=== PATIENT | male | born 1970 | race Caucasian/White ===

== ENCOUNTER 2021-08-10 14:58 | Outpatient (CLI) | payer OTHER, SELFPAY ==
[2021-08-10 15:19] VITALS: BP 121/76; PULSE 75; RESP 16; TEMP 36.7; O2SAT 98; BMI 31.7
[2021-08-10] MEDS: 0.9% Saline Lock 10 ML Syringe IV (15:22)
[2021-08-10 15:59] VITALS: BP 119/83; PULSE 70; RESP 16; TEMP 36.8; O2SAT 98
[2021-08-10 16:59] VITALS: BP 128/79; PULSE 66; PULSE 69; RESP 16; TEMP 36.9; O2SAT 97; O2SAT 99
== END 2021-08-10 23:59 | disposition home or self-care (01) ==
LOC: MS3OUT 15:03 → MS3 15:04
PROVIDERS: Referring Provider Nurse Practitioner Acute Care; Visit Provider Nurse Practitioner Acute Care
DX: Z23 Encounter for immunization (principal); U07.1 COVID-19
CPT/HCPCS: J7050; M0245; Q0245; A4216

== ENCOUNTER → 2023-02-06 | Outpatient (CLI) | payer OTHER, SELFPAY ==
--- NOTE | 2023-02-06 15:39 | RAD_ITS ---
EXAM: XR LUMBOSACRAL SPINE, 4 OR 5 VIEWS CLINICAL INDICATION: CHRONIC LOWER BACK PAIN TECHNIQUE: 4 views including AP, lateral and bilateral oblique views. COMPARISON: No relevant prior studies available. FINDINGS: VERTEBRAE: Unremarkable. Preserved vertebral body height. No fracture. No spondylolisthesis. Preservation of the normal lumbar lordosis. No significant facet arthropathy. DISC SPACES: No acute findings. Disc spaces are maintained. GASTROINTESTINAL TRACT: Unremarkable as visualized. Included bowel gas pattern is non-obstructive. RAD/L/S Spine Min 4 Views IMPRESSION: No evidence of lumbar spinal fracture or spondylolisthesis. Electronically Signed: Torie Hernandez MD at 7:57 EDT ,
== END | disposition home or self-care (01) ==
PROVIDERS: PCP Family Medicine; Referring Provider Family Medicine; Visit Provider Family Medicine
DX: M54.50 Low back pain, unspecified (principal)
CPT/HCPCS: 72110

== ENCOUNTER → 2023-10-11 | Outpatient (CLI) | payer OTHER, SELFPAY ==
[2023-10-11 12:28] LABS: Absolute Lymphocyte Count 1.95 X10^3/uL (0.83-4.51); Absolute Neutrophil Count 3.7 X10^3/uL (2.0-7.7); Basophil# 0.05 X10^3/uL; Basophil% 0.8 % (0-1); Eosinophil# 0.13 X10^3/uL; Hematocrit 46.3 % (40-54); Hemoglobin 15.2 g/dL (13.0-16.5); Lymphocyte # 1.95 X10^3/ul (0.83-4.51); Lymphocyte % 30.2 % (19-41); Mean Corp Hgb Conc 32.8 g/dL (32-36); Mean Corpuscular Hgb 27.5 pg (27.0-32.0); Mean Corpuscular Volume 83.7 fL (80-94); Mean Platelet Vol. 10.4 fl (6.2-12.0); Monocyte# 0.62 X10^3/uL; Monocyte% 9.6 % (0-10); NRBC Flagged by Analyzer 0 % (0-5); Neutrophil % 57.2 % (47-70); Platelet Count 334 K/mm3 (150-450); RBC Distribution Width CV 12.5 % (11.6-14.6); Red Blood Count 5.53 M/mm3 (4.6-6.2); White Blood Count 6.5 K/mm3 (4.4-11.0)
[2023-10-11 13:15] LABS: AST(SGOT) 21 U/L (15-37); Alanine Aminotransfer ALT/SGPT 28 U/L (16-61); Albumin, Serum 3.8 g/dL (3.2-5.0); Alkaline Phosphatase 79 U/L (45-117); Anion Gap 5 (5-15); BUN 12 mg/dL (7-18); BUN/Creat Ratio 10.7 RATIO (10-20); Calcium,Total 9.1 mg/dL (8.5-10.1); Chloride 107 mmol/L (98-107); Cholesterol 126 mg/dL (200); Creatinine, Serum 1.12 mg/dL (0.70-1.30); EST Glomerular Filtration Rate 73 mL/min (>60); Est Glom Filt Rate - Afr Amer 88 mL/min (>60); Globulin 3.9 g/dL (2.2-4.2); Glucose 91 mg/dL (74-106); High Density Lipoprotein 38 mg/dL; PSA,Total - Annual Screen 0.95 ng/mL (0.00-4.00); Potassium 4.1 mmol/L (3.5-5.1); Protein, Total 7.7 g/dL (6.4-8.2); Sodium Level 138 mmol/L (136-145); Triglycerides 69 mg/dL; Very Low Density Lipoprotein 14 mg/dL (5-40)
== END | disposition home or self-care (01) ==
PROVIDERS: PCP Internal Medicine; Referring Provider Internal Medicine; Visit Provider Internal Medicine
DX: Z00.00 Encounter for general adult medical examination without abnormal findings (principal)
CPT/HCPCS: 36415; 80053; 80061; 84153; 85025; G0103

== ENCOUNTER → 2024-02-12 | Outpatient (CLI) | payer OTHER, SELFPAY ==
[2024-02-12 09:02] LABS: Absolute Lymphocyte Count 1.97 X10^3/uL (0.83-4.51); Absolute Neutrophil Count 2.8 X10^3/uL (2.0-7.7); Basophil# 0.05 X10^3/uL; Basophil% 0.8 % (0-1); Eosinophil# 0.22 X10^3/uL; Eosinophils% 3.7 % (0-5); Hematocrit 44.6 % (40-54); Hemoglobin 14.7 g/dL (13.0-16.5); Lymphocyte # 1.97 X10^3/ul (0.83-4.51); Lymphocyte % 33.3 % (19-41); Mean Corpuscular Hgb 28.1 pg (27.0-32.0); Mean Corpuscular Volume 85.3 fL (80-94); Mean Platelet Vol. 9.5 fl (6.2-12.0); Monocyte# 0.83 X10^3/uL; NRBC Flagged by Analyzer 0 % (0-5); Neutrophil # 2.81 X10^3/uL (2.7-7.7); Neutrophil % 47.5 % (47-70); Platelet Count 261 K/mm3 (150-450); RBC Distribution Width CV 12.7 % (11.6-14.6); RBC Distribution Width SD 39.3 fl (35.1-43.9); Red Blood Count 5.23 M/mm3 (4.6-6.2); White Blood Count 5.9 K/mm3 (4.4-11.0)
[2024-02-15 08:13] LABS: Alternaria alternata <0.10 kU/L (Class 0); Bermuda Grass <0.10 kU/L (Class 0); Bluegrass, Kentucky <0.10 kU/L (Class 0); Cat Hair/Dander, Standard <0.10 kU/L (Class 0); D farinae Mite <0.10 kU/L (Class 0); D pteronyssinus <0.10 kU/L (Class 0); Dog Epithelia <0.10 kU/L (Class 0); Elm, American White <0.10 kU/L (Class 0); Mouse Urine <0.10 kU/L (Class 0); Oak, White <0.10 kU/L (Class 0); Plantain, English <0.10 kU/L (Class 0); Ragweed, Short/Common <0.10 kU/L (Class 0)
[2024-02-21 17:07] LABS: Aspirgillus flavus Negative (Neg:<1:1); Aspirgillus fumigatus Negative (Neg:<1:1); Aspirgillus niger Negative (Neg:<1:1); Immunoglobulin E 32 IU/mL (6-495)
== END | disposition home or self-care (01) ==
LOC: PAVLAB 08:42
PROVIDERS: PCP Internal Medicine; Referring Provider Nurse Practitioner Acute Care; Visit Provider Nurse Practitioner Acute Care
DX: J30.2 Other seasonal allergic rhinitis (principal)
CPT/HCPCS: 36415; 82785; 85025; 86003; 86606

== ENCOUNTER 2024-03-28 14:41 | Emergency (ER) | payer OTHER, SELFPAY ==
[2024-03-28] VITALS (7 sets, daily range): BP systolic 110–157; BP diastolic 78–97; PULSE 55–74; RESP 12–18; TEMP 35.5–36.2; O2SAT 97–99; BMI 33.7
--- NOTE | 2024-03-28 15:09 | ED.VIS.CHEST ---
HPI History of Present Illness Chief Complaint: Chest Pain Informant: patient and spouse/S.O. Narrative Narrative: Is a very pleasant 53-year-old male presenting to the emergency room with intermittent chest pain. Patient states around 1230 he developed a pressure-like sensation midsternal radiating under each breast. He states it last for few seconds and then resolves for seconds to minutes. It has persisted. He states that the time he had just gotten off the phone and was stressed out for work reasons. He states that he gets acid reflux and this feels different. He is not feeling his back shoulder draws. He states that he has a history of having a Ross procedure about 20 years ago. He saw his charge master analyst earlier this year had a uneventful checkup. Patient states this sensation is very typical for him. He denies any recent change in medications or exercise tolerance. He denies any pleuritic component to the pain. No prior DVT PE. [facility] Medical History Anxiety with flying [facility] health care Sleep apnea Frequent headaches Heart disease COVID-19 Home Medications ?Medication ?Instructions ?Recorded ?Last Taken ?Type aspirin 81 mg tablet 81 mg PO DAILY 08/10/21 Unknown History metoprolol tartrate 25 mg tablet 12.5 mg (1/2 x 25 mg) PO DAILY #90 11/06/23 Unknown Rx tabs lorazepam 1 mg tablet 1 mg PO DAILY PRN anxiety 02/12/24 Unknown History Allergy/AdvReac Type Severity Reaction Status Date / Time Iodinated Contrast Media Allergy Severe Anaphylaxis Verified 03/28/24 14:43 (iodine contrast) peanut (peanuts) Allergy Severe Anaphylaxis Verified 03/28/24 14:43 shellfish derived Allergy Severe Anaphylaxis Verified 03/28/24 14:43 diphenhydramine (From AdvReac Intermediate Hives Verified 03/28/24 14:43 Benadryl) Family History no significant family his Surgical History S/P Ross procedure Heart valve replaced Social History adopted: No household members: spouse current occupational status: employed current occupation: [employer] pets and animals: Yes (2) pets and animals: dog(s) leisure activities: hunting and fishing Smoking Status: Never smoker Smokeless tobacco user: chewing tobacco alcohol intake: never substance use type: does not use diet: other well-balanced diet: daily or most days caffeine: No frequency: daily seatbelt use: always do you feel safe at home: Yes ROS ROS ED Constitutional Constitutional ED: Denies chills, fever(s) or weight loss Eyes Eyes: Denies change in vision or diplopia ENT ENT ED: Denies ear pain, rhinorrhea or sore throat Cardiovascular Cardiovascular: Reports chest pain; Denies orthopnea, palpitations or racing heartbeat Respiratory/Chest Respiratory/Chest: Denies cough, dyspnea, dyspnea on exertion or orthopnea Gastrointestinal Gastrointestinal: Denies abdominal pain, diarrhea, nausea or vomiting Genitourinary Genitourinary ED: Denies dysuria, hematuria or urinary frequency Musculoskeletal Musculoskeletal: Denies arthralgias or myalgias Integumentary Denies abscess or rash Neurologic Neurologic: Denies headache(s) or weakness Psychiatric Psychiatric: Denies anxiety, depression, suicidal ideation or suicidal thoughts Endocrine Endocrinology: Denies polydipsia, polyphagia or polyuria Allergic/Immunologic Allergic/Immunologic ED: Denies mouth swelling, tongue swelling or urticaria EXAM Physical Exam Const Vital Signs: 03/28/24 14:41 03/28/24 14:43 03/28/24 15:41 Temperature 96 F L Temperature Source Temporal Pulse Rate 74 61 Respiratory Rate 18 15 Respiratory Effort Normal Blood Pressure 152/97 H 130/90 H Blood Pressure Mean 115 103 Pulse Ox 98 97 Oxygen Delivery Method Room Air Room Air 03/28/24 16:00 03/28/24 17:00 03/28/24 18:00 Temperature Temperature Source Pulse Rate 61 62 55 L Respiratory Rate 15 16 18 Respiratory Effort Blood Pressure 110/84 H 134/93 H 131/78 H Blood Pressure Mean 92 106 95 Pulse Ox 98 98 99 Oxygen Delivery Method Room Air Room Air Room Air Positive well nourished and well developed General Appearance ED: well developed and NAD HEENT Reports normocephalic, head/scalp atraumatic and moist mucous membranes Eyes PERRL and EOMs intact bilaterally Neck no lymphadenopathy, supple and no JVD Resp normal respiratory effort and clear to auscultation bilaterally Cardio regular rate, regular rhythm and no murmurs GI normal to inspection, nondistended, normoactive bowel sounds and non-tender Palpation: soft Back/Spine no CVA tenderness and normal ROM Extremity normal to inspection General Extremety ED: Negative for edema General Extremity: Negative for edema Neuro oriented x3 and CN's II-XII intact bilaterally Sensorium / Orientation: alert Motor Exam: strength 5/5 throughout Psych mental status grossly normal Mood & Affect: Negative for depressed or tearful Skin no rashes or lesions noted and no wounds MDM MDM MDM Narrative Medical decision making narrative: Differential diagnosis includes but not limited to acute coronary syndrome, PE, esophagitis gastritis/reflux disease, aortic dissection, pneumothorax, pneumonia, pleural effusion, pericardial effusion, Interpretation of the single view chest x-ray is no acute process. White count 7.8 hemoglobin 15.3 platelet count is 291 D-dimer is negative troponin is 8 glucose 111. EKG is nonischemic no priors to compare to. Patient received a GI cocktail and states that his symptoms have dissipated slowly. A second troponin was obtained. This also was negative. At this point patient be discharged home. We talked about possible home treatment for esophagitis as well as follow-up. Patient notes understanding the plan is to his . History & Record Review Discussion w/independent historian: Patient and Significant other Lab Data Attestation: I reviewed the patient's lab results. Labs: Laboratory Results - last 24 hr 03/28/24 03/28/24 03/28/24 15:01 15:08 17:00 WBC 7.8 RBC 5.52 Hgb 15.3 Hct 45.3 MCV 82.1 MCH 27.7 MCHC 33.8 RDW Std Deviation 37.0 RDW Coeff of Karl 12.3 Plt Count 291 MPV 10.3 Immature Gran % (Auto) 0.500 Neut % (Auto) 62.7 Lymph % (Auto) 23.8 [place] % (Auto) 9.8 Eos % (Auto) 2.7 Baso % (Auto) 0.5 Absolute Neuts (auto) 4.9 Absolute Lymphs (auto) 1.85 Nucleated RBC % 0 D-Dimer Quant (PE/DVT) < 0.27 L Sodium 138 Potassium 3.9 Chloride 108 H Carbon Dioxide 25.0 Anion Gap 5 BUN 18 Creatinine 1.21 Estim Creat Clear Calc 82.89 Est GFR (MDRD) Af Amer 80 Est GFR (MDRD) Non-Af 66 BUN/Creatinine Ratio 14.9 Glucose 111 H Calcium 9.3 Troponin I High Sens 8 7 Radiography Diagnostic Testing: Clinical Impression(s) from Imaging Studies Chest X-Ray 03/28/24 15:25 IMPRESSION: Cardiomegaly. Clear lungs. Electronically Signed: Jeff Barth MD at 15:54 EDT , EKG Initial EKG: Attestation: I personally reviewed and interpreted this EKG as follows: Comments: Normal sinus rhythm ventricular rate of 64 bpm. No definitive features of ACS noted. Discharge Plan Triage Chief Complaint: Chest Pain ED Provider: Inocente Wade Dx/Rx/DC Orders Clinical Impression: Chest pain, S/P Ross procedure Instructions: ED Chest Pain, Uncertain Cause Prescriptions: No Action lorazepam 1 mg tablet 1 mg PO DAILY PRN (Reason: anxiety) Rx Instructions: prior to flights aspirin 81 mg Tablet 81 mg PO DAILY metoprolol tartrate 25 mg tablet 12.5 mg PO DAILY Qty: 90 1RF Primary Care Provider: Jossue Fish Referrals: Jossue Fish MD [Primary Care Provider] - As Needed Activity Restrictions/Additional Instructions: You may try taking a Pepcid once or twice daily over the next week as we discussed for possible inflammation of the esophagus. Print Language: Guinean Disposition Disposition: Home, Self Care
--- NOTE | 2024-03-28 15:15 | EKG12_ITS ---
Test Reason : CHEST PAIN Blood Pressure : / mmHG Vent. Rate : 064 BPM Atrial Rate : 064 BPM P-R Int : 198 ms QRS Dur : 090 ms QT Int : 414 ms P-R-T Axes : 030 029 053 degrees QTc Int : 427 ms Normal sinus rhythm Normal ECG Confirmed by MARCO A STEINBERG, MARQUITA ([id number]), editor newspaper LEXIE UBNN ([id number]) on 04/01/2024 8:13:02 AM Referred By: Confirmed By:MARQUITA STRICKLAND MD
[2024-03-28] MEDS: Lidocaine 2% Viscous15 ML UDC 15 ML PO (15:19)
[2024-03-28] MEDS: Aspirin 81 MG TAB.CHEW 324 MG PO (15:20)
[2024-03-28] MEDS: Mag /Aluminum/Simeth WCH UDC 30 ML ORAL.SUSP PO (15:20)
--- NOTE | 2024-03-28 15:25 | RAD_ITS ---
STUDY: X-RAY CHEST REASON FOR EXAM: Male, 53 years old. Chest pain TECHNIQUE: Frontal view of the chest COMPARISON: None. FINDINGS: The lungs are clear. There are no pleural effusions. There is no pneumothorax. The heart is enlarged. The patient is status post sternotomy. The visualized osseous structures are within normal limits. RAD/Chest 1 View (Portable) IMPRESSION: Cardiomegaly. Clear lungs. Electronically Signed: Jeff Barth MD at 15:54 EDT ,
[2024-03-28 15:31] LABS: Absolute Lymphocyte Count 1.85 X10^3/uL (0.83-4.51); Absolute Neutrophil Count 4.9 X10^3/uL (2.0-7.7); Basophil# 0.04 X10^3/uL; Basophil% 0.5 % (0-1); Eosinophil# 0.21 X10^3/uL; Eosinophils% 2.7 % (0-5); Hematocrit 45.3 % (40-54); Hemoglobin 15.3 g/dL (13.0-16.5); Lymphocyte # 1.85 X10^3/ul (0.83-4.51); Lymphocyte % 23.8 % (19-41); Mean Corp Hgb Conc 33.8 g/dL (32-36); Mean Corpuscular Hgb 27.7 pg (27.0-32.0); Mean Corpuscular Volume 82.1 fL (80-94); Mean Platelet Vol. 10.3 fl (6.2-12.0); Monocyte# 0.76 X10^3/uL; Monocyte% 9.8 % (0-10); NRBC Flagged by Analyzer 0 % (0-5); Neutrophil # 4.88 X10^3/uL (2.7-7.7); Neutrophil % 62.7 % (47-70); Platelet Count 291 K/mm3 (150-450); RBC Distribution Width CV 12.3 % (11.6-14.6); Red Blood Count 5.52 M/mm3 (4.6-6.2); White Blood Count 7.8 K/mm3 (4.4-11.0)
[2024-03-28 16:03] LABS: D-Dimer Quantitative (DVT/PE) < 0.27 FEU/ug/m (0.27-0.49)
[2024-03-28 16:08] LABS: Anion Gap 5 (5-15); BUN 18 mg/dL (7-18); BUN/Creat Ratio 14.9 RATIO (10-20); Calcium,Total 9.3 mg/dL (8.5-10.1); Chloride 108 mmol/L (98-107); Creatinine, Serum 1.21 mg/dL (0.70-1.30); EST Glomerular Filtration Rate 66 mL/min (>60); Est Glom Filt Rate - Afr Amer 80 mL/min (>60); Estimated Creatinine Clearance 82.89 ml/min; Glucose 111 mg/dL (74-106); Potassium 3.9 mmol/L (3.5-5.1); Sodium Level 138 mmol/L (136-145); Troponin-I HS (w/2H Reflex) 8 pg/mL (3.0-78.0)
[2024-03-28 17:48] LABS: Reflex Troponin-HS? (from REC) Y
[2024-03-28 18:34] LABS: Troponin-I HS 7 pg/mL (3.0-78.0)
== END 2024-03-28 19:12 | disposition home or self-care (01) ==
PROVIDERS: Emergency Provider Emergency Medicine; PCP Internal Medicine; Visit Provider Emergency Medicine
DX: R07.9 Chest pain, unspecified (principal); Z86.16 Personal history of COVID-19
CPT/HCPCS: 71045; 80048; 84484; 85025; 85379; 93005; 99284; A4216

== ENCOUNTER → 2024-10-11 | Outpatient (CLI) | payer OTHER, SELFPAY ==
[2024-10-11 13:09] LABS: Absolute Lymphocyte Count 2.07 X10^3/uL (0.83-4.51); Absolute Neutrophil Count 3.4 X10^3/uL (2.0-7.7); Basophil# 0.04 X10^3/uL; Basophil% 0.6 % (0-1); Eosinophil# 0.13 X10^3/uL; Hematocrit 44.4 % (40-54); Hemoglobin 15.2 g/dL (13.0-16.5); Lymphocyte # 2.07 X10^3/ul (0.83-4.51); Lymphocyte % 32.4 % (19-41); Mean Corp Hgb Conc 34.2 g/dL (32-36); Mean Corpuscular Hgb 28.3 pg (27.0-32.0); Mean Corpuscular Volume 82.7 fL (80-94); Mean Platelet Vol. 10.4 fl (6.2-12.0); Monocyte# 0.72 X10^3/uL; Monocyte% 11.3 % (0-10); NRBC Flagged by Analyzer 0 % (0-5); Neutrophil # 3.41 X10^3/uL (2.7-7.7); Neutrophil % 53.4 % (47-70); Platelet Count 298 K/mm3 (150-450); RBC Distribution Width CV 12.2 % (11.6-14.6); RBC Distribution Width SD 37.1 fl (35.1-43.9); Red Blood Count 5.37 M/mm3 (4.6-6.2); White Blood Count 6.4 K/mm3 (4.4-11.0)
[2024-10-11 13:23] LABS: ALB/GLOB Ratio 1.3 RATIO (0.9-2.4); AST(SGOT) 19 U/L (<=37); Alanine Aminotransfer ALT/SGPT 25 U/L (<=46); Albumin, Serum 4.3 g/dL (3.5-5.0); Alkaline Phosphatase 79 U/L (40-129); Anion Gap 11 (5-15); BUN 18 mg/dL (4-19); BUN/Creat Ratio 13.9 RATIO (10-20); Calcium,Total 9.3 mg/dL (7.6-11.0); Carbon Dioxide 23.7 mmol/L (21.0-32.0); Chloride 103 mmol/L (98-108); Creatinine, Serum 1.29 mg/dL (0.70-1.20); EST Glomerular Filtration Rate 66 (>60); Globulin 3.2 g/dL (2.2-4.2); Glucose 93 mg/dL (70-99); PSA,Total - Annual Screen 0.57 ng/mL (0.02-4.00); Potassium 4.3 mmol/L (3.3-5.1); Protein, Total 7.5 g/dL (5.9-8.4); Sodium Level 137 mmol/L (133-145); Total Bilirubin 0.42 mg/dL (0.00-1.30)
[2024-10-11 16:09] LABS: Cholesterol 120 mg/dL (<=200); High Density Lipoprotein 36 mg/dL; Low Density Lipoprotein Calc. 70 mg/dL; Triglycerides 68 mg/dL; Very Low Density Lipoprotein 14 mg/dL (5-40)
== END | disposition home or self-care (01) ==
LOC: BIMLAB 11:02
PROVIDERS: PCP Internal Medicine; Referring Provider Internal Medicine; Visit Provider Internal Medicine
DX: Z00.00 Encounter for general adult medical examination without abnormal findings (principal); Z12.5 Encounter for screening for malignant neoplasm of prostate
CPT/HCPCS: 36415; 80053; 80061; 84153; 85025; G0103

== ENCOUNTER 2025-02-02 10:51 | Emergency (ER) | payer OTHER, SELFPAY ==
[2025-02-02 10:53] VITALS: BP 153/98; PULSE 77; RESP 16; TEMP 36.8; O2SAT 96; BMI 34.2
--- NOTE | 2025-02-02 11:16 | EX.ED.UPPERE ---
HPI History of Present Illness HPI Narrative: Patient presents with fishhook to his right thumb that occurred today. Patient states he was attempting to remove the hook from the fish. Patient states the fish show acute and the hook went into his right thumb. Patient is unsure of his last tetanus. Patient admits to occasional stinging pain in his thumb. Patient states nothing makes it worse and nothing makes it better. Patient denies any paresthesias or weakness. Patient denies any other injuries. 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 [facility] Sleep apnea Frequent headaches Heart disease COVID-19 Home Medications ?Medication ?Instructions ?Recorded ?Last Taken ?Type aspirin 81 mg tablet 81 mg PO DAILY 08/10/21 Unknown History metoprolol tartrate 25 mg tablet 12.5 mg (1/2 x 25 mg) PO DAILY #90 08/21/24 Unknown Rx tabs cephalexin 500 mg capsule 500 mg PO Q6 #40 CAPSULES 02/02/25 Unknown Rx Allergy/AdvReac Type Severity Reaction Status Date / Time Iodinated Contrast Media Allergy Severe Anaphylaxis Verified 02/02/25 10:54 (iodine contrast) peanut (peanuts) Allergy Severe Anaphylaxis Verified 02/02/25 10:54 shellfish derived Allergy Severe Anaphylaxis Verified 02/02/25 10:54 diphenhydramine (From AdvReac Intermediate Hives Verified 02/02/25 10:54 Benadryl) Surgical History S/P Ross procedure Heart valve replaced Social History adopted: No household members: spouse current occupational status: employed current occupation: [employer] pets and animals: Yes (2) pets and animals: dog(s) leisure activities: hunting and fishing Smoking Status: Never smoker Smokeless tobacco user: chewing tobacco alcohol intake: never substance use type: does not use diet: other well-balanced diet: daily or most days caffeine: No frequency: daily seatbelt use: always do you feel safe at home: Yes ROS ROS ED Constitutional Constitutional ED: Denies chills or fever(s) Eyes Eyes: Denies blurry vision or change in vision ENT ENT ED: Denies rhinorrhea or sore throat Cardiovascular Cardiovascular: Denies chest pain or palpitations Respiratory/Chest Respiratory/Chest: Denies cough or dyspnea Gastrointestinal Gastrointestinal: Denies nausea or vomiting Genitourinary Genitourinary ED: Denies dysuria or hematuria Musculoskeletal Musculoskeletal: Denies back pain or neck pain Integumentary Denies abscess or rash Neurologic Neurologic: Denies headache(s) or weakness Allergic/Immunologic Allergic/Immunologic ED: Denies mouth swelling or urticaria EXAM Physical Exam Const Vital Signs: 02/02/25 10:53 Temperature 98.3 F Temperature Source Oral Pulse Rate 77 Respiratory Rate 16 Blood Pressure 153/98 H Blood Pressure Mean 116 Pulse Ox 96 Oxygen Delivery Method Room Air Positive well nourished and well developed General Appearance ED: well developed and NAD HEENT Reports moist mucous membranes Neck full ROM and supple Extremity Extremity Narrative: There is a fishhook foreign body in the pad of the right thumb. There is no bleeding noted. There is no surrounding erythema. There is mild tenderness. There is full range of motion of the IP and MP joints of the right thumb. Sensation was intact to light touch in all digits. Capillary refills less than 2 seconds all digits. Neuro oriented x3, CN's II-XII intact bilaterally, moves all extremities, no focal motor deficits and no sensory deficits noted Sensorium / Orientation: alert Motor Exam: strength 5/5 throughout Psych mental status grossly normal MDM MDM MDM Narrative Medical decision making narrative: Patient was given a tetanus booster. The right thumb was anesthetized with 1% plain lidocaine via digital block. After adequate anesthesia, the fishhook was pushed through the skin and the janee was cut off. The hook was then removed easily. Patient tolerated the procedure well. Patient was given a dose of Keflex here. Patient was given prescription for Keflex. Patient was instructed to keep the wound clean and dry. Patient was instructed to follow-up with his primary care physician in 5 to 7 days. Patient understood and was agreeable with the plan. All questions were answered. Procedures Other Procedures Procedure(s): The right thumb was cleaned anesthetized with 1% lidocaine via digital block. The fishhook was pushed through the skin and the janee was cut off. The fishhook was easily removed after this. Patient tolerated the procedure well. Bacitracin dressing was applied. Discharge Plan Triage Chief Complaint: Foreign Body ED Provider: Mp Chau Dx/Rx/DC Orders Clinical Impression: Foreign body of skin of right thumb, Elevated blood pressure reading Instructions: ED Foreign Body, Soft Tissue (Removed) Prescriptions: New cephalexin 500 mg capsule 500 mg PO Q6 Qty: 40 0RF No Action aspirin 81 mg Tablet 81 mg PO DAILY metoprolol tartrate 25 mg tablet 12.5 mg PO DAILY Qty: 90 1RF Primary Care Provider: Jossue Fish Referrals: Jossue Fish MD [Primary Care Provider] - 5-7 Days Print Language: Bengali Disposition Disposition: Home, Self Care
[2025-02-02] MEDS: Lidocaine 1% (20 ml mdv) 20 ML Vial INFILT (11:19)
--- OUTSIDE RECORDS SUMMARY | 2025-02-02 11:43 | XMS RPT_ITS | CCD ---
Author Organization [facility] Er ion [facility] Care Team Providers Care Campus Interviews Intern Name Role Phone ASHANTI GARCÍA Unavailable Unavailable [facility] Unavailable Unavailable [facility] Unavailable Unavailable ASHANTI GARCÍA Unavailable Unavailable [facility] Unavailable Unavailable Sulove, Saksham Unavailable Unavailable Sulove, Saksham Unavailable Unavailable Sulove, Saksham Unavailable Unavailable Sulove, Saksham Unavailable Unavailable Sulove, Saksham Unavailable Unavailable Sulove, Saksham Unavailable Unavailable Sulove, Saksham Unavailable Unavailable Sulove, Saksham Unavailable Unavailable VIV, JOSE B Unavailable Unavailable Sul[place], Saksham Unavailable Unavailable VIV, JOSE B Unavailable Unavailable VIV, JOSE B Unavailable Unavailable Sul[place], Saksham Unavailable Unavailable [place], Chung Unavailable Unavailable [place]ressona, Jose B Unavailable Unavailable Sulove, Saksham Unavailable Unavailable Viv, Jose B Primary Care Provider [phone] Jarvis Vera Primary Care Provider [phone] Jarvis Vera MD Primary Care Provider Rico Coley MD Primary Care Provider Ashanti Arambula Attending Unavailable Rico Coley Primary Care Unavailable PROVIDER, UNKNOWN Referring Unavailable Rico Coley Primary Care Unavailable PROVIDER, UNKNOWN Referring Unavailable Ashanti Betts Attending Unavailable Rico Coley Primary Care Unavailable Rico Coley Attending Unavailable PROVIDER, UNKNOWN Referring Unavailable Rico Coley Primary Care Provider [phone] Serenity Mohan MD Primary Care Provider JARVIS FLORES Referring Unavail able SERENITY MOHAN Primary Care Unavailable SERENITY MOHAN Primary Care Unavailable JARVIS FLORES Attending Unavail Rico Cota Primary Care Provider Dr. Serenity Mohan Primary Care Provider Dr. Serenity Mohan Referring Provider Dr. Pennie Fish Attending Provider Polina STEINBERG, Dr. Marcum Primary Care Provider Polina STEINBERG, Dr. Marcum Attending Provider [phone] Polina STEINBERG, Dr. Marcum Referring Provider [phone] Moriah Puckett Attending Provider Pennie Fish MD Primary Care Provider [phone] OLEGHE, EFEWONGBE B Primary Care Unavailable ASHANTI GARCÍA Attending Unavailable Polina STEINBERG, Dr. Marcum Primary Care Provider Polina STEINBERG, Dr. Marcum Referring Provider [phone] Polina STEINBERG, Dr. Marcum Attending Provider [phone] Oleghe, Efewongbe Referring Unavailable Oleghe, Efewongbe Attending Unavailable Oleghe, Efewongbe Primary Care Unavailable Oleghe, Efewongbe Referring Unavailable Oleghe, Efewongbe Primary Care Unavailable Jocelyn GASOLINE TESTER, Moriah Attending Unavailable Oleghe, Efewongbe Referring Unavailable Oleghe, Efewongbe Primary Care Unavailable Banks GASOLINE TESTER, Moriah Attending Unavailable Oleghe, Efewongbe Referring Unavailable Banks GASOLINE TESTER, Moriah Attending Unavailable Oleghe, Efewongbe Primary Care Unavailable Oleghe, Efewongbe Referring Unavailable Oleghe, Efewongbe Attending Unavailable Oleghe, Efewongbe Primary Care Unavailable Oleghe, Efewongbe Referring Unavailable Oleghe, Efewongbe Primary Care Unavailable Jocelyn GASOLINE TESTER, Moriah Attending Unavailable Oleghe, Efewongbe Primary Care Unavailable Jocelyn GASOLINE TESTER, Moriah Referring Unavailable Jocelyn GASOLINE TESTER, Moriah Attending Unavailable Oleghe, Efewongbe Referring Unavailable Oleghe, Efewongbe Attending Unavailable Oleghe, Efewongbe Primary Care Unavailable Inocente Wade Attending Unavailable [facility] Primary Care Unavailable Allergies Allergy Classification Reported Allergen(s) Allergy Type Date of Onset Reaction(s) Facility (2 sources) Nuts (not including peanuts); Translations: [Nuts] Propensity to adverse reactions to drug (disorder) [facility] Repository (2 sources) Shellfish; Translations: [shellfish] Propensity to adverse reactions to drug (disorder) [facility] (9 sources) peanut allergenic extract; Translations: [PEANUT] Drug Allergy 04-22-20 Swelling [facility] (7 sources) Shellfish Containing Products; Translations: [SHELLFISH CONTAINING PRODUCTS] Drug Allergy 04-22-20 Swelling, Unknown [facility] (9 sources) diphenhydrAMINE; Translations: [DIPHENHYDRAMINE] Drug Allergy 09-08-19 [facility] Work Phone: (8 sources) peanut allergenic extract Drug Allergy 04-22-20 Swelling [facility] Work Phone: (4 sources) Shellfish-Derived Products Propensity to adverse reactions to drug 04-22-20 Swelling [facility] Work Phone: (7 sources) diphenhydrAMINE Drug Allergy 09-08-19 [facility] (4 sources) Peanut Allergy to substance 04-22-20 Swelling [facility] (4 sources) Shellfish Allergy to substance 04-22-20 [facility] (3 sources) Shellfish; Translations: [shellfish derived] Allergy to substance 10-12-19 25 Anaphylaxis [facility] (2 sources) Triiodobenzoic Acids Allergy to substance 10-12-19 25 Anaphylaxis [facility] (1 source) diphenhydrAMINE Drug Allergy 12-28-19 [facility] (1 source) peanut allergenic extract Drug Allergy 12-28-19 [facility] (1 source) Iodinated Contrast Media Drug allergy (disorder) 12-28-19 25 [facility] Rep[facility] Medications Current Medications Medication Drug Class(es) Dates Sig (Normalized) Sig (Original) [id number] actuat albuterol 0.09 mg/actuat metered dose inhaler (4 sources) beta2-Adrenergic Agonist Start: 09-01-2022 take 2 puff(s) by mouth every four hours albuterol 108 (90 Base) MCG/ACT inhaler inhale 2 puffs by mouth and INTO THE LUNGS every 4 hours if needed 0 09/01/2022 Active amoxicillin 500 mg oral capsule (3 sources) Penicillin-class Antibacterial Start: 10-07-2020 End: 10-14-2020 take 1 capsule by mouth three times daily amoxicillin (AMOXIL) 500 MG capsule Take 1 capsule by mouth 3 times daily for 7 days 21 capsule 0 10/07/2020 10/14/2020 Active Start: 06-22-2018 amoxicillin (P OLYMOX, AMOXIL) 500 mg capsule 4 capsules one hour prior to the dentist 8 capsule 6 06/22/2018 Active Comment on above: 4 capsules one hour prior to the dentist aspirin 81 mg oral tablet (19 sources) Platelet Aggregation Inhibitor, Nonsteroidal Anti-inflammatory Drug Start: 08-10-2021 take 1 tablet by mouth once daily Aspirin 81 mg Tablet Active 81 mg PO DAILY August 10, 2021 1:00am take 1 tablet by mouth once soledad y aspirin, enteric coated (ASPIRIN, ENTERIC COATED) 81 mg EC tablet Take 81 mg by mouth once daily. Active Comment on above: Take 81 mg by mouth once daily. azelastine hydrochloride 0.137 mg/actuat metered dose nasal spray (10 sources) Histamine-1 Receptor Antagonist take 1 spray(s) nasal route twice daily azelastine (ASTELIN) 0.1% nasal spray Use 1 [place] in each nostril twice daily. Active azelastine (Aste yaron) 0.1 % nasal spray every 12 hours. 0 Active azelastine (ASTE YARON) 0.1 % nasal spray 1 spray by NOT APPLICABLE route 2 times daily 0 Active Comment on above: Use 1 [place] in each nostril twice daily. baclofen 10 mg oral tablet (10 sources) gamma-Aminobutyri c Acid-ergic Agonist Start: 04-08-2022 take 1 tablet by mouth three times daily as needed baclofen (Lioresal) 10 MG tablet Take 10 mg by mouth 3 times daily as needed. 0 04/08/2022 Active Comment on above: Take 10 mg by mouth three times daily. busPIRone hydrochloride 7.5 mg oral tablet (7 sources) Start: 01-02-2020 take 1 tablet by mouth every twelve hours as needed busPIRone (BUSPAR) 7.5 mg tablet Take 7.5 mg by mouth twice daily as needed. 01/02/2020 Active take 1 tablet by mouth twice oliva ly busPIRone HCl - 7.5 MG Oral Tablet 1 tab bid Refills: 0 Active Comment on above: Take 7.5 mg by mouth twice daily as needed. dexamethasone 4 mg oral tablet (4 sources) Corticosteroid Start: 08-05-2021 dexAMETHasone (Decadron) 4 MG tablet Take 4 mg by mouth. 0 08/05/2021 Active [id number] 0.3 ml EPINEPHrine 1 mg/ml auto-injector (6 sources) alpha-Adrenergic Agonist, beta-Adrenergic Agonist, Catecholamine EPINEPHrine (Epipen) 0.3 MG/0.3ML injection syringe Inject into the shoulder, thigh, or buttocks. 0 Active EpiPen 2-Kieran 0.3 MG/0.3ML Injection Solution Auto-injector INJECT 0.3ML INTRAMUSCULARLY DIRECTED. Refills: 0 Active escitalopram 10 mg oral tablet (14 sources) Serotonin Reuptake Inhibitor take 1 tablet by mouth once daily escitalopram oxalate (LEXAPRO) 10 mg tablet Take 10 mg by mouth once daily. Active Comment on above: Take 10 mg by mouth once daily. fluticasone propionate 0.05 mg/actuat metered dose nasal spray (10 sources) Corticosteroid Start: 09-16-19 fluticasone (Flonase) 50 MCG/ACT nasal spray 2 sprays. 0 09/16/2021 Active Start: 09-16-2021 take 2 spray(s) nasa l route once daily fluticasone (FLONASE) 50 MCG/ACT nasal spray 2 sprays by Each Nostril route daily 16 g 0 09/16/2021 Active fluticasone prop ionate (FLONASE NASAL) Use in the nose. Active fluticasone prop ionate (FLONASE NASAL) Use in the nose. 0 Active Comment on above: Use in the nose. loratadine 10 mg oral tablet (6 sources) Start: 04-07-20 take 1 tablet by mouth once daily loratadine (CLARITIN) 10 mg tablet Take 10 mg by mouth once daily. 04/07/2020 Active Comment on above: Take 10 mg by mouth once daily. montelukast 10 mg oral tablet (6 sources) Leukotriene Receptor Antagonist Start: 03-31-20 20 take 1 tablet by mouth once daily at bedtime montelukast (SINGULAIR) 10 mg tablet Take 10 mg by mouth daily at bedtime. 03/31/2020 Active Comment on above: Take 10 mg by mouth daily at bedtime. nabumetone 500 mg oral tablet (10 sources) Nonsteroidal Anti-inflammatory Drug Start: 04-08-20 take 1 tablet by mouth twice daily nabumetone (Relafen) 500 MG tablet Take 500 mg by mouth 2 times daily. 0 04/08/2022 Active Comment on above: Take 500 mg by mouth twice daily. naproxen 500 mg oral tablet (5 sources) Nonsteroidal Anti-inflammatory Drug Start: 07-27-19 naproxen (Naprosyn) 500 MG tablet Take 500 mg by mouth. 0 07/27/2021 Active perflutren lipid microspheres 1.3 mL in NaCl (PF) 0.9% 10 mL injection (DEFINITY) (4 sources) Start: 06-21-20 End: 09-20-19 24 perflutren lipid microspheres 1.3 mL in NaCl (PF) 0.9% 10 mL injection (DEFINITY) Start: 06-01-2021 End: 08-31-2022 perflutren lipid microsphere s 1.3 mL in NaCl (PF) 0.9% 10 mL injection (DEFINITY) sertraline 100 mg oral tablet (5 sources) Serotonin Reuptake Inhibitor sertraline (Zoloft) 100 MG tablet Take by mouth daily. 0 Active 125 ml sodium chloride 9 mg/ml prefilled syringe (6 sources) Start: 06-01-2021 End: 09-20-2023 sodium chloride 0.9 % (flush) 10 mL (BD POSIFLUSH) sodium chloride flush 0.9 % injection 3 mL (1 source) Start: 10-07-2020 sodium chloride flush 0.9 % injection 3 mL Completed/Discontinued Medications Medication Drug Class(es) Dates Sig (Normalized) Sig (Original) LORazepam 1 mg oral tablet (4 sources) Benzodiazepine Start: 11-08-2023 End: 10-11-2024 take 1 tablet by mouth once daily as needed for anxiety Lorazepam 1 mg tablet Discontinued 1 mg PO DAILY as needed for anxiety February 12, 2024 8:09am October 11, 2024 10:39am prior to flights metoprolol tartrate 25 mg oral tablet (20 sources) beta-Adrenergic Dat Start: 08-10-2021 End: 08-21-2024 Metoprolol Tartrate 25 mg tablet Discontinued 12.5 mg PO DAILY November 06, 2023 12:53pm August 21, 2024 2:02pm Start: 08-10-2021 End: 10-11-2023 take 12.5 mg by mouth once daily Metoprolol Tartrate A ctive 12.5 MG PO DAILY October 11, 2023 10:59am Start: 06-01-2021 take 1 tablet by layla th once daily metoprolol succinate ER (TOPROL XL) 25 mg 24 hr tablet Take 1 tablet by mouth once daily. 90 tablet 3 06/01/2021 Active take 1 tablet by alyla th once daily metoprolol succinate XL (Toprol-XL) 25 MG 24 hr tablet Take 12.5 mg by mouth daily. 0 Active take 1 tablet by layla th once daily metoprolol succinate (TOPROL XL) 25 MG extended release tablet Take 25 mg by mouth daily 0 Active take 1 tablet by layla th once daily Metoprolol Tartrate 25 MG Oral Tablet TAKE 1 TABLET DAILY. Quantity: 90 Refills: 3 Active Comment on above: Take 25 mg by mouth once daily. Take 1 tablet by layla th once daily. Problems Active Problems Problem Classification Problem Date Documented Da te Episodic/Chronic Anxiety disorders (8 sources) Agoraphobia with panic attacks; Translations: [Anxiety disorder, unspecified] Onset: 07-27-2021 Chronic Cardiac dysrhythmias (13 sources) Palpitations; Translations: [Palpitations] Onset: 02-22-2018 Resolved: 08-04-2021 02-22-2018 Episodic Essential hypertension (6 sources) Benign hypertension; Translations: [Essential (primary) hypertension] Onset: 08-04-2021 08-04-2021 Chronic Heart valve disorders (20 sources) History of aortic valve replacement; Translations: [H/O: heart valve recipient] Onset: 04-01-2016 02-22-2018 Chronic Nonspecific chest pain (11 sources) Chest pain; Translations: [Chest pain, unspecified] Onset: 05-26-2023 Resolved: 08-04-2021 04-01-2016 Episodic Other non-traumatic joint disorders (2 sources) Knee pain; Translations: [Left knee pain] Episodic Other non-traumatic joint disorders (4 sources) Hip pain; Translations: [Pain in right hip] 10-11-2024 Episodic Other non-traumatic joint disorders (1 source) Pain in right hip; Translations: [Pain in right hip] Onset: 11-05-2024 Episodic Other nutritional; endocrine; and metabolic disorders (7 sources) Body mass index 30+ - obesity; Translations: [Obesity, unspecified] Onset: 06-21-2022 Chronic Other nutritional; endocrine; and metabolic disorders (6 sources) Obesity; Translations: [Obesity, unspecified] 09-25-2024 Chronic Other nutritional; endocrine; and metabolic disorders (1 source) Obesity, unspecified; Translations: [Obesity (BMI 30-39.9)] Onset: 06-21-2022 Chronic Other nutritional; endocrine; and metabolic disorders (1 source) Morbid (severe) obesity due to excess calories; Translations: [Morbid (severe) obesity due to excess calories] Onset: 11-05-2024 Chronic Other nutritional; endocrine; and metabolic disorders (1 source) Body mass index (BMI) 35.0-35.9, adult; Translations: [Body mass index [BMI] 35.0-35.9, adult] Onset: 11-05-2024 Chronic Other upper respiratory disease (5 sources) Allergic rhinitis due to pollen; Translations: [Allergic rhinitis due to pollen] Onset: 03-30-2022 03-30-2022 Chronic Other upper respiratory disease (2 sources) Seasonal allergy; Translations: [Other seasonal allergic rhinitis] 04-02-2024 Chronic Other upper respiratory disease (1 source) Other seasonal allergic rhinitis; Translations: [Other seasonal allergic rhinitis] Onset: 03-04-2024 Chronic Other upper respiratory disease (1 source) Pain in throat; Translations: [Throat pain] Episodic Otitis media and related conditions (1 source) Acute serous otitis media of left ear; Translations: [Acute serous otitis media of left ear, recurrence not specified] Residual codes; unclassified (6 sources) Obstructive sleep apnea of adult; Translations: [Obstructive sleep apnea (adult) (pediatric)] Onset: 08-04-2021 08-04-2021 Chronic Residual codes; unclassified (2 sources) Sleep apnea, unspecified; Translations: [Sleep apnea, unspecified] Onset: 07-27-2021 Chronic Residual codes; unclassified (4 sources) Sleep apnea; Translations: [Sleep apnea, unspecified] 02-12-2024 Chronic Comment on above: AutoPap 4-20 Residual codes; unclassified (1 source) Obstructive sleep apnea (adult) (pediatric); Translations: [Obstructive sleep apnea (adult) (pediatric)] Onset: 10-14-2024 Chronic Spondylosis; intervertebral disc disorders; other back problems (2 sources) Spondylosis without myelopathy or radiculopathy, lumbosacral region; Translations: [Spondyls w/o myelopathy or radiculopathy, lumbosacr region] Onset: 05-16-2022 Chronic Unclassified (1 source) Unknown / UNK(Unknown) Onset: 02-22-2018 Unclassified (1 source) Low back pain, unspecified; Translations: [Low back pain, unspecified] Onset: 05-16-2022 Unclassified (1 source) Obesity, class 2; Translations: [Obesity, class 2] Onset: 11-05-2024 Viral infection (3 sources) Disease caused by 2019-nCoV; Translations: [COVID-19] 08-05-2021 Episodic Past or Other Problems Problem Classification Problem Date Documented Da te Episodic/Chronic Allergic reactions (2 sources) Allergy status to other drugs, medicaments and biological substances status; Translations: [Allergy status to other drug/meds/biol subst] Onset: 07-27-2021 Episodic Disorders of teeth and jaw (4 sources) Gingival disease; Translations: [Disorder of gingiva and edentulous alveolar ridge, unspecified] Onset: 07-04-2024 06-19-2024 Episodic E Codes: Fall (2 sources) Fall on same level due to ice and snow, initial encounter; Translations: [Fall on same level due to ice and snow, initial encounter] Onset: 07-27-2021 Episodic Other aftercare (2 sources) Other termite treater helper (current) drug therapy; Translations: [Other termite treater helper (current) drug therapy] Onset: 07-27-2021 Episodic Other aftercare (2 sources) termite treater helper (current) use of aspirin; Translations: [termite treater helper (current) use of aspirin] Onset: 07-27-2021 Episodic Other injuries and conditions due to external causes (2 sources) Unspecified injury of right wrist, hand and finger(s), initial encounter; Translations: [Unsp injury of right wrist, hand and finger(s), init encntr] Onset: 07-27-2021 Episodic Spondylosis; intervertebral disc disorders; other back problems (5 sources) Low back pain; Translations: [Low back pain] Onset: 04-08-2022 04-08-2022 Episodic Sprains and strains (10 sources) Sprain of right wrist; Translations: [Unspecified sprain of right wrist, initial encounter] Onset: 07-27-2021 Episodic Superficial injury; contusion (4 sources) Blister; Translations: [Blister (nonthermal) of oral cavity, initial encounter] Onset: 07-04-2024 06-19-2024 Episodic Unclassified (1 source) Low back pain, unspecified; Translations: [Low back pain, unspecified] Onset: 05-16-2022 Results Test Name Value Interpretation Reference Range Facility Pulmonary Visit Reporton Pulmonary Visit Report [facility] [address] [place] [address] OFFICE VISIT Date of Service: 12/27/24 MR#: [id number] Acct: [id number] Name: ANGEL BAHENA JrAlex Rep #: [id number] : 1970 Provider: KEVON Banks Age/Sex: 54/M Location: [facility] Status: Signed Assessment and Plan Assessment and Plan (1) Sleep apnea: Status: Chronic Qualifiers: Sleep apnea type: obstructive Qualified Code(s): G47.33 - Obstructive sleep apnea (adult) (pediatric) Comment: AutoPap 4-20 Plan: He is using and benefiting from Pap therapy. No indication for titration study at this time. Ordering him a replacement machine, his device is likely over 10 years old. Contact the office for any new or worsening symptoms in the meantime. Follow-up in 3 months. (2) Obesity: Status: Chronic Qualifiers: Obesity type: due to excess calories Obesity classification: adult class 2 (BMI 35 - 39.9) Serious obesity comorbidity presence: with serious comorbidity Body mass index: BMI 35.0-35.9 Qualified Code(s): E66.812 - Obesity, class 2; E66.01 - Morbid (severe) obesity due to excess calories; Z68.35 - Body mass index [BMI] 35.0-35.9, adult Plan: Continue to encourage weight loss. Plan Details Additional Comments: This note was generated with [employer] dictation software. It may contain incorrect words, spelling, and punctuation that were not noted in checking the note before signing. Follow Up: 3 Months HPI HPI Comments Details: This patient presents to the office today for follow-up of his obstructive sleep apnea. He is ambulatory and currently on room air. He has not recently been seen in the ED or urgent care for any respiratory illness. He has not required any antibiotics or prednisone for any breathing problems. He is a lifelong never smoker. He denies any difficulty with shortness of breath. He does have a cough in the morning that is nonproductive. He has occasional headaches, sometimes in the morning. He denies any wheezing, chest tightness, chest pain or palpitations. He also denies any fever, chills or body aches. He wakes feeling rested refreshed. He is not having difficulty with mask leaks. He reports some dry mouth. He denies morning headaches. He is not requiring naps and is not nodding off to sleep. Compliance report for the past 30 days shows 90 % compliance with average use of 7 hours and 28 minutes on nights being used. Current setting is AutoPap 4-20 cmH2O pressure typically being utilized at 7.9-11.7 cm of water. Residual AHI 0.4 events per hour. Leaks do not appear to be a problem. Intake Vital Signs 10/11/24 10:42 12/27/24 08:14 Height 5 ft 9 in 5 ft 9 in Weight: 239 lb BMI 35.2 BP 135/87 H Blood Pressure Location Lt brachial Position Sitting Respiration 16 Pulse 68 Pulse Source NIBP Temp 97.4 F L Temperature Source Temporal Artery Pulse Oximetry (%) 98 Oxygen Delivery Method room air Intake Visit Reasons: Pap Machine Chief Complaint: Yearly visit Outboard Motor Inspector Required: No DME Vendor: [employer] Accompanied by: Self Is patient in pain?: No Allergies Iodinated Contrast Media (iodine contrast) Allergy (Severe, Verified 12/27/24 08:30) Anaphylaxis peanut (peanuts) Allergy (Severe, Verified 12/27/24 08:30) Anaphylaxis shellfish derived Allergy (Severe, Verified 12/27/24 08:30) Anaphylaxis diphenhydramine (From Benadryl) Adverse Reaction (Intermediate, Verified 12/27/24 08:30) Hives Medications ???Medication ???Instructions ???Recorded ???Confirmed ???Type aspirin 81 mg tablet 81 mg PO DAILY 08/10/21 12/27/24 H istory metoprolol tartrate 25 mg tablet 12.5 mg (1/2 x 25 mg) PO DAILY #90 08/21/24 12/27/24 Rx tabs Have you fallen in the past year?: No [facility] Medical History Right hip pain Gingiva disorder Non-thermal blister of oral cavity Anxiety with flying Preventative health care Sleep apnea Frequent headaches Heart disease COVID-19 Surgical History S/P Ross procedure Heart valve replaced Social History adopted: No household members: spouse current occupational status: employed current occupation: [employer] pets and animals: Yes (2) pets and animals: dog(s) leisure activities: hunting and fishing Smoking Status: Never smoker Smokeless tobacco user: chewing tobacco alcohol intake: never substance use type: does not use diet: other well-balanced diet: daily or most days caffeine: No frequency: daily seatbelt use: always do you feel safe at home: Yes Review of Systems Resp Respiratory: Yes as per HPI Exam Const Constitutio (more content not included)... Normal [facility] 11-01-2024 [facility] Office Visit (DIANNE KEN) -------- ANGEL BAHENA JR. ([id number]) 1970 M Date Time Provider Department 11/01/24 11:00 AM ASHANTI GARCÍA During your visit today, we recorded the following information about you: Pulse Blood pressure Weight Height 63/minute 131/80 99.3 kg 1.753 m Ashanti García MD 11/01/2024 11:18 AM Signed Chief Complaint No chief complaint on file. History of Present Illness: Angel Bahena Jr. is a 53-year-old male with a history of aortic valve disease, status post Ross procedure 23 years ago, presenting for follow-up. The patient reports feeling better than ever over the past year, with no symptoms of chest pain, dyspnea, syncope, peripheral edema, claudication, hemoptysis, hematemesis, or easy bruising. He denies any history of cerebrovascular accidents or transient ischemic attacks. He remains active and has recently lost 7 pounds, though he notes a slight weight regain after reaching 203 pounds. He adheres to SBE prophylaxis prior to dental visits. He has made significant lifestyle changes over the past year, including eliminating soda and sugar, reducing salt and red meat intake, and increasing consumption of fruits and vegetables. His most recent total cholesterol level was 120 mg/dL. He enjoys fishing and plans to travel to [place] for a fishing trip. PAST MEDICAL HISTORY Diagnosis Date Anxiety Aortic valve disease Non-rheumatic aortic stenosis Non-rheumatic tricuspid valve insufficiency Obesity (BMI 30-39.9) Palpitations Sleep apnea Status post heart valve replacement PAST SURGICAL HISTORY Procedure Laterality Date HEART CATHETERIZATION 05/17/2003 HEART VALVE REPLACEMENT 06/03/2003 [facility] Procedure [facility] PAST SURGICAL HISTORY OF 2017 Cyst removed from the back of his head No family history on file. Social History Tobacco Use Smoking status: Never Smokeless tobacco: Current Types: Chew Vaping Use Vaping status: Never Used Substance Use Topics Alcohol use: No Drug use: Never ALLERGIES Allergen Reactions Peanut Swelling Throat Shellfish Containin* Swelling, Unknown Benadryl [Diphenhyd* Hives Medications: Current Outpatient Medications Medication Sig Dispense Refill baclofen (LIORESAL) 10 mg tablet Take 10 mg by mouth three times daily. nabumetone (RELAFEN) 500 mg tablet Take 500 mg by mouth twice daily. (Patient not taking: Reported on 08/14/2023) fluticasone propionate (FLONASE NASAL) Use in the nose. azelastine (ASTELIN) 0.1% nasal spray Use 1 [place] in each nostril twice daily. metoprolol succinate ER (TOPROL XL) 25 mg 24 hr tablet Take 1 tablet by mouth once daily. 90 tablet 3 busPIRone (BUSPAR) 7.5 mg tablet Take 7.5 mg by mouth twice daily as needed. (Patient not taking: Reported on 06/21/2022) loratadine (CLARITIN) 10 mg tablet Take 10 mg by mouth once daily. montelukast (SINGULAIR) 10 mg tablet Take 10 mg by mouth daily at bedtime. (Patient not taking: Reported on 06/21/2022) aspirin, enteric coated (ASPIRIN, ENTERIC COATED) 81 mg EC tablet Take 81 mg by mouth once daily. escitalopram oxalate (LEXAPRO) 10 mg tablet Take 10 mg by mouth once daily. (Patient not taking: Reported on 06/21/2022) No current facility-administered medications for this visit. ROS Physical Examination: Vitals: BP 131/80 (BP Site: Left Arm, BP Position: Sitting, BP Cuff Size: Regular Adult) Pulse 63 Ht 5' 9 (1.753 m) Wt 219 lb (99.3 kg) SpO2 98% BMI 32.34 kg/m? Last 2 Encounter Wt Readings: Date: Wt: 08/14/2023 226 lb (102.5 kg) 06/21/2022 224 lb (101.6 kg) Physical Exam Constitutional: in no acute distress, well developed mildly obese very pleasant gentleman skin: Normal warmth no bruising Head: normocephalic eyes: normal-appearing eyelids, pupils appear equal Neck: normal range of motion without thyromegaly carotid pulses are full and equal bilaterally without bruits, no JVD Chest: Normal AP diameter no accessory muscle use clear to auscultation, healed median sternotomy scar, no wheezing Cardiac: regular rhythm, no S3 or S4, grade 1/6 early to mid peaking systolic ejection murmur heard best at the left upper second intercostal space , no diastolic murmur heard no right ventricular heave apex nonpalpable abdomen: Mildly obese no rebound abdomen soft, non-tender, no hepatomegaly, no pulsatility or bruit peripheral Pulses: Bilateral radial and posterior tibial pulses 2+ Extremities AND Back: no edema observed no cyanosisPsychiatric: Normal affect alert and oriented no difficulties with speech or language Neurological: no gross motor deficit noted Pertinent Labs: CBC: Hemoglobin (g/dL) Date Value 05/01/2020 15.4 Hematocrit (%) Date Value 05/01/2020 47.5 WBC (k/uL) Date Value 05/01/2020 4.78 Platelet Count (k/uL) Date Value 05/01/2020 317 BMP: Glucose (mg/dL) Date Value (more content not included)... Normal [facility] ECG B/O W INTERP (MED OFFICE )on 11-01-2024 Sinus at 60 first-de gree AV block borderline low voltage [facility] Absolute lymphocyte countOrd ered By: Pennie Fish on 10-11-2024 Lymphocytes Auto (Unsp spec) [#/Vol] 2.07 10*3/uL 0.83-4.51 [facility] Absolute neutrophil countOrd ered By: Pennie Fish on 10-11-2024 Neutrophils (Bld) [#/Vol] 3.4 10*3/uL 2.0-7.7 [facility] Anion gap in Serum or Plasma Ordered By: Pennie Fish on 10-11-2024 Anion gap [Moles/Vol] 11 mmol/L 5-15 [facility] Automated lymphocyte count a s percentage of total leukocytesOrdered By: Pennie Fish on 10-11-2024 Lymphocytes/100 WBC Auto (Unsp spec) 32.4 % 19-41 [facility] BUN/creatinine ratioOrdered By: Pennie Fish on 10-11-2024 Urea nitrogen/Creatinine [Mass ratio] 13.9 mg/mg 10-20 [facility] Basophil percentageOrdered B y: Pennie Fish on 10-11-2024 Basophils/100 WBC (Bld) 0.6 % 0-1 [facility] Bilirubin, totalOrdered By: Pennie Fish on 10-11-2024 Bilirubin [Mass/Vol] 0.42 mg/dL 0.00-1.30 [facility] CBC W/Diff, Automatedon 03-2 -2024 Absolute Lymph 2.07 X10 3/uL Normal 0.83-4.51 [facility] Comment on above: Performed By: #### L 501.9910, L500.4100, L500.4050, L100.0100 #### [facility] [address] [place], [address] Absolute Neut 3.4 X10 3/uL Normal 2.0-7.7 [facility] Comment on above: Performed By: #### L 501.9910, L500.4100, L500.4050, L100.0100 #### [facility] [address] [place], [address] Basophils/100 WBC (Bld) 0.6 % Normal 0-1 [facility] Comment on above: Performed By: #### L 501.9910, L500.4100, L500.4050, L100.0100 #### [facility] [address] [place], [address] Eosinophils/100 WBC (Bld) 2.0 % Normal 0-5 [facility] Comment on above: Performed By: #### L 501.9910, L500.4100, L500.4050, L100.0100 #### [facility] [address] [place], [address] Erythrocyte distribution width (RBC) [Ratio] 12.2 % Normal 11.6-14.6 [facility] Comment on above: Performed By: #### L 501.9910, L500.4100, L500.4050, L100.0100 #### [facility] [address] [place], [address] Hematocrit (Bld) [Volume fraction] 44.4 % Normal 40-54 [facility] Comment on above: Performed By: #### L 501.9910, L500.4100, L500.4050, L100.0100 #### [facility] [address] [place], [address] Hemoglobin (Bld) [Mass/Vol] 15.2 g/dL Normal 13.0-16.5 [facility] Comment on above: Performed By: #### L 501.9910, L500.4100, L500.4050, L100.0100 #### [facility] [address] [place], [address] IG% 0.300 Normal 0.0-0.9 [facility] Comment on above: Result Comment: IG% - Immature Granulocytes (promyelocytes, myelocytes and metamyelocytes) > 1% indicates that a LEFT SHIFT is Present. Performed By: #### L 501.9910, L500.4100, L500.4050, L100.0100 #### [facility] [address] [place], [address] Lymphocytes/100 WBC (Bld) 32.4 % Normal 19-41 [facility] Comment on above: Performed By: #### L 501.9910, L500.4100, L500.4050, L100.0100 #### [facility] [address] [place], [address] MCH (RBC) [Entitic mass] 28.3 pg Normal 27.0-32.0 [facility] Comment on above: Performed By: #### L 501.9910, L500.4100, L500.4050, L100.0100 #### [facility] [address] [place], [address] MCHC (RBC) [Mass/Vol] 34.2 g/dL Normal 32-36 [facility] Comment on above: Performed By: #### L 501.9910, L500.4100, L500.4050, L100.0100 #### [facility] [address] [place], [address] MCV (RBC) [Entitic vol] 82.7 fL Normal 80-94 [facility] Comment on above: Performed By: #### L 501.9910, L500.4100, L500.4050, L100.0100 #### [facility] [address] [place], [address] Monocytes/100 WBC (Bld) 11.3 % High 0-10 [facility] Comment on above: Performed By: #### L 501.9910, L500.4100, L500.4050, L100.0100 #### [facility] [address] [place], [address] Neutrophils/100 WBC (Bld) 53.4 % Normal 47-70 [facility] Comment on above: Performed By: #### L 501.9910, L500.4100, L500.4050, L100.0100 #### [facility] [address] [place], [address] Nucleated RBC (Bld) [#/Vol] 0 10*3/uL Normal 0-5 [facility] Comment on above: Performed By: #### L 501.9910, L500.4100, L500.4050, L100.0100 #### [facility] [address] [place], [address] Platelet mean volume (Bld) [Entitic vol] 10.4 fL Normal 6.2-12.0 [facility] Comment on above: Performed By: #### L 501.9910, L500.4100, L500.4050, L100.0100 #### [facility] [address] [place], [address] Platelets (Bld) [#/Vol] 298 10*3/uL Normal 150-450 [facility] Comment on above: Performed By: #### L 501.9910, L500.4100, L500.4050, L100.0100 #### [facility] [address] [place], [address] RBC (Bld) [#/Vol] 5.37 10*6/uL Normal 4.6-6.2 [facility] Comment on above: Performed By: #### L 501.9910, L500.4100, L500.4050, L100.0100 #### [facility] [address] [place], [address] RDW SD 37.1 fl Normal 35.1-43.9 [facility] Comment on above: Performed By: #### L 501.9910, L500.4100, L500.4050, L100.0100 #### [facility] [address] [place], [address] WBC (Bld) [#/Vol] 6.4 10*3/uL Normal 4.4-11.0 [facility] Comment on above: Performed By: #### L 501.9910, L500.4100, L500.4050, L100.0100 #### [facility] [address] [place], [address] Calculated very low density lipoprotein (VLDL) cholesterol measurementOrdered By: Pennie Fish on 10-11-2024 Calculated very low density lipoprotein (VLDL) cholesterol measurement 14 mg/dL 5-40 [facility] VLDL Cholesterol 14 mg/dL -40 [facility] Carbon dioxide, total [Moles /volume] in Central venous bloodOrdered By: Pennie Fish on 10-11-2024 CO2 [Moles/Vol] 23.7 mmol/L 21.0-32.0 [facility] Chloride assayOrdered By: Diane Fish on 10-11-2024 Chloride [Moles/Vol] 103 mmol/L 98-108 [facility] Comprehensive Metabolic Prof ilon 10-11-2024 Albumin [Mass/Vol] 4.3 g/dL Normal 3.5-5.0 [facility] Comment on above: Performed By: #### L 501.9910, L500.4100, L500.4050, L100.0100 #### [facility] [address] [place], [address] Albumin/Globulin [Mass ratio] 1.3 {ratio} Normal 0.9-2.4 [facility] Comment on above: Performed By: #### L 501.9910, L500.4100, L500.4050, L100.0100 #### [facility] [address] [place], [address] ALK PHOS 79 U/L Normal 40-129 [facility] Comment on above: Performed By: #### L 501.9910, L500.4100, L500.4050, L100.0100 #### [facility] [address] [place], [address] ALT [Catalytic activity/Vol] 25 U/L Normal <=46 [facility] Comment on above: Performed By: #### L 501.9910, L500.4100, L500.4050, L100.0100 #### [facility] [address] [place], [address] AST [Catalytic activity/Vol] 19 U/L Normal <=37 [facility] Comment on above: Performed By: #### L 501.9910, L500.4100, L500.4050, L100.0100 #### [facility] [address] [place], [address] Bilirubin [Mass/Vol] 0.42 mg/dL Normal 0.00-1.30 [facility] Comment on above: Performed By: #### L 501.9910, L500.4100, L500.4050, L100.0100 #### [facility] [address] [place], [address] BUN/CRE 13.9 RATIO Normal 10-20 [facility] Comment on above: Performed By: #### L 501.9910, L500.4100, L500.4050, L100.0100 #### [facility] [address] [place], [address] Calcium [Mass/Vol] 9.3 mg/dL Normal 7.6-11.0 [facility] Comment on above: Performed By: #### L 501.9910, L500.4100, L500.4050, L100.0100 #### [facility] [address] [place], [address] Chloride [Moles/Vol] 103 mmol/L Normal 98-108 [facility] Comment on above: Performed By: #### L 501.9910, L500.4100, L500.4050, L100.0100 #### [facility] [address] [place], [address] CO2 [Moles/Vol] 23.7 mmol/L Normal 21.0-32.0 [facility] Comment on above: Performed By: #### L 501.9910, L500.4100, L500.4050, L100.0100 #### [facility] [address] [place], [address] Creatinine [Mass/Vol] 1.29 mg/dL High 0.70-1.20 [facility] Comment on above: Performed By: #### L 501.9910, L500.4100, L500.4050, L100.0100 #### [facility] [address] [place], [address] GAP 11 Normal 5-15 [facility] Comment on above: Performed By: #### L 501.9910, L500.4100, L500.4050, L100.0100 #### [facility] [address] [place], [address] GFR/1.73 sq M.predicted among non-blacks MDRD (S/P/Bld) [Vol rate/Area] 66 mL/min/{1.73_m2} Normal >60 [facility] Comment on above: Result Comment: mL/m in/1.73m2 CKD-EPI Creatinine Equation (2020) Performed By: #### L 501.9910, L500.4100, L500.4050, L100.0100 #### [facility] [address] [place], [address] Globulin (S) [Mass/Vol] 3.2 g/dL Normal 2.2-4.2 [facility] Comment on above: Performed By: #### L 501.9910, L500.4100, L500.4050, L100.0100 #### [facility] [address] [place], [address] Glucose [Mass/Vol] 93 mg/dL Normal 70-99 [facility] Comment on above: Performed By: #### L 501.9910, L500.4100, L500.4050, L100.0100 #### [facility] [address] [place], [address] Potassium [Moles/Vol] 4.3 mmol/L Normal 3.3-5.1 [facility] Comment on above: Performed By: #### L 501.9910, L500.4100, L500.4050, L100.0100 #### [facility] [address] [place], [address] Sodium [Moles/Vol] 137 mmol/L Normal 133-145 [facility] Comment on above: Performed By: #### L 501.9910, L500.4100, L500.4050, L100.0100 #### [facility] [address] [place], [address] T PROT 7.5 g/dL Normal 5.9-8.4 [facility] Comment on above: Performed By: #### L 501.9910, L500.4100, L500.4050, L100.0100 #### [facility] [address] [place], [place], [address] Urea nitrogen [Mass/Vol] 18 mg/dL Normal 4-19 [facility] Comment on above: Performed By: #### L 501.9910, L500.4100, L500.4050, L100.0100 #### [facility] [address] [place], [address] Eosinophil percentageOrdered By: Pennie Fish on 10-11-2024 Eosinophils/100 WBC (Bld) 2.0 % 0-5 [facility] Erythrocyte distribution wid th ratioOrdered By: Pennie Fish on 10-11-2024 Erythrocyte distribution width (RBC) [Ratio] 12.2 % 11.6-14.6 [facility] Erythrocyte distribution wid th standard deviationOrdered By: Jovanygreat barringtoncharity Fish on 10-11-2024 Erythrocyte distribution width (RBC) [Entitic vol] 37.1 fL 35.1-43.9 [facility] Erythrocyte distribution width (RBC) [Ratio] 37.1 fl 35.1-43.9 [facility] GFR/1.73 sq M.predicted neeraj g non-blacks MDRD (S/P/Bld) [Vol rate/Area]Ordered By: Pennie Fish on 10-11-2024 Estimated GFR (MDRD) Non-Af Amer 66 >60 [facility] Comment on above: mL/min/1.73m2 CKD-EP I Creatinine Equation (2020) Glomerular filtration rate ( GFR) estimation/1.73 sq m using serum, plasma, or whole bOrdered By: Pennie Fish on 10-11-2024 GFR/1.73 sq M.predicted among non-blacks MDRD (S/P/Bld) [Vol rate/Area] 66 mL/min/{1.73_m2} >60 [facility] Comment on above: mL/min/1.73m2 CKD-EP I Creatinine Equation (2020) Hematocrit Auto (Bld) [Volum e fraction]Ordered By: Pennie Fish on 10-11-2024 Hematocrit (Bld) [Volume fraction] 44.4 % 40-54 [facility] Hemoglobin measurementOrdere d By: Pennie Fish on 10-11-2024 Hemoglobin (Bld) [Mass/Vol] 15.2 g/dL 13.0-16.5 [facility] Immature granulocytes/100 WB C Auto (Bld)Ordered By: Pennie Fish on 10-11-2024 Immature granulocytes/100 WBC (Bld) 0.300 % 0.0-0.9 [facility] Comment on above: IG% - Immature Granu locytes (promyelocytes, myelocytes and metamyelocytes) > 1% indicates that a LEFT SHIFT is Present. Internal Medicine Office Vis tawanda 10-11-2024 Internal Medicine Office Visit [facility] [address] [place] [address] [place] [address] OFFICE VISIT Date of Service: 10/11/24 MR#: [id number] Acct: [id number] Name: ANGEL BAHENA Rep #: [id number] : 1970 Provider: Dr. 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 Accompanied by: Self Is patient in pain?: No Allergies Iodinated Contrast Media (iodine contrast) Allergy (Severe, Verified 10/11/24 10:39) Anaphylaxis peanut (peanuts) Allergy (Severe, Verified 10/11/24 10:39) Anaphylaxis shellfish derived Allergy (Severe, Verified 10/11/24 10:39) Anaphylaxis diphenhydramine (From Benadryl) Adverse Reaction (Intermediate, Verified 10/11/24 10:39) Hives Medications ???Medication ???Instructions ???Recorded ???Confirmed ???Type aspirin 81 mg tablet 81 mg PO DAILY 08/10/21 10/11/24 H istory metoprolol tartrate 25 mg tablet 12.5 mg (1/2 x 25 mg) PO DAILY #90 08/21/24 10/11/24 Rx tabs PFSH Medical History (Updated 10/11/24 @ 11:[address] 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 Preventative health care Sleep apnea Frequent headaches Heart disease COVID-19 Surgical History S/P Ross procedure Heart valve replaced Social History adopted: No household members: spouse current occupational status: employed current occupation: [employer] pets and animals: Yes (2) pets and animals: dog(s) leisure activities: hunting and fishing Smoking Status: Never smoker Smokeless tobacco user: chewing tobacco alcohol intake: never substance use type: does not use diet: other well-balanced diet: daily or most days caffeine: No frequency: daily seatbelt use: always do you feel safe at home: Yes HPI HPI Chief Complaint: Yearly visit Details: ANGEL BAHENA, is a 53 M who presents to the office today for his yearly visit. He states that he started making dietary and lifestyle changes and has lost about 11 pounds since he started. Feeling overall better. Chronic right-sided hip pain which has been intermittent for years. No numbness or tingling down his extremities. Has tried physical therapy in the past which was not very helpful. He is optimistic that with weight loss this will resolve. No tobacco or alcohol abuse and no change in family history since his last visit. Continues to follow-up closely with cardiology. ROS Const Constitutional: No body ache, chills, excessive sweating, fatigue, fever(s), frequent falls, headache(s), weakness or change in appetite Eyes Eyes: No blurry vision, change in vision, discharge, bulging eyes, floaters, visual disturbances, eye pain or Light sensitivity ENT ENT: No abnormal hearing, ear or mastoid pain, tinnitus, balance problems, nosebleed/epistaxis, nasal congestion, headache(s), neck pain or sore throat Resp Respiratory: No cough, chest congestion, excessive phlegm production, pain on inspiration, shortness of breath or wheezing Cardio Cardiology: No chest pain at rest, chest pain with exertion, excessive sweating, dyspnea on exertion, lightheadedness, orthopnea or palpitations Gastro GI: No abdominal pain, change in bowel habits, change in stool character, constipation, cramping, diarrhea, nausea/dyspepsia or vomiting Genitourinary Male: No burning urination, painful urination, urinary incontinence, urinary frequency, Frequent nighttime urination/ nocturia or suprapubic fullness Musc Musculoskeletal: Positive for joint pain (right hip) and back pain; No abnormal gait, joint swelling, limited range of motion, muscle cramps, muscle weakness or neck pain Skin Skin: No dry skin, redness, excessive hair growth, yellowing of the eye, lesions, itchy eyes, rash or wounds Neuro Neurology: No abnormal gait, abnormal hearing, behavioral changes, unsteady gait/balance, dizziness, weakness, frequent falls, headache(s), memory loss or visual disturbances Psych Psychiatric: Positive for anxiety, No behavioral changes, No change in appetite, No depression, No memory loss and No Thoughts of harming yourself/Others Endo Endocrine: No cold intolerance, excessive sweating, fatigue, flushing, heat intolerance, increased thirst/drinking or increased hunger Aller/Imm Al (more content not included)... Normal [facility] LDL calc ser/plasOrdered By: Pennie Fish on 10-11-2024 Cholesterol in LDL [Mass/Vol] 70 mg/dL [facility] Comment on above: Ktgnthbibk=133-810 m g/dL & Higher Wojk=111 mg/dL or greater LDL Cholesterol, Calculated 70 mg/dL [facility] Comment on above: Wgoyjszmio=208-179 m g/dL & Higher Qhin=877 mg/dL or greater Laboratory - Chemistry and C hemistry - challengeOrdered By: Pennie Fish on 10-11-2024 AST [Catalytic activity/Vol] 19 U/L <38 [facility] Lipid Profileon 10-11-2024 CHOL:HDL 3.30 Normal [facility] Comment on above: Performed By: #### L 501.9910, L500.4100, L500.4050, L100.0100 #### [facility] [address] [place], [address] Cholesterol [Mass/Vol] 120 mg/dL Normal <=200 [facility] Comment on above: Result Comment: Chol esterol level, Desirable <200 mg/dL Borderline high cholesterol 200-239 mg/dL High cholesterol >=240 mg/dL Recommendations of the NCEP Adult Treatment Panel for the following risk-cutoff thresholds for the [place] population. Performed By: #### L 501.9910, L500.4100, L500.4050, L100.0100 #### [facility] [address] [place], [address] Cholesterol in HDL [Mass/Vol] 36 mg/dL Low [facility] Comment on above: Result Comment: [place] onal Cholesterol Education Program (NCEP) guidelines: <40 mg/dL: Low HDL-cholesterol (major risk factor for CHD) >= 60 mg/dL: High HDL-cholesterol (negative risk factor for CHD) HDL-cholesterol is affected by a number of factors, e.g. smoking, exercise, hormones, sex and age. Performed By: #### L 501.9910, L500.4100, L500.4050, L100.0100 #### [facility] [address] [place], [address] Cholesterol in LDL [Mass/Vol] 70 mg/dL Normal [facility] Comment on above: Result Comment: Bord tmmeub=577-157 mg/dL Higher Xhge=453 mg/dL or greater Performed By: #### L 501.9910, L500.4100, L500.4050, L100.0100 #### [facility] [address] [place], [address] Cholesterol in VLDL [Mass/Vol] 14 mg/dL Normal 5-40 [facility] Comment on above: Performed By: #### L 501.9910, L500.4100, L500.4050, L100.0100 #### [facility] [address] [place], [address] Triglyceride [Mass/Vol] 68 mg/dL Normal [facility] Comment on above: Result Comment: The drugs N-Acetylcysteine and Metamizole may falsely depress this assay. Normal range: <150 mg/dL Borderline High: 150-199 mg/dL High: 200-499 mg/dL Very High: >500 mg/dL Performed By: #### L 501.9910, L500.4100, L500.4050, L100.0100 #### [facility] [address] [place], [address] Lymphocytes Auto (Unsp spec) [#/Vol]Ordered By: Pennie Fish on 10-11-2024 Lymphocytes (Bld) [#/Vol] 2.07 10*3/uL 0.83-4.51 [facility] Lymphocytes/100 WBC Auto (Un sp spec)Ordered By: Pennie Fish on 10-11-2024 Lymphocytes/100 WBC (Bld) 32.4 % 19-41 [facility] MCV (mean corpuscular volume ) determinationOrdered By: Pennie Fish on 10-11-2024 MCV (RBC) [Entitic vol] 82.7 fL 80-94 [facility] Mean corpuscular hemoglobin (MCH) determinationOrdered By: Pennie Fish on 10-11-2024 MCH (RBC) [Entitic mass] 28.3 pg 27.0-32.0 [facility] Mean corpuscular hemoglobin concentration (MCHC) determinationOrdered By: Pennie Fish on 10-11-2024 MCHC (RBC) [Mass/Vol] 34.2 g/dL 32-36 [facility] Mean platelet volume determi nationOrdered By: Pennie Fish on 10-11-2024 Platelet mean volume (Bld) [Entitic vol] 10.4 fL 6.2-12.0 [facility] Monocyte percentageOrdered B y: Pennie Fish on 10-11-2024 Monocytes/100 WBC (Bld) 11.3 % High 0-10 [facility] Neutrophil percentageOrdered By: yunigreat barringtoncharity Fish on 10-11-2024 Neutrophils/100 WBC (Bld) 53.4 % 47-70 [facility] Nucleated red blood cell per centageOrdered By: Pennie Chiragmariann on 10-11-2024 Nucleated RBC/100 WBC (Bld) [Ratio] 0 % 0-5 [facility] PSA, total screeningOrdered By: Dianeyunijessicacharity Beardewelinanuris on 10-11-2024 Prostate Specific Antigen Screen 0.57 ng/mL 0.02-4.00 [facility] Comment on above: This test was perfor med using the [employer] tPSA method. Measured values of a patient sample can vary depending on the testing procedure used. PSA values determined on patient samples by different testing procedures cannot be used interchangeably. If there is a change in PSA assays while monitoring therapy, sequential testing should be performed to confirm baseline values. PSA,Total - Annual Screenon 10-11-2024 PSA,TOT SCREEN 0.57 ng/mL Normal 0.02-4.00 [facility] Comment on above: Result Comment: This test was performed using the [employer] tPSA method. Measured values of a patient??sample can vary depending on the testing procedure used. PSA values determined on patient samples by different testing procedures cannot be used interchangeably. If there is a change in PSA assays while monitoring therapy, sequential testing should be performed to confirm baseline values. Performed By: #### L 501.9910, L500.4100, L500.4050, L100.0100 #### [facility] [address] [place], [place], [id number] Platelet countOrdered By: Diane archuleta Chiragewelinanuris on 10-11-2024 Platelets (Bld) [#/Vol] 298 10*3/uL 150-450 [facility] Potassium (Unsp spec) [Mass/ Vol]Ordered By: Dianeyunijessicacharity Beardewelinanuris on 10-11-2024 Potassium [Moles/Vol] 4.3 mmol/L 3.3-5.1 [facility] Potassium measurement (mass/ volume)Ordered By: Pennie Fish on 10-11-2024 Potassium (Unsp spec) [Mass/Vol] 4.3 mmol/L 3.3-5.1 [facility] RBC Auto (Bld) [#/Vol]Ordere d By: Pennie Fish on 10-11-2024 RBC (Bld) [#/Vol] 5.37 10*6/uL 4.6-6.2 [facility] Screening total cholesterol/ high density lipoprotein (HDL) cholesterol ratioOrdered By: Pnenie Fish on 10-11-2024 Cholesterol.total/Michaelle sterol in HDL [Mass ratio] 3.30 {ratio} [facility] Serum creatinine measurement (mass/volume)Ordered By: Pennie Fish on 10-11-2024 Creatinine [Mass/Vol] 1.29 mg/dL High 0.70-1.20 [facility] Serum globulin measurementOr dered By: Pennie Fish on 10-11-2024 Globulin (S) [Mass/Vol] 3.2 g/dL 2.2-4.2 [facility] Serum glucose measurement (m ass/volume)Ordered By: Pennie Fish on 10-11-2024 Glucose [Mass/Vol] 93 mg/dL 70-99 [facility] Serum or plasma alanine lopez otransferase (ALT) measurementOrdered By: Pennie Fish on 10-11-2024 ALT [Catalytic activity/Vol] 25 U/L <47 [facility] Serum or plasma albumin mike urement (mass/volume)Ordered By: Pennie Fish on 10-11-2024 Albumin [Mass/Vol] 4.3 g/dL 3.5-5.0 [facility] Serum or plasma albumin/glob ulin mass ratioOrdered By: Pennie Fish on 10-11-2024 Albumin/Globulin [Mass ratio] 1.3 {ratio} 0.9-2.4 [facility] Serum or plasma alkaline sara sphatase measurementOrdered By: Pennie Fish on 10-11-2024 ALP [Catalytic activity/Vol] 79 U/L 40-129 [facility] Serum or plasma calcium mike urement (mass/volume)Ordered By: Pennie Fish on 10-11-2024 Calcium [Mass/Vol] 9.3 mg/dL 7.6-11.0 [facility] Serum or plasma cholesterol in HDL measurement (mass/volume)Ordered By: Pennie Fish on 10-11-2024 Cholesterol in HDL [Mass/Vol] 36 mg/dL Low >40 [facility] Comment on above: National Cholesterol Education Program (NCEP) guidelines:<40 mg/dL: Low HDL-cholesterol (major risk factor for CHD)>= 60 mg/dL: High HDL-cholesterol (negative risk factor for CHD)HDL-cholesterol is affected by a number of factors, e.g. smoking, exercise, hormones, sex and age. Serum or plasma cholesterol measurement (mass/volume)Ordered By: Pennie Fish on 10-11-2024 Cholesterol [Mass/Vol] 120 mg/dL <201 [facility] Comment on above: Cholesterol level, D esirable <200 mg/dLBorderline high cholesterol 200-239 mg/dLHigh cholesterol >=240 mg/dLRecommendations of the NCEP Adult Treatment Panel for the following risk-cutoff thresholds for the [place] population. Serum or plasma urea nitroge n measurement (mass/volume)Ordered By: Pennie Fish on 10-11-2024 Urea nitrogen [Mass/Vol] 18 mg/dL 4-19 [facility] Sodium levelOrdered By: Jovany Fish on 10-11-2024 Sodium [Moles/Vol] 137 mmol/L 133-145 [facility] Total proteinOrdered By: Alexis Fish on 10-11-2024 Protein [Mass/Vol] 7.5 g/dL 5.9-8.4 [facility] Triglycerides measurementOrd ered By: Pennie Fish on 10-11-2024 Triglyceride [Mass/Vol] 68 mg/dL <199 [facility] Comment on above: The drugs N-Acetylcy steine and Metamizole may falsely depress this assay. Normal range: <150 mg/dLBorderline High: 150-199 mg/dLHigh: 200-499 mg/dLVery High: >500 mg/dL White blood cell (WBC) count Ordered By: Pennie Fish on 10-11-2024 WBC (Bld) [#/Vol] 6.4 10*3/uL 4.4-11.0 [facility] Pulmonary Visit Reporton Pulmonary Visit Report [facility] [address] [place] [address] OFFICE VISIT Date of Service: 09/25/24 MR#: [id number] Acct: [id number] Name: JOSEFANGEL Rep #: [id number] : 1970 Provider: KEVON Banks Age/Sex: 53/M [place] [facility] Status: Signed Assessment and Plan Assessment and Plan (1) Sleep apnea: Status: Chronic Qualifiers: Sleep apnea type: obstructive Qualified Code(s): G47.33 - Obstructive sleep apnea (adult) (pediatric) Comment: AutoPap 4-20 Plan: He is using and benefiting from Pap therapy. No indication for titration study at this time. Contact the office for any new or worsening symptoms in the meantime. Follow-up in 1 year. (2) Obesity: Status: Chronic Qualifiers: Obesity type: due to excess calories Obesity classification: adult class 2 (BMI 35 - 39.9) Serious obesity comorbidity presence: with serious comorbidity Body mass index: BMI 35.0-35.9 Qualified Code(s): E66.812 - Obesity, class 2; E66.01 - Morbid (severe) obesity due to excess calories; Z68.35 - Body mass index [BMI] 35.0-35.9, adult Plan: Deteriorated. He has put on a few pounds. 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 He was given a calorie range of 4881-4928 per day, with a protein goal of 120 grams per day, 1 gallon of water per day and asked to walk 30 minutes (this is not including walking duties at work) 3-5 times a week. He conveys understanding. It is beneficial that he is on an autopap, it will auto adjust as he loses weight. Plan Details Follow Up: 1 Year HPI HPI Comments Details: This patient presents to the office today for follow-up of his obstructive sleep apnea. He is ambulatory and currently on room air. He has not recently been seen in the ED or urgent care for any respiratory illness. He has not required any antibiotics or prednisone for any breathing problems. He is a lifelong never smoker. He denies any difficulty with shortness of breath. He does have a cough in the morning that is nonproductive. He has occasional headaches, sometimes in the morning. He denies any wheezing, chest tightness, chest pain or palpitations. He also denies any fever, chills or body aches. He wakes feeling rested refreshed. He is not having difficulty with mask leaks. He reports some dry mouth. He denies morning headaches. He is not requiring naps and is not nodding off to sleep. He admits to some weight gain, which he is not happy about. Compliance report for the past 30 days shows 100 % compliance with average use of 7 hours and 54 minutes on nights being used. Current setting is AutoPap 4-20 cmH2O pressure typically being utilized at 9.5-13.0 cm of water. Residual AHI 0.4 events per hour. Leaks do not appear to be a problem. Intake Vital Signs 06/19/24 08:09 09/25/24 07:45 Height 5 ft 9 in 5 ft 9 in Weight: 238 lb 239 lb BMI 35.1 35.2 BP 138/80 H 139/87 H Blood Pressure Location Lt brachial Lt brachial Position Sitting Sitting Respiration 16 18 Pulse 78 64 Pulse Source Monitor Monitor Temp 98.4 F 97.5 F L Temperature Source Temporal Artery Pulse Oximetry (%) 97 97 Oxygen Delivery Method room air room air Intake Visit Reasons: f/u dickson Chief Complaint: sore on gums Outboard Motor Inspector Required: No DME Vendor: Chevy Accompanied by: Self Allergies Iodinated Contrast Media (iodine contrast) Allergy (Severe, Verified 09/25/24 08:12) Anaphylaxis peanut (peanuts) Allergy (Severe, Verified 09/25/24 08:12) Anaphylaxis shellfish derived Allergy (Severe, Verified 09/25/24 08:12) Anaphylaxis diphenhydramine (From Benadryl) Adverse Reaction (Intermediate, Verified 09/25/24 08:12) Hives Medications ???Medication ???Instructions ???Recorded ???Confirmed ???Type aspirin 81 mg tablet 81 mg PO DAILY 08/10/21 09/25/24 H istory lorazepam 1 mg tablet 1 mg PO DAILY PRN anxiety 02/12/24 09/25/24 History metoprolol tartrate 25 mg tablet 12.5 mg (1/2 x 25 mg) PO DAILY #90 08/21/24 09/25/24 Rx tabs PFSH Medical History 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 Normal [facility] Internal Medicine Office Vis tawanda 06-19-2024 Internal Medicine Office Visit [facility] [address] [place] [address] [address] [place] [address] OFFICE VISIT Date of Service: 06/19/24 MR#: [id number] Acct: [id number] Name: ANGEL BAHENA JrAlex Rep #: [id number] : 1970 Provider: Dr. Pennie pardo MD Age/Sex: 53/M [place] [facility] Status: Signed Intake Vital Signs 04/02/24 07:36 06/19/24 08:09 Height 5 ft 9 in 5 ft 9 in Weight: 225 lb 238 lb BMI 33.2 35.1 BP 126/82 H 138/80 H Blood Pressure Location Rt brachial Lt brachial Position Sitting Sitting Respiration 20 H 16 Pulse 73 78 Pulse Source Monitor Monitor Temp 96.8 F L 98.4 F Temp Source Temporal Pulse Oximetry (%) 95 97 Oxygen Delivery Method room air room air Intake Visit Reasons: SORES ON GUMS Chief Complaint: sore on gums Outboard Motor Inspector Required: No Accompanied by: Self Is patient in pain?: No Allergies Iodinated Contrast Media (iodine contrast) Allergy (Severe, Verified 06/19/24 08:05) Anaphylaxis peanut (peanuts) Allergy (Severe, Verified 06/19/24 08:05) Anaphylaxis shellfish derived Allergy (Severe, Verified 06/19/24 08:05) Anaphylaxis diphenhydramine (From Benadryl) Adverse Reaction (Intermediate, Verified 06/19/24 08:05) Hives Medications ???Medication ???Instructions ???Recorded ???Confirmed ???Type aspirin 81 mg tablet 81 mg PO DAILY 08/10/21 06/19/24 History metoprolol tartrate 25 mg tablet 12.5 mg (1/2 x 25 mg) PO DAILY #90 11/06/23 06/19/24 Rx tabs lorazepam 1 mg tablet 1 mg PO DAILY PRN anxiety 02/12/24 06/19/24 History PFSH Medical History (Updated 06/19/24 @ 10:[address] 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 Preventative health care Sleep apnea Frequent headaches Heart disease COVID-19 Surgical History S/P Ross procedure Heart valve replaced Social History adopted: No household members: spouse current occupational status: employed current occupation: [employer] pets and animals: Yes (2) pets and animals: dog(s) leisure activities: hunting and fishing Smoking Status: Never smoker Smokeless tobacco user: chewing tobacco alcohol intake: never substance use type: does not use diet: other well-balanced diet: daily or most days caffeine: No frequency: daily seatbelt use: always do you feel safe at home: Yes HPI HPI Chief Complaint: sore on gums Details: ANGEL BAHENA, is a 53 M who presents to the office today for an acute visit. Reports an area of blistering noted on his tongue over the weekend. Painful. Subsequently, ruptured. Drainage from the area. No prior similar presentation or history. Has not been seen by dentist in years. Lately, he states that he has also noted dry mouth when he forgets to use his CPAP occasionally needing to peer his mouth open due to dryness. ROS Const Constitutional: No body ache, chills, excessive sweating, fatigue, fever(s), frequent falls, headache(s), snoring, weakness or change in appetite Eyes Eyes: No blurry vision, change in vision, bulging eyes, floaters, visual disturbances, eye pain or Light sensitivity ENT ENT: No abnormal hearing, ear or mastoid pain, tinnitus, balance problems, nosebleed/epistaxis, nasal congestion, headache(s), neck pain or sore throat Resp Respiratory: No cough, excessive phlegm production, pain on inspiration, shortness of breath, snoring or wheezing Cardio Cardiology: No chest pain at rest, chest pain with exertion, excessive sweating, dyspnea on exertion, lightheadedness, orthopnea or palpitations Gastro GI: No abdominal pain, change in bowel habits, constipation, cramping, diarrhea, nausea/dyspepsia or vomiting Genitourinary Male: No burning urination, painful urination, urinary incontinence, urinary frequency or suprapubic fullness Musc Musculoskeletal: No abnormal gait, joint pain, back pain, limited range of motion, muscle cramps, muscle weakness, neck pain or numbness Skin Skin: No dry skin, redness, excessive hair growth, yellowing of the eye, lesions, itchy eyes, rash or wounds Neuro Neurology: No abnormal gait, abnormal hearing, behavioral changes, unsteady gait/balance, weakness, frequent falls, headache(s), memory loss, numbness or visual disturbances Psych Psychiatric: No anxiety, No behavioral changes, No change in appetite, No depression, No memory loss and No Thoughts of harming yourself/Others Endo Endocrine: No cold intolerance, excessive sweating, fatigue, flushing, heat intolerance, increased thirst/drinking or increased hunger Aller/Imm Allergy/Immunologic: No itchy eyes, seasonal allergy symptoms, hives or wheezing Kevin/Lymp Hematologic/Lymphatic: No easy bleeding or easy bruising Exam Const (more content not included)... Normal [facility] Pulmonary Visit Reporton Pulmonary Visit Report [facility] [address] [place] [address] OFFICE VISIT Date of Service: 04/02/24 MR#: [id number] Acct: [id number] Name: ANGEL BAHENA Jr. Rep #: [id number] : 1970 Provider: KEVON Banks Age/Sex: 53/M [place] [facility] Status: Signed Assessment and Plan Assessment and Plan (1) Sleep apnea: Status: Chronic Qualifiers: Sleep apnea type: obstructive Qualified Code(s): G47.33 - Obstructive sleep apnea (adult) (pediatric) Comment: AutoPap 4-20 Plan: He is using and benefiting from Pap therapy. No indication for titration study at this time. Continue to encourage weight loss. Contact the office for any new or worsening symptoms in the meantime. Follow-up in August, plan for annual follow-up after that unless something changes. (2) Seasonal allergies: Status: Chronic Plan: Unable to identify any seasonal allergy triggers. Will monitor. He has been encouraged to contact the office with any new or worsening symptoms. Plan Details Follow Up: 6 Months (CSM) HPI 6 wk FU Chief Complaint: Test results HPI Comments Details: This patient presents to the office today to discuss test results. He is ambulatory and currently on room air. He has not recently been seen in the ED or urgent care for any respiratory illness. Has not required any antibiotics or prednisone for any breathing problems. He does report for the most part waking up and feeling rested and refreshed. He does occasionally have difficulty with dry mouth, however he admits that he is not good about feeling the water chambe r. He is not having difficulty with mask leaks. He is not requiring naps. He is not nodding off to sleep unintentionally. Currently he denies any difficulty with shortness of breath whatsoever. He denies any cough, sputum production or hemoptysis. He denies any wheezing, chest tightness, chest pain or palpitations. He has not had any fever, chills or body aches. Compliance report for the past 30 days shows 87% compliance and average use of 7 hours and 39 minutes per night. Current setting is AutoPap 4-20 cmH2O pressure typically being utilized at 7.9 to 12 cm water. Residual AHI 0.4 events per hour. Leaks do not appear to be problematic. Test results personally reviewed with the patient: Labs Testing 02/12/24 03/28/24 08:47 15:01 WBC 7.8 Eos % (Auto) 2.7 Alternar. alternata IgE <0.10 D. farinae Allergen <0.10 D. pteronyssinus Allrg <0.10 White Elm Allergen <0.10 Concord Tree Allerg <0.10 Bermuda Grass Allergen <0.10 [place] Blue Grss IgE <0.10 Common Ragweed Allergen <0.10 Algerian Plantain Allerg <0.10 Cat Dander Allergen <0.10 Dog Epithelium Allerg <0.10 Mouse Urine IgE Ab <0.10 IgE 32 Aspergillus flavus Ab Negative Aspergill fumigatus Ab Negative Aspergillus niger Ab Negative Total eosinophil count 210 Intake Vital Signs 02/12/24 07:37 03/28/24 14:43 04/02/24 07:36 Height 5 ft 9 in 5 ft 9 in 5 ft 9 in Weight: 225 lb BMI 33.2 BP 126/82 H Blood Pressure Location Rt brachial Position Sitting Respiration 20 H Pulse 73 Pulse Source Monitor Temp 96.8 F L Temperature Source Temporal Artery Pulse Oximetry (%) 95 Oxygen Delivery Method room air Intake Visit Reasons: 6 wk FU Outboard Motor Inspector Required: No DME Vendor: joel brito Accompanied by: Self Is patient in pain?: No Allergies Iodinated Contrast Media (iodine contrast) Allergy (Severe, Verified 04/02/24 08:03) Anaphylaxis peanut (peanuts) Allergy (Severe, Verified 04/02/24 08:03) Anaphylaxis shellfish derived Allergy (Severe, Verified 04/02/24 08:03) Anaphylaxis diphenhydramine (From Benadryl) Adverse Reaction (Intermediate, Verified 04/02/24 08:03) Hives Medications ???Medication ???Instructions ???Recorded ???Confirmed ???Type aspirin 81 mg tablet 81 mg PO DAILY 08/10/21 04/02/24 History metoprolol tartrate 25 mg tablet 12.5 mg (1/2 x 25 mg) PO DAILY #90 11/06/23 04/02/24 Rx tabs lorazepam 1 mg tablet 1 mg PO DAILY PRN anxiety 02/12/24 04/02/24 History PFSH Medical History Anxiety with flying Preventative health care Sleep apnea Frequent headaches Heart disease COVID-19 Surgical History S/P Ross procedure Heart valve replaced Social History adopted: No household members: spouse current occupational status: employed current occupation: [employer] pets and animals: Yes (2) pets and animals: dog(s) leisure activities: hunting and fishing Smoking Status: Never smoker Smokeless tobacco user: chewing tobacc (more content not included)... Normal [facility] 12 Lead EKGon 03-28-2024 12 Lead EKG [facility] [address] [place] [address] 12 Lead EKG 03/28/24 1456 MR#: [id number] Acct: [id number] Name: ANGEL BAHENA JrAlex Rep #: [id number] : 1970 53 From: Ady Lynn MD Attending Dr: Status: DEP ER Ordering Dr: Inocente Wade DO Date: 03/28/24 Location: ED Sex: M C Admitted: Test Reason : CHEST PAIN Blood Pressure : / mmHG Vent. Rate : 064 BPM Atrial Rate : 064 BPM P-R Int : 198 ms QRS Dur : 090 ms QT Int : 414 ms P-R-T Axes : 030 029 053 degrees QTc Int : 427 ms Normal sinus rhythm Normal ECG Confirmed by ADY LYNN MD ([id number]), school photograph editor LEXIE BUNN ([id number]) on 04/01/2024 8:13:02 AM Referred By: Confirmed By:ADY LYNN MD 04/01/24812 Date Ady Lynn MD CC: Dr. Inocente Wade DO; Dr. Pennie Fish MD Signed Normal [facility] Basic Metabolic Profile (BMP )on 03-28-2024 BUN/CRE 14.9 RATIO Normal 10-20 [facility] Comment on above: Order Comment: 1Y Performed By: #### L 501.9910, L500.4100, L500.4050, L100.0100 #### [facility] [address] [place], [address] CA,Total 9.3 mg/dL Normal 8.5-10.1 [facility] Comment on above: Order Comment: 1Y Performed By: #### L 501.9910, L500.4100, L500.4050, L100.0100 #### [facility] [address] [place], [address] Chloride [Moles/Vol] 108 mmol/L High 98-107 [facility] Comment on above: Order Comment: 1Y Performed By: #### L 501.9910, L500.4100, L500.4050, L100.0100 #### [facility] [address] [place], [address] CO2 [Moles/Vol] 25.0 mmol/L Normal 21.0-32.0 [facility] Comment on above: Order Comment: 1Y Performed By: #### L 501.9910, L500.4100, L500.4050, L100.0100 #### [facility] [address] [place], [address] Creatinine [Mass/Vol] 1.21 mg/dL Normal 0.70-1.30 [facility] Comment on above: Order Comment: 1Y Result Comment: The validity of the calculated GFR GFRAA in patients over 70 years has not been determined. Clinical correlation is essential. Performed By: #### L 501.9910, L500.4100, L500.4050, L100.0100 #### [facility] [address] [place], [address] ECRCL 82.89 ml/min Normal [facility] Comment on above: Order Comment: 1Y Performed By: #### L 501.9910, L500.4100, L500.4050, L100.0100 #### [facility] [address] [place], [address] EST GFR - AA 80 mL/min Normal >60 [facility] Comment on above: Order Comment: 1Y Result Comment: Afri can [place] GFR Calc Performed By: #### L 501.9910, L500.4100, L500.4050, L100.0100 #### [facility] [address] [place], [address] GAP 5 Normal 5-15 [facility] Comment on above: Order Comment: 1Y Performed By: #### L 501.9910, L500.4100, L500.4050, L100.0100 #### [facility] [address] [place], [address] GFR/1.73 sq M.predicted among non-blacks MDRD (S/P/Bld) [Vol rate/Area] 66 mL/min/{1.73_m2} Normal >60 [facility] Comment on above: Order Comment: 1Y Result Comment: Non- GFR Calc Performed By: #### L 501.9910, L500.4100, L500.4050, L100.0100 #### [facility] [address] [place], [address] Glucose [Mass/Vol] 111 mg/dL High 74-106 [facility] Comment on above: Order Comment: 1Y Result Comment: Fast ing Glucose result from 100 to 125 mg/dL suggests IMPAIRED HOMEOSTASIS per A.D.A. criteria. Performed By: #### L 501.9910, L500.4100, L500.4050, L100.0100 #### [facility] [address] [place], [address] Potassium [Moles/Vol] 3.9 mmol/L Normal 3.5-5.1 [facility] Comment on above: Order Comment: 1Y Result Comment: Mode rate Hemolysis, Result may be falsely increased. Performed By: #### L 501.9910, L500.4100, L500.4050, L100.0100 #### [facility] [address] [place], [address] Sodium [Moles/Vol] 138 mmol/L Normal 136-145 [facility] Comment on above: Order Comment: 1Y Performed By: #### L 501.9910, L500.4100, L500.4050, L100.0100 #### [facility] [address] [place], [address] Urea nitrogen [Mass/Vol] 18 mg/dL Normal 7-18 [facility] Comment on above: Order Comment: 1Y Performed By: #### L 501.9910, L500.4100, L500.4050, L100.0100 #### [facility] [address] [place], [address] CBC W/Diff, Automatedon 09-0 5-2024 Absolute Lymph 1.85 X10 3/uL Normal 0.83-4.51 [facility] Comment on above: Performed By: #### L 100.0100, L500.2500, L501.5425 #### [facility] [address] [place], [address] Absolute Neut 4.9 X10 3/uL Normal 2.0-7.7 [facility] Comment on above: Performed By: #### L 100.0100, L500.2500, L501.5425 #### [facility] [address] [place], [address] Basophils/100 WBC (Bld) 0.5 % Normal 0-1 [facility] Comment on above: Performed By: #### L 100.0100, L500.2500, L501.5425 #### [facility] [address] [place], [address] Eosinophils/100 WBC (Bld) 2.7 % Normal 0-5 [facility] Comment on above: Performed By: #### L 100.0100, L500.2500, L501.5425 #### [facility] [address] [place], [address] Erythrocyte distribution width (RBC) [Ratio] 12.3 % Normal 11.6-14.6 [facility] Comment on above: Performed By: #### L 100.0100, L500.2500, L501.5425 #### [facility] [address] [place], [address] Hematocrit (Bld) [Volume fraction] 45.3 % Normal 40-54 [facility] [facility] Comment on above: Performed By: #### L 100.0100, L500.2500, L501.5425 #### [facility] [address] [place], [address] Hemoglobin (Bld) [Mass/Vol] 15.3 g/dL Normal 13.0-16.5 [facility] Comment on above: Performed By: #### L 100.0100, L500.2500, L501.5425 #### [facility] [address] [place], [address] IG% 0.500 Normal 0.0-0.9 [facility] Comment on above: Result Comment: IG% - Immature Granulocytes (promyelocytes, myelocytes and metamyelocytes) > 1% indicates that a LEFT SHIFT is Present. Performed By: #### L 100.0100, L500.2500, L501.5425 #### [facility] [address] [place], [address] Lymphocytes/100 WBC (Bld) 23.8 % Normal 19-41 [facility] Comment on above: Performed By: #### L 100.0100, L500.2500, L501.5425 #### [facility] [address] [place], [address] MCH (RBC) [Entitic mass] 27.7 pg Normal 27.0-32.0 [facility] Comment on above: Performed By: #### L 100.0100, L500.2500, L501.5425 #### [facility] [address] [place], [address] MCHC (RBC) [Mass/Vol] 33.8 g/dL Normal 32-36 [facility] Comment on above: Performed By: #### L 100.0100, L500.2500, L501.5425 #### [facility] [address] [place], [address] MCV (RBC) [Entitic vol] 82.1 fL Normal 80-94 [facility] Comment on above: Performed By: #### L 100.0100, L500.2500, L501.5425 #### [facility] [address] [place], [address] Monocytes/100 WBC (Bld) 9.8 % Normal 0-10 [facility] Comment on above: Performed By: #### L 100.0100, L500.2500, L501.5425 #### [facility] [address] [place], [address] Neutrophils/100 WBC (Bld) 62.7 % Normal 47-70 [facility] Comment on above: Performed By: #### L 100.0100, L500.2500, L501.5425 #### [facility] [address] [place], [address] Nucleated RBC (Bld) [#/Vol] 0 10*3/uL Normal 0-5 [facility] Comment on above: Performed By: #### L 100.0100, L500.2500, L501.5425 #### [facility] [address] [place], [address] Platelet mean volume (Bld) [Entitic vol] 10.3 fL Normal 6.2-12.0 [facility] Comment on above: Performed By: #### L 100.0100, L500.2500, L501.5425 #### [facility] [address] [place], [address] Platelets (Bld) [#/Vol] 291 10*3/uL Normal 150-450 [facility] Comment on above: Performed By: #### L 100.0100, L500.2500, L501.5425 #### [facility] [address] [place], [address] RBC (Bld) [#/Vol] 5.52 10*6/uL Normal 4.6-6.2 [facility] Comment on above: Performed By: #### L 100.0100, L500.2500, L501.5425 #### [facility] [address] [place], [address] RDW SD 37.0 fl Normal 35.1-43.9 [facility] Comment on above: Performed By: #### L 100.0100, L500.2500, L501.5425 #### [facility] [address] [place], [address] WBC (Bld) [#/Vol] 7.8 10*3/uL Normal 4.4-11.0 [facility] Comment on above: Performed By: #### L 100.0100, L500.2500, L501.5425 #### [facility] [address] [place], [address] Chest 1 View (Portable)on Chest 1 View (Portable) [facility] Imaging Services [address] [place] [address] Chest 1 View (Portable) MR#: [id number] Acct: [id number] Name: ANGEL BAHENA Jr. Rep #: [id number] : 1970 M 53 From: Jeff Barth MD PCP: Dr. Pennie Fish MD Status: REG ER Study: Chest 1 View (Portable) Date of Exam: 03/28/24 Exam# [id number] Ordering Dr: Inocente Wade DO [id number] STUDY: X-RAY CHEST REASON FOR EXAM: Male, 53 years old. Chest pain TECHNIQUE: Frontal view of the chest COMPARISON: None. FINDINGS: The lungs are clear. There are no pleural effusions. There is no pneumothorax. The heart is enlarged. The patient is status post sternotomy. The visualized osseous structures are within normal limits. RAD/Chest 1 View (Portable) IMPRESSION: Cardiomegaly. Clear lungs. Electronically Signed: Jeff Barth MD at 15:54 EDT , CC: Dr. Inocente Wade DO; Dr. Pennie Fish MD Emergency Room Orderly: Signed Normal [facility] D-Dimer Quantitative (DVT/PE )on 03-28-2024 D-DIMER QUANT < 0.27 Low 0.27-0.49 [facility] Comment on above: Result Comment: NORM AL D-Dimer level (<0.50) indicates no DVT or PE. Performed By: #### L 501.9910, L500.4100, L500.4050, L100.0100 #### [facility] [address] [place], [address] Emergency Department Summary on 03-28-2024 Emergency Department Summary [facility] Medical Records Department [address] [place] [address] Emergency Department Summary 03/28/24 MR#: [id number] Acct: [id number] Name: ANGEL BAHENA Jr. Rep #: [id number] : 1970 53 From: Inocente Wade DO PCP: Dr. Pennie Fish MD Status:DEP ER Location: ED HPI History of Present Illness Chief Complaint: Chest Pain Informant: patient and spouse/S.O. Narrative Narrative: Is a very pleasant 53-year-old male presenting to the emergency room with intermittent chest pain. Patient states around 1230 he developed a pressure-like sensation midsternal radiating under each breast. He states it last for few seconds and then resolves for seconds to minutes. It has persisted. He states that the time he had just gotten off the phone and was stressed out for work reasons. He states that he gets acid reflux and this feels different. He is not feeling his back shoulder draws. He states that he has a history of having a Ross procedure about 20 years ago. He saw his ecological modeler earlier this year had a uneventful checkup. Patient states this sensation is very typical for him. He denies any recent change in medications or exercise tolerance. He denies any pleuritic component to the pain. No prior DVT PE. [facility] Medical History Anxiety with flying [facility] care Sleep apnea Frequent headaches Heart disease COVID-19 Home Medications ???Medication ???Instructions ???Recorded ???Last Taken ???Type aspirin 81 mg tablet 81 mg PO DAILY 08/10/21 Unknown History metoprolol tartrate 25 mg tablet 12.5 mg (1/2 x 25 mg) PO DAILY #90 11/06/23 Unknown Rx tabs lorazepam 1 mg tablet 1 mg PO DAILY PRN anxiety 02/12/24 Unknown History Allergy/AdvReac Type Severity Reaction Status Date / Time Iodinated Contrast Media Allergy Severe Anaphylaxis Verified 03/28/24 14:43 (iodine contrast) peanut (peanuts) Allergy Severe Anaphylaxis Verified 03/28/24 14:43 shellfish derived Allergy Severe Anaphylaxis Verified 03/28/24 14:43 diphenhydramine (From AdvReac Intermediate Hives Verified 03/28/24 14:43 Benadryl) Family History no significant family his Surgical History S/P Ross procedure Heart valve replaced Social History adopted: No household members: spouse current occupational status: employed current occupation: [employer] pets and animals: Yes (2) pets and animals: dog(s) leisure activities: hunting and fishing Smoking Status: Never smoker Smokeless tobacco user: chewing tobacco alcohol intake: never substance use type: does not use diet: other well-balanced diet: daily or most days caffeine: No frequency: daily seatbelt use: always do you feel safe at home: Yes ROS ROS ED Constitutional Constitutional ED: Denies chills, fever(s) or weight loss Eyes Eyes: Denies change in vision or diplopia ENT ENT ED: Denies ear pain, rhinorrhea or sore throat Cardiovascular Cardiovascular: Reports chest pain; Denies orthopnea, palpitations or racing heartbeat Respiratory/Chest Respiratory/Chest: Denies cough, dyspnea, dyspnea on exertion or orthopnea Gastrointestinal Gastrointestinal: Denies abdominal pain, diarrhea, nausea or vomiting Genitourinary Genitourinary ED: Denies dysuria, hematuria or urinary frequency Musculoskeletal Musculoskeletal: Denies arthralgias or myalgias Integumentary Denies abscess or rash Neurologic Neurologic: Denies headache(s) or weakness Psychiatric Psychiatric: Denies anxiety, depression, suicidal ideation or suicidal thoughts Endocrine Endocrinology: Denies polydipsia, polyphagia or polyuria Allergic/Immunologic Allergic/Immunologic ED: Denies mouth swelling, tongue swelling or urticaria EXAM Physical Exam Const Vital Signs: 03/28/24 14:41 03/28/24 14:43 03/28/24 15:41 Temperature 96 F L Temperature Source Temporal Pulse Rate 74 61 Respiratory Rate 18 15 Respiratory Effort Normal Blood Pressure 152/97 H 130/90 H Blood Pressure Mean 115 103 Pulse Ox 98 97 Oxygen Delivery Method Room Air Room Air 03/28/24 16:00 03/28/24 17:00 03/28/24 18:00 Temperature Temperature Source Pulse Rate 61 62 55 L Respiratory Rate 15 16 18 Respiratory Effort Blood Pressure 110/84 H 134/93 H 131/78 H Blood Pressure Mean 92 106 95 Pulse Ox 98 98 99 Oxygen Delivery Method Room Air Room Air Room Air Positive well nourished and well developed General Appearance ED: well developed and NAD HEENT Reports normocephalic, head/scalp atraumatic and moist mucous membranes Eyes PERRL and EOMs intact bilaterally Neck no lymphadenopathy, s (more content not included)... Normal [facility] L501.4020on 03-28-2024 TROPONIN-I HS 7 pg/mL Normal 3.0-78.0 [facility] Comment on above: Result Comment: Plea se Note: New Test Units and Gender Specific Reference Ranges. For more information see Policy Stat Procedure [place] High Sensitivity Troponin (TNIH) and attachments. Performed By: #### L 501.9910, L500.4100, L500.4050, L100.0100 #### [facility] [address] [place], [address] L501.5425on 03-28-2024 TROPONIN-I HS 8 pg/mL Normal 3.0-78.0 [facility] Comment on above: Order Comment: 1Y Result Comment: Plea se Note: New Test Units and Gender Specific Reference Ranges. For more information see Policy Stat Procedure [place] High Sensitivity Troponin (TNIH) and attachments. Performed By: #### L 501.9910, L500.4100, L500.4050, L100.0100 #### [facility] [address] [place], [address] Aspergillus Antibodieson Asp. flavus Negative Normal Neg:<1:1 [facility] Comment on above: Performed By: #### L 3200.1600, L3500.3600, L5500.0300, L100.0100 #### [facility] [address] [place], [address] Asp. fumigatus Negative Normal Neg:<1:1 [facility] Comment on above: Performed By: #### L 3200.1600, L3500.3600, L5500.0300, L100.0100 #### [facility] [address] [place], [address] Asp. niger Negative Normal Neg:<1:1 [facility] Comment on above: Performed By: #### L 3200.1600, L3500.3600, L5500.0300, L100.0100 #### [facility] [address] [place], [address] Immunoglobulin Richard 4 IMMUNOGLOB E QN 32 IU/mL Normal 6-495 [facility] Comment on above: Result Comment: Perf ormed at: [facility] [id number] Procedure Tech: Javier Araujo MD, Phone: [phone] Performed By: #### L 3200.1600, L3500.3600, L5500.0300, L100.0100 #### [facility] [address] [place], [address] Allergen, Mini-Raston 2023 A. ALTERNATA <0.10 Normal Class 0 [facility] Comment on above: Performed By: #### L 3200.1600, L3500.3600, L5500.0300, L100.0100 #### [facility] [address] [place], [address] BERMUDA GRASS <0.10 Normal Class 0 [facility] Comment on above: Performed By: #### L 3200.1600, L3500.3600, L5500.0300, L100.0100 #### [facility] [address] [place], [address] [place], [place] <0.10 Normal Class 0 [facility] Comment on above: Performed By: #### L 3200.1600, L3500.3600, L5500.0300, L100.0100 #### [facility] [address] [place], [address] CAT HAIR/DANDER <0.10 Normal Class 0 [facility] Comment on above: Performed By: #### L 3200.1600, L3500.3600, L5500.0300, L100.0100 #### [facility] [address] [place], [address] COMMENT Comment Normal . [facility] Comment on above: Result Comment: Phyllis ls of Specific IgE Class Description of Class ----- < 0.10 0 Negative 0.10 - 0.31 0/I Equivocal/Low 0.32 - 0.55 I Low 0.56 - 1.40 II Moderate 1.41 - 3.90 III High 3.91 - 19.00 IV Very High 19.01 - 100.00 V Very High >100.00 Very High Performed By: #### L 3200.1600, L3500.3600, L5500.0300, L100.0100 #### [facility] [address] [place], [address] D FARINAE MITE <0.10 Normal Class 0 [facility] Comment on above: Performed By: #### L 3200.1600, L3500.3600, L5500.0300, L100.0100 #### [facility] [address] [place], [address] D PTERONYSSINUS <0.10 Normal Class 0 [facility] Comment on above: Performed By: #### L 3200.1600, L3500.3600, L5500.0300, L100.0100 #### [facility] [address] [place], [address] DOG EPITHELIA <0.10 Normal Class 0 [facility] Comment on above: Performed By: #### L 3200.1600, L3500.3600, L5500.0300, L100.0100 #### [facility] [address] [place], [address] ELM,AMER WHITE <0.10 Normal Class 0 [facility] Comment on above: Performed By: #### L 3200.1600, L3500.3600, L5500.0300, L100.0100 #### [facility] [address] [place], [address] Mouse Urine <0.10 Normal Class 0 [facility] Comment on above: Result Comment: Perf ormed at: [facility] [id number] Procedure Tech: Javier Araujo MD, Phone: [phone] Performed By: #### L 3200.1600, L3500.3600, L5500.0300, L100.0100 #### [facility] [address] [place], [address] OAK, WHITE <0.10 Normal Class 0 [facility] Comment on above: Performed By: #### L 3200.1600, L3500.3600, L5500.0300, L100.0100 #### [facility] [address] [place], [address] PLANTAIN,ENGLSH <0.10 Normal Class 0 [facility] Comment on above: Performed By: #### L 3200.1600, L3500.3600, L5500.0300, L100.0100 #### [facility] [address] [place], [address] RAGWEED SH/COM <0.10 Normal Class 0 [facility] Comment on above: Performed By: #### L 3200.1600, L3500.3600, L5500.0300, L100.0100 #### [facility] [address] [place], [address] CBC W/Diff, Automatedon 07-2 -2023 Absolute Lymph 1.97 X10 3/uL Normal 0.83-4.51 [facility] Comment on above: Performed By: #### L 3200.1600, L3500.3600, L5500.0300, L100.0100 #### [facility] [address] [place], [address] Absolute Neut 2.8 X10 3/uL Normal 2.0-7.7 [facility] Comment on above: Performed By: #### L 3200.1600, L3500.3600, L5500.0300, L100.0100 #### [facility] [address] [place], [address] Basophils/100 WBC (Bld) 0.8 % Normal 0-1 [facility] Comment on above: Performed By: #### L 3200.1600, L3500.3600, L5500.0300, L100.0100 #### [facility] [address] [place], [address] Eosinophils/100 WBC (Bld) 3.7 % Normal 0-5 [facility] Comment on above: Performed By: #### L 3200.1600, L3500.3600, L5500.0300, L100.0100 #### [facility] [address] [place], [address] Erythrocyte distribution width (RBC) [Ratio] 12.7 % Normal 11.6-14.6 [facility] Comment on above: Performed By: #### L 3200.1600, L3500.3600, L5500.0300, L100.0100 #### [facility] [address] [place], [address] Hematocrit (Bld) [Volume fraction] 44.6 % Normal 40-54 [facility] Comment on above: Performed By: #### L 3200.1600, L3500.3600, L5500.0300, L100.0100 #### [facility] [address] [place], [address] Hemoglobin (Bld) [Mass/Vol] 14.7 g/dL Normal 13.0-16.5 [facility] Comment on above: Performed By: #### L 3200.1600, L3500.3600, L5500.0300, L100.0100 #### [facility] [address] [place], [address] IG% 0.700 Normal 0.0-0.9 [facility] Comment on above: Result Comment: IG% - Immature Granulocytes (promyelocytes, myelocytes and metamyelocytes) > 1% indicates that a LEFT SHIFT is Present. Performed By: #### L 3200.1600, L3500.3600, L5500.0300, L100.0100 #### [facility] [address] [place], [address] Lymphocytes/100 WBC (Bld) 33.3 % Normal 19-41 [facility] Comment on above: Performed By: #### L 3200.1600, L3500.3600, L5500.0300, L100.0100 #### [facility] [address] [place], [address] MCH (RBC) [Entitic mass] 28.1 pg Normal 27.0-32.0 [facility] Comment on above: Performed By: #### L 3200.1600, L3500.3600, L5500.0300, L100.0100 #### [facility] [address] [place], [address] MCHC (RBC) [Mass/Vol] 33.0 g/dL Normal 32-36 [facility] Comment on above: Performed By: #### L 3200.1600, L3500.3600, L5500.0300, L100.0100 #### [facility] [address] [place], [address] MCV (RBC) [Entitic vol] 85.3 fL Normal 80-94 [facility] Comment on above: Performed By: #### L 3200.1600, L3500.3600, L5500.0300, L100.0100 #### [facility] [address] [place], [address] Monocytes/100 WBC (Bld) 14.0 % High 0-10 [facility] Comment on above: Performed By: #### L 3200.1600, L3500.3600, L5500.0300, L100.0100 #### [facility] [address] [place], [address] Neutrophils/100 WBC (Bld) 47.5 % Normal 47-70 [facility] Comment on above: Performed By: #### L 3200.1600, L3500.3600, L5500.0300, L100.0100 #### [facility] [address] [place], [address] Nucleated RBC (Bld) [#/Vol] 0 10*3/uL Normal 0-5 [facility] Comment on above: Performed By: #### L 3200.1600, L3500.3600, L5500.0300, L100.0100 #### [facility] [address] [place], [address] Platelet mean volume (Bld) [Entitic vol] 9.5 fL Normal 6.2-12.0 [facility] Comment on above: Performed By: #### L 3200.1600, L3500.3600, L5500.0300, L100.0100 #### [facility] [address] [place], [address] Platelets (Bld) [#/Vol] 261 10*3/uL Normal 150-450 [facility] Comment on above: Performed By: #### L 3200.1600, L3500.3600, L5500.0300, L100.0100 #### [facility] [address] [place], [address] RBC (Bld) [#/Vol] 5.23 10*6/uL Normal 4.6-6.2 [facility] Comment on above: Performed By: #### L 3200.1600, L3500.3600, L5500.0300, L100.0100 #### [facility] [address] [place], [address] RDW SD 39.3 fl Normal 35.1-43.9 [facility] Comment on above: Performed By: #### L 3200.1600, L3500.3600, L5500.0300, L100.0100 #### [facility] [address] [place], [address] WBC (Bld) [#/Vol] 5.9 10*3/uL Normal 4.4-11.0 [facility] Comment on above: Performed By: #### L 3200.1600, L3500.3600, L5500.0300, L100.0100 #### [facility] [address] [place], [address] Pulmonary Visit Reporton Pulmonary Visit Report [facility] [place] [address] [place] [address] OFFICE VISIT Date of Service: 02/12/24 MR#: [id number] Acct: [id number] Name: ANGEL BAHENA Jr. Rep #: [id number] : 1970 Provider: KEVON Banks Age/Sex: 53/M [place] [facility] Status: Signed Assessment and Plan Assessment and Plan (1) Sleep apnea: Status: Chronic Qualifiers: Sleep apnea type: obstructive Qualified Code(s): G47.33 - Obstructive sleep apnea (adult) (pediatric) Comment: AutoPap 4-20 Plan: He is using and benefiting from Pap therapy. No indication for titration study at this time. Continue to encourage weight loss. Contact the office for any new or worsening symptoms in the meantime. Follow-up in 6 weeks. (2) Seasonal allergies: Status: Acute Plan: New. I suspect he has seasonal allergies, possibly even asthma. He is agreeable to some blood work. Sending him for mini RAST test, IgE level, CBC with automated differential and Aspergillus antibodies today. Will discuss test results at his 6-week follow-up. No initiation of medications until test results are available for review. Orders: Orders Allergen, Mini-Rast Today J30.2 - Other seasonal allergic rhinitis Aspergillus Antibodies Today J30.2 - Other seasonal allergic rhinitis CBC W/Diff, Automated Today J30.2 - Other seasonal allergic rhinitis Immunoglobulin E Today J30.2 - Other seasonal allergic rhinitis Plan Details Follow Up: 6 Weeks ([facility]) HPI Discuss Inspire Chief Complaint: Sleep apnea HPI Comments Details: This patient presents to the office today to initiate care for obstructive sleep apnea. He is ambulatory and currently on room air. Patient reports that he has been diagnosed with sleep apnea for many years. He reports that he has been compliant with therapy. He reports that occasionally he will snore through the device. He states that he is compliant with it most of the time. He is not having difficulty with excessive nocturia. He denies nodding off to sleep unintentionally. He will occasionally take a 15-minute nap. For the most part he wakes up feeling rested. 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 He is a lifelong never smoker. He has never been prescribed an inhaler. He does believe he experiences seasonal allergies. He denies any difficulty with shortness of breath. He does have a cough in the morning that is nonproductive. He has occasional sinus pressure and congestion. He has occasional headaches, sometimes in the morning. He denies any wheezing, chest tightness, chest pain or palpitations. He also denies any fever, chills or body aches. Past medical family history significant for: Mother is on lots of medication and at least has anxiety. Father has good health. Sister has depression. He has 1 son and 1 daughter, both have good health. Compliance report for the past 30 days shows 87% compliance with average use of 7 hours and 22 minutes on nights being used. Current setting is AutoPap 4-20 cmH2O pressure typically being utilized at 7.2 to 11 cm of water. Residual AHI 0.3 events per hour. Leaks do not appear to be a problem. Test results personally viewed with patient: Polysomnogram completed on May 31, 2017. Overall AHI 6.9 events per hour. Impression is mild obstructive sleep apnea recommendation is to trial CPAP. BMI was 30 at the time of testing. Intake Vital Signs 10/11/23 10:13 02/12/24 07:37 Height 5 ft 9 in 5 ft 9 in Weight: 220 lb 220 lb BMI 32.5 32.5 BP 112/80 126/81 H Blood Pressure Location Lt brachial Lt brachial Position Sitting Sitting Respiration 16 Pulse 70 69 Pulse Source Monitor Monitor Temp 98.1 F 97.5 F L Temperature Source Temporal Artery Pulse Oximetry (%) 96 96 Oxygen Delivery Method room air room air Intake Visit Reasons: Discuss Inspire Chief Complaint: Est Care. Outboard Motor Inspector Required: No DME Vendor: none Accompanied by: Is patient in pain?: No Allergies Iodinated Contrast Media (iodine contrast) Allergy (Severe, Verified 02/12/24 08:08) Anaphylaxis peanut (peanuts) Allergy (Severe, Verified 02/12/24 08:08) Anaphylaxis shellfish derived Allergy (Severe, Verified 02/12/24 08:08) Anaphylaxis diphenhydramine (From Benadryl) Adverse Reaction (Intermediate, Verified 02/12/24 08:08) Hives Medications ???Medication ???Instructions ???Recorded ???Confirmed ???Type aspirin 81 mg tablet 81 mg PO DAILY 08/10/21 02/12/24 History metoprolol tartrate 25 mg tablet 12.5 mg (1/2 x 25 mg) PO DAILY #90 11/06/23 02/12/24 Rx tabs lorazepam 1 mg tablet 1 mg PO DAILY PRN anxiety 02/12/24 History Have you fallen in the past year?: No [facility] Medical History (more content not included)... Normal [facility] Absolute lymphocyte countOrd ered By: Pennie Fish on 10-11-2023 Lymphocytes Auto (Unsp spec) [#/Vol] 1.95 10*3/uL 0.83-4.51 [facility] Automated lymphocyte count a s percentage of total leukocytesOrdered By: Pennie Fish on 10-11-2023 Lymphocytes/100 WBC Auto (Unsp spec) 30.2 % 19-41 [facility] Basophil percentageOrdered B y: Pennie Fish on 10-11-2023 Basophils/100 WBC (Bld) 0.8 % 0-1 [facility] Bilirubin [Mass/Vol] 0.60 mg/dL 0.20-1.00 [facility] Comment on above: For patients on eltr ombopag therapy, use of Dimension [place] TBIL is not recommended. Chloride [Moles/Vol] 107 mmol/L 98-107 [facility] Cholesterol [Mass/Vol] 126 mg/dL <200 [facility] Comment on above: <200 mg/dL Desirable 200-240 mg/dL Borderline >240 mg/dL High Risk Eosinophils/100 WBC (Bld) 2.0 % 0-5 [facility] Glucose [Mass/Vol] 91 mg/dL 74-106 [facility] Hemoglobin (Bld) [Mass/Vol] 15.2 g/dL 13.0-16.5 [facility] Monocytes/100 WBC (Bld) 9.6 % 0-10 [facility] Neutrophils (Bld) [#/Vol] 3.7 10*3/uL 2.0-7.7 [facility] Neutrophils/100 WBC (Bld) 57.2 % 47-70 [facility] Potassium [Moles/Vol] 4.1 mmol/L 3.5-5.1 [facility] Protein [Mass/Vol] 7.7 g/dL 6.4-8.2 [facility] Sodium [Moles/Vol] 138 mmol/L 136-145 [facility] Triglyceride [Mass/Vol] 69 mg/dL <199 [facility] Comment on above: The drugs N-Acetylcy steine and Metamizole may falsely depress this assay.Serum Triglycerides Reference Interval Normal <150 mg/dL Borderline high 150 - 199 mg/dL High 200 - 499 mg/dL Very High > or = 500 mg/dL WBC (Bld) [#/Vol] 6.5 10*3/uL 4.4-11.0 [facility] Determination of erythrocyte mean corpuscular volume (MCV)Ordered By: Pennie Fish on 10-11-2023 MCV (RBC) [Entitic vol] 83.7 fL 80-94 [facility] Erythrocyte distribution wid th ratioOrdered By: [facility] Beardnuris on 10-11-2023 Erythrocyte distribution width (RBC) [Ratio] 12.5 % 11.6-14.6 [facility] Erythrocyte distribution wid th standard deviationOrdered By: [facility] Beardnuris on 10-11-2023 Erythrocyte distribution width (RBC) [Entitic vol] 38.0 fL 35.1-43.9 [facility] Hematocrit Auto (Bld) [Volum e fraction]Ordered By: yunigreat barringtoncharity Beardnuris on 10-11-2023 Hematocrit (Bld) [Volume fraction] 46.3 % 40-54 [facility] Immature granulocytes/100 WB C Auto (Bld)Ordered By: [facility] Beardnuris on 10-11-2023 Immature granulocytes/100 WBC (Bld) 0.200 % 0.0-0.9 [facility] Comment on above: IG% - Immature Granu locytes (promyelocytes, myelocytes and metamyelocytes) > 1% indicates that a LEFT SHIFT is Present. Laboratory - Chemistry and C hemistry - challengeOrdered By: [facility] Beardnuris on 10-11-2023 Albumin/Globulin [Mass ratio] 1.0 {ratio} 0.9-2.4 [facility] ALP [Catalytic activity/Vol] 79 U/L 45-117 [facility] ALT [Catalytic activity/Vol] 28 U/L 16-61 [facility] Cholesterol in HDL [Mass/Vol] 38 mg/dL >40 [facility] Comment on above: The drugs N-Acetylcy steine and Metamizole may falsely depress this assay. Reference Range HDL <40 mg/dL Low HDL Cholesterol HDL >or= 60 mg/dL High HDL Cholesterol Cholesterol in LDL [Mass/Vol] 74 mg/dL 0-130 [facility] CO2 [Moles/Vol] 26.0 mmol/L 21.0-32.0 [facility] Globulin (S) [Mass/Vol] 3.9 g/dL 2.2-4.2 [facility] Urea nitrogen/Creatinine [Mass ratio] 10.7 mg/mg 10-20 [facility] Laboratory - Hematology and Cell countsOrdered By: Pennie Fish on 10-11-2023 MCH (RBC) [Entitic mass] 27.5 pg 27.0-32.0 [facility] MCHC (RBC) [Mass/Vol] 32.8 g/dL 32-36 [facility] Nucleated RBC/100 WBC (Bld) [Ratio] 0 % 0-5 [facility] Platelet mean volume (Bld) [Entitic vol] 10.4 fL 6.2-12.0 [facility] Platelets (Bld) [#/Vol] 334 10*3/uL 150-450 [facility] No Panel InformationOrdered By: Pennie Fish on 10-11-2023 Estimated GFR (MDRD) Amer 88 mL/min >60 [facility] Comment on above: GFR Calc Estimated GFR (MDRD) Non-Af Amer 73 mL/min >60 [facility] Comment on above: Non- GFR Calc Prostate Specific Antigen Screen 0.95 ng/mL 0.00-4.00 [facility] Comment on above: This test was perfor med using the TPSA assay method for the[facility] system. Values obtained with differentassay methods cannot be used interchangably.When changing PSA assays in the course of monitoring apatient, additional sequential testing should be carriedout to confirm baseline values. VLDL Cholesterol 14 mg/dL 5-40 [facility] RBC Auto (Bld) [#/Vol]Ordere d By: Pennie Fish on 10-11-2023 RBC (Bld) [#/Vol] 5.53 10*6/uL 4.6-6.2 [facility] Serum or plasma calcium mike urement (mass/volume)Ordered By: Pennie Fish on 10-11-2023 Calcium [Mass/Vol] 9.1 mg/dL 8.5-10.1 [facility] Serum or plasma creatinine m easurement (mass/volume)Ordered By: Pennie Fish on 10-11-2023 Creatinine [Mass/Vol] 1.12 mg/dL 0.70-1.30 [facility] Comment on above: The validity of the calculated GFR & GFRAA in patients over 70 years has not been determined. Clinical correlation is essential. Serum or plasma urea nitroge n measurement (mass/volume)Ordered By: Pennie Fish on 10-11-2023 Urea nitrogen [Mass/Vol] 12 mg/dL 7-18 [facility] Thin prep Papanicolaou smear with manual screeningOrdered By: Pennie Fish on 10-11-2023 Thin prep Papanicolaou smear with manual screening 3.8 g/dL 3.2-5.0 [facility] Thin prep Papanicolaou smear with manual screening 21 U/L 15-37 [facility] Thin prep Papanicolaou smear with manual screening 5 5-15 [facility] ECHOon 08-29-2023 [facility] 36on 08-14-2023 36 Called and notified that our last results are from 2021, they still would like them, sent via MOAECx. Normal [facility] 36 Name of caller: Avinash Hurst Contact phone number: [phone] Relationship to Patient: [facility] Cardiology Provider: Dr Coley Practice: [facility] Chief Complaint/Reason for Call: Avinash Hurst requesting most recent lipid results for pt to be faxed to [phone] Best time of day caller can be reached: Any Patient advised that office/PCP has 24-48 business hours to return their call: Yes Normal [facility] BASIC METABOLIC PANELon 11-0 Anion gap [Moles/Vol] 11 mmol/L Normal 3-13 [facility] Comment on above: Performed By: #### L AB747, LAB99, LAB20, LAB15 #### Leather Flesher: ITA SEPULVEDA ([id number]) [facility] ANIL ANTOINE (SWRLAB) [address] [place] [address] Calcium [Mass/Vol] 8.9 mg/dL Normal 8.4-10.4 [facility] Comment on above: Performed By: #### L AB747, LAB99, LAB20, LAB15 #### Leather Flesher: ITA SEPULVEDA ([id number]) [facility] [place] [facility] (SWRLAB) [address] [place] [address] [place] Chloride [Moles/Vol] 104 mmol/L Normal 98-107 [facility] Comment on above: Performed By: #### L [id number], LAB99, LAB20, LAB15 #### Leather Flesher: ITA ESPULVEDA ([id number]) [facility] [place] [facility] (SWRLAB) [address] [place] [address] [place] CO2 [Moles/Vol] 24 mmol/L Normal 22-30 [facility] Comment on above: Performed By: #### L AB747, LAB99, LAB20, LAB15 #### Leather Flesher: ITA SEPULVEDA ([id number]) [facility] ANIL HOUGHTMAN (SWRLAB) [address] [place] [address] [place] Creatinine [Mass/Vol] 1.13 mg/dL Normal 0.66-1.25 [facility] Comment on above: Performed By: #### L AB747, LAB99, LAB20, LAB15 #### Leather Flesher: ITA SEPULVEDA ([id number]) [facility] HOU[facility] (SWRLAB) [address] [place] [address] [place] GLOMERULAR FILTRATION RATE ML/MIN/1.73 SQ M.PREDICTED 77.7 mL/min/1.73m*2 Normal >60.0 [facility] Comment on above: Result Comment: Calc ulation based on the Chronic Kidney Disease Epidemiology Collaboration (CKD-EPI) equation refit without adjustment for race Performed By: #### L AB747, LAB99, LAB20, LAB15 #### Leather Flesher: ITA SEPULVEDA ([id number]) [facility] [place] [facility] (SWRLAB) [address] [place] [address] [place] Glucose [Mass/Vol] 89 mg/dL Normal 70-100 [facility] Comment on above: Performed By: #### L AB747, LAB99, LAB20, LAB15 #### Leather Flesher: ITA SEPULVEDA ([id number]) [facility] [place] [facility] (SWRLAB) [address] [place] [address] [place] Potassium [Moles/Vol] 4.1 mmol/L Normal 3.5-5.1 [facility] Comment on above: Performed By: #### L AB747, LAB99, LAB20, LAB15 #### Leather Flesher: ITA SEPULVEDA ([id number]) [facility] [place] [facility] (SWRLAB) [address] Sodium [Moles/Vol] 140 mmol/L Normal 135-145 [facility] Comment on above: Performed By: #### L AB747, LAB99, LAB20, LAB15 #### Leather Flesher: ITA SEPULVEDA ([id number]) [facility] (SWRLAB) [address] [place] [address] Urea nitrogen [Mass/Vol] 15 mg/dL Normal 9-20 [facility] Comment on above: Performed By: #### L AB747, LAB99, LAB20, LAB15 #### Leather Flesher: ITA SEPULVEDA ([id number]) [facility] (SWRLAB) [address] [place] [address] Basic metabolic 1998 panelon 05-26-2023 Anion gap [Moles/Vol] 11 mmol/L 3 - 13 mmol/L [facility] Calcium [Mass/Vol] 8.9 mg/dL 8.4 - 10. 4 mg/dL [facility] Chloride [Moles/Vol] 104 mmol/L 98 - 10 7 mmol/L [facility] CO2 [Moles/Vol] 24 mmol/L 22 - 30 mmol/L [facility] Creatinine [Mass/Vol] 1.13 mg/dL 0.66 - 1.25 mg/dL [facility] GFR/1.73 sq M.predicted MDRD (S/P/Bld) [Vol rate/Area] 77.7 mL/min/{1.73_m2} [facility] Comment on above: Calculation based on the Chronic Kidney Disease Epidemiology Collaboration (CKD-EPI) equation refit without adjustment for race Glucose [Mass/Vol] 89 mg/dL 70 - 100 mg/dL [facility] Potassium [Moles/Vol] 4.1 mmol/L 3.5 - 5.1 mmol/L [facility] Sodium [Moles/Vol] 140 mmol/L 135 - 145 mmol/L [facility] Urea nitrogen [Mass/Vol] 15 mg/dL 9 - 20 mg/dL [facility] CBC (HEMOGRAM)on 05-26-2023 Erythrocyte distribution width (RBC) [Ratio] 12.6 % Normal 11.5-14.5 [facility] Comment on above: Performed By: #### L AB294 #### Leather Flesher: ITA SEPULVEDA ([id number]) [facility] (SWRLAB) [address] [place] [address] ERYTHROCYTE MEAN CORPUSCULAR HEMOGLOBIN CONCENTRATION (G/DL) BY AUTOMATED 34.0 % Normal 32.0-36.0 [facility] Comment on above: Performed By: #### L AB294 #### Leather Flesher: ITA SEPULVEDA ([id number]) [facility] ANIL RITTMAN (SWRLAB) [address] [place] [address] Hematocrit (Bld) [Volume fraction] 45.3 % Normal 40.0-52.0 [facility] Comment on above: Performed By: #### L AB294 #### Leather Flesher: ITA SEPULVEDA ([id number]) [facility] (SWRLAB) [address] [place] [address] Hemoglobin (Bld) [Mass/Vol] 15.4 g/dL Normal 13.0-18.0 [facility] Comment on above: Performed By: #### L AB294 #### Leather Flesher: ITA SEPULVEDA ([id number]) [facility] (SWRLAB) [address] [place] [address] MCH (RBC) [Entitic mass] 28.2 pg Normal 26.0-34.0 [facility] Comment on above: Performed By: #### L AB294 #### Leather Flesher: ITA SEPULVEDA ([id number]) [facility] [place]TMAN (SWRLAB) [address] [place] [address] MCV (RBC) [Entitic vol] 82.8 fL Normal 80.0-98.0 [facility] Comment on above: Performed By: #### L AB294 #### Leather Flesher: ITA SEPULVEDA ([id number]) [facility] (SWRLAB) [address] [place] [address] Platelet mean volume (Bld) [Entitic vol] 10.1 fL Normal 7.4-12.4 [facility] Comment on above: Result Comment: MPV is a calculated measurement using platelet volume ratio Performed By: #### L AB294 #### Leather Flesher: ITA SEPULVEDA ([id number]) [facility] (SWRLAB) [address] [place] [address] [place] Platelets (Bld) [#/Vol] 303 10*3/uL Normal 140-440 [facility] Comment on above: Performed By: #### L AB294 #### Leather Flesher: ITA SEPULVEDA ([id number]) [facility] (SWRLAB) [address] [place] [address] RBC (Bld) [#/Vol] 5.47 10*6/uL Normal 4.40-5.90 [facility] Comment on above: Performed By: #### L AB294 #### Leather Flesher: ITA SEPULVEDA ([id number]) [facility] (SWRLAB) [address] [place] [address] [place] WBC (Bld) [#/Vol] 9.2 10*3/uL Normal 3.6-10.7 [facility] Comment on above: Performed By: #### L AB294 #### Leather Flesher: ITA SEPULVEDA ([id number]) [facility] (SWRLAB) [address] CBC panel Auto (Bld)on 05-26 Erythrocyte distribution width (RBC) [Ratio] 12.6 % 11.5 - 14.5 % [facility] Hematocrit (Bld) [Volume fraction] 45.3 % 40.0 - 52.0 % [facility] Hemoglobin (Bld) [Mass/Vol] 15.4 g/dL 13.0 - 18.0 g/dL [facility] Interpretation and review of laboratory results Normal [facility] MCH (RBC) [Entitic mass] 28.2 pg 26.0 - 34.0 pg [facility] MCHC (RBC) [Mass/Vol] 34.0 % 32.0 - 36.0 % [facility] MCV (RBC) [Entitic vol] 82.8 fL 80.0 - 98.0 fL [facility] Platelet mean volume (Bld) [Entitic vol] 10.1 fL 7.4 - 12.4 fL [facility] Comment on above: MPV is a calculated measurement using platelet volume ratio Platelets (Bld) [#/Vol] 303 10*3/uL 140 - 440 10*3/uL [facility] RBC (Bld) [#/Vol] 5.47 10*6/uL 4.40 - 5.9 0 10*6/uL [facility] WBC (Bld) [#/Vol] 9.2 10*3/uL 3.6 - 10.7 10*3/uL [facility] ECG 12-LEADon 05-26-2023 ECG 12-LEAD IMPRESSION: Sinus rhythm Borderline prolonged CT interval Probable left atrial enlargement No previous ECG available for comparison Electronically Signed On 05-26-2023 18:46:35 EDT by Jarvis Flores [facility] ED Nursing Noteon 05-26-2023 ED Nursing Note Pt to ER with compla int of chest pain earlier today, nausea and vomiting, and high blood pressure. Started after he ate around 9am today. Denies any chest pain at this time. But states blood pressure was elevated at home 150/110. pt with hx of valve replacement in heart . States he is supposed to be on baby aspirin and metoprolol- but is not taking them. Pt placed on air sampling and monitoring and EKG obtained on arrival. [facility] ED Provider Noteon 11-03-202 3 ED Provider Note EMERGENCY DEPARTMENT ENCOUNTER Pt Name: Angel Bahena Birthdate 1970 Date of evaluation: 05/26/2023 ED Provider: Jarvis Flores DO CHIEF COMPLAINT Chief Complaint Patient presents with Chest Pain Hypertension HISTORY OF PRESENT ILLNESS (Location/Symptom, Timing/Onset, Context/Setting, Quality, Duration, Modifying Factors, Severity) Note limiting factors. I wore appropriate PPE for the entirety of this encounter. HPI Angel Bahena is a 52 y.o. male who presents to the emergency department with chest pain and nausea. The patient reports that this morning around 9:00 AM he ate breakfast. He reports that after eating breakfast he felt nauseous he developed pain in the bilateral lower chest, described as sharp, and severe in intensity. He reports that he vomited about 30 minutes later and had resolve of his pain. He reports that since that time he is felt fatigued, which prompted presentation to the emergency department. He denies any chest pain or shortness of breath at this time. He denies previous history of CAD or PCI. He admits tohistory of hypertension, and he is noncompliant with his medication. Nursing Notes were reviewed. Limitations to history: Outside historians: REVIEW OF SYSTEMS Review of Systems Cardiovascular: Positive for chest pain. PAST MEDICAL HISTORY Past Medical History: Diagnosis Date Abnormal heart sounds Anxiety Aortic valve stenosis Chest pain Mitral and aortic heart valve diseases, unspecified Palpitations Sleep apnea Tricuspid valve insufficiency SURGICAL HISTORY Past Surgical History: Procedure Laterality Date AORTIC VALVE REPLACEMENT 06/03/2003 ross procedure [facility] CARDIAC PROCEDURE Left 05/17/2003 [facility] CURRENT MEDICATIONS Previous Medications ALBUTEROL 108 (90 BASE) MCG/ACT INHALER inhale 2 puffs by mouth and INTO THE LUNGS every 4 hours if needed ASPIRIN 81 MG EC TABLET Take 81 mg by mouth in the morning. AZELASTINE (ASTELIN) 0.1 % NASAL SPRAY every 12 hours. BACLOFEN (LIORESAL) 10 MG TABLET Take 10 mg by mouth 3 times daily as needed. DEXAMETHASONE (DECADRON) 4 MG TABLET Take 4 mg by mouth. EPINEPHRINE (EPIPEN) 0.3 MG/0.3ML INJECTION SYRINGE Inject into the shoulder, thigh, or buttocks. ESCITALOPRAM (LEXAPRO) 10 MG TABLET Take 10 mg by mouth in the morning. FLUTICASONE (FLONASE) 50 MCG/ACT NASAL SPRAY 2 sprays. METOPROLOL SUCCINATE XL (TOPROL-XL) 25 MG 24 HR TABLET Take 12.5 mg by mouth daily. NABUMETONE (RELAFEN) 500 MG TABLET Take 500 mg by mouth 2 times daily. NAPROXEN (NAPROSYN) 500 MG TABLET Take 500 mg by mouth. SERTRALINE (ZOLOFT) 100 MG TABLET Take by mouth daily. ALLERGIES Peanut (diagnostic), Peanut allergen powder-dnfp, Shellfish allergy, and Diphenhydramine FAMILY HISTORY Family History Problem Relation Name Age of Onset Heart disease Neg Hx SOCIAL HISTORY Social History Socioeconomic History Marital status: Tobacco Use Smoking status: Never Smokeless tobacco: Never Vaping Use Vaping Use: Never used Substance and Sexual Activity Alcohol use: No Drug use: No SCREENINGS PHYSICAL EXAM ED Triage Vitals [05/26/23 1724] Temp Heart Rate Resp BP 36.4 ?C (97.5 ?F) 69 16 (!) 136/95 SpO2 Temp Source Heart Rate Source Patient Position 98 % Oral Monitor Sitting BP Location FiO2 (%) Right arm -- Physical Exam Constitutional: General: He is not in acute distress. HENT: Head: Normocephalic. Eyes: Conjunctiva/sclera: Conjunctivae normal. Cardiovascular: Rate and Rhythm: Normal rate and regular rhythm. Pulmonary: Effort: Pulmonary effort is normal. Abdominal: General: Abdomen is flat. Tenderness: There is no abdominal tenderness. Musculoskeletal: General: No deformity. Skin: General: Skin is warm and dry. Psychiatric: Mood and Affect: Mood normal. DIAGNOSTIC RESULTS RADIOLOGY (Per Emergency Physician): Interpretation per the Radiologist below, if available at the time of this note: XR chest 1 view Final Result 1. Stable examination. No acute findings. Report Dictated on Electronically Signed By: Mauricio Lama MD Electronically Signed Date/Time: 05/26/2023 6:00 PM EDT LABS: Labs Reviewed BASIC METABOLIC PANEL - Normal Result Value SODIUM 140 POTASSIUM 4.1 CHLORIDE 104 CARBON DIOXIDE 24 UREA NITROGEN 15 CREATININE 1.13 GLUCOSE 89 CALCIUM 8.9 ANION GAP 11 eGFR 77.7 CBC (HEMOGRAM) - Normal Auto WBC 9.2 RBC 5.47 Hemoglobin 15.4 Hematocrit 45.3 MCV 82.8 MCH 28.2 MCHC 34.0 RDW 12.6 Platelets 303 MPV 10.1 TROPONIN I - Normal TROPONIN I <0.012 Narrative: Patients with high levels of Biotin oral intake (ie >5 mg/day) may have falsely decreased Troponin levels. LIPASE - Normal LIPASE 60 HEPATIC FUNCTION PANEL - Normal BILIRUBIN, TOTAL 0.8 BILIRUBIN, DIRECT 0.0 ALKALINE PHOSPHATASE 60 AST (SGOT) 29 ALT 28 ALBUMIN 4.5 TO (more content not included)... Normal [facility] HEPATIC FUNCTION PANELon Albumin [Mass/Vol] 4.5 g/dL Normal 3.5-5.0 [facility] Comment on above: Performed By: #### L AB747, LAB99, LAB20, LAB15 #### Leather Flesher: ITA SEPULVEDA ([id number]) [facility] (SWRLAB) [address] [place] [address] ALP [Catalytic activity/Vol] 60 U/L Normal 38-126 [facility] Comment on above: Performed By: #### Ross AB747, LAB99, LAB20, LAB15 #### Leather Flesher: ITA SEPULVEDA ([id number]) [facility] ANIL [facility] (SWRLAB) [address] [place] [address] [place] ALT [Catalytic activity/Vol] 28 U/L Normal 0-49 [facility] Comment on above: Performed By: #### Ross AB747, LAB99, LAB20, LAB15 #### Leather Flesher: ITA SEPULVEDA ([id number]) [facility] ANIL [facility]ITTM[facility] (SWRLAB) [address] [place] [address] [place] AST [Catalytic activity/Vol] 29 U/L Normal 15-46 [facility] Comment on above: Performed By: #### L AB747, LAB99, LAB20, LAB15 #### Leather Flesher: ITA SEPULVEDA ([id number]) [facility] BRIGGSANIL RITTMAN (SWRLAB) [address] [place] [address] Bilirubin [Mass/Vol] 0.8 mg/dL Normal 0.2-1.3 [facility] Comment on above: Performed By: #### L AB747, LAB99, LAB20, LAB15 #### Leather Flesher: ITA SEPULVEDA ([id number]) [facility] (SWRLAB) [address] [place] [address] Bilirubin.indirect [Mass/Vol] 0.0 mg/dL Normal 0.0-0.3 [facility] Comment on above: Performed By: #### L AB747, LAB99, LAB20, LAB15 #### Leather Flesher: ITA SEPULVEDA ([id number]) [facility] RITTMAN (SWRLAB) [address] [place] [address] Protein [Mass/Vol] 8.2 g/dL Normal 6.3-8.2 [facility] Comment on above: Performed By: #### L AB747, LAB99, LAB20, LAB15 #### Leather Flesher: ITA SEPULVEDA ([id number]) [facility] RITTMAN (SWRLAB) [address] [place] [address] Hepatic function 2000 panelo n 05-26-2023 Albumin [Mass/Vol] 4.5 g/dL 3.5 - 5.0 g/dL [facility] ALP [Catalytic activity/Vol] 60 U/L 38 - 126 U/L [facility] ALT [Catalytic activity/Vol] 28 U/L 0 - 49 U/L [facility] AST [Catalytic activity/Vol] 29 U/L 15 - 46 U/L [facility] Bilirubin [Mass/Vol] 0.8 mg/dL 0.2 - 1 .3 mg/dL [facility] Bilirubin.conjugated [Mass/Vol] 0.0 mg/dL 0.0 - 0.3 mg/dL [facility] Protein [Mass/Vol] 8.2 g/dL 6.3 - 8.2 g/dL [facility] LIPASEon 05-26-2023 Lipase [Catalytic activity/Vol] 60 U/L Normal 23-300 [facility] Comment on above: Performed By: #### L AB747, LAB99, LAB20, LAB15 #### Leather Flesher: ITA SEPULVEDA ([id number]) [facility] (SWRLAB) [address] Laboratory - Chemistry and C hemistry - challengeon 05-26-2023 Troponin I.cardiac [Mass/Vol] ng/mL NINF - 0.034 ng/mL [facility] Lipase [Catalytic activity/Vol] 60 U/L 23 - 300 U/L [facility] No Panel Informationon 05-26 P [place] 22 degrees [facility] CT Interval 206 ms [facility] QRS [place] 18 degrees [facility] QRSD Interval 106 ms [facility] QT Interval 424 ms [facility] QTC Interval 436 ms [facility] T Wave [place] 41 degrees [facility] Sinus rhythm Borderline prolonged CT interval Probable left atrial enlargement No previous ECG available for comparison Electronically Signed On 05-26-2023 18:46:35 EDT by Jarvis Main, - 05/26/2023 IMPRESSION: Sinus rhythm Borderline prolonged CT interval Probable left atrial enlargement No previous ECG available for comparison Electronically Signed On 05-26-2023 18:46:35 EDT by Jarvis Flores [facility] Interpretation and review of laboratory results Normal [facility] TROPONIN Ion 05-26-2023 Troponin I.cardiac [Mass/Vol] ng/mL Normal <0.034 [facility] Comment on above: Result Comment: АННА Torres COMMENTS: Patients with high levels of Biotin oral intake (ie >5 mg/day) may have falsely decreased Troponin levels. Performed By: #### L AB747, LAB99, LAB20, LAB15 #### Leather Flesher: ITA SEPULVEDA ([id number]) [facility] GIANLUCAPAYTON (SWRLAB) [address] [place] [address] [place] Troponin I.cardiac [Mass/Vol ]on 05-26-2023 Interpretation and review of laboratory results Normal [facility] Patients with high levels of Biotin oral intake (ie >5 mg/day) may have falsely decreased Troponin levels. [facility] Vital signson 05-26-2023 Heart rate 64 /min bpm [facility] XR Chest Single viewon 05-26 1. Stable examination. No acute findings. Report Dictated on Electronically Signed By: Mauricio Lama MD Electronically Signed Date/Time: 05/26/2023 6:00 PM EDT [facility] 1970 [id number] Exam Date/Time: 05/26/2023 17:58 Procedure: XR CHEST 1 VIEW Ordering Provider: FLORES JOSEPH Reason For Exam: CHEST PAIN CHEST PORTABLE CLINICAL INDICATION: CHEST PAIN TECHNIQUE: Portable chest x-ray(s). COMPARISON: September,. FINDINGS: Cardiac silhouette prominent, which may be due in part to technique, but stable. Median sternotomy wires again noted. Lungs are grossly clear. No significant vascular congestion. No apparent pneumothorax. Bony thorax grossly unremarkable. [facility] Mauricio Lama MD - 05/26/2023 Patient Name: ANGEL BA[facility]NA : 1970 [id number] Exam Date/Time: 05/26/2023 17:58 Procedure: XR CHEST 1 VIEW Ordering Provider: FLORES JOSEPH Reason For Exam: CHEST PAIN CHEST PORTABLE CLINICAL INDICATION: CHEST PAIN TECHNIQUE: Portable chest x-ray(s). COMPARISON: September,. FINDINGS: Cardiac silhouette prominent, which may be due in part to technique, but stable. Median sternotomy wires again noted. Lungs are grossly clear. No significant vascular congestion. No apparent pneumothorax. Bony thorax grossly unremarkable. IMPRESSION: 1. Stable examination. No acute findings. Report Dictated on Electronically Signed By: Mauricio Lama MD Electronically Signed Date/Time: 05/26/2023 6:00 PM EDT [facility] Radiology Study observation (narrative) [facility] jany XR Chest Single viewOrdered By: Mauricio Lama on 05-26-2023 [employer] Work Phone: [phone] 09-16-2022 36 LM to pre-visit plan for appointment with Dr Coley on 09/19/[address] call to office.. If after hours please ask patient to arrive 15 minutes early with Photo ID, insurance card, and a mask. Fasting: yes If you speak with pt please ask the following questions- Is your address, phone number, and insurance the same? Have you been exposed to or tested for Covid in the last 10 days? Do you have any Covid symptoms? Have you been outside of [place] in the last month? Any changes to your medications or allergies? Any surgeries since you were seen last? Are you a smoker/vape/ chew? Do you drink alcohol? Are you interested in receiving any of the following? Pneumonia vaccine- Colonoscopy referral- Tdap vaccine- Shingles vaccine- Any problems paying for the very basic- food, housing, medical care, heat? Any worries about running out of food before you have money to buy more? Do you have reliable transportation? Normal [facility] CR Spine Lumbosacral 4+ View son 05-16-2022 CR Spine Lumbosacral 4+ Views Patient Name: ANGEL BHAENA Jr Diagnostic Radiology ACCESSION EXAM DATE/TIME PROCEDURE ORDERING PROVIDER [id number] 05/16/2022 16:30 EDT CR Spine Lumbosacral 4+ MD ROSAURA, R[place] QUEEN CPT code 62476 Reason For Exam (CR Spine Lumbosacral 4+ Views) low back pain, lumbar strain Report LUMBAR SPINE SERIES CLINICAL INDICATION: Back pain AP, bilateral oblique, and lateral views of the lumbar spine were obtained. COMPARISON: None. FINDINGS: The alignment of the lumbar spine is normal. No fractures are seen. Intervertebral disc spaces are relatively well-preserved. There are mild facet hypertrophic changes within the lower lumbar spine. There are no lytic or blastic lesions observed. No pars defects are seen on the oblique views. The sacroiliac joints appear unremarkable. IMPRESSION: No acute bony abnormality of the lumbar spine is identified. Mild degenerative changes of the lower lumbar spine from L4 through S1. Report Dictated on Final Dictating Physician: MD GUAN JONATHAN R Signed Date and Time: 05/17/2022 2:32 pm Signed by: MD GUAN JONATHAN R Transcribed Date and Time: 05/17/2022 2:33 Normal [facility] CR Wrist Complete 3 Views Ri ghton 07-27-2021 CR Wrist Complete 3 Views Right Patient Name: ANGEL BAHENA Diagnostic Radiology ACCESSION EXAM DATE/TIME PROCEDURE ORDERING PROVIDER [id number] 07/27/2021 18:10 EST CR Wrist Complete 3 MD BETTS DAVID L Views Right CPT code 90215 Reason For Exam (CR Wrist Complete 3 Views Right) trauma Report CLINICAL INFORMATION: Right wrist pain after trauma. AP, oblique, and lateral views of the right wrist are provided. There are no comparison studies. FINDINGS: The osseous structures are unremarkable. There is no fracture or dislocation. The carpal rows are well-maintained. The bone mineralization is within normal limits. IMPRESSION: 1. No acute findings. Report Dictated on Final Dictating Physician: MD CALVIN JEFFREY Signed Date and Time: 07/27/2021 6:32 pm Signed by: MD CALVIN JEFFREY Transcribed Date and Time: 07/27/2021 6:33 [facility] XR WRIST RIGHT 3 VWon 2021 Patient Name: ANGEL BAHENA Diagnostic Radiology ACCESSION EXAM DATE/TIME PROCEDURE ORDERING PROVIDER [id number] 07/27/2021 18:10 EST CR Wrist Complete 3 MD BETTS DAVID L Views Right CPT code 15666 Reason For Exam (CR Wrist Complete 3 Views Right) trauma Report CLINICAL INFORMATION: Right wrist pain after trauma. AP, oblique, and lateral views of the right wrist are provided. There are no comparison studies. FINDINGS: The osseous structures are unremarkable. There is no fracture or dislocation. The carpal rows are well-maintained. The bone mineralization is within normal limits. IMPRESSION: 1. No acute findings. Report Dictated on --- Final --- Dictating Physician: MD CALVIN JEFFREY Signed Date and Time: 07/27/2021 6:32 pm Signed by: MD CALVIN JEFFREY Transcribed Date and Time: 07/27/2021 6:33 [facility] Mannie Clavin MD - 07/27/2021 Patient Name: ANGEL BAHENA Diagnostic Radiology ACCESSION EXAM DATE/TIME PROCEDURE ORDERING PROVIDER [id number] 07/27/2021 18:10 EST CR Wrist Complete 3 MD BETTS DAVID L Views Right CPT code 68683 Reason For Exam (CR Wrist Complete 3 Views Right) trauma Report CLINICAL INFORMATION: Right wrist pain after trauma. AP, oblique, and lateral views of the right wrist are provided. There are no comparison studies. FINDINGS: The osseous structures are unremarkable. There is no fracture or dislocation. The carpal rows are well-maintained. The bone mineralization is within normal limits. IMPRESSION: 1. No acute findings. Report Dictated on --- Final --- Dictating Physician: MD CALVIN JEFFREY Signed Date and Time: 07/27/2021 6:32 pm Signed by: MD CALVIN JEFFREY Transcribed Date and Time: 07/27/2021 6:33 [facility] Work Phone: Radiology Study observation (narrative) [employer] Work Phone: XR WRIST RIGHT 3 VWOrdered B y: Mannie Calvin on 07-27-2021 [employer] Work Phone: Basic Metabolic Panelon 09-21 Anion gap [Moles/Vol] 9 mmol/L 3 - 13 mmol/L [employer] Work Phone: Calcium [Mass/Vol] 9.7 mg/dL 8.4 - 10. 4 mg/dL [facility] Work Phone: Chloride [Moles/Vol] 103 mmol/L 98 - 10 7 mmol/L [facility] Work Phone: CO2 [Moles/Vol] 28 mmol/L 22 - 30 mmol/L [employer] Work Phone: Creatinine [Mass/Vol] 1.23 mg/dL 0.52 - 1.25 mg/dL [facility] Work Phone: EGFR IF NonAfrican [place] Islander 67.6 mL/min >60 [facility] Work Phone: Comment on above: KDIGO guidelines pro vide the following GFR categories: Stage GFR(ml/min/1.73 m2) Terms G1 >=90 Normal or high G2 60-89 Mildly decreased* G3a 45-59 Mildly to moderately decreased G3b 30-44 Moderately to severely decreased G4 15-29 Severely decreased G5 <15 Kidney failure *Relative to young adult level. In the absence of evidence of kidney damage, neither GFR category G1 nor G2 fulfill the criteria for CKD. The CKD-EPI equation is validated in individuals 18 years of age and older. Currently the best equation for estimating glomerular filtration rate (GFR) from serum creatinine in children is the Bedside Loredo equation. It is less accurate in patients with extremes of muscle mass, restriction of dietary protein, ingestion of creatine, extra-renal metabolism of creatinine, or treatment with medications that affect renal tubular creatinine secretion. GFR/1.73 sq M predicted among blacks MDRD (S/P/Bld) [Vol rate/Area] 78.3 mL/min/{1.73_m2} >60 [facility] Work Phone: Glucose [Mass/Vol] 113 mg/dL High 70 - 100 mg/dL [facility] Work Phone: Interpretation and review of laboratory results Abnormal [facility] Work Phone: Potassium [Moles/Vol] 3.9 mmol/L 3.5 - 5.1 mmol/L [facility] Work Phone: Sodium [Moles/Vol] 139 mmol/L 135 - 145 mmol/L [facility] Work Phone: Urea nitrogen [Mass/Vol] 13 mg/dL 7 - 20 mg/dL [facility] Work Phone: Test Performed by [facility], [address] [place], [place] [address] [place] [phone] [facility] Work Phone: CT SOFT TISSUE NECK TREY Angel 10-07-2020 Patient Name: ANGEL BAHENA Computed Tomography ACCESSION EXAM DATE/TIME PROCEDURE ORDERING PROVIDER [id number] 10/07/2020 19:[address] Soft Tissue Neck w/o MD TERE, ELEAZAR Contrast CPT code 81416 Reason For Exam (CT Soft Tissue Neck w/o Contrast) neck pain Report HISTORY: Sore throat. Prior surgery Noncontrast sections are performed through the neck and correlated with the previous contrast enhanced study from 01/26/2009 (at which time patient had a large right tonsillar bed region abscess). Just included sections through the lung apices show no significant finding with prior chest surgery with median sternotomy wires Cervical spine shows no significant degenerative changes. Epiglottis appears normal. Prevertebral soft tissues show no significant abnormality. Some scattered mucosal thickening is present ethmoid air cells. Slightly prominent adenoid tissue. Impression: No definite significant acute findings as discussed Report Dictated on Workstation: [id number] --- Final --- Dictating Physician: MD GALVEZ WILLIAM Signed Date and Time: 10/07/2020 8:12 pm Signed by: MD GALVEZ WILLIAM Transcribed Date and Time: 10/07/2020 8:14 [facility] Work Phone: Petr, [facility] Incoming Radiology Results From [facility] - 10/07/2020 8:14 PM EDT Patient Name: ANGEL BAHENA Computed Tomography ACCESSION EXAM DATE/TIME PROCEDURE ORDERING PROVIDER [id number] 10/07/2020 19:[address] Soft Tissue Neck w/o MD TERE, ELEAZAR Contrast CPT code 79427 Reason For Exam (CT Soft Tissue Neck w/o Contrast) neck pain Report HISTORY: Sore throat. Prior surgery Noncontrast sections are performed through the neck and correlated with the previous contrast enhanced study from 01/26/2009 (at which time patient had a large right tonsillar bed region abscess). Just included sections through the lung apices show no significant finding with prior chest surgery with median sternotomy wires Cervical spine shows no significant degenerative changes. Epiglottis appears normal. Prevertebral soft tissues show no significant abnormality. Some scattered mucosal thickening is present ethmoid air cells. Slightly prominent adenoid tissue. Impression: No definite significant acute findings as discussed Report Dictated on Workstation: [id number] --- Final --- Dictating Physician: MD GALVEZ WILLIAM Signed Date and Time: 10/07/2020 8:12 pm Signed by: MD GALVEZ WILLIAM Transcribed Date and Time: 10/07/2020 8:14 [employer] Work Phone: [phone] Hemogram (CBC) w/Auto Diffon 10-07-2020 Absolute Baso # 0.0 10*3/uL 0.0 - 0.2 10*3/uL [facility] Work Phone: [phone] Absolute Neut # 5.8 10*3/uL 1.8 - 7.0 10*3/uL [facility] Work Phone: 1 Basophils/100 WBC (Bld) 0.5 % 0.0 - 2.0 % [employer] Work Phone: Eosinophils (Bld) [#/Vol] 0.1 10*3/uL 0.0 - 0.5 10*3/uL [employer] Work Phone: [phone] Eosinophils/100 WBC (Bld) 0.7 % Low 1.0 - 6.0 % [employer] Work Phone: 1 Erythrocyte distribution width (RBC) [Ratio] 13.1 % 11.5 - 14.5 % [employer] Work Phone: Granulocytes/100 WBC (Bld) 83.5 % High 40.0 - 80.0 % [employer] Work Phone: [phone] Hematocrit (Bld) [Volume fraction] 45.5 % 40.0 - 52.0 % [employer] Work Phone: [phone] Hemoglobin (Bld) [Mass/Vol] 15.4 g/dL 13.0 - 18.0 g/dL [employer] Work Phone: [phone] Interpretation and review of laboratory results Abnormal [employer] Work Phone: [phone] Lymphocytes (Bld) [#/Vol] 0.9 10*3/uL Low 1.0 - 4.3 10*3/uL [employer] Work Phone: [phone] Lymphocytes/100 WBC (Bld) 12.7 % Low 20.0 - 40.0 % [employer] Work Phone: [phone] MCH (RBC) [Entitic mass] 28.3 pg 26.0 - 34.0 pg [employer] Work Phone: 1 MCHC (RBC) [Mass/Vol] 34.0 % 32.0 - 36.0 % [facility] Work Phone: 1 MCV (RBC) [Entitic vol] 83.2 fL 80.0 - 98.0 fL [employer] Work Phone: 1 Monocytes (Bld) [#/Vol] 0.2 10*3/uL 0.0 - 0.8 10*3/uL [employer] Work Phone: 1 Monocytes/100 WBC (Bld) 2.6 % 2.0 - 10.0 % [employer] Work Phone: 1 Platelet mean volume (Bld) [Entitic vol] 7.6 fL 7.4 - 10.4 fL [employer] Work Phone: 1 Platelets (Bld) [#/Vol] 298 10*3/uL 140 - 440 10*3/uL [employer] Work Phone: 1 RBC (Bld) [#/Vol] 5.46 10*6/uL 4.40 - 5.9 0 10*6/uL [employer] Work Phone: 1 WBC (Bld) [#/Vol] 7.0 10*3/uL 3.6 - 10.7 10*3/uL [employer] Work Phone: 1 Test Performed by [facility], [address] , [address] Work Phone: Rapid Strep Screenon 021 S. pyogenes Ag Ql (Throat) see below Negative NA [facility] Work Phone: 1 Comment on above: NEGATIVE (presumptiv e) for Group A Streptococcus antigen. Method: Immunochromatographic assay. Confirmatory testing to follow. Confirmatory testing performed at an additional cost. Test Performed by [facility], [address] , [address] Work Phone: [phone] XR CHEST PORTABLEon 10-08-19 21 [facility], [facility] Incoming Radiology Results From [facility] - 10/07/2020 7:41 PM EDT Patient Name: ANGEL BAHENA Diagnostic Radiology ACCESSION EXAM DATE/TIME PROCEDURE ORDERING PROVIDER [id number] 10/07/2020 19:34 EDT CR Chest Portable MD TERE, ELEAZAR CPT code 99962 Reason For Exam (CR Chest Portable) throat pain Report CHEST CLINICAL INDICATION: Throat pain TECHNIQUE: AP COMPARISON: None FINDINGS: Postsurgical changes are noted along the anterior mediastinum. The heart is at the upper limits of normal size. The mediastinum is unremarkable. The lungs are clear. Costophrenic angles are sharp. The osseous structures are unremarkable. IMPRESSION: No acute abnormality Report Dictated on --- Final --- Dictating Physician: DO GILL RACHEL Signed Date and Time: 10/07/2020 7:40 pm Signed by: DO GILL RACHEL Transcribed Date and Time: 10/07/2020 7:41 [facility] Work Phone: Patient Name: ANGEL PURI Diagnostic Radiology ACCESSION EXAM DATE/TIME PROCEDURE ORDERING PROVIDER [id number] 10/07/2020 19:34 EDT CR Chest Portable MD CARRANZA VIJAY CPT code 57097 Reason For Exam (CR Chest Portable) throat pain Report CHEST CLINICAL INDICATION: Throat pain TECHNIQUE: AP COMPARISON: None FINDINGS: Postsurgical changes are noted along the anterior mediastinum. The heart is at the upper limits of normal size. The mediastinum is unremarkable. The lungs are clear. Costophrenic angles are sharp. The osseous structures are unremarkable. IMPRESSION: No acute abnormality Report Dictated on --- Final --- Dictating Physician: DO GILL RACHEL Signed Date and Time: 10/07/2020 7:40 pm Signed by: DO GILL RACHEL Transcribed Date and Time: 10/07/2020 7:41 [facility] Work Phone: CNOVon 09-08-2020 CNOV Office Visit (FPWADS ) -------- ANGEL BAHENA ([id number]) 1970 M Date Time Provider Department [facility]20 9[facility], we recorded the following information about you: Referring Provider: PORTILLO CASTELLANOS [[id number]] Allergies As of Date: 09/08/2020 Noted Allergy Reaction PEANUT 04/22/2020 7 - Swelling Comments: Throat SHELLFISH CONTAINING PRODUCTS 04/22/2020 7 - Swelling 16 - Unknown BENADRYL (DIPHENHYDRAMINE) 09/08/2020 4 - Hives Date Reviewed: 09/08/2020 Reviewed by: Portillo Castellanos - Fully Assessed Visit Diagnosis:Chest pressure [R07.89] Order(s):ECG COMPLETE [ECG01] Order #: [id number]. #:[id number] Prescriptions as of 09/08/2020 Sig: PREDNISONE 50 MG TABLET Take 1 tablet by mouth once d* BUSPIRONE 7.5 MG TABLET Take 7.5 mg by mouth twice da* LORATADINE 10 MG TABLET Take 10 mg by mouth once soledad* MONTELUKAST 10 MG TABLET Take 10 mg by mouth daily at * METOPROLOL SUCCINATE ER 25 MG* Take 25 mg by mouth once soledad* ASPIRIN 81 MG TABLET,DELAYED * Take 81 mg by mouth once soledad* ESCITALOPRAM 10 MG TABLET Take 10 mg by mouth once soledad* Problem List As Of Date 09/08/2020 Noted Resolved Status post heart valve replacement [Z95.4] Palpitations [R00.2] Encounter Status:Closed by SAKINA EUBANKS on 10/05/20 [facility] CN Office Visit (FMWADS ) -------- ANGEL BAHENA ([id number]) 1970 M Date Time Provider Department 09/08/20 8:50 AM PORTILLO CASTELLANOS FMWADS During your visit today, we recorded the following information about you: Temperature Pulse Blood pressure Weight 97.1 degrees 75/minute 124/80 98.4 kg Height 1.753 m Portillo Castellanos 09/28/2020 11:47 PM Signed Headache (pt states having pressure in front of head) - worse after work at end of day. If he lays down it will go away. Associated with some extra sputum. Pain and pressure in forehead and temples at times. Left ear associated with pressure. Does have some chest pressure at times. The history is provided by the patient. No multi disciplined language analyst was used. HISTORY REVIEWED PAST MEDICAL HISTORY Diagnosis Date - Anxiety - Non-rheumatic aortic stenosis - Non-rheumatic tricuspid valve insufficiency - Palpitations - Sleep apnea - Status post heart valve replacement PAST SURGICAL HISTORY Procedure Laterality Date - HEART CATHETERIZATION 05/17/2003 - HEART VALVE REPLACEMENT 06/03/2003 [facility] - PAST SURGICAL HISTORY OF 2017 Cyst removed from the back of his head No family history on file. Social History Social History Narrative Not on file Allergies: ALLERGIES Allergen Reactions - Peanut Swelling Throat - Shellfish Containin* Swelling, Unknown - Benadryl [Diphenhyd* Hives Medications: metoprolol succinate ER (TOPROL XL) 25 mg 24 hr tablet Take 25 mg by mouth once daily. aspirin, enteric coated (ASPIRIN, ENTERIC COATED) 81 mg EC tablet Take 81 mg by mouth once daily. busPIRone (BUSPAR) 7.5 mg tablet Take 7.5 mg by mouth twice daily as needed. loratadine (CLARITIN) 10 mg tablet Take 10 mg by mouth once daily. montelukast (SINGULAIR) 10 mg tablet Take 10 mg by mouth daily at bedtime. amoxicillin (POLYMOX, AMOXIL) 500 mg capsule 4 capsules one hour prior to the dentist escitalopram oxalate (LEXAPRO) 10 mg tablet Take 10 mg by mouth once daily. Problem List: ACTIVE PROBLEM LIST Status Post Heart Valve Replacement Palpitations Review of Systems HENT: Positive for sinus pressure. Cardiovascular: Chest pressure Musculoskeletal: Negative for back pain and gait problem. All other systems reviewed and are negative. Physical Exam Vitals and nursing note reviewed. Constitutional: Appearance: Angel Bahena is well-developed. HENT: Head: Normocephalic and atraumatic. Comments: B/l maxillary sinus tenderness to percussion Right Ear: Tympanic membrane, ear canal and external ear normal. Left Ear: Tympanic membrane, ear canal and external ear normal. Nose: Nose normal. Eyes: Conjunctiva/sclera: Conjunctivae normal. Pupils: Pupils are equal, round, and reactive to light. Cardiovascular: Rate and Rhythm: Normal rate and regular rhythm. Heart sounds: Normal heart sounds. Pulmonary: Effort: Pulmonary effort is normal. Breath sounds: Normal breath sounds. Abdominal: General: Bowel sounds are normal. Palpations: Abdomen is soft. Musculoskeletal: Cervical back: Normal range of motion and neck supple. Lymphadenopathy: Cervical: No cervical adenopathy. Skin: General: Skin is warm and dry. Findings: No rash. BP 143/94 Pulse 75 Temp 36.2 ?C (97.1 ?F) (Tympanic) Ht 175.3 cm (5' 9) Wt 98.4 kg (216 lb 14.4 oz) BMI 32.03 kg/m? ASSESSMENT/PLAN: 1. Chest pressure - ICD9: 786.59, ICD10: R07.89 (primary diagnosis) - EKG read and normal. - ECG COMPLETE 2. Acute non-recurrent maxillary sinusitis - ICD9: 461.0, ICD10: J01.00 - Start prednisone. Close f/u not improved - PREDNISONE 50 MG TABLET Portillo Castellanos DO Referring Provider: SELF [[id number]] Allergies As of Date: 09/08/2020 Noted Allergy Reaction PEANUT 04/22/2020 7 - Swelling Comments: Throat SHELLFISH CONTAINING PRODUCTS 04/22/2020 7 - Swelling 16 - Unknown BENADRYL (DIPHENHYDRAMINE) 09/08/2020 4 - Hives Date Reviewed: 09/08/2020 Reviewed by: Portillo Castellanos - Fully Assessed Reason for Visit: Headache [52] Cmt: pt states having pressure in front of head Reason For Visit History Recorded Primary Visit Diagnosis:Chest pressure [R07.89] Other Visit Diagnosis:Acute non-recurrent maxillary sinusitis [J01.00] Order(s):ECG COMPLETE [ECG01] Order #: [id number] FUTURE [] predniSONE (DELTASONE) 50 mgTake 1 tablet by mouth once daily for 7 days.Disp: 7 tabletRfl: 0 ECG COMPLETE [ECG01] Order #: [id number]. #:[id number] Prescriptions as of 09/08/2020 Sig: METOPROLOL SUCCINATE ER 25 MG* Take 25 mg by mouth once soledad* ASPIRIN 81 MG TABLET,DELAYED * Take 81 mg by mouth once soledad* PREDNISONE 50 MG TABLET Take 1 tablet by mouth once d* BUSPIRONE 7.5 MG TABLET Take 7.5 mg by mouth twice da* LORATADINE 10 MG TABLET Take 10 mg by mouth once soledad* MONTELUKAST 10 MG TABLET Take 10 mg by mouth daily at * ESCITALOPRAM 10 M (more content not included)... Normal [facility] ECG B/O W INTERP (MED OFFICE ) [facility] Vital Signs Date Time Vital Sign Value Performing Clinician Facility 12-27-2024 08:14-0400 Body height 175.[address] Pennie Fish MD Work Phone: [facility] 12-27-2024 08:14-0400 Body mass index (BMI) [Ratio] 35.2 kg/m2 Dr. Pennie Fish MD Work Phone: [facility] 12-27-2024 08:14-0400 Body temperature 97.4 [degF] Dr. Pennie Fish MD Work Phone: [facility] 12-27-2024 08:14-0400 Body weight 108.[address] Pennie Fish MD Work Phone: [facility] 12-27-2024 08:14-0400 Diastolic blood pressure 87 mm[Hg] Dr. Pennie Fish MD Work Phone: [facility] 12-27-2024 08:14-0400 Heart rate 68 /min Dr. Pennie Fish MD Work Phone: [facility] 12-27-2024 08:14-0400 Respiratory rate 16 /min Dr. Pennie Fish MD Work Phone: [facility] 12-27-2024 08:14-0400 SaO2% (BldA) [Mass fraction] 98 % Dr. Pennie Fish MD Work Phone: [facility] 12-27-2024 08:14-0400 Systolic blood pressure 135 mm[Hg] Dr. Pennie Fish MD Work Phone: [facility] 11-01-2024 10:49-0400 Body height 175.3 cm Ashanti García MD Work Phone: [facility] 11-01-2024 10:49-0400 Body mass index (BMI) [Ratio] 32.34 kg/m2 Ashanti García MD Work Phone: [facility] 11-01-2024 10:49-0400 Body weight 99.34 kg Ashanti García MD Work Phone: [facility] 11-01-2024 10:49-0400 Diastolic blood pressure 80 mm[Hg] Ashanti García MD Work Phone: [facility] 11-01-2024 10:49-0400 Heart rate 63 /min Ashanti García MD Work Phone: [facility] 11-01-2024 10:49-0400 SaO2% (BldA) [Mass fraction] 98 % Ashanti García MD Work Phone: [facility] 11-01-2024 10:49-0400 Systolic blood pressure 131 mm[Hg] Ashanti García MD Work Phone: [facility] 10-11-2024 10:42-0400 Body height 175.[address] Pennie Fish MD Work Phone: [facility] 10-11-2024 10:42-0400 Body mass index (BMI) [Ratio] 34.5 kg/m2 Dr. Pennie Fish MD Work Phone: [facility] 10-11-2024 10:42-0400 Body temperature 96 [degF] Dr. Pennie Fish MD Work Phone: [facility] 10-11-2024 10:42-0400 Body weight 106.[address] Pennie Fish MD Work Phone: [facility] 10-11-2024 10:42-0400 Diastolic blood pressure 70 mm[Hg] Dr. Pennie Fish MD Work Phone: [facility] 10-11-2024 10:42-0400 Heart rate 61 /min Dr. Pennie Fish MD Work Phone: [facility] 10-11-2024 10:42-0400 Respiratory rate 16 /min Dr. Pennie Fish MD Work Phone: [facility] 10-11-2024 10:42-0400 SaO2% (BldA) [Mass fraction] 97 % Dr. Pennie Fish MD Work Phone: [facility] 10-11-2024 10:42-0400 Systolic blood pressure 116 mm[Hg] Dr. Pennie Fish MD Work Phone: [facility] 09-25-2024 07:45-0500 Body mass index (BMI) [Ratio] 35.2 kg/m2 Dr. Pennie Fish MD Work Phone: [facility] 09-25-2024 07:45-0500 Body temperature 97.5 [degF] Dr. Pennie Fish MD Work Phone: [facility] 09-25-2024 07:45-0500 Body weight 108.[address] Pennie Fish MD Work Phone: [facility] 09-25-2024 07:45-0500 Diastolic blood pressure 87 mm[Hg] Dr. Pennie iFsh MD Work Phone: [facility] 09-25-2024 07:45-0500 Heart rate 64 /min Dr. Pennie Fish MD Work Phone: [facility] 09-25-2024 07:45-0500 Respiratory rate 18 /min Dr. Pennie Fish MD Work Phone: [facility] 09-25-2024 07:45-0500 SaO2% (BldA) [Mass fraction] 97 % Dr. Pennie Fish MD Work Phone: [facility] 09-25-2024 07:45-0500 Systolic blood pressure 139 mm[Hg] Dr. Pennie Fish MD Work Phone: [facility] 06-19-2024 08:09-0500 Body mass index (BMI) [Ratio] 35.1 kg/m2 Dr. Pennie Fish MD Work Phone: [facility] 06-19-2024 08:09-0500 Body temperature 98.4 [degF] Dr. Pennie Fish MD Work Phone: [facility] 06-19-2024 08:09-0500 Body weight 107.[address] Pennie Fish MD Work Phone: [facility] 06-19-2024 08:09-0500 Diastolic blood pressure 80 mm[Hg] Dr. Pennie Fish MD Work Phone: [facility] 06-19-2024 08:09-0500 Heart rate 78 /min Dr. Pennie Fish MD Work Phone: [facility] 06-19-2024 08:09-0500 Respiratory rate 16 /min Dr. Pennie Fish MD Work Phone: [facility] 06-19-2024 08:09-0500 SaO2% (BldA) [Mass fraction] 97 % Dr. Pennie Fish MD Work Phone: [facility] 06-19-2024 08:09-0500 Systolic blood pressure 138 mm[Hg] Dr. Pennie Fish MD Work Phone: [facility] 10-11-2023 10:13-0400 Body height 175.[address] Serenity Mohan Work Phone: [facility] 10-11-2023 10:13-0400 Body mass index (BMI) [Ratio] 32.5 kg/m2 Dr. Serenity Mohan Work Phone: [facility] 10-11-2023 10:13-0400 Body temperature 98.1 [degF] Dr. Serenity Mohan Work Phone: [facility] 10-11-2023 10:13-0400 Body weight 99.[address] Serenity Mohan Work Phone: [facility] 10-11-2023 10:13-0400 Diastolic blood pressure 80 mm[Hg] Dr. Serenity Mohan Work Phone: [facility] 10-11-2023 10:13-0400 Heart rate 70 /min Dr. Serenity Mohan Work Phone: [facility] 10-11-2023 10:13-0400 Respiratory rate 16 /min Dr. Serenity Mohan Work Phone: [facility] 10-11-2023 10:13-0400 SaO2% (BldA) [Mass fraction] 96 % Dr. Serenity Mohan Work Phone: [facility] 10-11-2023 10:13-0400 Systolic blood pressure 112 mm[Hg] Dr. Serenity Mohan Work Phone: [facility] 05-26-2023 18:47-0400 Diastolic blood pressure 99 mm[Hg] Jarvis Flores DO Work Phone: [facility] 05-26-2023 18:47-0400 Heart rate 71 /min Jarvis Flores DO Work Phone: [facility] 05-26-2023 18:47-0400 Respiratory rate 15 /min Jarvis Flores DO Work Phone: [facility] 05-26-2023 18:47-0400 SaO2% (BldA) [Mass fraction] 99 % Jarvis Flores DO Work Phone: [facility] 05-26-2023 18:47-0400 Systolic blood pressure 138 mm[Hg] [facility] 05-26-2023 17:24-0400 Body height 175.3 cm Jarvis Flores DO Work Phone: [facility] 05-26-2023 17:24-0400 Body mass index (BMI) [Ratio] 33.52 kg/m2 Jarvis Flores DO Work Phone: [facility] 05-26-2023 17:24-0400 Body temperature 97.5 [degF] Jarvis Flores DO [facility] 05-26-2023 17:24-0400 Body weight 102.97 kg Jarvis Flores DO Work Phone: [facility] 06-21-2022 08:13-0500 Body height 175.3 cm Ashanti García MD Work Phone: [facility] 06-21-2022 08:13-0500 Body weight 101.61 kg Ashanti García MD Work Phone: [facility] 06-21-2022 08:13-0500 Diastolic blood pressure 80 mm[Hg] Ashanti García MD Work Phone: [facility] 06-21-2022 08:13-0500 Heart rate 66 /min Ashanti García MD Work Phone: [facility] 06-21-2022 08:13-0500 SaO2% (BldA) [Mass fraction] 95 % Ashanti García MD Work Phone: [facility] 06-21-2022 08:13-0500 Systolic blood pressure 122 mm[Hg] Ashanti García MD Work Phone: [facility] 07-27-2021 17:47-0500 Body height 175.3 cm Ashanti Betts MD Work Phone: [facility] 07-27-2021 17:47-0500 Body mass index (BMI) [Ratio] 31.75 kg/m2 Ashanti Betts MD Work Phone: [facility] 07-27-2021 17:47-0500 Body temperature 98.4 [degF] Ashanti Betts MD Work Phone: [facility] 07-27-2021 17:47-0500 Body weight 97.52 kg Ashanti Betts MD Work Phone: [facility] 07-27-2021 17:47-0500 Diastolic blood pressure 90 mm[Hg] Ashanti Betts MD Work Phone: [facility] 07-27-2021 17:47-0500 Heart rate 78 /min Ashanti Betts MD Work Phone: [facility] 07-27-2021 17:47-0500 Respiratory rate 16 /min Ashanti Betts MD Work Phone: [facility] 07-27-2021 17:47-0500 SaO2% (BldA) [Mass fraction] 97 % Ashanti Betts MD Work Phone: [facility] 07-27-2021 17:47-0500 Systolic blood pressure 140 mm[Hg] Ashanti Betts MD Work Phone: [facility] 10-07-2020 20:41-0400 BP Diastolic 78 mm[Hg] Eleazar Adusumilli [facility] Work Phone: 10-07-2020 20:41-0400 BP Systolic 120 mm[Hg] Eleazar Adusumilli [facility] Work Phone: 10-07-2020 20:41-0400 Pulse (Heart Rate) 58 /min Eleazar Adusumilli [facility] Work Phone: 10-07-2020 20:41-0400 Pulse Oximetry 98 % Eleazar Adusumilli [facility] Work Phone: 10-07-2020 20:41-0400 Respiratory Rate 16 /min Eleazar Adusumilli [facility] Work Phone: 10-07-2020 18:54-0400 BMI (Body Mass Index) 29.97 kg/m2 Eleazar JOHNS Work Phone: 10-07-2020 18:54-0400 Body Temperature 98.29 [degF] Eleazar JOHNS Work Phone: 10-07-2020 18:54-0400 Body weight 90.72 kg Eleazar JOHNS Work Phone: 04-22-2020 09:17-0400 Body weight 91.63 kg [facility] 04-22-2020 09:17-0400 BP Diastolic 90 mm[Hg] [facility] 04-22-2020 09:17-0400 BP Systolic 126 mm[Hg] [facility] 04-22-2020 09:17-0400 Pulse (Heart Rate) 67 /min [facility] 04-22-2020 09:17-0400 Pulse Oximetry 96 % [facility] 08-01-2019 16:34-0500 BMI (Body Mass Index) 30.36 kg/m2 Chung Tavallaee [facility] Work Phone: 08-01-2019 16:34-0500 Body weight 93.24 kg Chung Tavallaee [facility] Work Phone: 08-01-2019 16:34-0500 BP Diastolic 98 mm[Hg] Chung Tavallaee [facility] Work Phone: 08-01-2019 16:34-0500 BP Systolic 132 mm[Hg] Chung Tavallaee [facility] Work Phone: 08-01-2019 16:34-0500 BSA (Body Surface Area) 2.09 m2 Chung Tavallaee [facility] Work Phone: 08-01-2019 16:34-0500 Height 175.26 cm Chung Pearl [facility] Work Phone: 08-01-2019 16:34-0500 Pulse (Heart Rate) 80 /min Chung Pearl [facility] Work Phone: Encounters Encounter Date Encounter Type Care Provider Facility Start: 12-27-2024 End: 12-27-2024 Patient encounter procedure Moriah Banks NP-C [facility] Work Phone: Start: 12-27-2024 End: 12-27-[address] Pennie Fish MD Work Phone: [facility] Work Phone: Start: 11-05-2024 Encounter for genera l adult medical examination without abnormal findings Pennie Fish [facility] Start: 11-01-2024 End: 11-01-2024 Patient encounter procedure Ashanti García MD Work Phone: [facility] [place] Comment on above: Aortic valve disease (Primary Dx); H/O aortic valve replacement using Ross procedure; Obesity (BMI 30-39.9) Start: 11-01-2024 End: 11-01-2024 ambulatory PENNIE FISH Facility:[facility] Start: 10-11-2024 End: 10-11-[address] Pennie Fish MD -[facility] Work Phone: Start: 10-11-2024 End: 10-11-[address] Pennie Fish MD [facility] Start: 10-11-2024 End: 10-11-[address] Pennie Fish MD Work Phone: [facility] Work Phone: Start: 10-11-2024 End: 10-11-2024 ambulatory Pennie Fish Facility:[facility] Start: 09-25-2024 End: 09-25-2024 Patient encounter procedure Moriah REGALADOC -[facility] Work Phone: Start: 09-25-2024 End: 09-25-2024 ambulatory Pennie Fish Facility:[facility] Start: 06-19-2024 End: 06-19-[address] Pennie Fish MD -[facility] Work Phone: Start: 06-19-2024 End: 06-19-2024 ambulatory Efyuniongbe Makie Facility:[facility] Start: 04-02-2024 End: 04-02-2024 ambulatory Efewongbe Oleewelinae Facility:[facility] Start: 03-28-2024 End: 03-28-2024 Emergency department patient visit Inocente Clarita Facility:[facility] Start: 02-12-2024 End: 02-12-2024 ambulatory [facility] Facility[facility] Start: 02-12-2024 End: 02-12-2024 [facility] Start: 10-11-2023 End: 10-11-[address] Serenity Mohan Work Phone: [facility] Work Phone: Start: 10-11-[address] Serenity Mohan Work Phone: [facility] Start: 10-11-2023 End: 10-11-2023 Encounter for general adult medical examination without abnormal findings Dr. Serenity Mohan Work Phone: [facility] Start: 10-11-2023 End: 10-11-[address] Serenity Mohan Work Phone: [facility] Work Phone: Start: 08-29-2023 Telephone encounter Ashanti bella MD Work Phone: [facility] [place] Comment on above: Results Start: 08-29-2023 End: 08-29-2023 Subsequent hospital visit by physician Card Lab Stress [facility] [place] [facility] Comment on above: Status post heart va lve replacement [Z95.4] Start: 05-26-2023 End: 05-27-2023 Emergency department patient visit JARVIS FLORES [facility] Start: 05-26-2023 End: 05-26-2023 Subsequent hospital visit by physician [facility] Xr Portable [facility] Radiology Comment on above: Arrived Start: 05-26-2023 End: 05-26-2023 Emergency department patient visit Jarvis Flores DO Work Phone: [facility] ED Comment on above: Chest pain, unspecif ied type (Primary Dx) Start: 06-21-2022 Telephone encounter Ashanti bella MD Work Phone: [facility] [place] Comment on above: Patient Update Start: 06-21-2022 End: 06-21-2022 Patient encounter procedure Ashanti García MD Work Phone: [facility] [place] Comment on above: Status post heart va lve replacement (Primary Dx); Obesity (BMI 30-39.9); Palpitations Start: 05-16-2022 ambulatory [facility] Start: 05-16-2022 End: 05-16-2022 Subsequent hospital visit by physician Rico Coley MD Work Phone: [facility] Start: 07-27-2021 End: 07-27-2021 Emergency department patient visit [facility] Start: 07-27-2021 End: 07-27-2021 Emergency department patient visit Ashanti Betts MD Work Phone: [facility] Comment on above: Sprain of right wris t, initial encounter (Primary Dx) Start: 10-07-2020 End: 10-07-2020 Emergency department patient visit Eleazar Tere Work Phone: [facility] ED Comment on above: Throat pain (Primary Dx); Acute serous otitis media of left ear, recurrence not specified Start: 04-22-2020 End: 04-22-2020 Patient encounter procedure Diamond Alicea (Aprn Cnp) Work Phone: [facility] [place] Comment on above: Status post heart va lve replacement (Primary Dx) Start: 04-20-2020 End: 04-20-2020 Telephone encounter Diamond De Guzman (Event Planning Intern Legal CashierMichelle Deanne Work Phone: [facility] Cardiology [place] Comment on above: Appointment Start: 06-19-2018 End: 06-20-2018 Patient encounter procedure JOSE NAM Facility:[facility] Start: 05-31-2018 Patient encounter procedure Naima Augustin Facility:[facility] Start: 04-03-2018 End: 04-04-2018 Patient encounter ASHANTI GARCÍA Facility:[facility] Start: 02-22-2018 End: 02-22-2018 Patient encounter ASHANTI DIEHLGENNY Facility:[facility] Start: 02-13-2018 End: 02-14-2018 Patient encounter procedure Naima Augustin Facility:[facility] Start: 08-23-2017 End: 08-23-2017 Patient encounter procedure Naima Augustin Facility:[facility] Procedures Date Procedure Procedure Detail Performing Clinician Start: 11-01-2024 Ecg routine ecg w/le ast 12 lds w/i&r Ashanti García MD Work Phone: Start: 10-11-2024 Prostate specific an tigen measurement Dr. Pennie Fish MD Work Phone: Comment on above: This test was perfor med using the [employer] tPSA method. Measured values of a patient sample can vary depending on the testing procedure used. PSA values determined on patient samples by different testing procedures cannot be used interchangeably. If there is a change in PSA assays while monitoring therapy, sequential testing should be performed to confirm baseline values. Start: 08-29-2023 Echo tthrc r-t 2d w/wom-mode compl spec&colr d Ashanti García MD Work Phone: Start: 05-26-2023 Radiologic exam ches t single view Jarvis Flores DO Work Phone: Start: 05-26-2023 Basic metabolic pane l calcium total Jarvis Flores DO Work Phone: Start: 05-26-2023 Ecg routine ecg w/le ast 12 lds trcg only w/o i&r Jarvis Flores DO Work Phone: Start: 06-21-2022 Ecg routine ecg w/le ast 12 lds w/i&r Ashanti García MD Work Phone: Start: 09-16-2021 Lipid 1996 panel - S tommy or Plasma Jarvis Flores Work Phone: Start: 07-27-2021 Radex wrist complete minimum 3 views Ashanti Betts MD Work Phone: Start: 10-07-2020 Ct soft tissue neck w/o contrast material Eleazar Adusumilli Work Phone: Start: 10-07-2020 Radiologic exam ches t single view Eleazar Adusumilli Work Phone: Start: 10-07-2020 Basic metabolic pane l calcium total Eleazar Adusumilli Work Phone: Start: 10-07-2020 Blood count complete auto&auto difrntl wbc Eleazar Adusumilli Work Phone: Start: 10-07-2020 Iaad ia streptococcu s group a Eleazar Adusumilli Work Phone: Start: 08-01-2019 Follow-up visit Start: 08-01-2019 Xray Knee 1 or 2 View M ehrdad Virajaee History of Mass excision [facility] rdad Tavallaee Operation on heart Chung T avallaee Plan of Treatment Date Care Activity Detail Author Start: 01-18-2033 Urine microalbumin profile DTaP,Tdap,Td Vaccine (2 - Td or Tdap) [facility] Start: 09-16-2026 Lipid panel [facility] Start: 05-26-2026 Diabetes Screening Diabetes Screenin g [facility] Start: 05-01-2025 LIPID SCREEN LIPID SCREEN [facility] Start: 03-24-2024 Covid-19 Vaccine ( season) Covid-19 Vaccine ( season) [facility] Start: 03-24-2024 Influenza vaccination Influenza Vacc ine (#1) [facility] Start: 10-11-2023 Patient referral [facility] Work Phone: Start: 07-24-2023 Depression Assessment Depression Ass essment [facility] Start: 05-21-2023 End: 06-21-2023 Echocardiography [facility] Cardiology Routine Status post heart valve replacement Expected: 05/21/2023 (Approximate), Expires: 06/21/2023 [facility] Work Phone: Comment on above: Expected: 05/21/2023 (Approximate), Expires: 06/21/2023 Start: 05-01-2023 DIABETES SCREEN DIABETES SCREEN [facility] Start: 03-24-2023 Influenza vaccination Influenza Vacc ine (#1) [facility] Start: 09-16-2022 Depression Screen Depression Screen [facility] Start: 03-24-2022 Influenza vaccination INFLUENZA (#1) [facility] Start: 02-21-2022 Influenza vaccination Flu vaccine (# 1) [facility] Start: 11-11-2021 Shingles vaccine (2 of 2) Bedoya gles vaccine (2 of 2) [facility] Start: 11-11-2021 Shingrix Vaccine (2 of 2) Bedoya grix Vaccine (2 of 2) [facility] Start: 11-11-2021 Zoster Vaccines (2 of 2) Zoste r Vaccines (2 of 2) [facility] Start: 08-04-2021 End: 08-04-2021 Patient encounter procedure 08/04/2021 Office Visit Family Medicine Rico Coley MD [address] [place] [address], [place] [address] [facility] Start: 07-24-2021 DEPRESSION ASSESSMENT DEPRESSION ASS ESSMENT [facility] Start: 03-24-2021 Influenza vaccination Flu vaccine (# 1) [facility] Start: 03-24-2020 Influenza vaccination [facility] Start: 11-17-2019 Pneumococcal Vaccine : 50+ (1 of 1 - PCV) Pneumococcal Vaccine: 50+ (1 of 1 - PCV) [facility] Start: 11-17-2019 Screening for malign ant neoplasm of colon Colon cancer screen colonoscopy [facility] Work Phone: Start: 11-17-2019 Shingles Vaccine (1 of 2) Bedoya gles Vaccine (1 of 2) [facility] Start: 11-17-2019 SHINGRIX VACCINE (1 of 2) BEDOYA GRIX VACCINE (1 of 2) [facility] Start: 11-17-2019 Tuberculosis screening COLOREC ROSANA CANCER SCREENING,SEE MODIFIER [facility] Start: 08-01-2019 Xray Knee 1 or 2 View M [facility] Work Phone: Start: 01-30-2017 DIABETES SCREEN DIABETES SCREEN [facility] Start: 2014 COLOGUARD (FIT-DNA) COLOGUARD (FIT-D NA) [facility] Start: 2014 Colonoscopy COLONOSCOPY [facility] Start: 2014 COLORECTAL CANCER SCREENING COLORECTAL CANCER SCREENING [facility] Start: [address] COLONOGRAPHY [facility] Start: 2014 FECAL OCCULT BLOOD FECAL OCCULT BLOO D [facility] Start: 2014 Screening for malign ant neoplasm of colon [facility] Start: 2014 SIGMOIDOSCOPY SIGMOIDOSCOPY [facility] Start: 2009 Lipid panel Lipid screen [facility] Start: 05-21-2008 LIPID SCREEN LIPID SCREEN [facility] Start: 2004 Diabetes screen Diabetes screen [facility] Start: 1988 DTaP/Tdap/Td vaccine (1 - Tdap) DTaP/Tdap/Td vaccine (1 - Tdap) [facility] Start: 1988 DTaP/Tdap/Td Vaccine s (1 - Tdap) DTaP/Tdap/Td Vaccines (1 - Tdap) [facility] Start: 1988 Hepatitis B Vaccine (1 of 3 - 19+ 3-dose series) Hepatitis B Vaccine (1 of 3 - 19+ 3-dose series) [facility] Start: 1988 Urine microalbumin profile DTAP,TDAP,TD (1 - Tdap) [facility] Start: 11-17-1987 Anxiety Screening Anxiety Screening [facility] Start: 11-17-1987 Depression Screening Depression Scre ening [facility] Start: 11-17-1987 Diabetes mellitus screening Diabetes Screening [facility] Start: 11-17-1987 Hepatitis C screening [facility] Start: 1985 COVID-19 Vaccine (1) COVID-19 Vaccin e (1) [facility] Work Phone: Start: 1984 HIV screening HIV screen [facility] Start: 1981 Depression Screen Depression Screen [facility] Start: 1981 Depression Screening Depression Scre ening [facility] Start: 11-17-1975 Pneumococcal Vaccine : Pediatrics (0 to 5 Years) and At-Risk Patients (6 to 64 Years) (1 - PCV) Pneumococcal Vaccine: Pediatrics (0 to 5 Years) and At-Risk Patients (6 to 64 Years) (1 - PCV) [facility] Start: 1974 COVID-19 Vaccine (1) COVID-19 Vaccin e (1) [facility] Start: 1970 MMR Vaccines (1 of 1 - Standard series) MMR Vaccines (1 of 1 - Standard series) [facility] Start: 05-18-1970 COVID-19 Vaccine (#1) COVID-19 Vacci ne (#1) [facility] Start: 1969 HEPATITIS B (1 of 3 - 3-dose series) HEPATITIS B (1 of 3 - 3-dose series) [facility] Start: 1969 Hepatitis B Vaccine (1 of 3 - 3-dose series) Hepatitis B Vaccine (1 of 3 - 3-dose series) [facility] Start: 1969 Hepatitis B Vaccines (1 of 3 - 3-dose series) Hepatitis B Vaccines (1 of 3 - 3-dose series) [facility] Start: 1969 Hepatitis C screening Hepatitis C sc reen [facility] Start: 1969 HIV screening HIV Screening [facility] Start: 1969 Screening for malign ant neoplasm of colon [facility] End: 10-07-2020 Group A Strep Screen By PCR Group A Strep Screen By PCR Microbiology STAT Once for 1 Occurrences starting 10/07/2020 until 10/07/2020 [facility] Work Phone: Comment on above: Once for 1 Occurrenc es starting 10/07/2020 until 10/07/2020 Group A Strep Screen By PCR Group A Strep Screen By PCR Microbiology STAT 10/07/2020 7:24 PM EDT [facility] Work Phone: Patient referral [facility] Work Phone: End: 10-24-2022 XR LUMBAR SPINE (MIN 4 VIEWS) [facility] Work Phone: Comment on above: Once for 1 Occurrenc es starting 05/16/2022 until 05/16/2022 [facility] Work Phone: Hernando Menchaca c NEGATED: Highlighted row has been ruled out! Planned Goals not documented [facility] Work Phone: Immunizations Immunization Date Immunization Notes Care Provider Fa oanh 09-16-2021 zoster vaccine recombinant D eddie Coley MD Work Phone: [facility] Payers Date Payer Category Payer Self-pay 2023 Unknown [id number] 2021 Private Health Insurance EB [id number] 2019 Private Health Insurance EBM [id number] 2017 Private Health Insurance 2017 Private Health Insurance [employer] PPO [id number] 2017-Present PPO [id number] 2015 Private Health Insurance [id number] 1969 Unknown [id number] .1969 Unknown [id number] .1969 Unknown [id number] .1969 Unknown [id number] .1969 Unknown [id number] [id number] .717 1969 Unknown [id number] [id number] .717 1969 Unknown [id number] [id number] .668 1969 Unknown [id number] [id number] .668 1969 Unknown [id number] .668 Private Health Insurance [facility] [id number] Unknown [id number] [id number] .462 Unknown [id number] [id number] .462 Unknown [id number] [id number] .462 Unknown [id number] [id number] .462 Unknown [id number] [id number] .462 Unknown [id number] [id number] .462 Unknown [id number] .462 Unknown [id number] .462 Unknown [id number] .462 Worker's Compensation Social History Date Type Detail Facility Assertion Unknown if ever smoked [facility] Work Phone: Start: 04-30-2019 End: 03-28-2024 Tobacco smoking status [facility] Never smoker [facility] Start: 04-30-2019 End: 03-30-2022 Tobacco use and exposure Never used [facility] Start: 04-30-2019 End: 11-01-2024 Alcohol intake Current non-drinker of alcohol (finding) [facility] Start: 1970 Sex Assigned At Not on file [facility] Start: 04-24-2022 End: 06-21-2022 Exposure to SARS-CoV-2 (event) Not sure [facility] Start: 09-15-2021 History SDOH Financial 5 [facility] Work Phone: Start: 09-15-2021 History SDOH Food Worry 1 [facility] Work Phone: Start: 03-30-2022 History SDOH Transpo rt Med 2 [facility] Work Phone: Start: 06-01-2021 End: 11-01-2024 Tobacco use and exposure User of smokeless tobacco [facility] History of tobacco use Chews Tobacco [facility] Start: 06-29-2022 End: 08-29-2023 History of Social function [facility] Start: 06-29-2022 End: 08-29-2023 Tobacco use panel [facility] How often to you hav e a drink containing alcohol? Never [facility] How many standard drinks containing alcohol do you have on a typical day? Patient does not drink [facility] Start: 10-26-2020 Gender identity Identifies as male gender (finding) [facility] Start: 10-11-2023 Tobacco smoking stat us [facility] Unknown if ever smoked [facility] Start: 1970 Sex Assigned At Male [facility] Start: 10-17-2024 Sex Male (finding) [facility] Goals Date Patient Goal Desired Activity /State Personal health goal Functional Status Date Assessment Result Facility NEGATED: Highlighted row Functional performance Functional status health issues are not documented Disease [facility] Work Phone: Mental Status Date Assessment Result Facility NEGATED: Highlighted row Cognitive function [Interpretation] Cognitive status health issues are not documented Disease [facility] Work Phone: Clinical Notes 09-08-2020 to 10-31-2024 Ashanti García MD - 10/31/2024 12:33 PM EDT Note Date & Type Note Facility 10-31-2024 Note HNO ID: [id number] Author: ASHANTI GARCÍA MD Service: ? Author Type: Physician Type: Progress Notes Filed: 11/01/2024 11:18 Note Text: Chief Complaint No chief complaint on file. History of Present Illness: Angel Bahena Jr. is a 53-year-old male with a history of aortic valve disease, status post Ross procedure 23 years ago, presenting for follow-up. The patient reports feeling better than ever over the past year, with no symptoms of chest pain, dyspnea, syncope, peripheral edema, claudication, hemoptysis, hematemesis, or easy bruising. He denies any history of cerebrovascular accidents or transient ischemic attacks. He remains active and has recently lost 7 pounds, though he notes a slight weight regain after reaching 203 pounds. He adheres to SBE prophylaxis prior to dental visits. He has made significant lifestyle changes over the past year, including eliminating soda and sugar, reducing salt and red meat intake, and increasing consumption of fruits and vegetables. His most recent total cholesterol level was 120 mg/dL. He enjoys fishing and plans to travel to [place] for a fishing trip. PAST MEDICAL HISTORY Diagnosis Date Anxiety Aortic valve disease Non-rheumatic aortic stenosis Non-rheumatic tricuspid valve insufficiency Obesity (BMI 30-39.9) Palpitations Sleep apnea Status post heart valve replacement PAST SURGICAL HISTORY Procedure Laterality Date HEART CATHETERIZATION 05/17/2003 HEART VALVE REPLACEMENT 06/03/2003 Ross Procedure [facility] PAST SURGICAL HISTORY OF 2017 Cyst removed from the back of his head No family history on file. Social History Tobacco Use Smoking status: Never Smokeless tobacco: Current Types: Chew Vaping Use Vaping status: Never Used Substance Use Topics Alcohol use: No Drug use: Never ALLERGIES Allergen Reactions Peanut Swelling Throat Shellfish Containin* Swelling, Unknown Benadryl [Diphenhyd* Hives Medications: Current Outpatient Medications Medication Sig Dispense Refill baclofen (LIORESAL) 10 mg tablet Take 10 mg by mouth three times daily. nabumetone (RELAFEN) 500 mg tablet Take 500 mg by mouth twice daily. (Patient not taking: Reported on 08/14/2023) fluticasone propionate (FLONASE NASAL) Use in the nose. azelastine (ASTELIN) 0.1% nasal spray Use 1 [place] in each nostril twice daily. metoprolol succinate ER (TOPROL XL) 25 mg 24 hr tablet Take 1 tablet by mouth once daily. 90 tablet 3 busPIRone (BUSPAR) 7.5 mg tablet Take 7.5 mg by mouth twice daily as needed. (Patient not taking: Reported on 06/21/2022) loratadine (CLARITIN) 10 mg tablet Take 10 mg by mouth once daily. montelukast (SINGULAIR) 10 mg tablet Take 10 mg by mouth daily at bedtime. (Patient not taking: Reported on 06/21/2022) aspirin, enteric coated (ASPIRIN, ENTERIC COATED) 81 mg EC tablet Take 81 mg by mouth once daily. escitalopram oxalate (LEXAPRO) 10 mg tablet Take 10 mg by mouth once daily. (Patient not taking: Reported on 06/21/2022) No current facility-administered medications for this visit. ROS Physical Examination: Vitals: BP 131/80 (BP Site: Left Arm, BP Position: Sitting, BP Cuff Size: Regular Adult) Pulse 63 Ht 5' 9 (1.753 m) Wt 219 lb (99.3 kg) SpO2 98% BMI 32.34 kg/m? Last 2 Encounter Wt Readings: Date: Wt: 08/14/2023 226 lb (102.5 kg) 06/21/2022 224 lb (101.6 kg) Physical Exam Constitutional: in no acute distress, well developed mildly obese very pleasant gentleman skin: Normal warmth no bruising Head: normocephalic eyes: normal-appearing eyelids, pupils appear equal Neck: normal range of motion without thyromegaly carotid pulses are full and equal bilaterally without bruits, no JVD Chest: Normal AP diameter no accessory muscle use clear to auscultation, healed median sternotomy scar, no wheezing Cardiac: regular rhythm, no S3 or S4, grade 1/6 early to mid peaking systolic ejection murmur heard best at the left upper second intercostal space , no diastolic murmur heard no right ventricular heave apex nonpalpable abdomen: Mildly obese no rebound abdomen soft, non-tender, no hepatomegaly, no pulsatility or bruit peripheral Pulses: Bilateral radial and posterior tibial pulses 2+ Extremities AND Back: no edema observed no cyanosisPsychiatric: Normal affect alert and oriented no difficulties with speech or language Neurological: no gross motor deficit noted Pertinent Labs: CBC: Hemoglobin (g/dL) Date Value 05/01/2020 15.4 Hematocrit (%) Date Value 05/01/2020 47.5 WBC (k/uL) Date Value 05/01/2020 4.78 Platelet Count (k/uL) Date Value 05/01/2020 317 BMP: Glucose (mg/dL) Date Value 05/01/2020 97 Potassium (mmol/L) Date Value 05/01/2020 4.3 Sodium (mmol/L) Date Value 05/01/2020 140 Chloride (mmol/L) Date Value 05/01/2020 102 CO2 (mmol/L) Date Value 05/01/2020 23 Creatinine (mg/dL) Date Value 05/01/2020 1.20 BUN (mg/dL) Date Value (more content not included)... [facility] 10-31-2024 History of Present illness Narrative Chief Complaint No chief complaint on file. History of Present Illness: Angel Bahena Jr. is a 53-year-old male with a history of aortic valve disease, status post Ross procedure 23 years ago, presenting for follow-up. The patient reports feeling better than ever over the past year, with no symptoms of chest pain, dyspnea, syncope, peripheral edema, claudication, hemoptysis, hematemesis, or easy bruising. He denies any history of cerebrovascular accidents or transient ischemic attacks. He remains active and has recently lost 7 pounds, though he notes a slight weight regain after reaching 203 pounds. He adheres to SBE prophylaxis prior to dental visits. He has made significant lifestyle changes over the past year, including eliminating soda and sugar, reducing salt and red meat intake, and increasing consumption of fruits and vegetables. His most recent total cholesterol level was 120 mg/dL. He enjoys fishing and plans to travel to [place] for a fishing trip. PAST MEDICAL HISTORY Diagnosis Date Anxiety Aortic valve disease Non-rheumatic aortic stenosis Non-rheumatic tricuspid valve insufficiency Obesity (BMI 30-39.9) Palpitations Sleep apnea Status post heart valve replacement PAST SURGICAL HISTORY Procedure Laterality Date HEART CATHETERIZATION 05/17/2003 HEART VALVE REPLACEMENT 06/03/2003 Ross Procedure [facility] PAST SURGICAL HISTORY OF 2017 Cyst removed from the back of his head No family history on file. Social History Tobacco Use Smoking status: Never Smokeless tobacco: Current Types: Chew Vaping Use Vaping status: Never Used Substance Use Topics Alcohol use: No Drug use: Never ALLERGIES Allergen Reactions Peanut Swelling Throat Shellfish Containin* Swelling, Unknown Benadryl [Diphenhyd* Hives Medications: Current Outpatient Medications Medication Sig Dispense Refill baclofen (LIORESAL) 10 mg tablet Take 10 mg by mouth three times daily. nabumetone (RELAFEN) 500 mg tablet Take 500 mg by mouth twice daily. (Patient not taking: Reported on 08/14/2023) fluticasone propionate (FLONASE NASAL) Use in the nose. azelastine (ASTELIN) 0.1% nasal spray Use 1 [place] in each nostril twice daily. metoprolol succinate ER (TOPROL XL) 25 mg 24 hr tablet Take 1 tablet by mouth once daily. 90 tablet 3 busPIRone (BUSPAR) 7.5 mg tablet Take 7.5 mg by mouth twice daily as needed. (Patient not taking: Reported on 06/21/2022) loratadine (CLARITIN) 10 mg tablet Take 10 mg by mouth once daily. montelukast (SINGULAIR) 10 mg tablet Take 10 mg by mouth daily at bedtime. (Patient not taking: Reported on 06/21/2022) aspirin, enteric coated (ASPIRIN, ENTERIC COATED) 81 mg EC tablet Take 81 mg by mouth once daily. escitalopram oxalate (LEXAPRO) 10 mg tablet Take 10 mg by mouth once daily. (Patient not taking: Reported on 06/21/2022) No current facility-administered medications for this visit. ROS Physical Examination: Vitals: BP 131/80 (BP Site: Left Arm, BP Position: Sitting, BP Cuff Size: Regular Adult) Pulse 63 Ht 5' 9 (1.753 m) Wt 219 lb (99.3 kg) SpO2 98% BMI 32.34 kg/m Last 2 Encounter Wt Readings: Date: Wt: 08/14/2023 226 lb (102.5 kg) 06/21/2022 224 lb (101.6 kg) Physical Exam Constitutional: in no acute distress, well developed mildly obese very pleasant gentleman skin: Normal warmth no bruising Head: normocephalic eyes: normal-appearing eyelids, pupils appear equal Neck: normal range of motion without thyromegaly carotid pulses are full and equal bilaterally without bruits, no JVD Chest: Normal AP diameter no accessory muscle use clear to auscultation, healed median sternotomy scar, no wheezing Cardiac: regular rhythm, no S3 or S4, grade 1/6 early to mid peaking systolic ejection murmur heard best at the left upper second intercostal space , no diastolic murmur heard no right ventricular heave apex nonpalpable abdomen: Mildly obese no rebound abdomen soft, non-tender, no hepatomegaly, no pulsatility or bruit peripheral Pulses: Bilateral radial and posterior tibial pulses 2+ Extremities & Back: no edema observed no cyanosisPsychiatric: Normal affect alert and oriented no difficulties with speech or language Neurological: no gross motor deficit noted Pertinent Labs: CBC: Hemoglobin (g/dL) Date Value 05/01/2020 15.4 Hematocrit (%) Date Value 05/01/2020 47.5 WBC (k/uL) Date Value 05/01/2020 4.78 Platelet Count (k/uL) Date Value 05/01/2020 317 BMP: Glucose (mg/dL) Date Value 05/01/2020 97 Potassium (mmol/L) Date Value 05/01/2020 4.3 Sodium (mmol/L) Date Value 05/01/2020 140 Chloride (mmol/L) Date Value 05/01/2020 102 CO2 (mmol/L) Date Value 05/01/2020 23 Creatinine (mg/dL) Date Value 05/01/2020 1.20 BUN (mg/dL) Date Value 05/01/2020 15 Anion Gap (mmol/L) Date Value 05/01/2020 15 Calcium (mg/dL) Date Value 05/01/2020 9.0 INR: TSH: No results found for: TSHREFL Lipid Profile: Cholesterol, Total Date Value Ref Range Status 05/01/2020 133 <200 mg/dL Final HDL Cholesterol Date Value Ref Range Status 05/01/2020 43 >39 mg/dL Final LDL Cholesterol Date Value Ref Range Status 05/01/2020 80 <100 mg/dL Final Triglyceride Date Value Ref Range Status 05/01/2020 51 <150 mg/dL Final Hemoglobin A1C: No results found for: HGBA1C Most Recent Cardiac Testing Assessment and Plan: 1. Aortic valve disease (I35.9) H/O aortic valve replacement using Ross procedure (Z95.4) Patient underwent a Ross procedure 23 years ago with a pulmonary autograft placed in the aortic position and a tissue pulmonic valve placed in the pulmonic position. Requires lifelong SBE prophylaxis. Last year's echocardiogram showed an EF of 55%, normal aortic valve autograft without stenosis or insufficiency, and a tissue pulmonic valve with a minimally elevated mean gradient of 12, stable with no regurgitation. 2 days EKG shows sinus rhythm at 60 bpm, first-degree AV block, and borderline low voltage. Patient reports feeling well, with no chest pain, dyspnea, syncope, or peripheral edema. - Auscultation reveals a soft heart murmur over the artificial valve, consistent with previous findings. - Defer echocardiogram for one year due to stable condition and cost considerations. - Continue SBE prophylaxis with antibiotics before dental procedures. - Follow-up in one year or sooner if symptoms develop. 2. Obesity (BMI 30-39.9) (E66.9) Patient has lost 7 pounds and reports lifestyle changes including reduced intake of soda, sugar, salt, and red meat, and increased consumption of fruits and vegetables. - Encourage continuation of current dietary modifications. - Monitor weight and BMI at next visit. 3. Lipids: Per patient total cholesterol 120: I will try to get full lipid profile from primary physician. He has not required statin therapy Electronically signed by Ashanti García MD on October 31, 2024, 12:33 PM documented in this encounter [facility] 09-25-2024 Evaluation note Diagnosis Onset Date Resolution Obesity chronic September 25 7:47am Sleep apnea chronic September 25 7:47am Anxiety with flying acute October 11, 2024 10:33am Preventative health care acute October 11, 2024 10:33am Right hip pain acute September 10:33am Obesity chronic October 11 10:33am [facility] Work Phone: 1(173) 562-779811-27-2024 Evaluation note* Diagnosis Onset Date Resolution Status Admit Date Gingiva disorder acute June 19, 2024 7:57am Non-thermal blister of oral cavity acute June 19, 2 024 7:57am Obesity chronic September 25 7:47am Sleep apnea September 25 7:47am Anxiety with flying acute October 11, 2024 10:33am Preventative health care acute October 11, 2024 10:33am Right hip pain acute September 10:33am Obesity chronic October 11 10:33am [facility] Work Phone: 1(978) 919-321102-06-2024 Miscellaneous Notes* Telephone Encounter - Darlin Eugene RN - 08/29/2023 1:06 PM EST Spoke with patient and notified of Dr. García's message regarding Echocardiogram results. Patient voiced understanding. Darlin Eugene RN * Telephone Encounter - Elizabeth Wolfe LPN - 08/29/2023 11:52 AM EST Left message for Mr. Bahena to call [facility] for test results. [facility] phone number provided. Elizabeth Wolfe LPN * Telephone Encounter - Elizabeth Wolfe LPN - 08/29/2023 11:51 AM EST ----- Message from Ashanti García MD sent at 08/29/2023 11:45 AM EST ----- Echo looks good EF 55% that is post Ross procedure aortic valve autograft looks normal without stenosis or significant insufficiency tissue pulmonic valve replacement shows very mildly elevated mean gradient of 12 mmHg which is stable compared to prior and no significant regurgitation Follow-up as scheduled dac [facility] Miscellaneous Notes* Patient Education - Meri Cartagena RN - 08/29/2023 7:30 AM EST Patient educated on IVP definity. A #22 jelco inserted into right hand without infiltrate,and 4 ml IVP definity given for echo images. No adverse reaction noted from definity. IV removed and dressingapplied without difficulty. Patient verbalizes understanding. [facility] Emergency department Note * Jarvis Flores DO - 05/26/2023 5:08 PM EDT EMERGENCY DEPARTMENT ENCOUNTER Pt Name: Angel Bahena Birthdate 1970 Date of evaluation: 05/26/2023 ED Provider: Jarvis Flores DO CHIEF COMPLAINT Chief Complaint Patient presents with Chest Pain Hypertension HISTORY OF PRESENT ILLNESS (Location/Symptom, Timing/Onset, Context/Setting, Quality, Duration, Modifying Factors, Severity) Note limiting factors. I wore appropriate PPE for the entirety of this encounter. HPI Angel Bahena is a 52 y.o. male who presents to the emergency department with chest pain and nausea.The patient reports that this morning around 9:00 AM he ate breakfast. He reports that after eatingbreakfast he felt nauseous he developed pain in the bilateral lower chest, described as sharp, and severe in intensity. He reports that he vomited about 30 minutes later and had resolve of his pain. He reports that since that time he is felt fatigued, which prompted presentation to the emergency department. He denies any chest pain or shortness of breath at this time. He denies previous historyof CAD or PCI. He admits to history of hypertension, and he is noncompliant with his medication. Nursing Notes were reviewed. Limitations to history: Outside historians: REVIEW OF SYSTEMS Review of Systems Cardiovascular: Positive for chest pain. PAST MEDICAL HISTORY Past Medical History: Diagnosis Date Abnormal heart sounds Anxiety Aortic valve stenosis Chest pain Mitral and aortic heart valve diseases, unspecified Palpitations Sleep apnea Tricuspid valve insufficiency SURGICAL HISTORY Past Surgical History: Procedure Laterality Date AORTIC VALVE REPLACEMENT 06/03/2003 ross procedure [facility] CARDIAC PROCEDURE Left 05/17/2003 [facility] CURRENT MEDICATIONS Previous Medications ALBUTEROL 108 (90 BASE) MCG/ACT INHALER inhale 2 puffs by mouth and INTO THE LUNGS every 4 hours ifneeded ASPIRIN 81 MG EC TABLET Take 81 mg by mouth in the morning. AZELASTINE (ASTELIN) 0.1 % NASAL SPRAY every 12 hours. BACLOFEN (LIORESAL) 10 MG TABLET Take 10 mg by mouth 3 times daily as needed. DEXAMETHASONE (DECADRON) 4 MG TABLET Take 4 mg by mouth. EPINEPHRINE (EPIPEN) 0.3 MG/0.3ML INJECTION SYRINGE Inject into the shoulder, thigh, or buttocks. ESCITALOPRAM (LEXAPRO) 10 MG TABLET Take 10 mg by mouth in the morning. FLUTICASONE (FLONASE) 50 MCG/ACT NASAL SPRAY 2 sprays. METOPROLOL SUCCINATE XL (TOPROL-XL) 25 MG 24 HR TABLET Take 12.5 mg by mouth daily. NABUMETONE (RELAFEN) 500 MG TABLET Take 500 mg by mouth 2 times daily. NAPROXEN (NAPROSYN) 500 MG TABLET Take 500 mg by mouth. SERTRALINE (ZOLOFT) 100 MG TABLET Take by mouth daily. ALLERGIES Peanut (diagnostic), Peanut allergen powder-dnfp, Shellfish allergy, and Diphenhydramine FAMILY HISTORY Family History Problem Relation Name Age of Onset Heart disease Neg Hx SOCIAL HISTORY Social History Socioeconomic History Marital status: Tobacco Use Smoking status: Never Smokeless tobacco: Never Vaping Use Vaping Use: Never used Substance and Sexual Activity Alcohol use: No Drug use: No SCREENINGS PHYSICAL EXAM ED Triage Vitals [05/26/23 1724] Temp Heart Rate Resp BP 36.4 C (97.5 F) 69 16 (!) 136/95 SpO2 Temp Source Heart Rate Source Patient Position 98 % Oral Monitor Sitting BP Location FiO2 (%) Right arm -- Physical Exam Constitutional: General: He is not in acute distress. HENT: Head: Normocephalic. Eyes: Conjunctiva/sclera: Conjunctivae normal. Cardiovascular: Rate and Rhythm: Normal rate and regular rhythm. Pulmonary: Effort: Pulmonary effort is normal. Abdominal: General: Abdomen is flat. Tenderness: There is no abdominal tenderness. Musculoskeletal: General: No deformity. Skin: General: Skin is warm and dry. Psychiatric: Mood and Affect: Mood normal. DIAGNOSTIC RESULTS RADIOLOGY (Per Emergency Physician): Interpretation per the Radiologist below, if available at the time of this note: XR chest 1 view Final Result 1. Stable examination. No acute findings. Report Dictated on Electronically Signed By: Mauricio Lama MD Electronically Signed Date/Time: 05/26/2023 6:00 PM EDT LABS: Labs Reviewed BASIC METABOLIC PANEL - Normal Result Value SODIUM 140 POTASSIUM 4.1 CHLORIDE 104 CARBON DIOXIDE 24 UREA NITROGEN 15 CREATININE 1.13 GLUCOSE 89 CALCIUM 8.9 ANION GAP 11 eGFR 77.7 CBC (HEMOGRAM) - Normal Auto WBC 9.2 RBC 5.47 Hemoglobin 15.4 Hematocrit 45.3 MCV 82.8 MCH 28.2 MCHC 34.0 RDW 12.6 Platelets 303 MPV 10.1 TROPONIN I - Normal TROPONIN I <0.012 Narrative: Patients with high levels of Biotin oral intake (ie >5 mg/day) may have falsely decreased Troponin levels. LIPASE - Normal LIPASE 60 HEPATIC FUNCTION PANEL - Normal BILIRUBIN, TOTAL 0.8 BILIRUBIN, DIRECT 0.0 ALKALINE PHOSPHATASE 60 AST (SGOT) 29 ALT 28 ALBUMIN 4.5 TOTAL PROTEIN 8.2 All other labs were within normal range or not returned as of this dictation. EMERGENCY DEPARTMENT COURSE and DIFFERENTIAL DIAGNOSIS/MDM: Vitals: Vitals: 05/26/23 1724 05/26/23 1756 BP: (!) 136/95 133/71 BP Location: Right arm Patient Position: Sitting Pulse: 69 68 Resp: 16 15 Temp: 36.4 C (97.5 F) TempSrc: Oral SpO2: 98% 98% Weight: 103 kg (227 lb) Height: 1.753 m (5' 9) Medications - No data to display MDM The patient presented with chief complaint of chest pain and nausea. The patient appears well at this time, no acute distress, vitals are stable. See history and physical exam above. Differential diagnosis includes but is not limited to gastritis, GERD, ACS, pneumonia, pneumothorax. The patient is currently asymptomatic, and has not experienced pain since this morning. Symptoms are likely relatedto a GI given that they started after eating breakfast and resolved after 1 episode of vomiting. To aid in management, I performed an independent interpretation of all laboratory tests, EKG, imaging, and other diagnostics ordered. Chest x-ray is negative for focal infiltrate as interpreted by me, see radiologist report for details. EKG reveals normal sinus rhythm with no evidence of acute ischemia. Blood counts, electrolytes, kidney function, troponin, lipase, and hepatic function are unremarkable. The patient has a heart score of 2. The patient was updated on the results and questions were answered. He is currently resting comfortably, asymptomatic, vitals are stable. Plan for discharge with follow-up to PCP and cardiology. He was instructed to return if symptoms change or worsen. The patient demonstrated general understanding and was agreeable with the plan. Patient's care was impacted by Hypertension. I Jarvis Flores DO am the pantograph watcher of record. PROCEDURES: Unless otherwise noted below, none Procedures FINAL IMPRESSION 1. Chest pain, unspecified type DISPOSITION Discharge 05/26/2023 06:25:29 PM PATIENT REFERRED TO: MD Lovely White [address] [facility] [id number] Schedule an appointment as soon as possible for a visit [facility] ED [address] [facility] [phone] [employer] DISCHARGE MEDICATIONS: New Prescriptions No medications on file (Comment: Please note this report has been produced using speech recognition software and may contain errors related to that system including errors in grammar, punctuation, and spelling, as well as words and phrases that may be inappropriate. If there are any questions or concerns please feel freeto contact the dictating provider for clarification.) Jarvis Flores DO (electronically signed) Emergency Medicine Provider Jarvis Flores DO 05/26/23 0179 * Tiffany Adkins RN - 05/26/2023 5:08 PM EDT Pt to ER with complaint of chest pain earlier today, nausea and vomiting, and high blood pressure. Started after he ate around 9am today. Denies any chest pain at this time. But states blood pressurewas elevated at home 150/110. pt with hx of valve replacement in heart . States he is supposed to be on baby aspirin and metoprolol- but is not taking them. Pt placed on air sampling and monitoring and EKG obtained on arrival. documented in this [facility]11-03-2023 Emergency department Triage note* Tiffany Adkins RN - 05/26/2023 5:08 PM EDT Pt to ER with complaint of chest pain earlier today, nausea and vomiting, and high blood pressure. Started after he ate around 9am today. Denies any chest pain at this time. But states blood pressurewas elevated at home 150/110. pt with hx of valve replacement in heart . States he is supposed to be on baby aspirin and metoprolol- but is not taking them. Pt placed on air sampling and monitoring and EKG obtained on arrival. [facility] [id number] Phys[facility] Emergency department Note* Jarvis Flores DO - 05/26/2023 5:08 PM EDT EMERGENCY DEPARTMENT ENCOUNTER Pt Name: Angel Bahena Birthdate 1970 Date of evaluation: 05/26/2023 ED Provider: Jarvis Flores DO CHIEF COMPLAINT Chief Complaint Patient presents with Chest Pain Hypertension HISTORY OF PRESENT ILLNESS (Location/Symptom, Timing/Onset, Context/Setting, Quality, Duration, Modifying Factors, Severity) Note limiting factors. I wore appropriate PPE for the entirety of this encounter. HPI Angel Bahena is a 52 y.o. male who presents to the emergency department with chest pain and nausea.The patient reports that this morning around 9:00 AM he ate breakfast. He reports that after eatingbreakfast he felt nauseous he developed pain in the bilateral lower chest, described as sharp, and severe in intensity. He reports that he vomited about 30 minutes later and had resolve of his pain. He reports that since that time he is felt fatigued, which prompted presentation to the emergency department. He denies any chest pain or shortness of breath at this time. He denies previous historyof CAD or PCI. He admits to history of hypertension, and he is noncompliant with his medication. Nursing Notes were reviewed. Limitations to history: Outside historians: REVIEW OF SYSTEMS Review of Systems Cardiovascular: Positive for chest pain. PAST MEDICAL HISTORY Past Medical History: Diagnosis Date Abnormal heart sounds Anxiety Aortic valve stenosis Chest pain Mitral and aortic heart valve diseases, unspecified Palpitations Sleep apnea Tricuspid valve insufficiency SURGICAL HISTORY Past Surgical History: Procedure Laterality Date AORTIC VALVE REPLACEMENT 06/03/2003 ross procedure [facility] CARDIAC PROCEDURE Left 05/17/2003 [facility] CURRENT MEDICATIONS Previous Medications ALBUTEROL 108 (90 BASE) MCG/ACT INHALER inhale 2 puffs by mouth and INTO THE LUNGS every 4 hours ifneeded ASPIRIN 81 MG EC TABLET Take 81 mg by mouth in the morning. AZELASTINE (ASTELIN) 0.1 % NASAL SPRAY every 12 hours. BACLOFEN (LIORESAL) 10 MG TABLET Take 10 mg by mouth 3 times daily as needed. DEXAMETHASONE (DECADRON) 4 MG TABLET Take 4 mg by mouth. EPINEPHRINE (EPIPEN) 0.3 MG/0.3ML INJECTION SYRINGE Inject into the shoulder, thigh, or buttocks. ESCITALOPRAM (LEXAPRO) 10 MG TABLET Take 10 mg by mouth in the morning. FLUTICASONE (FLONASE) 50 MCG/ACT NASAL SPRAY 2 sprays. METOPROLOL SUCCINATE XL (TOPROL-XL) 25 MG 24 HR TABLET Take 12.5 mg by mouth daily. NABUMETONE (RELAFEN) 500 MG TABLET Take 500 mg by mouth 2 times daily. NAPROXEN (NAPROSYN) 500 MG TABLET Take 500 mg by mouth. SERTRALINE (ZOLOFT) 100 MG TABLET Take by mouth daily. ALLERGIES Peanut (diagnostic), Peanut allergen powder-dnfp, Shellfish allergy, and Diphenhydramine FAMILY HISTORY Family History Problem Relation Name Age of Onset Heart disease Neg Hx SOCIAL HISTORY Social History Socioeconomic History Marital status: Tobacco Use Smoking status: Never Smokeless tobacco: Never Vaping Use Vaping Use: Never used Substance and Sexual Activity Alcohol use: No Drug use: No SCREENINGS PHYSICAL EXAM ED Triage Vitals [05/26/23 1724] Temp Heart Rate Resp BP 36.4 C (97.5 F) 69 16 (!) 136/95 SpO2 Temp Source Heart Rate Source Patient Position 98 % Oral Monitor Sitting BP Location FiO2 (%) Right arm -- Physical Exam Constitutional: General: He is not in acute distress. HENT: Head: Normocephalic. Eyes: Conjunctiva/sclera: Conjunctivae normal. Cardiovascular: Rate and Rhythm: Normal rate and regular rhythm. Pulmonary: Effort: Pulmonary effort is normal. Abdominal: General: Abdomen is flat. Tenderness: There is no abdominal tenderness. Musculoskeletal: General: No deformity. Skin: General: Skin is warm and dry. Psychiatric: Mood and Affect: Mood normal. DIAGNOSTIC RESULTS RADIOLOGY (Per Emergency Physician): Interpretation per the Radiologist below, if available at the time of this note: XR chest 1 view Final Result 1. Stable examination. No acute findings. Report Dictated on Electronically Signed By: Mauricio Lama MD Electronically Signed Date/Time: 05/26/2023 6:00 PM EDT LABS: Labs Reviewed BASIC METABOLIC PANEL - Normal Result Value SODIUM 140 POTASSIUM 4.1 CHLORIDE 104 CARBON DIOXIDE 24 UREA NITROGEN 15 CREATININE 1.13 GLUCOSE 89 CALCIUM 8.9 ANION GAP 11 eGFR 77.7 CBC (HEMOGRAM) - Normal Auto WBC 9.2 RBC 5.47 Hemoglobin 15.4 Hematocrit 45.3 MCV 82.8 MCH 28.2 MCHC 34.0 RDW 12.6 Platelets 303 MPV 10.1 TROPONIN I - Normal TROPONIN I <0.012 Narrative: Patients with high levels of Biotin oral intake (ie >5 mg/day) may have falsely decreased Troponin levels. LIPASE - Normal LIPASE 60 HEPATIC FUNCTION PANEL - Normal BILIRUBIN, TOTAL 0.8 BILIRUBIN, DIRECT 0.0 ALKALINE PHOSPHATASE 60 AST (SGOT) 29 ALT 28 ALBUMIN 4.5 TOTAL PROTEIN 8.2 All other labs were within normal range or not returned as of this dictation. EMERGENCY DEPARTMENT COURSE and DIFFERENTIAL DIAGNOSIS/MDM: Vitals: Vitals: 05/26/23 1724 05/26/23 1756 BP: (!) 136/95 133/71 BP Location: Right arm Patient Position: Sitting Pulse: 69 68 Resp: 16 15 Temp: 36.4 C (97.5 F) TempSrc: Oral SpO2: 98% 98% Weight: 103 kg (227 lb) Height: 1.753 m (5' 9) Medications - No data to display MDM The patient presented with chief complaint of chest pain and nausea. The patient appears well at this time, no acute distress, vitals are stable. See history and physical exam above. Differential diagnosis includes but is not limited to gastritis, GERD, ACS, pneumonia, pneumothorax. The patient is currently asymptomatic, and has not experienced pain since this morning. Symptoms are likely relatedto a GI given that they started after eating breakfast and resolved after 1 episode of vomiting. To aid in management, I performed an independent interpretation of all laboratory tests, EKG, imaging, and other diagnostics ordered. Chest x-ray is negative for focal infiltrate as interpreted by me, see radiologist report for details. EKG reveals normal sinus rhythm with no evidence of acute ischemia. Blood counts, electrolytes, kidney function, troponin, lipase, and hepatic function are unremarkable. The patient has a heart score of 2. The patient was updated on the results and questions were answered. He is currently resting comfortably, asymptomatic, vitals are stable. Plan for discharge with follow-up to PCP and cardiology. He was instructed to return if symptoms change or worsen. The patient demonstrated general understanding and was agreeable with the plan. Patient's care was impacted by Hypertension. I Jarvis Flores DO am the pantograph watcher of record. PROCEDURES: Unless otherwise noted below, none Procedures FINAL IMPRESSION 1. Chest pain, unspecified type DISPOSITION Discharge 05/26/2023 06:25:29 PM PATIENT REFERRED TO: MD Lovely White [address] [facility] [address] Schedule an appointment as soon as possible for a visit [facility] ED [address] [facility] [phone] [employer] SCIENTIST DISCHARGE MEDICATIONS: New Prescriptions No medications on file (Comment: Please note this report has been produced using speech recognition software and may contain errors related to that system including errors in grammar, punctuation, and spelling, as well as words and phrases that may be inappropriate. If there are any questions or concerns please feel freeto contact the dictating provider for clarification.) Jarvis Flores DO (electronically signed) Emergency Medicine Provider Jarvis Flores DO 05/26/23 1839 [id number] Miscellaneous Notes* Telephone Encounter - Katerina Chandler - 06/21/2022 10:05 AM EST I called and spoke with Dr. Coley office and they are faxing those labs from August [address] García. Thanks Katerina Chandler * Telephone Encounter - Ashanti García MD - 06/21/2022 8:28 AM EST Please get labs and lipids from PCP thanks [facility] Instructions* Patient Instructions* Ashanti García MD - 06/21/2022 8:29 AM EST Try to lose 30 pounds over the year: Consider weight watchers. Try to exercise 3-4 times a week for 20 to 30 minutes documented in [facility] Nurse Note* Christine Maria LPN - 06/21/2022 8:10 AM EST Patient denies any cardiac complaints or symptoms. Christine Maria LPN documented in this encounterL[facility] History of Present illness Narrative* Ashanti García MD - 06/20/2022 8:38 AM EST Chief Complaint No chief complaint on file. History of Present Illness: Angel Bahena Jr. is a 51 year old male here to follow-up valvular heart disease. He is doing well without chest pain chest tightness or exertional dyspnea. He does not exercise. No significant palpitations no syncope or dizziness. No stroke or TIA. No claudication or edema. No upper or lower GI bleeding or severe bruising. Overall feeling well PAST MEDICAL HISTORY Diagnosis Date Anxiety Non-rheumatic aortic stenosis Non-rheumatic tricuspid valve insufficiency Palpitations Sleep apnea Status post heart valve replacement PAST SURGICAL HISTORY Procedure Laterality Date HEART CATHETERIZATION 05/17/2003 HEART VALVE REPLACEMENT 06/03/2003 Ross Procedure [facility] PAST SURGICAL HISTORY OF 2017 Cyst removed from the back of his head No family history on file. Social History Tobacco Use Smoking status: Never Smokeless tobacco: Current Types: Chew Vaping Use Vaping Use: Never used Substance Use Topics Alcohol use: No Drug use: Never ALLERGIES Allergen Reactions Peanut Swelling Throat Shellfish Containin* Swelling, Unknown Benadryl [Diphenhyd* Hives Medications: Current Outpatient Medications Medication Sig Dispense Refill fluticasone propionate (FLONASE NASAL) Use in the nose. azelastine (ASTELIN) 0.1% nasal spray Use 1 [place] in each nostril twice daily. metoprolol succinate ER (TOPROL XL) 25 mg 24 hr tablet Take 1 tablet by mouth once daily. 90 tablet3 busPIRone (BUSPAR) 7.5 mg tablet Take 7.5 mg by mouth twice daily as needed. loratadine (CLARITIN) 10 mg tablet Take 10 mg by mouth once daily. montelukast (SINGULAIR) 10 mg tablet Take 10 mg by mouth daily at bedtime. aspirin, enteric coated (ASPIRIN, ENTERIC COATED) 81 mg EC tablet Take 81 mg by mouth once daily. escitalopram oxalate (LEXAPRO) 10 mg tablet Take 10 mg by mouth once daily. Current Facility-Administered Medications Medication Dose Route Frequency Provider Last Rate Last Admin perflutren lipid microspheres 1.3 mL in NaCl (PF) 0.9% 10 mL injection (DEFINITY) INTRAVENOUS DIRECTED PRN Ashanti García MD sodium chloride 0.9 % (flush) 10 mL (BD POSIFLUSH) 10 mL INTRAVENOUS DIRECTED PRN Ashanti García MD Review of Systems Constitutional: Negative for chills, fever, malaise/fatigue and weight loss. Respiratory: Negative for shortness of breath and wheezing. Denies Chest Tightness Cardiovascular: Negative. Gastrointestinal: Negative for abdominal pain, blood in stool and nausea. Genitourinary: Negative for hematuria. Musculoskeletal: Positive for back pain. Neurological: Negative for dizziness, speech change and loss of consciousness. Denies syncope Endo/Heme/Allergies: Does not bruise/bleed easily. Physical Examination: Vitals: BP 122/80 (BP Site: Left Arm, BP Position: Sitting, BP Cuff Size: Large Adult) Pulse 66 Ht 5' 9 (1.753 m) Wt 224 lb (101.6 kg) SpO2 95% BMI 33.08 kg/m Last 2 Encounter Wt Readings: Date: Wt: 06/01/2021 213 lb 9.6 oz (96.9 kg) 09/08/2020 216 lb 14.4 oz (98.4 kg) Physical Exam Constitutional: in no acute distress, well developed mildly obese very pleasant gentleman skin: Normal warmth no bruising Head: normocephalic eyes: normal- appearing eyelids, pupils appear equal Neck:normal range of motion without thyromegaly carotid pulses are full and equal bilaterally without bruits, no JVD Chest: Normal AP diameter no accessory muscle use clear to auscultation, healed median sternotomy scar, no wheezing Cardiac: regular rhythm, no S3 or S4, grade 1/6 early peakingsystolic ejection murmur heard best at the left upper second intercostal space , no right ventricular heave apex nonpalpable abdomen: Mildly obese no rebound abdomen soft, non-tender, no hepatomegaly, Peripheral Pulses: pulses full and equal in all extremities Extremities & Back: no edema observed no cyanosisPsychiatric: Normal affect alert and oriented no difficulties with speech or language Neurological: no gross motor deficits Pertinent Labs: CBC: Hemoglobin (g/dL) Date Value 05/01/2020 15.4 Hematocrit (%) Date Value 05/01/2020 47.5 WBC (k/uL) Date Value 05/01/2020 4.78 Platelet Count (k/uL) Date Value 05/01/2020 317 BMP: Glucose (mg/dL) Date Value 05/01/2020 97 Potassium (mmol/L) Date Value 05/01/2020 4.3 Sodium (mmol/L) Date Value 05/01/2020 140 Chloride (mmol/L) Date Value 05/01/2020 102 CO2 (mmol/L) Date Value 05/01/2020 23 Creatinine (mg/dL) Date Value 05/01/2020 1.20 BUN (mg/dL) Date Value 05/01/2020 15 Anion Gap (mmol/L) Date Value 05/01/2020 15 Calcium (mg/dL) Date Value 05/01/2020 9.0 INR: TSH: No results found for: TSHREFL Lipid Profile: Cholesterol, Total Date Value Ref Range Status 05/01/2020 133 <200 mg/dL Final HDL Cholesterol Date Value Ref Range Status 05/01/2020 43 >39 mg/dL Final LDL Cholesterol Date Value Ref Range Status 05/01/2020 80 <100 mg/dL Final Triglyceride Date Value Ref Range Status 05/01/2020 51 <150 mg/dL Final Hemoglobin A1C: No results found for: HGBA1C Most Recent Cardiac Testing No testing Assessment and Plan: 1. Valvular disease: Doing quite well almost 20 years status post Ross procedure. 2018 echo EF 55% normal pulmonary autograft in aortic position and the tissue pulmonic valve stable with mean gradient 11 mmHg. . He requires lifelong SBE prophylaxis He had a normal stress test a number of years ago to 14 METs; I will recheck an echo before he returns next year. He works as a trash truck driver and has been certainly cleared to do this from a cardiac standpoint. EKG today normal sinus rhythm first-degree AV block. History of some palpitations on metoprolol without clinically significant arrhythmia. 2. Lipids: He has not required any statin therapy. 2019 lipids HDL 43 LDL 80 triglycerides 51. I will try to get more recent lipids from your office 3. Mild obesity: He is up about 10 pounds and is about 30 pounds overweight. I have suggested weight watchers and that he try to exercise 3-4 times a week for 20 to 30 minutes. Exam, assessment and plan from prior note, updated with changes Electronically signed by Ashanti García MD on June 20, 2022, 8:38 AM documented in this encounterL[facility]-16-[facility]21 NoteHNO ID: [id number] Author: Portillo Castellanos Service: ? Author Type: Physician Type: Progress Notes Filed: 09/28/2020 11:47 PM Note Text: Headache (pt states having pressure in front of head) - worse after work at end of day. If he lays down it will go away. Associated with some extra sputum. Pain and pressure in forehead and temples at times. Left ear associated with pressure. Does have some chest pressure at times. The history is provided by the patient. No multi disciplined language analyst was used. HISTORY REVIEWED PAST MEDICAL HISTORY Diagnosis Date - Anxiety - Non-rheumatic aortic stenosis - Non-rheumatic tricuspid valve insufficiency - Palpitations - Sleep apnea - Status post heart valve replacement PAST SURGICAL HISTORY Procedure Laterality Date - HEART CATHETERIZATION 05/17/2003 - HEART VALVE REPLACEMENT 06/03/2003 Ross Procedure [facility] - PAST SURGICAL HISTORY OF 2017 Cyst removed from the back of his head No family history on file. Social History Social History Narrative Not on file Allergies: ALLERGIES Allergen Reactions - Peanut Swelling Throat - Shellfish Containin* Swelling, Unknown - Benadryl [Diphenhyd* Hives Medications: metoprolol succinate ER (TOPROL XL) 25 mg 24 hr tablet Take 25 mg by mouth once daily. aspirin, enteric coated (ASPIRIN, ENTERIC COATED) 81 mg EC tablet Take 81 mg by mouth once daily. busPIRone (BUSPAR) 7.5 mg tablet Take 7.5 mg by mouth twice daily as needed. loratadine (CLARITIN) 10 mg tablet Take 10 mg by mouth once daily. montelukast (SINGULAIR) 10 mg tablet Take 10 mg by mouth daily at bedtime. amoxicillin (POLYMOX, AMOXIL) 500 mg capsule 4 capsules one hour prior to the dentist escitalopram oxalate (LEXAPRO) 10 mg tablet Take 10 mg by mouth once daily. Problem List: ACTIVE PROBLEM LIST Status Post Heart Valve Replacement Palpitations Review of Systems HENT: Positive for sinus pressure. Cardiovascular: Chest pressure Musculoskeletal: Negative for back pain and gait problem. All other systems reviewed and are negative. Physical Exam Vitals and nursing note reviewed. Constitutional: Appearance: Angel Bahena is well-developed. HENT: Head: Normocephalic and atraumatic. Comments: B/l maxillary sinus tenderness to percussion Right Ear: Tympanic membrane, ear canal and external ear normal. Left Ear: Tympanic membrane, ear canal and external ear normal. Nose: Nose normal. Eyes: Conjunctiva/sclera: Conjunctivae normal. Pupils: Pupils are equal, round, and reactive to light. Cardiovascular: Rate and Rhythm: Normal rate and regular rhythm. Heart sounds: Normal heart sounds. Pulmonary: Effort: Pulmonary effort is normal. Breath sounds: Normal breath sounds. Abdominal: General: Bowel sounds are normal. Palpations: Abdomen is soft. Musculoskeletal: Cervical back: Normal range of motion and neck supple. Lymphadenopathy: Cervical: No cervical adenopathy. Skin: General: Skin is warm and dry. Findings: No rash. BP 143/94 Pulse 75 Temp 36.2 ?C (97.1 ?F) (Tympanic) Ht 175.3 cm (5' 9) Wt 98.4 kg (216 lb 14.4 oz) BMI 32.03 kg/m? ASSESSMENT/PLAN: 1. Chest pressure - ICD9: 786.59, ICD10: R07.89 (primary diagnosis) - EKG read and normal. - ECG COMPLETE 2. Acute non-recurrent maxillary sinusitis - ICD9: 461.0, ICD10: J01.00 - Start prednisone. Close f/u not improved - PREDNISONE 50 MG TABLET Portillo Castellanos, [facility] complaint+Reason for visit Narrative* Chief Complaint GASOLINE TESTER EST CARE PPW SENT Reason for Visit Preventative health care S/P Ross procedure [facility] Work Phone: Evaluation note* Diagnosis Sprain of right wrist, initial encounter- Primary documented in this encounter [facility] Work Phone: Evaluation note* Diagnosis Status post heart valve replacement- Primary Heart valve replaced by other means Obesity (BMI 30-39.9) Obesity, unspecified Palpitations [facility]* Diagnosis Chest pain, unspecified type- Primary [facility]* Diagnosis Status post heart valve replacement Heart valve replaced by other means documented in this encounter [facility] note* Diagnosis Onset Date Resolution Status Preventative health care acu te S/P Ross procedure [facility] Work Phone: Evaluation note* Diagnosis Aortic valve disease- Primary Aortic valve disorders H/O aortic valve replacement using Ross procedure Heart valve replaced by other means Obesity (BMI 30-39.9) Obesity, unspecified documented in this encounter [facility] Discharge instructions* Attachments The following attachments cannot be sent through Care Everywhere. * Wrist Sprain (Algerian) [facility] Work Phone: Hospital Discharge instructions* Attachments The following attachments cannot be sent through Care Everywhere. * Chest Pain Discharge Instructions (Algerian) [facility] (n[facility])* Outpatient Procedure (Routine) - Pending Review Specialty Diagnoses / Procedures Referred By Bibi sanchez Referred To Contact [facility] [place] Diagnoses Status post heart valve replacement Procedures ECHO ECHO TTHRC R-T 2D W/WOM-MODE COMPL SPEC&COLR D Ashanti García MD [address] [facility] [address] [place] [address] [facility] [address] [address] Referral ID Status Reason Start Date Expiration Date Visits Requested Visits Authorized [id number] Pending Review Auto-Generat ed Referral 3 06/21/2023 1 1 [facility] for referral (narrative)* Outpatient Procedure (Routine) - Closed Specialty Diagnoses / Procedures Referred By Bibi sanchez Referred To Contact [facility] Diagnoses Status post heart valve replacement Procedures ECHO ECHO TTHRC R-T 2D W/WOM-MODE COMPL SPEC&COLR D Ashanti García MD [address] [place] [address] Heart [facility] [place] [place] [address] [place] [address] Referral ID Status Reason Start Date Expiration Date V isits Requested Visits Authorized [id number] Closed Auto-Generate d Referral 09/14/2023 08/13/2024 1 1 [facility] (narrative)No reason for referral information availableWAkron Children[facility] Work Phone: Reason for visit Narrative* Outpatient Procedure (Routine) - Closed Specialty Diagnoses / Procedures Referred By Leylaac t Referred To Contact [facility] Diagnoses Status post heart valve replacement Procedures ECHO ECHO TTHRC R-T 2D W/WOM-MODE COMPL SPEC&COLR D Ashanti García MD [address] [address] Heart [facility] [place] [address] [place] [address] Referral ID Status Reason Start Date Expiration Date V isits Requested Visits Authorized [id number] Closed Auto-Generate d Referral 09/14/2023 08/13/2024 1 1 [facility] Summary Purpose Family History No Family History Records Found Mother Name Dates Details No pertinent family history( V49.89, Z78.9) Status:Active Father Name Dates Details No pertinent family history( V49.89, Z78.9) Status:Active Advance Directives No Advanced Directives Records FoundDocuments on File Type Date Recorded Patient Insulation Cutter Expl anation ACP-Advance Directive ACP-Power of Maintenance Instructor History of Present Illness * Diamond Alicea (Event Planning Intern Legal Cashier), DOVETAILER - 04/22/2020 9:30 AM EDT PRIMARY CARE PHYSICIAN: [facility] [address] [place] [address] Chief Complaint Patient presents with: CARD Follow Up Annual HISTORY OF PRESENT ILLNESS: Mr. Bahena is a 49 year old male who is known to Dr. García with a history of a median sternotomy with a Ross operation including pulmonary autograft, aortic root replacement and pulmonary allograft #28 mm to the right ventricular outflow tract; replacement was performed on June 03, [address] Terrazas at [facility] for a Aortic valve stenosis but monocuspid aortic valve. Pts last ECHO in 2017 2017 showed normal valve function and preserved ejection fraction 50-55%,Aortic valve replacement(Ross Procedure 2002). It is well-seated with no perivalvular regurgitation. Trivial aortic valve regurgitation. The peak and mean transvalvular gradients are 4 and 2 mmHg. And the pulmonic valve prosthesis , is present with trivial regurgitation. The peak and mean transvalvular gradients are 20 and 11 mmHg. Patient is here today for his yearly cardiology follow-up, he denies any chest pain with exertion or at rest, he has had no shortness of breath with exertion orthopnea or PND. He has had no palpitations. Patient is very active he goes to his son's farm in [place] and is doing deer hunting with a lot of walking and again voices no symptoms. Patient is currently seeking a new primary care provider, I provided him with a referral sheet of providers accepting patients. He knows the importance of establishing a primary care provider. PAST MEDICAL HISTORY Diagnosis Date Anxiety Non-rheumatic aortic stenosis Non-rheumatic tricuspid valve insufficiency Palpitations Sleep apnea Status post heart valve replacement PAST SURGICAL HISTORY Procedure Laterality Date HEART CATHETERIZATION 05/17/2003 HEART VALVE REPLACEMENT 06/03/2003 Ross Procedure [facility] PAST SURGICAL HISTORY OF 2017 Cyst removed from the back of his head History reviewed. No pertinent family history. Social History Tobacco Use Smoking status: Never Smoker Smokeless tobacco: Never Used Substance Use Topics Alcohol use: No Drug use: Never ALLERGIES Allergen Reactions Peanut Swelling Throat Shellfish Containin* Swelling, Unknown Medications: Current Outpatient Medications Medication Sig Dispense Refill busPIRone (BUSPAR) 7.5 mg tablet Take 7.5 mg by mouth twice daily as needed. loratadine (CLARITIN) 10 mg tablet Take 10 mg by mouth once daily. montelukast (SINGULAIR) 10 mg tablet Take 10 mg by mouth daily at bedtime. metoprolol succinate ER (TOPROL XL) 25 mg 24 hr tablet Take 25 mg by mouth once daily. aspirin, enteric coated (ASPIRIN, ENTERIC COATED) 81 mg EC tablet Take 81 mg by mouth once daily. amoxicillin (POLYMOX, AMOXIL) 500 mg capsule 4 capsules one hour prior to the dentist (Patient not taking: Reported on 04/30/2019 ) 8 capsule 6 escitalopram oxalate (LEXAPRO) 10 mg tablet Take 10 mg by mouth once daily. No current facility-administered medications for this visit. Review of Systems Constitutional: Negative. Negative for malaise/fatigue. HENT: Negative for congestion. Eyes: Negative for blurred vision. Respiratory: Negative for shortness of breath. Cardiovascular: Negative. Negative for chest pain and leg swelling. Gastrointestinal: Negative. Musculoskeletal: Negative for back pain and falls. Neurological: Negative for dizziness, tingling, speech change, loss of consciousness and weakness. Endo/Heme/Allergies: Negative. Physical Examination: Vitals:BP 126/90 Pulse 67 Wt 202 lb (91.6kg) SpO2 96% Last 2 Encounter Wt Readings: Date: Wt: 04/30/2019 200 lb (90.7 kg) 02/22/2018 215 lb 12.8 oz (97.9 kg) Physical Exam Constitutional: He is oriented to person, place, and time and well-developed, well-nourished, and in no distress. HENT: Head: Atraumatic. Right Ear: Hearing normal. Left Ear: Hearing normal. Nose: No mucosal edema, rhinorrhea, sinus tenderness or nasal deformity. Mouth/Throat: Oropharynx is clear and moist and mucous membranes are normal. Eyes: Pupils are equal, round, and reactive to light. Right eye exhibits no nystagmus. Left eye exhibits no nystagmus. Neck: Normal range of motion. Neck supple. No hepatojugular reflux and no JVD present. Carotid bruit is not present. No tracheal deviation present. Cardiovascular: Normal rate, regular rhythm and normal pulses. PMI is not displaced. Murmur heard. Pulmonary/Chest: Effort normal and breath sounds normal. No stridor. Abdominal: Soft. Bowel sounds are normal. There is no abdominal tenderness. Musculoskeletal: Normal range of motion. Neurological: He is alert and oriented to person, place, and time. He displays no weakness, facial symmetry and normal stance. He exhibits normal muscle tone. Gait normal. Coordination and gait normal. Skin: Skin is warm and dry. He is not diaphoretic. No cyanosis. No pallor. Nails show no clubbing. Psychiatric: Mood, memory, affect and judgment normal. Nursing note and vitals reviewed. Prior Cardiac Testing ECHO Mar 2018 Aortic Valve Aortic valve replacement(Ross Procedure 2003). It is well-seated with no perivalvular regurgitation. Trivial aortic valve regurgitation. The peak and mean transvalvular gradients are 4 and 2 mmHg, respectively. The dimensionless index is 0.75. Pulmonic Valve A pulmonic valve prosthesis , is present with trivial regurgitation. The peak and mean transvalvular gradients are 20 and 11 mmHg. Pericardium No evidence of pericardial effusion. Mitral Valve Structurally normal mitral valve with trivial mitral regurgitation. Left Ventricle Normal left ventricular size and systolic function. LVEF is 50-55% by visual estimation. Hypokinetic septal motion due to open heart surgery. Normal left ventricular wall thickness. Stage I diastolic dysfunction: Abnormal relaxation with normal filling pressures. Assessment and Plan: ASSESSMENT/PLAN: 1. Status post heart valve replacement - ICD9: V43.3, ICD10: Z95.4 Patient is asymptomatic,, transthoracic echocardiogram from 2018 reviewed, patient is well aware ofthe need for antibiotic prophylaxis for any planned dental procedures. He will continue the Toprol 25 mg daily as well as aspirin 81 mg therapy. 2. Hypertension: Patient does not home monitor blood pressure, no severe elevation noted in today'sappointment, however I strongly recommended he continue structured exercise, low-sodium heart healthy diet. 3. Palpitations: Currently asymptomatic, he is on low-dose beta-blockade. I have asked him to call our office if any additional events arise. Diamond Alicea APRN.CNP Follow up planning: Call with any questions or concerns, continue to follow with Dr. García in 1 year Electronically signed by Diamond Alicea APRN.CNP on April 21, 2020, 6:59 AM The above note was partially created using a dictation recognition software. A reasonable attempt has been made to correct any errors. documented in this encounter Assessments Diagnosis Status post heart valve replacement- Primary Heart valve replaced by other means Diagnosis Throat pain- Primary Acute serous otitis media of left ear, recurrence not specified Discharge Instructions * Instructions* Eleazar Carranza MD - 10/07/2020 Please return for fever and can follow with ent * Attachments The following attachments cannot be sent through Care Everywhere. * Serous Otitis Media (Algerian) documented in this encounter Chief Complaint and Reason for Visit Chief Complaint Admit Date SORES ON GUMS June 19, 2024 7:57am f/u dickson September 25, 2024 7:47 am YEARLY October 11, 2024 10: 33am Reason for Visit Admit Date Gingiva disorder June 19, 2024 7:57am Non-thermal blister of oral cavity Novem 2023 7:57am Obesity September 25, 2024 7:47 am Sleep apnea September 25, 2024 7:47 am Anxiety with flying October 11, 2024 10: 33am Preventative health care October 11 10:33am Right hip pain October 11, 2024 10: 33am Obesity October 11, 2024 10: 33am Chief Complaint Admit Date f/u dickson September 25, 2024 7:47 am YEARLY October 11, 2024 10: 33am Pap Machine December 27, 2024 8:24a m Reason for Visit Admit Date Obesity September 25, 2024 7:47 am Sleep apnea September 25, 2024 7:47 am Anxiety with flying October 11, 2024 10: 33am Preventative health care October 11 10:33am Right hip pain October 11, 2024 10: 33am Obesity October 11, 2024 10: 33am Additional Source Comments (unrecognized sect ion and content) No Status Records FoundNo Status Records FoundNo Status Records FoundNo Status Records FoundNo Status Records FoundNo Status Records FoundNo Status Records FoundNo Status Records Found INFORMATION SOURCE (unrecogn ized section and content) DATE CREATED AUTHOR 04/23/2018 [facility] DATE CREATED AUTHOR AUTHOR'S ORGANIZ ATION 07/02/2018 [facility] DATE CREATED AUTHOR AUTHOR'S ORGANIZ ATION 08/02/2019 [facility] DATE CREATED AUTHOR AUTHOR'S ORGANIZ ATION 08/10/2021 [facility] DATE CREATED AUTHOR AUTHOR'S ORGANIZ ATION 05/20/2022 [facility] DATE CREATED AUTHOR AUTHOR'S ORGANIZ ATION 08/14/2023 [facility] DATE CREATED AUTHOR AUTHOR'S ORGANIZ ATION 11/03/2024 [facility] DATE CREATED AUTHOR AUTHOR'S ORGANIZ ATION 12/28/2024 [facility] Source Comments (unrecognize d section and content) In the event this informatio n is protected by the Federal Confidentiality of Alcohol and Drug Abuse Patient Records regulations: The Federal rules restrict any use of the information to criminally investigate or prosecute any alcohol or drug abuse patient.[facility] the event this information is protected by the Federal Confidentiality of Alcohol and Drug Abuse Patient Records regulations: The Federal rules restrict any use of the information to criminally investigate or prosecute any alcohol or drug abuse patient.[facility] the event this information is protected by the Federal Confidentiality of Alcohol and Drug Abuse Patient Records regulations: The Federal rules restrict any use of the information to criminally investigate or prosecute any alcohol or drug abuse patient.[facility] the event this information is protected by the Federal Confidentiality of Alcohol and Drug Abuse Patient Records regulations: The Federal rules restrict any use of the information to criminally investigate or prosecute any alcohol or drug abuse patient.[facility] the event this information is protected by the Federal Confidentiality of Alcohol and Drug Abuse Patient Records regulations: The Federal rules restrict any use of the information to criminally investigate or prosecute any alcohol or drug abuse patient.[facility] the event this information is protected by the Federal Confidentiality of Alcohol and Drug Abuse Patient Records regulations: The Federal rules restrict any use of the information to criminally investigate or prosecute any alcohol or drug abuse patient.[facility] the event this information is protected by the Federal Confidentiality of Alcohol and Drug Abuse Patient Records regulations: The Federal rules restrict any use of the information to criminally investigate or prosecute any alcohol or drug abuse patient.[facility] the event this information is protected by the Federal Confidentiality of Alcohol and Drug Abuse Patient Records regulations: The Federal rules restrict any use of the information to criminally investigate or prosecute any alcohol or drug abuse patient.[facility] Reason for Visit (unrecogniz ed section and content) Reason Onset Date Comments Appointment 04/20/2020 Reason Comments CARD Follow Up Annual Reason Comments Pharyngitis Reason Comments Wrist Injury Right wrist, slipped on ice this morning, Pain in R hand and wrist, grabbed rail on truck, and arm was pulled Reason Comments CARD Follow Up Annual Status post heart valve replacement Reason Comments Patient Update Reason Comments Chest Pain Hypertension Reason Comments Results Reason Comments CARD Follow Up Annual Aortic valve disea se Telephone Encounter - Lolis Portillo - 04/20/2020 3:19 PM EDTTelephone Encounter - Lolis Portillo - 04/20/2020 3:19 PM EDT Miscellaneous Notes (unrecog nized section and content) Left vm for patient, trying to pre-reg for 04/22/20 but no active insurance on file. Will have to cancel appointment for now and will submit a financial clearance referral. Requested a call back if patient has active insurance so we can update. Lolis Lindsey documented in this encounter Left vm for patient, trying to pre-reg for 04/22/20 but no active insurance on file. Will have to cancel appointment for now and will submit a financial clearance referral. Requested a call back if patient has active insurance so we can update. Lolis Portillo documented in this encounter Donya Platt (Jason) - 04/22/2020 9:22 AM EDT Nursing Notes (unrecognized section and content) Patient states no cardiac complaints or symptoms. Donya Biswas) Lc documented in this encounter Ordered Prescriptions (unrec ognized section and content) Prescription Sig Dispensed Refills Start Date End Da te amoxicillin (AMOXIL) 500 MG capsule Take 1 capsule by mouth 3 times daily for 7 days 21 capsule 0 10/07/2020 10/14/2020 Prescription Sig Dispensed Refills Start Date End Da te naproxen (NAPROSYN) 500 MG tablet Take 1 tablet by mouth 2 times daily (with meals) 14 tablet 0 07/27/2021 Care Teams (unrecognized sec tion and content) Campus Interviews Intern Relationship Specialty Start Date End Date Jarvis Vera MD [address] [place] [address], [place] [address] PCP - General 02/20/15 Campus Interviews Intern Relationship Specialty Start Date End Date Jarvis Vera MD [address] [place] [address], [place] [address] PCP - General 02/20/15 Campus Interviews Intern Relationship Specialty Start Date End Date Rico Coley MD [place] [id number] PCP - General Family Medicine 09/16/21 Campus Interviews Intern Relationship Specialty Start Date End Date Rico Coley [address] [place] [id number] PCP - General Family Medicine 06/21/22 Campus Interviews Intern Relationship Specialty Start Date End Date Rico Coley [address] [place] [id number] PCP - General Family Medicine 06/21/22 Campus Interviews Intern Relationship Specialty Start Date End Date Serenity Mohan MD [address] [phone] PCP - General Family Medicine 05/26/23 Campus Interviews Intern Relationship Specialty Start Date End Date Serenity Mohan MD [address] [facility] [address] [place] [address] PCP - General Family Medicine 05/26/23 Campus Interviews Intern Relationship Specialty Start Date End Date Rico Coley PCP - General Family Medicine 06/21/22 Campus Interviews Intern Relationship Specialty Start Date End Date Rico Coley PCP - General Family Medicine 06/21/22 Team Status: Active Member Role Status Dates Dr. Pennie Fish MD Primary Care Provider Active Team Status: Inactive Member Role Status Dates Dr. Serenity Mohan MD Primary Care Provider, Referr ing Provider Active Dr. Pennie Fish MD Attending Provider Active Team Status: Inactive Member Role Status Dates Dr. Pennie Fish MD Primary Care P taras, Attending Provider, Referring Provider Active Team Status: Inactive Member Role Status Dates Dr. Pennie Fish MD Primary Care Provider Active Start: June 19, 2024 End: June 19, 2024 Dr. Pennie Fish MD Attending Provider Active Start: June 19, 2024 End: June 19, 2024 Dr. Pennie Fish MD Referring Provider Active Start: June 19, 2024 End: June 19, 2024 Team Status: Inactive Member Role Status Dates Dr. Pennie Fish MD Primary Care Provider Active Start: September 25, 2024 End: September 25, 2024 Dr. Pennie Fish MD Referring Provider Active Start: September 25, 2024 End: September 25, 2024 Moriah Banks GASOLINE TESTER, GASOLINE TESTER-C Attending Provider Active Start: September 25, 2024 End: September 25, 2024 Team Status: Inactive Member Role Status Dates Dr. Pennie Fish MD Primary Care Provider Active Start: October 11, 2024 End: October 11, 2024 Dr. Pennie Fish MD Attending Provider Active Start: October 11, 2024 End: October 11, 2024 Dr. Pennie Fish MD Referring Provider Active Start: October 11, 2024 End: October 11, 2024 Campus Interviews Intern Relationship Specialty Start Date End Date Pennie Fish [place] [address] PCP - General Internal Medicine 11/01/24 Team Status: Inactive Member Role Status Dates Dr. Pennie Fish MD Primary Care Provider Active Start: December 27, 2024 End: December 27, 2024 Dr. Pennie Fish MD Referring Provider Active Start: December 27, 2024 End: December 27, 2024 Moriah Banks GASOLINE TESTER, GASOLINE TESTER-C Attending Provider Active Start: December 27, 2024 End: December 27, 2024 Inactive Administered Medications - up to 3 most recent administrations Administered Medications (un recognized section and content) Medication Order MAR Action Action Date Dose Rate Site perflutren lipid microspheres 1.3 mL in NaCl (PF) 0.9% 10 mL injection (DEFINITY) INTRAVENOUS, DIRECTED NEEDED, 1 dose, Starting on Mon06/21/22 at 0827, Until Mon08/29/23 at 0828, Per Protocol - for use during ECHO procedure only, If no IV access, insert saline lock prior to administering contrast. Discontinue saline lock post exam. If patient has central line or IVAD, may access for administration according to line specific nursing protocol. Once exam is complete, flush line and de-access per line specific nursing protocol.Dilute 1.3 ml of Definity with 8.7 ml of preservative-free saline. Given 08/29/2023 8:28 AM EST 4 mL Hand, Right Goals (unrecognized section and content) Goals may be documented in a n alternate sectionGoals may be documented in an alternate sectionGoals may be documented in an alternate section FOR RECORDS PERTAINING TO PATIENTS WHO ARE OR HAVE BEEN ENROLLED IN A CHEMICAL DEPENDENCY/SUBSTANCEABUSE PROGRAM, SOME INFORMATION MAY BE OMITTED. This clinical summary was aggregated from multiple sources. Caution should be exercised in using it in the provision of clinical care. This summary normalizes information from multiple sources, and as a consequence, information in this document may materially change the coding, format and clinical context of patient data. In addition, data may be omitted in some cases. CLINICAL DECISIONS SHOULD BE BASED ON THE PRIMARY CLINICAL RECORDS. [employer] provides no warranty or guarantee of the accuracy or completeness of information in this document.
[2025-02-02 12:18] VITALS: BP 153/98; PULSE 77; RESP 16; TEMP 36.8; O2SAT 96
== END 2025-02-02 12:19 | disposition home or self-care (01) ==
LOC: ED 11:40
PROVIDERS: Emergency Provider Emergency Medicine; PCP Internal Medicine; Visit Provider Emergency Medicine
DX: S60.351A Superficial foreign body of right thumb, initial encounter (principal); W45.8XXA Other foreign body or object entering through skin, initial encounter; R03.0 Elevated blood-pressure reading, without diagnosis of hypertension; I51.9 Heart disease, unspecified; F17.220 Nicotine dependence, chewing tobacco, uncomplicated; Z95.2 Presence of prosthetic heart valve; Z79.82 Long term (current) use of aspirin; Z79.899 Other long term (current) drug therapy; Z23 Encounter for immunization
CPT/HCPCS: 64450; 90715; 99283

== ENCOUNTER → 2025-02-24 | Outpatient (CLI) | payer OTHER, SELFPAY ==
[2025-02-24 10:22] LABS: Mucous, Urine 0 SEEN /hpf (<or=2+); Red Blood Cells-Urine 0 SEEN /hpf (0-5); Squamous Epithelial Cells - UA 0 SEEN /hpf (0-5)
[2025-02-24 12:48] LABS: Color, Urine Yellow (Yellow); Glucose, Dipstick Normal (Normal); Ketone-Dipstick Negative (Negative); Leukocyte Esterase-Dipstick Negative /ul (Negative); Nitrite-Dipstick Negative (Negative); Occult Blood-Urine 50 /ul (Negative); Protein-Dipstick 15 mg/dl (Negative); Specific Gravity, Urine 1.020 (1.002-1.030); Urine Bilirubin Dipstick Negative (Negative)
[2025-02-24 13:25] LABS: Hematocrit 44.5 % (40-54); Hemoglobin 14.8 g/dL (13.0-16.5); Immature Granulocytes Count 0.010 X10^3/uL (0.0-0.0); Mean Corp Hgb Conc 33.3 g/dL (32-36); Mean Corpuscular Volume 83.8 fL (80-94); Mean Platelet Vol. 10.6 fl (6.2-12.0); NRBC Flagged by Analyzer 0 % (0-5); Platelet Count 289 K/mm3 (150-450); RBC Distribution Width CV 12.8 % (11.6-14.6); RBC Distribution Width SD 38.7 fl (35.1-43.9); Red Blood Count 5.31 M/mm3 (4.6-6.2); White Blood Count 6.6 K/mm3 (4.4-11.0)
[2025-02-24 13:28] LABS: AST(SGOT) 25 U/L (<=37); Alanine Aminotransfer ALT/SGPT 27 U/L (<=46); Albumin, Serum 4.3 g/dL (3.5-5.0); Alkaline Phosphatase 79 U/L (40-129); Anion Gap 12 (5-15); BUN 13 mg/dL (4-19); BUN/Creat Ratio 10.2 RATIO (10-20); Calcium,Total 9.3 mg/dL (7.6-11.0); Carbon Dioxide 25.4 mmol/L (21.0-32.0); Chloride 102 mmol/L (98-108); Globulin 3.1 g/dL (2.2-4.2); Glucose 118 mg/dL (70-99); PSA,Total- Diagnostic 0.79 ng/mL (0.00-4.00); Potassium 4.1 mmol/L (3.3-5.1)
--- OUTSIDE RECORDS SUMMARY | 2025-02-24 21:20 | XMS RPT_ITS | CCD ---
Author Organization [facility] CliniSyak Care Team Providers Care Sheet Metal Worker Maintenance Name Role Phone ASHANTI GARCÍA Unavailable Unavailable [...] Saksham Unavailable Unavailable [place], Chung Unavailable Unavailable [place], Jose B Unavailable Unavailable Sulove, Saksham Unavailable Unavailable Viv, Jose B Primary Care Provider [phone] Jarvis Vera Primary Care Provider Jarvis Vera MD Primary Care Provider [phone] Rico Coley MD Primary Care Provider Ashanti Arambula Attending Unavailable Rosaura, Rico Primary Care Unavailable PROVIDER, UNKNOWN Referring Unavailable Rico Coley Primary Care Unavailable PROVIDER, UNKNOWN Referring Unavailable Ashanti Betts Attending Unavailable Rosaura, Rico Primary Care Unavailable Rosaura, Rico Attending Unavailable PROVIDER, UNKNOWN Referring Unavailable Rico Coley Primary Care Provider Serenity Mohan MD Primary Care Provider JARVIS FLORES Referring Unavail able SERENITY MOHAN Primary Care Unavailable SERENITY MOHAN Primary Care Unavailable JARVIS FLORES Attending Unavail able Rico Coley Primary Care Provider Dr. Serenity Mohan Primary Care Provider Dr. Serenity Mohan Referring Provider Dr. Pennie Fish Attending Provider Polina STEINBERG, Dr. Marcum Primary Care Provider Polina STEINBERG, Dr. Marcum Attending Provider [phone] Polina STEINBERG, Dr. Marcum Referring Provider [phone] Moriah Puckett Attending Provider Polina STEINBERG, Pennie Art Primary Care Provider [phone] POLINA EFEWONGBE B Primary Care Unavailable ASHANTI GARCÍA Attending Unavailable Polina STEINBERG, Dr. Marcum Primary Care Provider Polina STEINBERG, Dr. Marcum Referring Provider [phone] Polina STEINBERG, Dr. Marcum Attending Provider [phone] Polina STEINBERG, Dr. Marcum Primary Care Provider Polina STEINBERG, Dr. Marcum Referring Provider [phone] Moriah Puckett Attending Provider Dr. Mp Chau DO Emergency Provider Oleghe, Efewongbe Primary Care Unavailable Oleghe, Efewongbe Attending Unavailable Oleghe, Efewongbe Referring Unavailable Oleghe, Efewongbe Primary Care Unavailable Moriah Banks Attending Unavailable Oleghe, Efewongbe Referring Unavailable Oleghe, Efewongbe Referring Unavailable Moriah Banks Attending Unavailable Oleghe, Efewongbe Primary Care Unavailable Moriah Banks Attending Unavailable Oleghe, Efewongbe Primary Care Unavailable Oleghe, Efewongbe Referring Unavailable Oleghe, Efewongbe Primary Care Unavailable Oleghe, Efewongbe Attending Unavailable Oleghe, Efewongbe Referring Unavailable Moriah Banks Attending Unavailable Oleghe, Efewongbe Primary Care Unavailable Oleghe, Efewongbe Referring Unavailable Oleghe, Efewongbe Primary Care Unavailable Mp Chau Attending Unavailable Oleewelinae, Efewongbe Primary Care Unavailable Inocente Wade Attending Unavailable Oleghe, Efewongbe Primary Care Unavailable Amber Fishbe Attending Unavailable Makie, Efewongbe Referring Unavailable Moriah Banks Attending Unavailable Moriah Banks Referring Unavailable Oleewelinae, Efewongbe Primary Care Unavailable Polina STEINBERG, Dr. Marcum Primary Care Provider Dr. Pennie Fish MD Referring Provider [phone] Dr. Mp Chau DO Attending Provider Polina STEINBERG, Dr. Marcum Attending Provider Allergies Allergy Classification Reported Allergen(s) Allergy Type Date of Onset Reaction(s) Facility (2 sources) Nuts (not including peanuts); Translations: [Nuts] Propensity to adverse reactions to drug (disorder) [facility] Repository (2 sources) Shellfish; Translations: [shellfish] Propensity to adverse reactions to drug (disorder) [facility] Repository (11 sources) peanut allergenic extract; Translations: [PEANUT] Drug Allergy 04-22-20 Swelling [facility] (7 sources) Shellfish Containing Products; Translations: [SHELLFISH CONTAINING PRODUCTS] Drug Allergy 04-22-20 Swelling, Unknown [facility] (9 sources) diphenhydrAMINE; Translations: [DIPHENHYDRAMINE] Drug Allergy 09-08-19 [facility] Work Phone: (8 sources) peanut allergenic extract Drug Allergy 04-22-20 Swelling [facility] Work Phone: (4 sources) Shellfish-Derived Products Propensity to adverse reactions to drug 04-22-20 Swelling [facility] Work Phone: (9 sources) diphenhydrAMINE Drug Allergy 09-08-19 21 [facility] (4 sources) Peanut Allergy to substance 04-22-20 Swelling [facility] (4 sources) Shellfish Allergy to substance 04-22-20 Swelling [facility] (5 sources) Shellfish; Translations: [shellfish derived] Allergy to substance 10-12-19 Anaphylaxis [facility] (4 sources) Triiodobenzoic Acids Allergy to substance 10-12-19 Anaphylaxis [facility] (1 source) diphenhydrAMINE Drug Allergy 02-03-20 [facility] Repository (1 source) peanut allergenic extract Drug Allergy 02-03-20 [facility] Repository (1 source) Iodinated Contrast Media Drug allergy (disorder) 02-03-20 [facility] Repository Medications Current Medications Medication Drug Class(es) Dates Sig (Normalized) Sig (Original) [id number] 200 actuat albuterol 0.09 mg/actuat metered dose [...] the dentist aspirin 81 mg oral tablet (20 sources) Platelet Aggregation Inhibitor, Nonsteroidal Anti-inflammatory Drug [...] azelastine (ASTELIN) 0.1% nasal spray Use 1 [place] in each nostril twice daily. Active azelastine (Aste yaron) 0.1 % nasal spray every 12 hours. 0 Active azelastine (ASTE YARON) 0.1 % nasal spray 1 spray by NOT APPLICABLE route 2 times daily 0 Active Comment on above: Use 1 [place] in each nostril twice daily. baclofen 10 [...] 4 mg by mouth. 0 08/05/2021 Active [id number] 0.3 ml EPINEPHrine 1 mg/ml auto-injector (6 [...] (6 sources) Leukotriene Receptor Antagonist Start: 03-31-20 take 1 tablet by mouth once daily [...] Drug Class(es) Dates Sig (Normalized) Sig (Original) cephalexin 500 mg oral capsule (2 sources) Cephalosporin Antibacterial Start: 02-02-2025 End: 02-24-2025 take 1 capsule by mouth every six hours Cephalexin 500 mg capsule Discontinued 500 mg PO EVERY 6 HOURS 40 0 February 02, 2025 12:00am February 24, 2025 9:50am LORazepam 1 mg oral tablet (8 sources) Benzodiazepine Start: 11-08-2023 End: 10-11-2024 take 1 tablet by mouth once daily as needed for anxiety Lorazepam 1 mg tablet Discontinued 1 mg PO DAILY as needed for anxiety February 12, 2024 8:09am October 11, 2024 10:39am Anxiety with flying Fear of flying prior to flights metoprolol tartrate 25 mg oral tablet (20 sources) beta-Adrenergic Dat Start: 08-10-2021 End: 02-11-2025 Metoprolol Tartrate 25 mg tablet Discontinued 12.5 mg PO DAILY 60 0 February 11, 2025 8:03am February 11, 2025 8:04am Start: 08-10-2021 End: 10-11-2023 take 12.5 mg by mouth once daily Metoprolol Tartrate A ctive 12.5 MG PO DAILY 90 October 11, 2023 10:59am Start: 06-01-2021 take 1 tablet by layla th once daily metoprolol succinate ER (TOPROL XL) 25 mg 24 hr tablet Take 1 tablet by mouth once daily. 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, unspecified] Onset: 07-04-2024 06-19-2024 Episodic Essential hypertension (6 sources) Benign hypertension; Translations: [Essential (primary) hypertension] Onset: 08-04-2021 08-04-2021 Chronic Heart valve disorders (20 sources) History of aortic valve replacement; Translations: [H/O: heart valve recipient] Onset: 04-01-2016 02-22-2018 Chronic Nonspecific chest pain (13 sources) Chest pain; Translations: [Chest pain, unspecified] Onset: 05-26-2023 Resolved: 08-04-2021 04-01-2016 Episodic Other circulatory disease (2 sources) Elevated blood pressure; Translations: [Elevated blood-pressure reading, without diagnosis of hypertension] 02-02-2025 Episodic Other male genital disorders (2 sources) Hemospermia; Translations: [Hematospermia] 02-24-2025 Episodic Other non-traumatic joint disorders (2 sources) Knee pain; Translations: [Left knee pain] Episodic Other non-traumatic joint disorders (7 sources) Hip pain; Translations: [Pain in right hip] 10-11-2024 Episodic Other nutritional; endocrine; and metabolic disorders (7 sources) Body mass index 30+ - obesity; Translations: [Obesity, unspecified] Onset: 06-21-2022 Chronic Other nutritional; endocrine; and metabolic disorders (11 sources) Obesity; Translations: [Obesity, unspecified] 09-25-2024 Chronic [...] 03-30-2022 03-30-2022 Chronic Other upper respiratory disease (4 sources) Seasonal allergy; Translations: [Other seasonal allergic [...] unspecified] Onset: 07-27-2021 Chronic Residual codes; unclassified (8 sources) Sleep apnea; Translations: [Sleep apnea, unspecified] 02-12-2024 Chronic Comment on above: AutoPap 4-20 Residual codes; unclassified (1 source) Obstructive sleep apnea (adult) (pediatric); Translations: [Obstructive sleep apnea (adult) (pediatric)] Onset: 10-14-2024 Chronic Spondylosis; intervertebral disc disorders; other back problems (2 sources) Spondylosis without myelopathy or radiculopathy, lumbosacral region; Translations: [Spondyls w/o myelopathy or radiculopathy, lumbosacr region] Onset: 05-16-2022 Chronic Superficial injury; contusion (9 sources) Blister; Translations: [Blister (nonthermal) of oral cavity, initial encounter] Onset: 07-04-2024 06-19-2024 Episodic Unclassified (1 source) Unknown / UNK(Unknown) Onset: 02-22-2018 Unclassified (1 source) Low back pain, unspecified; Translations: [Low back pain, unspecified] Onset: 05-16-2022 Unclassified (1 source) Obesity, class 2; Translations: [Obesity, class 2] Onset: 11-05-2024 Viral infection (5 sources) Disease caused by 2019-nCoV; Translations: [COVID-19] 08-05-2021 Episodic Past or Other Problems Problem Classification Problem Date Documented Da te Episodic/Chronic Allergic reactions (2 sources) Allergy status to other drugs, medicaments and biological substances status; Translations: [Allergy status to other drug/meds/biol subst] Onset: 07-27-2021 Episodic E Codes: Fall (2 sources) Fall on same level due to ice and snow, initial encounter; Translations: [Fall on same level due to ice and snow, initial encounter] Onset: 07-27-2021 Episodic Other aftercare (2 sources) Other group home (current) drug therapy; Translations: [Other hyperion analyst (current) drug therapy] Onset: 07-27-2021 Episodic Other aftercare (2 sources) hair blender (current) use of aspirin; Translations: [FCI (current) use of aspirin] Onset: 07-27-2021 Episodic Other injuries and conditions due to external causes (2 sources) Unspecified injury of right wrist, hand and finger(s), initial encounter; Translations: [Unsp injury of right wrist, hand and finger(s), init encntr] Onset: 07-27-2021 Episodic Other non-traumatic joint disorders (1 source) Pain in right hip; Translations: [Pain in right hip] Onset: 11-05-2024 Episodic Spondylosis; intervertebral disc disorders; other back problems (5 sources) Low back pain; Translations: [Low back pain] Onset: 04-08-2022 04-08-2022 Episodic Sprains and strains (10 sources) Sprain of right wrist; Translations: [Unspecified sprain of right wrist, initial encounter] Onset: 07-27-2021 Episodic Unclassified (1 source) Low back pain, unspecified; Translations: [Low back pain, unspecified] Onset: 05-16-2022 Results Test Name Value Interpretation Reference Range Facility Emergency Department Summary on 02-02-[address] [facility] Medical Records Department [address] [place] [address] Emergency Department Summary 02/02/25 MR#: [id number] Acct: [id number] Name: ANGEL BAHENA Jr. Rep #: [id number] : 1970 54 From: Mp Chau DO PCP: Dr. Pennie Fish MD Status:DEP ER Location: ED HPI History of Present Illness HPI Narrative: Patient presents with fishhook to his right thumb that occurred today. Patient states he was attempting to remove the hook from the fish. Patient states the fish show acute and the hook went into his right thumb. Patient is unsure of his last tetanus. Patient admits to occasional stinging pain in his thumb. Patient states nothing makes it worse and nothing makes it better. Patient denies any paresthesias or weakness. Patient denies any other injuries. Chief Complaint: Foreign Body Informant: patient Onset/Context/Timing Onset: Today Context: Sudden Onset Timing: Continuous Quality of Pain: - (Stinging) Location: Right thumb Worsened by: Nothing Relieved by: Nothing Associated Symptoms Associated Symptoms: Negative for Parasthesia, Weakness or Loss of Funtion Narrative Tetanus Immunization: Unknown [facility] Medical History Right hip pain Gingiva disorder Non-thermal blister of oral cavity Anxiety with flying Preventative health care Sleep apnea Frequent headaches Heart disease COVID-19 Home Medications ???Medication ???Instructions ???Recorded ???Last Taken ???Type aspirin 81 mg tablet 81 mg PO DAILY 08/10/21 Unknown Hi story metoprolol tartrate 25 mg tablet 12.5 mg (1/2 x 25 mg) PO DAILY #90 08/21/24 Unknown Rx tabs cephalexin 500 mg capsule 500 mg PO Q6 #40 CAPSULES 02/02/25 Unknown Rx Allergy/AdvReac Type Severity Reaction Status Date / Time Iodinated Contrast Media Allergy Severe Anaphylaxis Verified 02/02/25 10:54 (iodine contrast) peanut (peanuts) Allergy Severe Anaphylaxis Verified 02/02/25 10:54 shellfish derived Allergy Severe Anaphylaxis Verified 02/02/25 10:54 diphenhydramine (From AdvReac Intermediate Hives Verified 02/02/25 10:54 Benadryl) Surgical History S/P Ross procedure Heart valve [...] ROS ROS ED Constitutional Constitutional ED: Denies chills or fever(s) Eyes Eyes: Denies blurry vision or change in vision ENT ENT ED: Denies rhinorrhea or sore throat Cardiovascular Cardiovascular: Denies chest pain or palpitations Respiratory/Chest Respiratory/Chest: Denies cough or dyspnea Gastrointestinal Gastrointestinal: Denies nausea or vomiting Genitourinary Genitourinary ED: Denies dysuria or hematuria Musculoskeletal Musculoskeletal: Denies back pain or neck pain Integumentary Denies abscess or rash Neurologic Neurologic: Denies headache(s) or weakness Allergic/Immunologic Allergic/Immunologic ED: Denies mouth swelling or urticaria EXAM Physical Exam Const Vital Signs: 02/02/25 10:53 Temperature 98.3 F Temperature Source Oral Pulse Rate 77 Respiratory Rate 16 Blood Pressure 153/98 H Blood Pressure Mean 116 Pulse Ox 96 Oxygen Delivery Method Room Air Positive well nourished and well developed General Appearance ED: well developed and NAD HEENT Reports moist mucous membranes Neck full ROM and supple Extremity Extremity Narrative: There is a fishhook foreign body in the pad of the right thumb. There is no bleeding noted. There is no surrounding erythema. There is mild tenderness. There is full range of motion of the IP and MP joints of the right thumb. Sensation was intact to light touch in all digits. Capillary refills less than 2 seconds all digits. Neuro oriented x3, CN's II-XII intact bilaterally, moves all extremities, no focal motor deficits and no sensory deficits noted Sensorium / Orientation: alert Motor Exam: strength 5/5 throughout Psych mental status grossly normal MDM MDM MDM Narrative Medical decision making narrative: Patient was given a tetanus booster. The right thumb was anesthetized with 1% plain lidocaine via digital block. After adequate anesthesia, the fishhook was pushed through the skin and the janee was cu (more content not included)... Normal [facility] Pulmonary Visit Reporton Pulmonary Visit Report [facility] [place] [address] [place] [address] OFFICE VISIT Date of Service: 12/27/24 MR#: [id number] Acct: [id number] Name: ANGEL BAHENA JrAlex Rep #: [id number] : 1970 Provider: KEVON Banks Age/Sex: 54/M Location: [facility].PMW Status: Signed Assessment and Plan Assessment and [...] Additional Comments: This note was generated with [employer] software. It may contain incorrect words, spelling, [...] Reasons: Pap Machine Chief Complaint: Yearly visit Agriculture Inspector Required: No DME Vendor: [facility] Accompanied by: Self Is patient in pain?: [...] you fallen in the past year?: No [facility] Medical History (Reviewed 12/27/24 @ 08:45 by Moriah Banks ORNAMENTAL METALWORK DESIGNER, ORNAMENTAL METALWORK DESIGNER-C) Right hip pain Gingiva disorder Non-thermal blister of oral cavity Anxiety with flying Preventative health care Sleep apnea Frequent headaches Heart disease COVID-19 Surgical History (Reviewed 12/27/24 @ 08:45 by Moriah Banks ORNAMENTAL METALWORK DESIGNER, ORNAMENTAL METALWORK DESIGNER-C) S/P Ross procedure Heart valve replaced Social [...] Const Constitutio (more content not included)... Normal [facility] 11-01-2024 [facility] Office Visit (DIANNE BANERJEEB) -------- ANGEL BAHENA JR. ([id number]) 1970 M Date Time Provider Department 11/01/24 11:00 AM ASHANTI GARCÍA AGCARDPORubens During your visit today, we recorded the [...] enjoys fishing and plans to travel to [place] for a fishing trip. PAST MEDICAL HISTORY [...] azelastine (ASTELIN) 0.1% nasal spray Use 1 [place] in each nostril twice daily. metoprolol succinate [...] (more content not included)... Normal [facility] ECG B/O W INTERP (MED OFFICE )on 11-01-2024 Sinus at 60 first-de gree AV block borderline low voltage [facility] Absolute lymphocyte countOrd ered By: Pennie Fish on 10-11-2024 Lymphocytes Auto (Unsp spec) [#/Vol] 2.07 10*3/uL 0.83-4.51 [facility] Absolute neutrophil countOrd ered By: Pennie Fish on 10-11-2024 Neutrophils (Bld) [#/Vol] 3.4 10*3/uL 2.0-7.7 [facility] Anion gap in Serum or Plasma Ordered By: Pennie Fish on 10-11-2024 Anion gap [Moles/Vol] 11 mmol/L 5- [facility] Automated lymphocyte count a s percentage of total leukocytesOrdered By: Pennie Fish on 10-11-2024 Lymphocytes/100 WBC Auto (Unsp spec) 32.4 % - [facility] BUN/creatinine ratioOrdered By: Pennie Fish on 10-11-2024 Urea nitrogen/Creatinine [Mass ratio] 13.9 mg/mg 10- [facility] Basophil percentageOrdered B y: Pennie Fish on 10-11-2024 Basophils/100 WBC (Bld) 0.6 % 0-1 [facility] Bilirubin, totalOrdered By: Pennie Fish on 10-11-2024 Bilirubin [Mass/Vol] 0.42 mg/dL 0.00-1.30 [facility] CBC W/Diff, Automatedon 09-22 Absolute Lymph 2.07 X10 3/uL Normal 0.83-4.51 [facility] Comment on above: Performed By: #### L 501.9910, L500.4100, L500.4050, L100.0100 #### [facility] [address] [place], [place], [address] Absolute Neut 3.4 X10 3/uL Normal 2.0-7.7 [facility] Comment on above: Performed By: #### L 501.9910, L500.4100, L500.4050, L100.0100 #### [facility] [address] [place], [address] Basophils/100 WBC (Bld) 0.6 % Normal 0-1 [facility] Comment on above: Performed By: #### L 501.9910, L500.4100, L500.4050, L100.0100 #### [facility] [address] [place], [address] Eosinophils/100 WBC (Bld) 2.0 % Normal 0-5 [facility] Comment on above: Performed By: #### L 501.9910, L500.4100, L500.4050, L100.0100 #### [facility] [address] [place], [address] Erythrocyte distribution width (RBC) [Ratio] 12.2 % Normal 11.6-14.6 [facility] Comment on above: Performed By: #### L 501.9910, L500.4100, L500.4050, L100.0100 #### [facility] [address] [place], [address] Hematocrit (Bld) [Volume fraction] 44.4 % Normal 40-54 [facility] Comment on above: Performed By: #### L 501.9910, L500.4100, L500.4050, L100.0100 #### [facility] [address] [place], [address] Hemoglobin (Bld) [Mass/Vol] 15.2 g/dL Normal 13.0-16.5 [facility] Comment on above: Performed By: #### L 501.9910, L500.4100, L500.4050, L100.0100 #### [facility] [address] [place], [address] IG% 0.300 Normal 0.0-0.9 [facility] Comment on above: Result Comment: IG% - Immature Granulocytes (promyelocytes, myelocytes and metamyelocytes) > 1% indicates that a LEFT SHIFT is Present. Performed By: #### L 501.9910, L500.4100, L500.4050, L100.0100 #### [facility] [address] [place], [address] Lymphocytes/100 WBC (Bld) 32.4 % Normal 19-41 [facility] Comment on above: Performed By: #### L 501.9910, L500.4100, L500.4050, L100.0100 #### [facility] [address] [place], [address] MCH (RBC) [Entitic mass] 28.3 pg Normal 27.0-32.0 [facility] Comment on above: Performed By: #### L 501.9910, L500.4100, L500.4050, L100.0100 #### [facility] [address] [place], [address] MCHC (RBC) [Mass/Vol] 34.2 g/dL Normal 32-36 [facility] Comment on above: Performed By: #### L 501.9910, L500.4100, L500.4050, L100.0100 #### [facility] [address] [place], [address] MCV (RBC) [Entitic vol] 82.7 fL Normal 80-94 [facility] Comment on above: Performed By: #### L 501.9910, L500.4100, L500.4050, L100.0100 #### [facility] [address] [place], [address] Monocytes/100 WBC (Bld) 11.3 % High 0-10 [facility] Comment on above: Performed By: #### L 501.9910, L500.4100, L500.4050, L100.0100 #### [facility] [address] [place], [address] Neutrophils/100 WBC (Bld) 53.4 % Normal 47-70 [facility] Comment on above: Performed By: #### L 501.9910, L500.4100, L500.4050, L100.0100 #### [facility] [address] [place], [address] Nucleated RBC (Bld) [#/Vol] 0 10*3/uL Normal 0-5 [facility] Comment on above: Performed By: #### L 501.9910, L500.4100, L500.4050, L100.0100 #### [facility] [address] [place], [address] Platelet mean volume (Bld) [Entitic vol] 10.4 fL Normal 6.2-12.0 [facility] Comment on above: Performed By: #### L 501.9910, L500.4100, L500.4050, L100.0100 #### [facility] [address] [place], [address] Platelets (Bld) [#/Vol] 298 10*3/uL Normal 150-450 [facility] Comment on above: Performed By: #### L 501.9910, L500.4100, L500.4050, L100.0100 #### [facility] [address] [place], [address] RBC (Bld) [#/Vol] 5.37 10*6/uL Normal 4.6-6.2 [facility] Comment on above: Performed By: #### L 501.9910, L500.4100, L500.4050, L100.0100 #### [facility] [address] [place], [address] RDW SD 37.1 fl Normal 35.1-43.9 [facility] Comment on above: Performed By: #### L 501.9910, L500.4100, L500.4050, L100.0100 #### [facility] [address] [place], [address] WBC (Bld) [#/Vol] 6.4 10*3/uL Normal 4.4-11.0 [facility] Comment on above: Performed By: #### L 501.9910, L500.4100, L500.4050, L100.0100 #### [facility] [address] [place], [address] Calculated very low density lipoprotein (VLDL) cholesterol measurementOrdered By: Pennie Fish on 10-11-2024 Calculated very low density lipoprotein (VLDL) cholesterol measurement 14 mg/dL - [facility] VLDL Cholesterol 14 mg/dL [facility] Carbon dioxide, total [Moles /volume] in Central venous bloodOrdered By: Pennie Fish on 10-11-2024 CO2 [Moles/Vol] 23.7 mmol/L 21.0-32.0 [facility] Chloride assayOrdered By: Diane Fish on 10-11-2024 Chloride [Moles/Vol] 103 mmol/L 98-108 [facility] Comprehensive Metabolic Prof ilon 10-11-2024 Albumin [Mass/Vol] 4.3 g/dL Normal 3.5-5.0 [facility] Comment on above: Performed By: #### L 501.9910, L500.4100, L500.4050, L100.0100 #### [facility] [address] [place], [address] Albumin/Globulin [Mass ratio] 1.3 {ratio} Normal 0.9-2.4 [facility] Comment on above: Performed By: #### L 501.9910, L500.4100, L500.4050, L100.0100 #### [facility] [address] [place], [address] ALK PHOS 79 U/L Normal 40-129 [facility] Comment on above: Performed By: #### L 501.9910, L500.4100, L500.4050, L100.0100 #### [facility] [address] [place], [address] ALT [Catalytic activity/Vol] 25 U/L Normal <=46 [facility] Comment on above: Performed By: #### L 501.9910, L500.4100, L500.4050, L100.0100 #### [facility] [address] [place], [address] AST [Catalytic activity/Vol] 19 U/L Normal <=37 [facility] Comment on above: Performed By: #### L 501.9910, L500.4100, L500.4050, L100.0100 #### [facility] [address] [place], [address] Bilirubin [Mass/Vol] 0.42 mg/dL Normal 0.00-1.30 [facility] Comment on above: Performed By: #### L 501.9910, L500.4100, L500.4050, L100.0100 #### [facility] [address] [place], [address] BUN/CRE 13.9 RATIO Normal 10-20 [facility] Comment on above: Performed By: #### L 501.9910, L500.4100, L500.4050, L100.0100 #### [facility] [address] [place], [address] Calcium [Mass/Vol] 9.3 mg/dL Normal 7.6-11.0 [facility] Comment on above: Performed By: #### L 501.9910, L500.4100, L500.4050, L100.0100 #### [facility] [address] [place], [address] Chloride [Moles/Vol] 103 mmol/L Normal 98-108 [facility] Comment on above: Performed By: #### L 501.9910, L500.4100, L500.4050, L100.0100 #### [facility] [address] [place], [address] CO2 [Moles/Vol] 23.7 mmol/L Normal 21.0-32.0 [facility] Comment on above: Performed By: #### L 501.9910, L500.4100, L500.4050, L100.0100 #### [facility] [address] [place], [address] Creatinine [Mass/Vol] 1.29 mg/dL High 0.70-1.20 [facility] Comment on above: Performed By: #### L 501.9910, L500.4100, L500.4050, L100.0100 #### [facility] [address] [place], [address] GAP 11 Normal 5-15 [facility] Comment on above: Performed By: #### L 501.9910, L500.4100, L500.4050, L100.0100 #### [facility] [address] [place], [address] GFR/1.73 sq M.predicted among non-blacks MDRD (S/P/Bld) [Vol rate/Area] 66 mL/min/{1.73_m2} Normal >60 [facility] Comment on above: Result Comment: mL/m in/1.73m2 CKD-EPI Creatinine Equation (2020) Performed By: #### L 501.9910, L500.4100, L500.4050, L100.0100 #### [facility] [address] [place], [address] Globulin (S) [Mass/Vol] 3.2 g/dL Normal 2.2-4.2 [facility] Comment on above: Performed By: #### L 501.9910, L500.4100, L500.4050, L100.0100 #### [facility] [address] [place], [address] Glucose [Mass/Vol] 93 mg/dL Normal 70-99 [facility] Comment on above: Performed By: #### L 501.9910, L500.4100, L500.4050, L100.0100 #### [facility] [address] [place], [address] Potassium [Moles/Vol] 4.3 mmol/L Normal 3.3-5.1 [facility] Comment on above: Performed By: #### L 501.9910, L500.4100, L500.4050, L100.0100 #### [facility] [address] [place], [address] Sodium [Moles/Vol] 137 mmol/L Normal 133-145 [facility] Comment on above: Performed By: #### L 501.9910, L500.4100, L500.4050, L100.0100 #### [facility] [address] [place], [address] T PROT 7.5 g/dL Normal 5.9-8.4 [facility] Comment on above: Performed By: #### L 501.9910, L500.4100, L500.4050, L100.0100 #### [facility] [address] [place], [address] Urea nitrogen [Mass/Vol] 18 mg/dL Normal 4-19 [facility] Comment on above: Performed By: #### L 501.9910, L500.4100, L500.4050, L100.0100 #### [facility] [address] [place], [address] Eosinophil percentageOrdered By: Pennie Fish on 10-11-2024 Eosinophils/100 WBC (Bld) 2.0 % 0-5 [facility] Erythrocyte distribution wid th ratioOrdered By: kathe Fish on 10-11-2024 Erythrocyte distribution width (RBC) [Ratio] 12.2 % 11.6-14.6 [facility] Erythrocyte distribution wid th standard deviationOrdered By: kathe Fish on 10-11-2024 Erythrocyte distribution width (RBC) [Entitic vol] 37.1 fL 35.1-43.9 [facility] Erythrocyte distribution width (RBC) [Ratio] 37.1 fl 35.1-43.9 [facility] GFR/1.73 sq M.predicted neeraj g non-blacks MDRD (S/P/Bld) [Vol rate/Area]Ordered By: Pennie Fish on 10-11-2024 Estimated GFR (MDRD) Non-Af Amer 66 >60 [facility] Comment on above: mL/min/1.73m2 CKD-EP I Creatinine Equation (2020) Glomerular filtration rate ( GFR) estimation/1.73 sq m using serum, plasma, or whole bOrdered By: Pennie Fish on 10-11-2024 GFR/1.73 sq M.predicted among non-blacks MDRD (S/P/Bld) [Vol rate/Area] 66 mL/min/{1.73_m2} >60 [facility] Comment on above: mL/min/1.73m2 CKD-EP I Creatinine Equation (2020) Hematocrit Auto (Bld) [Volum e fraction]Ordered By: Pennie Fish on 10-11-2024 Hematocrit (Bld) [Volume fraction] 44.4 % 40-54 [facility] Hemoglobin measurementOrdere d By: Pennie Fish on 10-11-2024 Hemoglobin (Bld) [Mass/Vol] 15.2 g/dL 13.0-16.5 [facility] Immature granulocytes/100 WB C Auto (Bld)Ordered By: Pennie Fish on 10-11-2024 Immature granulocytes/100 WBC (Bld) 0.300 % 0.0-0.9 [facility] Comment on above: IG% - Immature Granu locytes (promyelocytes, myelocytes and metamyelocytes) > 1% indicates that a LEFT SHIFT is Present. Internal Medicine Office Vis tawanda 10-11-2024 Internal Medicine Office Visit [facility] [address] [place] [address] [place] [address] OFFICE VISIT Date of Service: 10/11/24 MR#: [id number] Acct: [id number] Name: ANGEL BAHENA Jr. Rep #: [id number] : 1970 Provider: Dr. Pennie pardo MD Age/Sex: 53/M Location: [facility] Status: Signed Intake Vital Signs 10/11/23 10:13 [...] Visit Reasons: YEARLY Chief Complaint: Yearly visit Agriculture Inspector Required: No Accompanied by: Self Is [...] Aller/Imm Al (more content not included)... Normal [facility] LDL calc ser/plasOrdered By: Pennie Fish on 10-11-2024 Cholesterol in LDL [Mass/Vol] 70 mg/dL [facility] Comment on above: Fsqssbxuop=007-554 m g/dL & Higher Zfzn=754 mg/dL or greater LDL Cholesterol, Calculated 70 mg/dL [facility] Comment on above: Dcvpanbrvv=629-199 m g/dL & Higher Gkva=605 mg/dL or greater Laboratory - Chemistry and C hemistry - challengeOrdered By: Pennie Fish on 10-11-2024 AST [Catalytic activity/Vol] 19 U/L <38 [facility] Lipid Profileon 10-11-2024 CHOL:HDL 3.30 Normal [facility] Comment on above: Performed By: #### L 501.9910, L500.4100, L500.4050, L100.0100 #### [facility] [address] [place], [address] Cholesterol [Mass/Vol] 120 mg/dL Normal <=200 [facility] Comment on above: Result Comment: Chol esterol level, Desirable <200 mg/dL Borderline high cholesterol 200-239 mg/dL High cholesterol >=240 mg/dL Recommendations of the NCEP Adult Treatment Panel for the following risk-cutoff thresholds for the [place] population. Performed By: #### L 501.9910, L500.4100, L500.4050, L100.0100 #### [facility] [address] [place], [address] Cholesterol in HDL [Mass/Vol] 36 mg/dL Low [facility] Comment on above: Result Comment: [place] onal Cholesterol Education Program (NCEP) guidelines: <40 mg/dL: Low HDL-cholesterol (major risk factor for CHD) >= 60 mg/dL: High HDL-cholesterol (negative risk factor for CHD) HDL-cholesterol is affected by a number of factors, e.g. smoking, exercise, hormones, sex and age. Performed By: #### L 501.9910, L500.4100, L500.4050, L100.0100 #### [facility] [address] [place], [address] Cholesterol in LDL [Mass/Vol] 70 mg/dL Normal [facility] Comment on above: Result Comment: Bord natgxr=770-272 mg/dL Higher Mhtb=166 mg/dL or greater Performed By: #### L 501.9910, L500.4100, L500.4050, L100.0100 #### [facility] [address] [place], [address] Cholesterol in VLDL [Mass/Vol] 14 mg/dL Normal 5-40 [facility] Comment on above: Performed By: #### L 501.9910, L500.4100, L500.4050, L100.0100 #### [facility] [address] [place], [address] Triglyceride [Mass/Vol] 68 mg/dL Normal [facility] Comment on above: Result Comment: The drugs N-Acetylcysteine and Metamizole may falsely depress this assay. Normal range: <150 mg/dL Borderline High: 150-199 mg/dL High: 200-499 mg/dL Very High: >500 mg/dL Performed By: #### L 501.9910, L500.4100, L500.4050, L100.0100 #### [facility] [address] [place], [address] Lymphocytes Auto (Unsp spec) [#/Vol]Ordered By: Pennie Fish on 10-11-2024 Lymphocytes (Bld) [#/Vol] 2.07 10*3/uL 0.83-4.51 [facility] Lymphocytes/100 WBC Auto (Un sp spec)Ordered By: Pennie Fish on 10-11-2024 Lymphocytes/100 WBC (Bld) 32.4 % 19-41 [facility] MCV (mean corpuscular volume ) determinationOrdered By: Pennie Fish on 10-11-2024 MCV (RBC) [Entitic vol] 82.7 fL 80-94 [facility] Mean corpuscular hemoglobin (MCH) determinationOrdered By: Pennie Fish on 10-11-2024 MCH (RBC) [Entitic mass] 28.3 pg 27.0-32.0 [facility] Mean corpuscular hemoglobin concentration (MCHC) determinationOrdered By: yunidunstablecharity Fish on 10-11-2024 MCHC (RBC) [Mass/Vol] 34.2 g/dL 32-36 [facility] Mean platelet volume determi nationOrdered By: Pennie Fish on 10-11-2024 Platelet mean volume (Bld) [Entitic vol] 10.4 fL 6.2-12.0 [facility] Monocyte percentageOrdered B y: Pennie Fish on 10-11-2024 Monocytes/100 WBC (Bld) 11.3 % High 0-10 [facility] Neutrophil percentageOrdered By: yunidunstablecharity Fish on 10-11-2024 Neutrophils/100 WBC (Bld) 53.4 % 47-70 [facility] Nucleated red blood cell per centageOrdered By: kathe Fish on 10-11-2024 Nucleated RBC/100 WBC (Bld) [Ratio] 0 % 0-5 [facility] PSA, total screeningOrdered By: Pennie Fish on 10-11-2024 Prostate Specific Antigen Screen 0.57 ng/mL 0.02-4.00 [facility] Comment on above: This test was perfor med using the [employer] tPSA method. Measured values of a patient sample can vary depending on the testing procedure used. PSA values determined on patient samples by different testing procedures cannot be used interchangeably. If there is a change in PSA assays while monitoring therapy, sequential testing should be performed to confirm baseline values. PSA,Total - Annual Screenon 10-11-2024 PSA,TOT SCREEN 0.57 ng/mL Normal 0.02-4.00 [facility] Comment on above: Result Comment: This test was performed using the [employer] tPSA method. Measured values of a patient??sample can vary depending on the testing procedure used. PSA values determined on patient samples by different testing procedures cannot be used interchangeably. If there is a change in PSA assays while monitoring therapy, sequential testing should be performed to confirm baseline values. Performed By: #### L 501.9910, L500.4100, L500.4050, L100.0100 #### [facility] [address] [place], [address] Platelet countOrdered By: Diane Fish on 10-11-2024 Platelets (Bld) [#/Vol] 298 10*3/uL 150-450 [facility] Potassium (Unsp spec) [Mass/ Vol]Ordered By: Pennie Fish on 10-11-2024 Potassium [Moles/Vol] 4.3 mmol/L 3.3-5.1 [facility] Potassium measurement (mass/ volume)Ordered By: Pennie Fish on 10-11-2024 Potassium (Unsp spec) [Mass/Vol] 4.3 mmol/L 3.3-5.1 [facility] RBC Auto (Bld) [#/Vol]Ordere d By: Pennie Fish on 10-11-2024 RBC (Bld) [#/Vol] 5.37 10*6/uL 4.6-6.2 [facility] Screening total cholesterol/ high density lipoprotein (HDL) cholesterol ratioOrdered By: Pennie Fish on 10-11-2024 Cholesterol.total/Michaelle sterol in HDL [Mass ratio] 3.30 {ratio} [facility] Serum creatinine measurement (mass/volume)Ordered By: Pennie Fish on 10-11-2024 Creatinine [Mass/Vol] 1.29 mg/dL High 0.70-1.20 [facility] Serum globulin measurementOr dered By: Pennie Fish on 10-11-2024 Globulin (S) [Mass/Vol] 3.2 g/dL 2.2-4.2 [facility] Serum glucose measurement (m ass/volume)Ordered By: Pennie Fish on 10-11-2024 Glucose [Mass/Vol] 93 mg/dL 70-99 [facility] Serum or plasma alanine lopez otransferase (ALT) measurementOrdered By: Pennie Fish on 10-11-2024 ALT [Catalytic activity/Vol] 25 U/L <47 [facility] Serum or plasma albumin mike urement (mass/volume)Ordered By: Pennie Fish on 10-11-2024 Albumin [Mass/Vol] 4.3 g/dL 3.5-5.0 [facility] Serum or plasma albumin/glob ulin mass ratioOrdered By: Pennie Fish on 10-11-2024 Albumin/Globulin [Mass ratio] 1.3 {ratio} 0.9-2.4 [facility] Serum or plasma alkaline sara sphatase measurementOrdered By: Pennie Fish on 10-11-2024 ALP [Catalytic activity/Vol] 79 U/L 40-129 [facility] Serum or plasma calcium mike urement (mass/volume)Ordered By: Pennie Fish on 10-11-2024 Calcium [Mass/Vol] 9.3 mg/dL 7.6-11.0 [facility] Serum or plasma cholesterol in HDL measurement (mass/volume)Ordered By: Pennie Fish on 10-11-2024 Cholesterol in HDL [Mass/Vol] 36 mg/dL Low >40 [facility] Comment on above: National Cholesterol Education Program (NCEP) guidelines:<40 mg/dL: Low HDL-cholesterol (major risk factor for CHD)>= 60 mg/dL: High HDL-cholesterol (negative risk factor for CHD)HDL-cholesterol is affected by a number of factors, e.g. smoking, exercise, hormones, sex and age. Serum or plasma cholesterol measurement (mass/volume)Ordered By: Pennie Fish on 10-11-2024 Cholesterol [Mass/Vol] 120 mg/dL <201 [facility] Comment on above: Cholesterol level, D esirable <200 mg/dLBorderline high cholesterol 200-239 mg/dLHigh cholesterol >=240 mg/dLRecommendations of the NCEP Adult Treatment Panel for the following risk-cutoff thresholds for the [place] population. Serum or plasma urea nitroge n measurement (mass/volume)Ordered By: Pennie Fish on 10-11-2024 Urea nitrogen [Mass/Vol] 18 mg/dL 4-19 [facility] Sodium levelOrdered By: Jovany Fish on 10-11-2024 Sodium [Moles/Vol] 137 mmol/L 133-145 [facility] Total proteinOrdered By: Alexis Fish on 10-11-2024 Protein [Mass/Vol] 7.5 g/dL 5.9-8.4 [facility] Triglycerides measurementOrd ered By: Pennie Fish on 10-11-2024 Triglyceride [Mass/Vol] 68 mg/dL <199 [facility] Comment on above: The drugs N-Acetylcy steine and Metamizole may falsely depress this assay. Normal range: <150 mg/dLBorderline High: 150-199 mg/dLHigh: 200-499 mg/dLVery High: >500 mg/dL White blood cell (WBC) count Ordered By: Pennie Fish on 10-11-2024 WBC (Bld) [#/Vol] 6.4 10*3/uL 4.4-11.0 [facility] Pulmonary Visit Reporton Pulmonary Visit Report [facility] of [address] [place], [place] [address] OFFICE VISIT Date of Service: 09/25/24 MR#: [id number] Acct: [id number] Name: ANGEL BAHENA Jr. 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 He was given a calorie range of 3043-3131 per day, with a protein goal of 120 grams per day, 1 gallon of water per day and asked to walk 30 minutes (this is not including walking duties at work) 3-5 times a week. He conveys understanding. It is beneficial that he is on an autopap, it will auto adjust as he loses weight. Plan Details Follow Up: 1 Year HPI [facility] Comments Details: This patient presents to the [...] f/u dickson Chief Complaint: sore on gums Agriculture Inspector Required: No DME Vendor: [employer] Accompanied [...] 08/21/24 09/25/24 Rx tabs PFSH Medical History (Reviewed 09/25/24 @ 08:22 by Moriah Banks ORNAMENTAL METALWORK DESIGNER, ORNAMENTAL METALWORK DESIGNER-C) Gingiva disorder Non-thermal blister of oral cavity Anxiety with flying Preventative health care Sleep apnea Frequent headaches Heart disease COVID-19 Surgical History (Reviewed 09/25/24 @ 08:22 by Moriah Banks ORNAMENTAL METALWORK DESIGNER, ORNAMENTAL METALWORK DESIGNER-C) S/P Ross procedure Heart valve replaced Social History (Reviewed 09/25/24 @ 08:22 by Moriah Banks ORNAMENTAL METALWORK DESIGNER, ORNAMENTAL METALWORK DESIGNER-C) adopted: No household members: spouse current occupational status: employed current occupation: [employer] pets and animals: Yes (2) pets and animals: dog(s) leisure activities: hunting and fishing Smoking Status: Never smoker Smokeless tobacco user: chewing tobacco alcohol intake: never substance use type: d (more content not included)... Normal [facility] Internal Medicine Office Vis tawanda 06-19-2024 Internal Medicine Office Visit [facility] [address] [place] [address] [place] [address] OFFICE VISIT Date of Service: 06/19/24 MR#: [id number] Acct: [id number] Name: ANGEL BAHENA Rep #: [id number] : 1970 Provider: Dr. Pennie pardo MD Age/Sex: 53/M Location: [facility] Status: Signed Intake Vital Signs 04/02/24 07:36 [...] ON GUMS Chief Complaint: sore on gums Agriculture Inspector Required: No Accompanied by: Self Is [...] blister of oral cavity Anxiety with flying [facility] health care Sleep apnea Frequent headaches Heart [...] Exam Const (more content not included)... Normal [facility] Pulmonary Visit Reporton Pulmonary Visit Report [facility] Pul[facility] Medicine [place] [address] [place] [address] OFFICE VISIT Date of Service: 04/02/24 MR#: [id number] Acct: [id number] Name: ANGEL BAHENA Jr. Rep #: [id number] : 1970 Provider: KEVON Banks Age/Sex: 53/M Location: [facility] Status: Signed Assessment and Plan Assessment and [...] pteronyssinus Allrg <0.10 White Elm Allergen <0.10 [place] Tree Allerg <0.10 B[place] Grass Allergen <0.10 [place] Blue Grss IgE <0.10 Common Ragweed Allergen <0.10 Canadian Plantain Allerg <0.10 Cat Dander Allergen <0.10 [...] air Intake Visit Reasons: 6 wk FU Agriculture Inspector Required: No DME Vendor: [employer] Accompanied by: Self Is patient in pain?: [...] chewing tobacc (more content not included)... Normal [facility] 12 Lead EKGon 03-28-2024 12 Lead EKG [facility] [address] [place] [address] 12 Lead EKG 03/28/24 1456 MR#: [id number] Acct: [id number] Name: ANGEL BAHENA Jr. Rep #: [id number] : 1970 53 From: Ady Lynn MD [...] Normal sinus rhythm Normal ECG Confirmed by MARCO A STEINBERG, ADY ([id number]), news editor LEXIE BUNN ([id number]) on 04/01/2024 8:13:02 AM Referred By: Confirmed By:ADY LYNN MD 04/01/24 0813 Date Ady Lynn MD CC: Dr. Inocente Wade DO; Dr. Pennie Fish MD Signed Normal [facility] Basic Metabolic Profile (BMP )on 03-28-2024 BUN/CRE 14.9 RATIO Normal 10-20 [facility] Comment on above: Order Comment: 1 Y Performed By: #### L 100.0100, L500.2500, L501.5425 #### [facility] [address] [place], [address] CA,Total 9.3 mg/dL Normal 8.5-10.1 [facility] Comment on above: Order Comment: 1 Y Performed By: #### L 100.0100, L500.2500, L501.5425 #### [facility] [address] [place], [address] Chloride [Moles/Vol] 108 mmol/L High 98-107 [facility] Comment on above: Order Comment: 1 Y Performed By: #### L 100.0100, L500.2500, L501.5425 #### [facility] [address] [place], [address] CO2 [Moles/Vol] 25.0 mmol/L Normal 21.0-32.0 [facility] Comment on above: Order Comment: 1 Y Performed By: #### L 100.0100, L500.2500, L501.5425 #### [facility] [address] [place], [address] Creatinine [Mass/Vol] 1.21 mg/dL Normal 0.70-1.30 [facility] Comment on above: Order Comment: 1 Y Result Comment: The validity of the calculated GFR GFRAA in patients over 70 years has not been determined. Clinical correlation is essential. Performed By: #### L 100.0100, L500.2500, L501.5425 #### [facility] [address] [place], [address] ECRCL 82.89 ml/min Normal [facility] Comment on above: Order Comment: 1 Y Performed By: #### L 100.0100, L500.2500, L501.5425 #### [facility] [address] [place], [address] EST GFR - AA 80 mL/min Normal >60 [facility] Comment on above: Order Comment: 1 Y Result Comment: Afri can [place] GFR Calc Performed By: #### L 100.0100, L500.2500, L501.5425 #### [facility] [address] [place], [address] GAP 5 Normal 5-15 [facility] Comment on above: Order Comment: 1 Y Performed By: #### L 100.0100, L500.2500, L501.5425 #### [facility] [address] [place], [address] GFR/1.73 sq M.predicted among non-blacks MDRD (S/P/Bld) [Vol rate/Area] 66 mL/min/{1.73_m2} Normal >60 [facility] Comment on above: Order Comment: 1 Y Result Comment: Non- GFR Calc Performed By: #### L 100.0100, L500.2500, L501.5425 #### [facility] [address] [place], [address] Glucose [Mass/Vol] 111 mg/dL High 74-106 [facility] Comment on above: Order Comment: 1 Y Result Comment: Fast ing Glucose result from 100 to 125 mg/dL suggests IMPAIRED HOMEOSTASIS per A.D.A. criteria. Performed By: #### L 100.0100, L500.2500, L501.5425 #### [facility] [address] [place], [address] Potassium [Moles/Vol] 3.9 mmol/L Normal 3.5-5.1 [facility] Comment on above: Order Comment: 1 Y Result Comment: Mode rate Hemolysis, Result may be falsely increased. Performed By: #### L 100.0100, L500.2500, L501.5425 #### [facility] [address] [place], [address] Sodium [Moles/Vol] 138 mmol/L Normal 136-145 [facility] Comment on above: Order Comment: 1 Y Performed By: #### L 100.0100, L500.2500, L501.5425 #### [facility] [address] [place], [address] Urea nitrogen [Mass/Vol] 18 mg/dL Normal 7-18 [facility] Comment on above: Order Comment: 1 Y Performed By: #### L 100.0100, L500.2500, L501.5425 #### [facility] [address] [place], [address] CBC W/Diff, Automatedon 09-0 5-2024 Absolute Lymph 1.85 X10 3/uL Normal 0.83-4.51 [facility] Comment on above: Performed By: #### L 100.0100, L500.2500, L501.5425 #### [facility] [address] [place], [address] Absolute Neut 4.9 X10 3/uL Normal 2.0-7.7 [facility] Comment on above: Performed By: #### L 100.0100, L500.2500, L501.5425 #### [facility] [address] [place], [address] Basophils/100 WBC (Bld) 0.5 % Normal 0-1 [facility] Comment on above: Performed By: #### L 100.0100, L500.2500, L501.5425 #### [facility] [address] [place], [address] Eosinophils/100 WBC (Bld) 2.7 % Normal 0-5 [facility] Comment on above: Performed By: #### L 100.0100, L500.2500, L501.5425 #### [facility] [address] [place], [address] Erythrocyte distribution width (RBC) [Ratio] 12.3 % Normal 11.6-14.6 [facility] Comment on above: Performed By: #### L 100.0100, L500.2500, L501.5425 #### [facility] [address] [place], [address] Hematocrit (Bld) [Volume fraction] 45.3 % Normal 40-54 [facility] Comment on above: Performed By: #### L 100.0100, L500.2500, L501.5425 #### [facility] [address] [place], [address] Hemoglobin (Bld) [Mass/Vol] 15.3 g/dL Normal 13.0-16.5 [facility] Comment on above: Performed By: #### L 100.0100, L500.2500, L501.5425 #### [facility] [address] [place], [address] IG% 0.500 Normal 0.0-0.9 [facility] Comment on above: Result Comment: IG% - Immature Granulocytes (promyelocytes, myelocytes and metamyelocytes) > 1% indicates that a LEFT SHIFT is Present. Performed By: #### L 100.0100, L500.2500, L501.5425 #### [facility] [address] [place], [address] Lymphocytes/100 WBC (Bld) 23.8 % Normal 19-41 [facility] Comment on above: Performed By: #### L 100.0100, L500.2500, L501.5425 #### [facility] [address] [place], [address] MCH (RBC) [Entitic mass] 27.7 pg Normal 27.0-32.0 [facility] Comment on above: Performed By: #### L 100.0100, L500.2500, L501.5425 #### [facility] [address] [place], [address] MCHC (RBC) [Mass/Vol] 33.8 g/dL Normal 32-36 [facility] Comment on above: Performed By: #### L 100.0100, L500.2500, L501.5425 #### [facility] [address] [place], [address] MCV (RBC) [Entitic vol] 82.1 fL Normal 80-94 [facility] Comment on above: Performed By: #### L 100.0100, L500.2500, L501.5425 #### [facility] [address] [place], [address] Monocytes/100 WBC (Bld) 9.8 % Normal 0-10 [facility] Comment on above: Performed By: #### L 100.0100, L500.2500, L501.5425 #### [facility] [address] [place], [address] Neutrophils/100 WBC (Bld) 62.7 % Normal 47-70 [facility] Comment on above: Performed By: #### L 100.0100, L500.2500, L501.5425 #### [facility] [address] [place], [address] Nucleated RBC (Bld) [#/Vol] 0 10*3/uL Normal 0-5 [facility] Comment on above: Performed By: #### L 100.0100, L500.2500, L501.5425 #### [facility] [address] [place], [address] Platelet mean volume (Bld) [Entitic vol] 10.3 fL Normal 6.2-12.0 [facility] Comment on above: Performed By: #### L 100.0100, L500.2500, L501.5425 #### [facility] [address] [place], [address] Platelets (Bld) [#/Vol] 291 10*3/uL Normal 150-450 [facility] Comment on above: Performed By: #### L 100.0100, L500.2500, L501.5425 #### [facility] [address] [place], [address] RBC (Bld) [#/Vol] 5.52 10*6/uL Normal 4.6-6.2 [facility] Comment on above: Performed By: #### L 100.0100, L500.2500, L501.5425 #### [facility] [address] [place], [address] RDW SD 37.0 fl Normal 35.1-43.9 [facility] Comment on above: Performed By: #### L 100.0100, L500.2500, L501.5425 #### [facility] [address] [place], [address] WBC (Bld) [#/Vol] 7.8 10*3/uL Normal 4.4-11.0 [facility] Comment on above: Performed By: #### L 100.0100, L500.2500, L501.5425 #### [facility] [address] [place], [address] Chest 1 View (Portable)on Chest 1 View (Portable) [facility] Imaging Services [address] [facility] [place] [address] Chest 1 View (Portable) MR#: [id number] Acct: [id number] Name: ANGEL BAHENA JrAlex Rep #: [id number] : 1970 M 53 From: Jeff Barth MD PCP: Dr. Pennie Fish MD Status: REG ER Study: Chest 1 View (Portable) Date of Exam: 03/28/24 Exam# [id number] Ordering Dr: Inocente Wade DO [id number] STUDY: X-RAY CHEST REASON FOR EXAM: Male, [...] Inocente Wade DO; Dr. Pennie Fish MD Bank President: Signed Normal [facility] D-Dimer Quantitative (DVT/PE )on 03-28-2024 D-DIMER QUANT < 0.27 Low 0.27-0.49 [facility] Comment on above: Result Comment: NORM AL D-Dimer level (<0.50) indicates no DVT or PE. Performed By: #### L 501.9910, L500.4100, L500.4050, L100.0100 #### [facility] [address] [facility] [place], [address] Emergency Department Summary on 03-28-2024 Emergency Department Summary [facility] Medical Records Department [address] [place] [address] Emergency Department Summary 03/28/24 MR#: [id number] Acct: [id number] Name: ANGEL BAHENA Rep #: [id number] : 1970 53 From: Inocente Wade DO [...] about 20 years ago. He saw his innovations paraprofessional earlier this year had a uneventful checkup. Patient states this sensation is very typical for him. He denies any recent change in medications or exercise tolerance. He denies any pleuritic component to the pain. No prior DVT PE. [facility] Medical History Anxiety with [facility] care Sleep apnea Frequent headaches Heart disease [...] lymphadenopathy, s (more content not included)... Normal [facility] L501.4020on 03-28-2024 TROPONIN-I HS 7 pg/mL Normal 3.0-78.0 [facility] Comment on above: Result Comment: Plea se Note: New Test Units and Gender Specific Reference Ranges. For more information see Policy Stat Procedure [place] High Sensitivity Troponin (TNIH) and attachments. Performed By: #### L 501.9910, L500.4100, L500.4050, L100.0100 #### [facility] [address] [place], [address] L501.5425on 03-28-2024 TROPONIN-I HS 8 pg/mL Normal 3.0-78.0 [facility] Comment on above: Order Comment: 1Y Result Comment: Plea se Note: New Test Units and Gender Specific Reference Ranges. For more information see Policy Stat Procedure [place] High Sensitivity Troponin (TNIH) and attachments. Performed By: #### L 501.9910, L500.4100, L500.4050, L100.0100 #### [facility] [address] [place], [address] Aspergillus Antibodieson Asp. flavus Negative Normal Neg:<1:1 [facility] Comment on above: Performed By: #### L 3200.1600, L3500.3600, L5500.0300, L100.0100 #### [facility] [address] [place], [address] Asp. fumigatus Negative Normal Neg:<1:1 [facility] Comment on above: Performed By: #### L 3200.1600, L3500.3600, L5500.0300, L100.0100 #### [facility] [address] [place], [address] Asp. niger Negative Normal Neg:<1:1 [facility] Comment on above: Performed By: #### L 3200.1600, L3500.3600, L5500.0300, L100.0100 #### [facility] [address] [place], [address] Immunoglobulin Richadr 4 IMMUNOGLOB E QN 32 IU/mL Normal 6-495 [facility] Comment on above: Result Comment: Perf ormed at: BN - [facility] [address] [id number] Chip Tester: Javier Araujo MD, Phone: [phone] Performed By: #### L 3200.1600, L3500.3600, L5500.0300, L100.0100 #### [facility] [address] [place], [address] Allergen, Mini-Raston 2023 A. ALTERNATA <0.10 Normal Class 0 [facility] Comment on above: Performed By: #### L 3200.1600, L3500.3600, L5500.0300, L100.0100 #### [facility] [address] [place], [address] BERMUDA GRASS <0.10 Normal Class 0 [facility] Comment on above: Performed By: #### L 3200.1600, L3500.3600, L5500.0300, L100.0100 #### [facility] [address] [place], [address] [place], [place] <0.10 Normal Class 0 [facility] Comment on above: Performed By: #### L 3200.1600, L3500.3600, L5500.0300, L100.0100 #### [facility] [address] [place], [address] CAT HAIR/DANDER <0.10 Normal Class 0 [facility] Comment on above: Performed By: #### L 3200.1600, L3500.3600, L5500.0300, L100.0100 #### [facility] [address] [place], [address] COMMENT Comment Normal . [facility] Comment on above: Result Comment: Phyllis alexandra of Specific IgE Class Description of Class ----- < 0.10 0 Negative 0.10 - 0.31 0/I Equivocal/Low 0.32 - 0.55 I Low 0.56 - 1.40 II Moderate 1.41 - 3.90 III High 3.91 - 19.00 IV Very High 19.01 - 100.00 V Very High >100.00 Very High Performed By: #### L 3200.1600, L3500.3600, L5500.0300, L100.0100 #### [facility] [address] [place], [address] D FARINAE MITE <0.10 Normal Class 0 [facility] Comment on above: Performed By: #### L 3200.1600, L3500.3600, L5500.0300, L100.0100 #### [facility] [address] [place], [address] D PTERONYSSINUS <0.10 Normal Class 0 [facility] Comment on above: Performed By: #### L 3200.1600, L3500.3600, L5500.0300, L100.0100 #### [facility] [address] [place], [address] DOG EPITHELIA <0.10 Normal Class 0 [facility] Comment on above: Performed By: #### L 3200.1600, L3500.3600, L5500.0300, L100.0100 #### [facility] [address] [place], [address] ELM,AMER WHITE <0.10 Normal Class 0 [facility] Comment on above: Performed By: #### L 3200.1600, L3500.3600, L5500.0300, L100.0100 #### [facility] [address] [place], [address] Mouse Urine <0.10 Normal Class 0 [facility] Comment on above: Result Comment: Perf ormed at: - [facility] [id number] Chip Tester: Javier Araujo MD, Phone: [phone] Performed By: #### L 3200.1600, L3500.3600, L5500.0300, L100.0100 #### [facility] [address] [place], [address] OAK, WHITE <0.10 Normal Class 0 [facility] Comment on above: Performed By: #### L 3200.1600, L3500.3600, L5500.0300, L100.0100 #### [facility] [address] [place], [address] PLANTAIN,ENGLSH <0.10 Normal Class 0 [facility] Comment on above: Performed By: #### L 3200.1600, L3500.3600, L5500.0300, L100.0100 #### [facility] [address] [place], [address] RAGWEED SH/COM <0.10 Normal Class 0 [facility] Comment on above: Performed By: #### L 3200.1600, L3500.3600, L5500.0300, L100.0100 #### [facility] [address] [place], [address] CBC W/Diff, Automatedon 07-2 Absolute Lymph 1.97 X10 3/uL Normal 0.83-4.51 [facility] Comment on above: Performed By: #### L 3200.1600, L3500.3600, L5500.0300, L100.0100 #### [facility] [address] [place], [address] Absolute Neut 2.8 X10 3/uL Normal 2.0-7.7 [facility] Comment on above: Performed By: #### L 3200.1600, L3500.3600, L5500.0300, L100.0100 #### [facility] [address] [place], [address] Basophils/100 WBC (Bld) 0.8 % Normal 0-1 [facility] Comment on above: Performed By: #### L 3200.1600, L3500.3600, L5500.0300, L100.0100 #### [facility] [address] [place], [address] Eosinophils/100 WBC (Bld) 3.7 % Normal 0-5 [facility] Comment on above: Performed By: #### L 3200.1600, L3500.3600, L5500.0300, L100.0100 #### [facility] [address] [place], [address] Erythrocyte distribution width (RBC) [Ratio] 12.7 % Normal 11.6-14.6 [facility] Comment on above: Performed By: #### L 3200.1600, L3500.3600, L5500.0300, L100.0100 #### [facility] [address] [place], [address] Hematocrit (Bld) [Volume fraction] 44.6 % Normal 40-54 [facility] Comment on above: Performed By: #### L 3200.1600, L3500.3600, L5500.0300, L100.0100 #### [facility] [address] [place], [address] Hemoglobin (Bld) [Mass/Vol] 14.7 g/dL Normal 13.0-16.5 [facility] Comment on above: Performed By: #### L 3200.1600, L3500.3600, L5500.0300, L100.0100 #### [facility] [address] [place], [address] IG% 0.700 Normal 0.0-0.9 [facility] Comment on above: Result Comment: IG% - Immature Granulocytes (promyelocytes, myelocytes and metamyelocytes) > 1% indicates that a LEFT SHIFT is Present. Performed By: #### L 3200.1600, L3500.3600, L5500.0300, L100.0100 #### [facility] [address] [place], [address] Lymphocytes/100 WBC (Bld) 33.3 % Normal 19-41 [facility] Comment on above: Performed By: #### L 3200.1600, L3500.3600, L5500.0300, L100.0100 #### [facility] [address] [place], [address] MCH (RBC) [Entitic mass] 28.1 pg Normal 27.0-32.0 [facility] Comment on above: Performed By: #### L 3200.1600, L3500.3600, L5500.0300, L100.0100 #### [facility] [address] [place], [address] MCHC (RBC) [Mass/Vol] 33.0 g/dL Normal 32-36 [facility] Comment on above: Performed By: #### L 3200.1600, L3500.3600, L5500.0300, L100.0100 #### [facility] [address] [place], [address] MCV (RBC) [Entitic vol] 85.3 fL Normal 80-94 [facility] Comment on above: Performed By: #### L 3200.1600, L3500.3600, L5500.0300, L100.0100 #### [facility] [address] [place], [address] Monocytes/100 WBC (Bld) 14.0 % High 0-10 [facility] Comment on above: Performed By: #### L 3200.1600, L3500.3600, L5500.0300, L100.0100 #### [facility] [address] [place], [address] Neutrophils/100 WBC (Bld) 47.5 % Normal 47-70 [facility] Comment on above: Performed By: #### L 3200.1600, L3500.3600, L5500.0300, L100.0100 #### [facility] [address] [place], [address] Nucleated RBC (Bld) [#/Vol] 0 10*3/uL Normal 0-5 [facility] Comment on above: Performed By: #### L 3200.1600, L3500.3600, L5500.0300, L100.0100 #### [facility] [address] [place], [address] Platelet mean volume (Bld) [Entitic vol] 9.5 fL Normal 6.2-12.0 [facility] Comment on above: Performed By: #### L 3200.1600, L3500.3600, L5500.0300, L100.0100 #### [facility] [address] [place], [address] Platelets (Bld) [#/Vol] 261 10*3/uL Normal 150-450 [facility] Comment on above: Performed By: #### L 3200.1600, L3500.3600, L5500.0300, L100.0100 #### [facility] [address] [place], [address] RBC (Bld) [#/Vol] 5.23 10*6/uL Normal 4.6-6.2 [facility] Comment on above: Performed By: #### L 3200.1600, L3500.3600, L5500.0300, L100.0100 #### [facility] [address] [place], [address] RDW SD 39.3 fl Normal 35.1-43.9 [facility] Comment on above: Performed By: #### L 3200.1600, L3500.3600, L5500.0300, L100.0100 #### [facility] [address] [place], [address] WBC (Bld) [#/Vol] 5.9 10*3/uL Normal 4.4-11.0 [facility] Comment on above: Performed By: #### L 3200.1600, L3500.3600, L5500.0300, L100.0100 #### [facility] [address] [place], [address] Pulmonary Visit Reporton Pulmonary Visit Report [facility] [place] [address] [place] [address] OFFICE VISIT Date of Service: 02/12/24 MR#: [id number] Acct: [id number] Name: ANGEL BAHENA JrAlex Rep #: [id number] : 1970 Provider: KEVON Banks Age/Sex: 53/M Location: [facility].PMW Status: Signed Assessment and Plan Assessment and [...] rhinitis Plan Details Follow Up: 6 Weeks ([facility]) HPI Discuss Inspire Chief Complaint: Sleep apnea [...] feeling rested. 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 He is a [...] Reasons: Discuss Inspire Chief Complaint: Est Care. Agriculture Inspector Required: No DME Vendor: none Accompanied [...] you fallen in the past year?: No [facility] Medical History (Reviewed 02/12/24 @ 08:22 by Moriah Banks ORNAMENTAL METALWORK DESIGNER, ORNAMENTAL METALWORK DESIGNER-C) (more content not included)... Normal [facility] Absolute lymphocyte countOrd ered By: Pennie Fish on 10-11-2023 Lymphocytes Auto (Unsp spec) [#/Vol] 1.95 10*3/uL 0.83-4.51 [facility] Automated lymphocyte count a s percentage of total leukocytesOrdered By: Pennie Fish on 10-11-2023 Lymphocytes/100 WBC Auto (Unsp spec) 30.2 % 19-41 [facility] Basophil percentageOrdered B y: Pennie Fish on 10-11-2023 Basophils/100 WBC (Bld) 0.8 % 0-1 [facility] Bilirubin [Mass/Vol] 0.60 mg/dL 0.20-1.00 [facility] Comment on above: For patients on eltr ombopag therapy, use of Dimension [place] TBIL is not recommended. Chloride [Moles/Vol] 107 mmol/L 98-107 [facility] Cholesterol [Mass/Vol] 126 mg/dL <200 [facility] Comment on above: <200 mg/dL Desirable 200-240 mg/dL Borderline >240 mg/dL High Risk Eosinophils/100 WBC (Bld) 2.0 % 0-5 [facility] Glucose [Mass/Vol] 91 mg/dL 74-106 [facility] Hemoglobin (Bld) [Mass/Vol] 15.2 g/dL 13.0-16.5 [facility] Monocytes/100 WBC (Bld) 9.6 % 0-10 [facility] Neutrophils (Bld) [#/Vol] 3.7 10*3/uL 2.0-7.7 [facility] Neutrophils/100 WBC (Bld) 57.2 % 47-70 [facility] Potassium [Moles/Vol] 4.1 mmol/L 3.5-5.1 [facility] Protein [Mass/Vol] 7.7 g/dL 6.4-8.2 [facility] Sodium [Moles/Vol] 138 mmol/L 136-145 [facility] Triglyceride [Mass/Vol] 69 mg/dL <199 [facility] Comment on above: The drugs N-Acetylcy steine and Metamizole may falsely depress this assay.Serum Triglycerides Reference Interval Normal <150 mg/dL Borderline high 150 - 199 mg/dL High 200 - 499 mg/dL Very High > or = 500 mg/dL WBC (Bld) [#/Vol] 6.5 10*3/uL 4.4-11.0 [facility] Determination of erythrocyte mean corpuscular volume (MCV)Ordered By: Pennie Fish on 10-11-2023 MCV (RBC) [Entitic vol] 83.7 fL 80-94 [facility] Erythrocyte distribution wid th ratioOrdered By: Jovanydunstablecharity Fish on 10-11-2023 Erythrocyte distribution width (RBC) [Ratio] 12.5 % 11.6-14.6 [facility] Erythrocyte distribution wid th standard deviationOrdered By: Jovanydunstablecharity Fish on 10-11-2023 Erythrocyte distribution width (RBC) [Entitic vol] 38.0 fL 35.1-43.9 [facility] Hematocrit Auto (Bld) [Volum e fraction]Ordered By: Pennie Fish on 10-11-2023 Hematocrit (Bld) [Volume fraction] 46.3 % 40-54 [facility] Immature granulocytes/100 WB C Auto (Bld)Ordered By: Pennie Fish on 10-11-2023 Immature granulocytes/100 WBC (Bld) 0.200 % 0.0-0.9 [facility] Comment on above: IG% - Immature Granu locytes (promyelocytes, myelocytes and metamyelocytes) > 1% indicates that a LEFT SHIFT is Present. Laboratory - Chemistry and C hemistry - challengeOrdered By: Pennie Fish on 10-11-2023 Albumin/Globulin [Mass ratio] 1.0 {ratio} 0.9-2.4 [facility] ALP [Catalytic activity/Vol] 79 U/L 45-117 [facility] ALT [Catalytic activity/Vol] 28 U/L 16-61 [facility] Cholesterol in HDL [Mass/Vol] 38 mg/dL >40 [facility] Comment on above: The drugs N-Acetylcy steine and Metamizole may falsely depress this assay. Reference Range HDL <40 mg/dL Low HDL Cholesterol HDL >or= 60 mg/dL High HDL Cholesterol Cholesterol in LDL [Mass/Vol] 74 mg/dL 0-130 [facility] CO2 [Moles/Vol] 26.0 mmol/L 21.0-32.0 [facility] Globulin (S) [Mass/Vol] 3.9 g/dL 2.2-4.2 [facility] Urea nitrogen/Creatinine [Mass ratio] 10.7 mg/mg 10-20 [facility] - Hematology and Cell countsOrdered By: Pennie Fish on 10-11-2023 MCH (RBC) [Entitic mass] 27.5 pg 27.0-32.0 [facility] MCHC (RBC) [Mass/Vol] 32.8 g/dL 32-36 [facility] Nucleated RBC/100 WBC (Bld) [Ratio] 0 % 0-5 [facility] Platelet mean volume (Bld) [Entitic vol] 10.4 fL 6.2-12.0 [facility] Platelets (Bld) [#/Vol] 334 10*3/uL 150-450 [facility] No Panel InformationOrdered By: Pennie Fish on 10-11-2023 Estimated GFR (MDRD) Amer 88 mL/min >60 [facility] Comment on above: GFR Calc Estimated GFR (MDRD) Non-Af Amer 73 mL/min >60 [facility] Comment on above: Non- GFR Calc Prostate Specific Antigen Screen 0.95 ng/mL 0.00-4.00 [facility] Comment on above: This test was perfor med using the TPSA assay method for [employer] chemistry system. Values obtained with differentassay methods cannot be used interchangably.When changing PSA assays in the course of monitoring apatient, additional sequential testing should be carriedout to confirm baseline values. VLDL Cholesterol 14 mg/dL 5-40 [facility] RBC Auto (Bld) [#/Vol]Ordere d By: Pennie Fish on 10-11-2023 RBC (Bld) [#/Vol] 5.53 10*6/uL 4.6-6.2 [facility] Serum or plasma calcium mike urement (mass/volume)Ordered By: Pennie Fish on 10-11-2023 Calcium [Mass/Vol] 9.1 mg/dL 8.5-10.1 [facility] Serum or plasma creatinine m easurement (mass/volume)Ordered By: Pennie Fish on 10-11-2023 Creatinine [Mass/Vol] 1.12 mg/dL 0.70-1.30 [facility] Comment on above: The validity of the calculated GFR & GFRAA in patients over 70 years has not been determined. Clinical correlation is essential. Serum or plasma urea nitroge n measurement (mass/volume)Ordered By: Pennie Fish on 10-11-2023 Urea nitrogen [Mass/Vol] 12 mg/dL 7-18 [facility] Thin prep Papanicolaou smear with manual screeningOrdered By: Pennie Fish on 10-11-2023 Thin prep Papanicolaou smear with manual screening 3.8 g/dL 3.2-5.0 [facility] Thin prep Papanicolaou smear with manual screening 21 U/L 15-37 [facility] Thin prep Papanicolaou smear with manual screening 5 5-15 [facility] ECHOon 08-29-2023 [facility] 36on 08-14-2023 36 Called and notified that our last results are from 2021, they still would like them, sent via [employer]. Normal [facility] 36 Name of caller: Avinash Hurst Contact phone number: [phone] Relationship to Patient: [facility] Cardiology Provider: Dr Coley Practice: [facility] Chief Complaint/Reason for Call: Avinash Hurst requesting most recent lipid results for pt to be faxed to [phone] Best time of day caller can be reached: Any Patient advised that office/PCP has 24-48 business hours to return their call: Yes Normal [facility] BASIC METABOLIC PANELon 11-0 Anion gap [Moles/Vol] 11 mmol/L Normal 3-[address] [facility] Comment on above: Performed By: #### L AB747, LAB99, LAB20, LAB15 #### Molecular Physicist: ITA SEPULVEDA ([id number]) [facility] ANIL RITTMAN (SWRLAB) [address] [place] [address] Calcium [Mass/Vol] 8.9 mg/dL Normal 8.4-10.4 [facility] Comment on above: Performed By: #### L AB747, LAB99, LAB20, LAB15 #### Molecular Physicist: ITA SEPULVEDA ([id number]) [facility] BRIGGSANIL RITTMAN (SWRLAB) [address] [place] [address] [place] Chloride [Moles/Vol] 104 mmol/L Normal 98-107 [facility] Comment on above: Performed By: #### L AB747, LAB99, LAB20, LAB15 #### Molecular Physicist: ITA SEPULVEDA ([id number]) [facility] [place] RITTMAN (SWRLAB) [address] [place] [address] [place] CO2 [Moles/Vol] 24 mmol/L Normal 22-30 [facility] Comment on above: Performed By: #### L AB747, LAB99, LAB20, LAB15 #### Molecular Physicist: ITA SEPULVEDA ([id number]) [facility] ANIL RITTMAN (SWRLAB) [address] [place] [address] [place] Creatinine [Mass/Vol] 1.13 mg/dL Normal 0.66-1.[address] [facility] Comment on above: Performed By: #### L AB747, LAB99, LAB20, LAB15 #### Molecular Physicist: ITA SEPULVEDA ([id number]) [facility] [place] [facility]IT[facility]AN (SWRLAB) [address] [place] [address] [place] GLOMERULAR FILTRATION RATE ML/MIN/1.73 SQ M.PREDICTED 77.7 mL/min/1.73m*2 Normal >60.0 [facility] Comment on above: Result Comment: Calc ulation based on the Chronic Kidney Disease Epidemiology Collaboration (CKD-EPI) equation refit without adjustment for race Performed By: #### L AB747, LAB99, LAB20, LAB15 #### Molecular Physicist: ITA SEPULVEDA ([id number]) [facility] [place] [facility] (SWRLAB) [address] [place] [address] [place] Glucose [Mass/Vol] 89 mg/dL Normal 70-100 [facility] Comment on above: Performed By: #### Ross AB747, LAB99, LAB20, LAB15 #### Molecular Physicist: ITA SEPULVEDA ([id number]) [facility] [place] RITTMAN (SWRLAB) [address] [place] [address] [place] Potassium [Moles/Vol] 4.1 mmol/L Normal 3.5-5.[address] [facility] Comment on above: Performed By: #### L AB747, LAB99, LAB20, LAB15 #### Molecular Physicist: ITA SEPULVEDA ([id number]) [facility] [place] RITTMAN (SWRLAB) [address] [place] [address] [place] Sodium [Moles/Vol] 140 mmol/L Normal 135-145 [facility] Comment on above: Performed By: #### L AB747, LAB99, LAB20, LAB15 #### Molecular Physicist: ITA SEPULVEDA ([id number]) [facility] [place] RITTMAN (SWRLAB) [address] [place] [address] [place] Urea nitrogen [Mass/Vol] 15 mg/dL Normal 9-20 [facility] Comment on above: Performed By: #### L AB747, LAB99, LAB20, LAB15 #### Molecular Physicist: ITA SEPULVEDA ([id number]) [facility] G[facility] (SWRLAB) [address] [place] [address] Basic metabolic 1998 panelon 05-26-2023 Anion gap [Moles/Vol] 11 mmol/L 3 - 13 mmol/L [facility] Calcium [Mass/Vol] 8.9 mg/dL 8.4 - 10. 4 mg/dL [facility] Chloride [Moles/Vol] 104 mmol/L 98 - 10 7 mmol/L [facility] CO2 [Moles/Vol] 24 mmol/L 22 - 30 mmol/L [facility] Creatinine [Mass/Vol] 1.13 mg/dL 0.66 - 1.25 mg/dL [facility] GFR/1.73 sq M.predicted MDRD (S/P/Bld) [Vol rate/Area] 77.7 mL/min/{1.73_m2} - PINF [facility] Comment on above: Calculation based on the Chronic Kidney Disease Epidemiology Collaboration (CKD-EPI) equation refit without adjustment for race Glucose [Mass/Vol] 89 mg/dL 70 - 100 mg/dL [facility] Potassium [Moles/Vol] 4.1 mmol/L 3.5 - 5.1 mmol/L [facility] Sodium [Moles/Vol] 140 mmol/L 135 - 145 mmol/L [facility] Urea nitrogen [Mass/Vol] 15 mg/dL 9 - 20 mg/dL [facility] CBC (HEMOGRAM)on 05-26-2023 Erythrocyte distribution width (RBC) [Ratio] 12.6 % Normal 11.5-14.5 [facility] Comment on above: Performed By: #### L AB294 #### Molecular Physicist: ITA SEPULVEDA ([id number]) [facility] ANIL ANTOINE (SWRLAB) [address] [place] [address] ERYTHROCYTE MEAN CORPUSCULAR HEMOGLOBIN CONCENTRATION (G/DL) BY AUTOMATED 34.0 % Normal 32.0-36.0 [facility] Comment on above: Performed By: #### L AB294 #### Molecular Physicist: ITA SEPULVEDA ([id number]) NAT MA RITTMAN (SWRLAB) [address] [place] [address] Hematocrit (Bld) [Volume fraction] 45.3 % Normal 40.0-52.0 [facility] Comment on above: Performed By: #### L AB294 #### Molecular Physicist: ITA SEPULVEDA ([id number]) [facility]IT[facility] (SWRLAB) [address] [place] [address] Hemoglobin (Bld) [Mass/Vol] 15.4 g/dL Normal 13.0-18.0 [facility] Comment on above: Performed By: #### L AB294 #### Molecular Physicist: ITA SEPULVEDA ([id number]) NAT MA RITTMAN (SWRLAB) [address] [place] [address] MCH (RBC) [Entitic mass] 28.2 pg Normal 26.0-34.0 [facility] Comment on above: Performed By: #### L AB294 #### Molecular Physicist: ITA SEPULVEDA ([id number]) [facility] RITTMAN (SWRLAB) [address] [place] [address] MCV (RBC) [Entitic vol] 82.8 fL Normal 80.0-98.[address] [facility] Comment on above: Performed By: #### L AB294 #### Molecular Physicist: ITA SEPULVEDA ([id number]) [facility] RITTMAN (SWRLAB) [address] [place] [address] Platelet mean volume (Bld) [Entitic vol] 10.1 fL Normal 7.4-12.4 [facility] Comment on above: Result Comment: MPV is a calculated measurement using platelet volume ratio Performed By: #### L AB294 #### Molecular Physicist: ITA SEPULVEDA ([id number]) [facility]ITTMAN (SWRLAB) [address] [place] [address] [place] Platelets (Bld) [#/Vol] 303 10*3/uL Normal 140-440 [facility] Comment on above: Performed By: #### L AB294 #### Molecular Physicist: ITA SEPULVEDA ([id number]) [facility]IT[facility] (SWRLAB) [address] [place] [address] RBC (Bld) [#/Vol] 5.47 10*6/uL Normal 4.40-5.90 [facility] Comment on above: Performed By: #### L AB294 #### Molecular Physicist: ITA SEPULVEDA ([id number]) [facility] [address] [place] [address] WBC (Bld) [#/Vol] 9.2 10*3/uL Normal 3.6-10.7 [facility] Comment on above: Performed By: #### L AB294 #### Molecular Physicist: ITA SEPULVEDA ([id number]) [facility] ANIL HOUGHTMAN (SWRLAB) [address] [place] [address] CBC panel Auto (Bld)on 05-26 Erythrocyte distribution width (RBC) [Ratio] 12.6 % 11.5 - 14.5 % [facility] Hematocrit (Bld) [Volume fraction] 45.3 % 40.0 - 52.0 % [facility] Hemoglobin (Bld) [Mass/Vol] 15.4 g/dL 13.0 - 18.0 g/dL [facility] Interpretation and review of laboratory results Normal [facility] MCH (RBC) [Entitic mass] 28.2 pg 26.0 - 34.0 pg [facility] MCHC (RBC) [Mass/Vol] 34.0 % 32.0 - 36.0 % [facility] MCV (RBC) [Entitic vol] 82.8 fL 80.0 - 98.0 fL [facility] Platelet mean volume (Bld) [Entitic vol] 10.1 fL 7.4 - 12.4 fL [facility] Comment on above: MPV is a calculated measurement using platelet volume ratio Platelets (Bld) [#/Vol] 303 10*3/uL 140 - 440 10*3/uL [facility] RBC (Bld) [#/Vol] 5.47 10*6/uL 4.40 - 5.9 0 10*6/uL [facility] WBC (Bld) [#/Vol] 9.2 10*3/uL 3.6 - 10.7 10*3/uL [facility] ECG 12-LEADon 05-26-2023 ECG 12-LEAD IMPRESSION: Sinus rhythm Borderline prolonged ME interval Probable left atrial enlargement No previous ECG available for comparison Electronically Signed On 05-26-2023 18:46:[address] [facility] ED Nursing Noteon 05-26-2023 ED Nursing [...] is not taking them. Pt placed on traffic monitor specialist and EKG obtained on arrival. [facility] ED Provider Noteon ED Provider Note EMERGENCY DEPARTMENT ENCOUNTER Pt [...] 4.5 TO (more content not included)... Normal [facility] HEPATIC FUNCTION PANELon Albumin [Mass/Vol] 4.5 g/dL Normal 3.5-5.0 [facility] Comment on above: Performed By: #### L AB747, LAB99, LAB20, LAB15 #### Molecular Physicist: ITA SEPULVEDA ([id number]) [facility] ([address] ALP [Catalytic activity/Vol] 60 U/L Normal 38-126 [facility] Comment on above: Performed By: #### L AB747, LAB99, LAB20, LAB15 #### Molecular Physicist: ITA SEPULVEDA ([id number]) [facility]IT[facility]AN (SWRLAB) [address] [place] [address] ALT [Catalytic activity/Vol] 28 U/L Normal 0-49 [facility] Comment on above: Performed By: #### L AB747, LAB99, LAB20, LAB15 #### Molecular Physicist: ITA SEPULVEDA ([id number]) [facility] RIT[facility]AN (SWRLAB) [address] [place] [address] AST [Catalytic activity/Vol] 29 U/L Normal 15-46 [facility] Comment on above: Performed By: #### L AB747, LAB99, LAB20, LAB15 #### Molecular Physicist: ITA SEPULVEDA ([id number]) [facility]ITTMAN (SWRLAB) [address] [place] [address] Bilirubin [Mass/Vol] 0.8 mg/dL Normal 0.2-1.3 [facility] Comment on above: Performed By: #### L AB747, LAB99, LAB20, LAB15 #### Molecular Physicist: ITA SEPULVEDA ([id number]) [facility] RITTMAN (SWRLAB) [address] [place] [address] Bilirubin.indirect [Mass/Vol] 0.0 mg/dL Normal 0.0-0.3 [facility] Comment on above: Performed By: #### L AB747, LAB99, LAB20, LAB15 #### Molecular Physicist: ITA SEPULVEDA ([id number]) [facility]IT[facility]AN (SWRLAB) [address] [place] [address] Protein [Mass/Vol] 8.2 g/dL Normal 6.3-8.2 [facility] Comment on above: Performed By: #### L AB747, LAB99, LAB20, LAB15 #### Molecular Physicist: ITA SEPULVEDA ([id number]) [facility]IT[facility]AN (SWRLAB) [address] [place] [address] Hepatic function 2000 panelo n 11-03-2023 Albumin [Mass/Vol] 4.5 g/dL 3.5 - 5.0 g/dL [facility] ALP [Catalytic activity/Vol] 60 U/L 38 - 126 U/L [facility] ALT [Catalytic activity/Vol] 28 U/L 0 - 49 U/L [facility] AST [Catalytic activity/Vol] 29 U/L 15 - 46 U/L [facility] Bilirubin [Mass/Vol] 0.8 mg/dL 0.2 - 1 .3 mg/dL [facility] Bilirubin.conjugated [Mass/Vol] 0.0 mg/dL 0.0 - 0.3 mg/dL [facility] Protein [Mass/Vol] 8.2 g/dL 6.3 - 8.2 g/dL [facility] LIPASEon 05-26-2023 Lipase [Catalytic activity/Vol] 60 U/L Normal 23-300 [facility] Comment on above: Performed By: #### L AB747, LAB99, LAB20, LAB15 #### Molecular Physicist: ITA SEPULVEDA ([id number]) [facility] (SWRLAB) [address] [place] [address] Laboratory - Chemistry and C hemistry - challengeon 05-26-2023 Troponin I.cardiac [Mass/Vol] ng/mL NINF - 0.034 ng/mL [facility] Lipase [Catalytic activity/Vol] 60 U/L 23 - 300 U/L [facility] No Panel Informationon 05-26 P [place] 22 degrees [facility] ME Interval 206 ms [facility] QRS [place] 18 degrees [facility] QRSD Interval 106 ms [facility] QT Interval 424 ms [facility] QTC Interval 436 ms [facility] T Wave [place] 41 degrees [facility] Sinus rhythm Borderline prolonged ME interval Probable left atrial enlargement No previous ECG available for comparison Electronically Signed On 05-26-2023 18:46:35 EDT by Jarvis Main DO - 05/26/2023 IMPRESSION: Sinus rhythm Borderline prolonged ME interval Probable left atrial enlargement No previous ECG available for comparison Electronically Signed On 05-26-2023 18:46:35 EDT by Jarvis Flores [facility] Interpretation and review of laboratory results Normal [facility] TROPONIN Ion 05-26-2023 Troponin I.cardiac [Mass/Vol] ng/mL Normal <0.034 [facility] Comment on above: Result Comment: АННА Torres COMMENTS: Patients with high levels of Biotin oral intake (ie >5 mg/day) may have falsely decreased Troponin levels. Performed By: #### L AB747, LAB99, LAB20, LAB15 #### Molecular Physicist: ITA SEPULVEDA ([id number]) [facility] (SWRLAB) [address] [place] [address] Troponin I.cardiac [Mass/Vol ]on 05-26-2023 Interpretation and review of laboratory results Normal [facility] Patients with high levels of Biotin oral intake (ie >5 mg/day) may have falsely decreased Troponin levels. [facility] Vital signson 05-26-2023 Heart rate 64 /min bpm [facility] XR Chest Single viewon 05-26 1. Stable examination. No acute findings. Report Dictated on Electronically Signed By: Mauricio Lama MD Electronically Signed Date/Time: 05/26/2023 6:00 PM EDT [facility] [employer] Patient Name: ANGEL BAHENA : 1970 Exam Date/Time: 05/26/2023 17:58 Procedure: XR CHEST [...] No apparent pneumothorax. Bony thorax grossly unremarkable. [facility] Mauricio Lama MD - 05/26/2023 Patient Name: ANGEL BAHENA : 1970 Exam Date/Time: 05/26/2023 17:58 Procedure: XR CHEST [...] Electronically Signed Date/Time: 05/26/2023 6:00 PM EDT [facility] [employer] Radiology Study observation (narrative) [facility] XR Chest Single viewOrdered By: Mauricio Lama on 05-26-2023 [facility] [employer] Work Phone: 36on 09-16-2022 36 LM to [...] Covid symptoms? Have you been outside of [place] in the last month? Any changes to [...] more? Do you have reliable transportation? Normal [facility] [employer] [facility] CR Spine Lumbosacral 4+ View son 05-16-2022 CR Spine Lumbosacral 4+ Views Patient Name: ANGEL BAHENA Jr Diagnostic Radiology ACCESSION EXAM DATE/TIME PROCEDURE ORDERING PROVIDER [id number] 05/16/2022 16:30 EDT CR Spine Lumbosacral 4+ MD ROSAURA, RICO Views BRET CPT code 11026 Reason For Exam (CR Spine Lumbosacral 4+ [...] Transcribed Date and Time: 05/17/2022 2:33 Normal [facility] CR Wrist Complete 3 Views Ri [facility] 07-27-2021 CR Wrist Complete 3 Views Right Patient Name: ANGEL BAHENA Diagnostic Radiology ACCESSION EXAM DATE/TIME PROCEDURE ORDERING PROVIDER [id number] 07/27/2021 18:10 EST CR Wrist Complete 3 MD ELVI, ASHANTI L Views Right CPT code 35463 Reason For Exam (CR Wrist Complete 3 [...] JEFFREY Transcribed Date and Time: 07/27/2021 6:33 Normal [facility] XR WRIST RIGHT 3 VWon 2021 Patient Name: ANGEL BAHENA Diagnostic Radiology ACCESSION EXAM DATE/TIME PROCEDURE ORDERING PROVIDER [id number] 07/27/2021 18:10 EST CR Wrist Complete 3 MD BETTS DAVID L Views Right CPT code 90557 Reason For Exam (CR Wrist Complete 3 [...] JEFFREY Transcribed Date and Time: 07/27/2021 6:33 [facility] Mannie Calvin MD - 07/27/2021 Patient Name: ANGEL BAHENA Diagnostic Radiology ACCESSION EXAM DATE/TIME PROCEDURE ORDERING PROVIDER [id number] 07/27/2021 18:10 EST CR Wrist Complete 3 MD BETTS DAVID L Views Right CPT code 36333 Reason For Exam (CR Wrist Complete 3 [...] [facility] Work Phone: Radiology Study observation (narrative) [facility] Work Phone: XR WRIST RIGHT 3 VWOrdered B y: Mannie Calvin on 07-27-2021 [employer] Work Phone: Basic Metabolic Panelon 09-21 Anion gap [Moles/Vol] 9 mmol/L 3 - 13 mmol/L [employer] Work Phone: Calcium [Mass/Vol] 9.7 mg/dL 8.4 - 10. 4 mg/dL [facility] Work Phone: Chloride [Moles/Vol] 103 mmol/L 98 - 10 7 mmol/L [facility] Work Phone: CO2 [Moles/Vol] 28 mmol/L 22 - 30 mmol/L [facility] Work Phone: Creatinine [Mass/Vol] 1.23 mg/dL 0.52 - 1.25 mg/dL [employer] Work Phone: EGFR IF NonAfrican [place]i 67.6 mL/min >60 [facility] Work Phone: Comment on above: KDIGO guidelines [...] mg/dL [facility] Work Phone: Test Performed by [facility], [address] , [place], [place] [address] [facility] Work Phone: CT SOFT TISSUE NECK WO NENA Stanley 10-07-2020 Patient Name: ANGEL BAHENA Computed Tomography ACCESSION EXAM DATE/TIME PROCEDURE ORDERING PROVIDER [id number] 10/07/2020 19:[address] Soft Tissue Neck w/o MD TERE, ELEAZAR Contrast CPT code 20339 Reason For Exam (CT Soft Tissue Neck [...] Phone: Petr, [facility] Incoming Radiology Results From [facility] - 10/07/2020 8:14 PM EDT Patient Name: ANGEL BAHENA Computed Tomography ACCESSION EXAM DATE/TIME PROCEDURE ORDERING PROVIDER [id number] 10/07/2020 19:[address] Soft Tissue Neck w/o MD TERE, ELEAZAR Contrast CPT code 56439 Reason For Exam (CT Soft Tissue Neck [...] findings as discussed Report Dictated on Workstation: [id number] --- Final --- Dictating Physician: MD GALVEZ WILLIAM Signed Date and Time: 10/07/2020 8:12 pm Signed by: MD GALVEZ WILLIAM Transcribed Date and Time: 10/07/2020 8:14 [employer] Work Phone: Hemogram (CBC) w/Auto Diffon 10-07-2020 Absolute Baso # 0.0 10*3/uL 0.0 - 0.2 10*3/uL [facility] Work Phone: 22 Absolute Neut # 5.8 10*3/uL 1.8 - 7.0 10*3/uL [facility] Work Phone: 1 22 Basophils/100 WBC (Bld) 0.5 % 0.0 - 2.0 % [facility] Work Phone: [phone] Eosinophils (Bld) [#/Vol] 0.1 10*3/uL 0.0 - 0.5 10*3/uL [facility] Work Phone: Eosinophils/100 WBC (Bld) 0.7 % Low 1.0 - 6.0 % [employer] Work Phone: Erythrocyte distribution width (RBC) [Ratio] 13.1 % 11.5 - 14.5 % [employer] Work Phone: 1 Granulocytes/100 WBC (Bld) 83.5 % High 40.0 - 80.0 % [employer] Work Phone: Hematocrit (Bld) [Volume fraction] 45.5 % 40.0 - 52.0 % [employer] Work Phone: Hemoglobin (Bld) [Mass/Vol] 15.4 g/dL 13.0 - 18.0 g/dL [employer] Work Phone: 1 Interpretation and review of laboratory results Abnormal [employer] Work Phone: 1 Lymphocytes (Bld) [#/Vol] 0.9 10*3/uL Low 1.0 - 4.3 10*3/uL [employer] Work Phone: 1 Lymphocytes/100 WBC (Bld) 12.7 % Low 20.0 - 40.0 % [employer] Phone: 1 MCH (RBC) [Entitic mass] 28.3 pg 26.0 - 34.0 pg [employer] Work Phone: MCHC (RBC) [Mass/Vol] 34.0 % 32.0 - 36.0 % [employer] Work Phone: 1 MCV (RBC) [Entitic vol] 83.2 fL 80.0 - 98.0 fL [employer] Work Phone: Monocytes (Bld) [#/Vol] 0.2 10*3/uL 0.0 - 0.8 10*3/uL [employer] Work Phone: 1 22 Monocytes/100 WBC (Bld) 2.6 % 2.0 - 10.0 % [employer] Work Phone: Platelet mean volume (Bld) [Entitic vol] 7.6 fL 7.4 - 10.4 fL [employer] Work Phone: Platelets (Bld) [#/Vol] 298 10*3/uL 140 - 440 10*3/uL [employer] Work Phone: RBC (Bld) [#/Vol] 5.46 10*6/uL 4.40 - 5.9 0 10*6/uL [facility] Work Phone: [phone] WBC (Bld) [#/Vol] 7.0 10*3/uL 3.6 - 10.7 10*3/uL [facility] Work Phone: [phone] Test Performed by [facility], [address] , [place], [place] [address] [facility] Work Phone: [phone] Rapid Strep Screenon 021 S. pyogenes Ag Ql (Throat) see below Negative NA [facility] Work Phone: [phone] Comment on above: NEGATIVE (presumptiv e) for Group A Streptococcus antigen. Method: Immunochromatographic assay. Confirmatory testing to follow. Confirmatory testing performed at an additional cost. Test Performed by [facility], [address] , [place], [place] [address] [employer] Work Phone: XR CHEST PORTABLEon 10-08-19 21 Petr, [facility] Incoming Radiology Results From [facility] - 10/07/2020 7:41 PM EDT Patient Name: ANGEL BAHENA Diagnostic Radiology ACCESSION EXAM DATE/TIME PROCEDURE ORDERING PROVIDER [id number] 10/07/2020 19:34 EDT CR Chest Portable MD CARRANZA VIJAY CPT code 07216 Reason For Exam (CR Chest Portable) throat [...] RACHEL Transcribed Date and Time: 10/07/2020 7:41 [facility]: [id number] Radiology ACCESSION EXAM DATE/TIME PROCEDURE ORDERING PROVIDER [id number] 10/07/2020 19:34 EDT CR Chest Portable MD CARRANZA VIJAY CPT code 79184 Reason For Exam (CR Chest Portable) throat [...] and Time: 10/07/2020 7:41 [facility] Work Phone: OVon 09-08-2020 [facility] Office Visit ([facility] ) -------- ANGEL BAHENA ([id number]) 1970 M Date Time Provider Department 09/08/20 9:45 AM EKG [facility] During your visit today, we recorded the following information about you: Referring Provider: PORTILLO CASTELLANOS [[id number]] Allergies As of Date: 09/08/2020 Noted Allergy Reaction PEANUT 04/22/2020 7 - Swelling Comments: Throat SHELLFISH CONTAINING PRODUCTS 04/22/2020 7 - Swelling 16 - Unknown BENADRYL (DIPHENHYDRAMINE) 09/08/2020 4 - Hives Date Reviewed: 09/08/2020 Reviewed by: Portillo Castellanos - Fully Assessed Visit Diagnosis:Chest pressure [R07.89] Order(s):ECG COMPLETE [ECG01] Order #: [id number]. #:[id number] Prescriptions as of 09/08/2020 Sig: PREDNISONE [...] Encounter Status:Closed by SAKINA EUBANKS on 10/05/20 [facility] -------- ANGEL BAHENA ([id number]) 1970 M Date Time Provider Department 09/08/20 8:50 AM PORTILLO CASTELLANOS BRIGITTE During your visit today, we recorded the following information about you: Temperature Pulse Blood pressure Weight 97.1 degrees 75/minute 124/80 98.4 kg Height 1.753 m Portillo Castellanos DO 09/28/2020 11:47 PM Signed Headache (pt states having pressure in front of head) - worse after work at end of day. If he lays down it will go away. Associated with some extra sputum. Pain and pressure in forehead and temples at times. Left ear associated with pressure. Does have some chest pressure at times. The history is provided by the patient. No medical language specialist was used. HISTORY REVIEWED PAST MEDICAL HISTORY [...] sinusitis [J01.00] Order(s):ECG COMPLETE [ECG01] Order #: [id number] FUTURE [] predniSONE (DELTASONE) 50 mgTake 1 tablet by mouth once daily for 7 days.Disp: 7 tabletRfl: 0 ECG COMPLETE [ECG01] Order #: [id number]. #:[id number] Prescriptions as of 09/08/2020 Sig: METOPROLOL SUCCINATE [...] 10 M (more content not included)... Normal [facility] ECG B/O W INTERP (MED OFFICE ) [facility] Vital Signs Date Time Vital Sign Value Performing Clinician Facility 02-24-2025 09:49-0400 Body height 175.[address] Pennie Fish MD Work Phone: [facility] 02-24-2025 09:49-0400 Body mass index (BMI) [Ratio] 34 kg/m2 Dr. Pennie Fish MD Work Phone: [facility] 02-24-2025 09:49-0400 Body temperature 96.9 [degF] Dr. Pennie Fish MD Work Phone: [facility] 02-24-2025 09:49-0400 Body weight 104.[address] Pennie Fish MD Work Phone: [facility] 02-24-2025 09:49-0400 Diastolic blood pressure 88 mm[Hg] Dr. Pennie Fish MD Work Phone: [facility] 02-24-2025 09:49-0400 Heart rate 78 /min Dr. Pennie Fish MD Work Phone: [facility] 02-24-2025 09:49-0400 Respiratory rate 16 /min Dr. Pennie Fish MD Work Phone: [facility] 02-24-2025 09:49-0400 SaO2% (BldA) [Mass fraction] 97 % Dr. Pennie Fish MD Work Phone: [facility] 02-24-2025 09:49-0400 Systolic blood pressure 148 mm[Hg] Dr. Pennie Fish MD Work Phone: [facility] 02-02-2025 12:18-0400 Body temperature 98.3 [degF] Dr. Pennie Fish MD Work Phone: [facility] 02-02-2025 12:18-0400 Diastolic blood pressure 98 mm[Hg] Dr. Pennie Fish MD Work Phone: [facility] 02-02-2025 12:18-0400 Heart rate 77 /min Dr. Pennie Fish MD Work Phone: [facility] 02-02-2025 12:18-0400 Respiratory rate 16 /min Dr. Pennie Fish MD Work Phone: [facility] 02-02-2025 12:18-0400 SaO2% (BldA) [Mass fraction] 96 % Dr. Pennie Fish MD Work Phone: [facility] 02-02-2025 12:18-0400 Systolic blood pressure 153 mm[Hg] Dr. Pennie Fish MD Work Phone: [facility] 02-02-2025 10:53-0400 Body height 175.[address] Pennie Fish MD Work Phone: [facility] 02-02-2025 10:53-0400 Body mass index (BMI) [Ratio] 34.2 kg/m2 Dr. Pennie Fish MD Work Phone: [facility] 02-02-2025 10:53-0400 Body weight 105.[address] Pennie Fish MD Work Phone: [facility] 12-27-2024 08:14-0400 Body height 175.[address] Pennie Fish MD Work Phone: [facility] 12-27-2024 08:14-0400 Body mass index (BMI) [Ratio] 35.2 kg/m2 Dr. Pennie Fish MD Work Phone: [facility] 12-27-2024 08:14-0400 Body temperature 97.4 [degF] Dr. Pennie Fish MD Work Phone: [facility] 12-27-2024 08:14-0400 Body weight 108.[address] Pennie Fish MD Work Phone: [facility] 12-27-2024 08:14-0400 Diastolic blood pressure 87 mm[Hg] Dr. Pennie Fish MD Work Phone: [facility] 12-27-2024 08:14-0400 Heart rate 68 /min Dr. Pennie Fish MD Work Phone: [facility] 12-27-2024 08:14-0400 Respiratory rate 16 /min Dr. Pennie Fish MD Work Phone: [facility] 12-27-2024 08:14-0400 SaO2% (BldA) [Mass fraction] 98 % Dr. Pennie Fish MD Work Phone: [facility] 12-27-2024 08:14-0400 Systolic blood pressure 135 mm[Hg] Dr. Pennie Fish MD Work Phone: [facility] 11-01-2024 10:49-0400 Body height 175.3 cm Ashanti García MD Work Phone: [facility] 11-01-2024 10:49-0400 Body mass index (BMI) [Ratio] 32.34 kg/m2 Ashanti García MD Work Phone: [facility] 11-01-2024 10:49-0400 Body weight 99.34 kg Ashanti García MD Work Phone: [facility] 11-01-2024 10:49-0400 Diastolic blood pressure 80 mm[Hg] Ashanti García MD Work Phone: [facility] 11-01-2024 10:49-0400 Heart rate 63 /min Ashanti García MD Work Phone: [facility] 11-01-2024 10:49-0400 SaO2% (BldA) [Mass fraction] 98 % Ashanti García MD Work Phone: [facility] 11-01-2024 10:49-0400 Systolic blood pressure 131 mm[Hg] Ashanti García MD Work Phone: [facility] 10-11-2024 10:42-0400 Body height 175.[address] Pennie Fish MD Work Phone: [facility] 10-11-2024 10:42-0400 Body mass index (BMI) [Ratio] 34.5 kg/m2 Dr. Pennie Fihs MD Work Phone: [facility] 10-11-2024 10:42-0400 Body temperature 96 [degF] Dr. Pennie Fish MD Work Phone: [facility] 10-11-2024 10:42-0400 Body weight 106.[address] Pennie Fish MD Work Phone: [facility] 10-11-2024 10:42-0400 Diastolic blood pressure 70 mm[Hg] Dr. Pennie Fish MD Work Phone: [facility] 10-11-2024 10:42-0400 Heart rate 61 /min Dr. Pennie Fish MD Work Phone: [facility] 10-11-2024 10:42-0400 Respiratory rate 16 /min Dr. Pennie Fish MD Work Phone: [facility] 10-11-2024 10:42-0400 SaO2% (BldA) [Mass fraction] 97 % Dr. Pennie Fish MD Work Phone: [facility] 10-11-2024 10:42-0400 Systolic blood pressure 116 mm[Hg] Dr. Pennie Fish MD Work Phone: [facility] 09-25-2024 07:45-0500 Body mass index (BMI) [Ratio] 35.2 kg/m2 Dr. Pennie Fish MD Work Phone: [facility] 09-25-2024 07:45-0500 Body temperature 97.5 [degF] Dr. Pennie Fish MD Work Phone: [facility] 09-25-2024 07:45-0500 Body weight 108.[address] Pennie Fish MD Work Phone: [facility] 09-25-2024 07:45-0500 Diastolic blood pressure 87 mm[Hg] Dr. Pennie Fish MD Work Phone: [facility] 09-25-2024 07:45-0500 Heart rate 64 /min Dr. Pennie Fish MD Work Phone: [facility] 09-25-2024 07:45-0500 Respiratory rate 18 /min Dr. Pennie Fish MD Work Phone: [facility] 09-25-2024 07:45-0500 SaO2% (BldA) [Mass fraction] 97 % Dr. Pennie Fish MD Work Phone: [facility] 09-25-2024 07:45-0500 Systolic blood pressure 139 mm[Hg] Dr. Pennie Fish MD Work Phone: [facility] 06-19-2024 08:09-0500 Body mass index (BMI) [Ratio] 35.1 kg/m2 Dr. Pennie Fish MD Work Phone: [facility] 06-19-2024 08:09-0500 Body temperature 98.4 [degF] Dr. Pennie Fish MD Work Phone: [facility] 06-19-2024 08:09-0500 Body weight 107.[address] Pennie Fish MD Work Phone: [facility] 06-19-2024 08:09-0500 Diastolic blood pressure 80 mm[Hg] Dr. Pennie Fish MD Work Phone: [facility] 06-19-2024 08:09-0500 Heart rate 78 /min Dr. Pennie Fish MD Work Phone: [facility] 06-19-2024 08:09-0500 Respiratory rate 16 /min Dr. Pennie Fish MD Work Phone: [facility] 06-19-2024 08:09-0500 SaO2% (BldA) [Mass fraction] 97 % Dr. Pennie Fish MD Work Phone: [facility] 06-19-2024 08:09-0500 Systolic blood pressure 138 mm[Hg] Dr. Pennie Fish MD Work Phone: [facility] 10-11-2023 10:13-0400 Body height 175.[address] Serenity Mohan Work Phone: [facility] 10-11-2023 10:13-0400 Body mass index (BMI) [Ratio] 32.5 kg/m2 Dr. Serenity Mohan Work Phone: [facility] 10-11-2023 10:13-0400 Body temperature 98.1 [degF] Dr. Serenity Mohan Work Phone: [facility] 10-11-2023 10:13-0400 Body weight 99.[address] Serenity Mohan Work Phone: [facility] 10-11-2023 10:13-0400 Diastolic blood pressure 80 mm[Hg] Dr. Serenity Mohan Work Phone: [facility] 10-11-2023 10:13-0400 Heart rate 70 /min Dr. Serenity Mohan Work Phone: [facility] 10-11-2023 10:13-0400 Respiratory rate 16 /min Dr. Serenity Mohan Work Phone: [facility] 10-11-2023 10:13-0400 SaO2% (BldA) [Mass fraction] 96 % Dr. Serenity Mohan Work Phone: [facility] 10-11-2023 10:13-0400 Systolic blood pressure 112 mm[Hg] Dr. Serenity Mohan Work Phone: [facility] 05-26-2023 18:47-0400 Diastolic blood pressure 99 mm[Hg] Jarvis Flores [employer] Work Phone: [employer] 05-26-2023 18:47-0400 Heart rate 71 /min Jarvis Flores [employer] Work Phone: [employer] 05-26-2023 18:47-0400 Respiratory rate 15 /min Jarvis Flores [employer] Work Phone: [employer] 05-26-2023 18:47-0400 SaO2% (BldA) [Mass fraction] 99 % Jarvis Flores [employer] Work Phone: [employer] 05-26-2023 18:47-0400 Systolic blood pressure 138 mm[Hg] Jarvis Flores [employer] Work Phone: [employer] 05-26-2023 17:24-0400 Body height 175.3 cm Jarvis Flores [employer] Work Phone: [employer] 05-26-2023 17:24-0400 Body mass index (BMI) [Ratio] 33.52 kg/m2 Jarvis Flores [employer] Work Phone: [employer] 05-26-2023 17:24-0400 Body temperature 97.5 [degF] Jarvis Flores [employer] Work Phone: [employer] 05-26-2023 17:24-0400 Body weight 102.97 kg Jarvis Flores [employer] Work Phone: [facility] [employer] 06-21-2022 08:13-0500 Body height 175.3 cm Ashanti García MD Work Phone: [facility] 06-21-2022 08:13-0500 Body weight 101.61 kg Ashanti García MD Work Phone: [facility] 06-21-2022 08:13-0500 Diastolic blood pressure 80 mm[Hg] Ashanti García MD Work Phone: [facility] 06-21-2022 08:13-0500 Heart rate 66 /min Ashanti García MD Work Phone: [facility] 06-21-2022 08:13-0500 SaO2% (BldA) [Mass fraction] 95 % Ashanti García MD Work Phone: [facility] 06-21-2022 08:13-0500 Systolic blood pressure 122 mm[Hg] Ashanti García MD Work Phone: [facility] 07-27-2021 17:47-0500 Body height 175.3 cm Ashanti Betts MD Work Phone: [facility] 07-27-2021 17:47-0500 Body mass index (BMI) [Ratio] 31.75 kg/m2 Ashanti Betts MD Work Phone: [facility] 07-27-2021 17:47-0500 Body temperature 98.4 [degF] Ashanti Betts MD Work Phone: [facility] 07-27-2021 17:47-0500 Body weight 97.52 kg Ashanti Betts MD Work Phone: [facility] 07-27-2021 17:47-0500 Diastolic blood pressure 90 mm[Hg] Ashanti Betts MD Work Phone: [facility] 07-27-2021 17:47-0500 Heart rate 78 /min Ashanti Betts MD Work Phone: [facility] 07-27-2021 17:47-0500 Respiratory rate 16 /min Ashanti Betts MD Work Phone: [facility] 07-27-2021 17:47-0500 SaO2% (BldA) [Mass fraction] 97 % Ashanti Betts MD Work Phone: [facility] 07-27-2021 17:47-0500 Systolic blood pressure 140 mm[Hg] Ashanti Betts MD Work Phone: [facility] 10-07-2020 20:41-0400 BP Diastolic 78 mm[Hg] Eleazar Adusumilli [facility] Work Phone: 10-07-2020 20:41-0400 BP Systolic 120 mm[Hg] Eleazar Adusumilli [facility] Work Phone: 10-07-2020 20:41-0400 Pulse (Heart Rate) 58 /min Eleazar Adusumilli [facility] Work Phone: 10-07-2020 20:41-0400 Pulse Oximetry 98 % Eleazar JOHNS Work Phone: 10-07-2020 20:41-0400 Respiratory Rate 16 /min Eleazar JOHNS Work Phone: 10-07-2020 18:54-0400 BMI (Body Mass Index) 29.97 kg/m2 Eleazar JOHNS Work Phone: 10-07-2020 18:54-0400 Body Temperature 98.29 [degF] Eleazar JOHNS Work Phone: 10-07-2020 18:54-0400 Body weight 90.72 kg Eleazar JOHNS Work Phone: 04-22-2020 09:17-0400 Body weight 91.63 kg [facility] 04-22-2020 09:17-0400 BP Diastolic 90 mm[Hg] [facility] 04-22-2020 09:17-0400 BP Systolic 126 mm[Hg] [facility] 04-22-2020 09:17-0400 Pulse (Heart Rate) 67 /min [facility] 04-22-2020 09:17-0400 Pulse Oximetry 96 % [facility] 08-01-2019 16:34-0500 BMI (Body Mass Index) 30.36 kg/m2 Chung Tavallaee [facility] Work Phone: 08-01-2019 16:34-0500 Body weight 93.24 kg Chung Tavallaee [facility] Work Phone: 08-01-2019 16:34-0500 BP Diastolic 98 mm[Hg] Chung Tavallaee [facility] Work Phone: 08-01-2019 16:34-0500 BP Systolic 132 mm[Hg] Chung Tavallaee [facility] Work Phone: 08-01-2019 16:34-0500 BSA (Body Surface Area) 2.09 m2 Chungabhay Pearl [facility] Medicine Work Phone: 08-01-2019 16:34-0500 Height 175.26 cm [facility] Work Phone: 08-01-2019 16:34-0500 Pulse (Heart Rate) 80 /min [facility] Work Phone: Encounters Encounter Date Encounter Type Care Provider Facility Start: 02-24-2025 End: 02-24-[address] Pennie Fish MD Work Phone: -[facility] Start: 02-24-2025 End: 02-24-[address] Pennie Fish MD -[facility] Work Phone: Start: 02-02-2025 End: 02-02-2025 Emergency department patient visit Dr. Pennie Fish MD Work Phone: -Emergency Department Work Phone: Start: 12-27-2024 End: 12-27-2024 Patient encounter procedure Moriah REGALADOC -[facility] Work Phone: Start: 12-27-2024 End: 12-27-[address] Pennie Fish MD Work Phone: [facility] Work Phone: Start: 11-05-2024 Encounter for genera l adult medical examination without abnormal findings Pennie Fish [facility] Start: 11-01-2024 End: 11-01-2024 Patient encounter procedure Ashanti García MD Work Phone: [facility] [place] Comment on above: Aortic valve disease (Primary Dx); H/O aortic valve replacement using Ross procedure; Obesity (BMI 30-39.9) Start: 11-01-2024 End: 11-01-2024 ambulatory PENNIE FISH Facility:[facility] Start: 10-11-2024 End: 10-11-[address] Pennie Fish MD -[facility] Work Phone: Start: 10-11-2024 End: 10-11-[address] Pennie Fish MD [facility] Start: 10-11-2024 End: 10-11-[address] Pennie Fish MD Work Phone: [facility] Work Phone: Start: 10-11-2024 End: 10-11-2024 ambulatory Pennie Fish Facility:[facility] Start: 09-25-2024 End: 09-25-2024 Patient encounter procedure Moriah LUND -[facility] Work Phone: Start: 09-25-2024 End: 09-25-2024 ambulatory Moriah Banks Facility:[facility] Start: 06-19-2024 End: 06-19-[address] Pennie Fish MD -[facility] Work Phone: Start: 06-19-2024 End: 06-19-2024 ambulatory Pennie Fish Facility:[facility] Start: 04-02-2024 End: 04-02-2024 ambulatory Moriah Banks Facility:[facility] Start: 03-28-2024 End: 03-28-2024 Emergency department patient visit Efkathe Fish Facility:[facility] Start: 02-12-2024 End: 02-12-2024 [facility] Start: 02-12-2024 End: 02-12-2024 ambulatory Moriah Banks Facility:[facility] Start: 10-11-2023 End: 10-11-[address] Serenity Mohan Work Phone: [facility] Work Phone: Start: 10-11-[address] Serenity Mohan Work Phone: [facility] Start: 10-11-2023 End: 10-11-2023 Encounter for general adult medical examination without abnormal findings Dr. Serenity Mohan Work Phone: [facility] Start: 10-11-2023 End: 10-11-[address] Serenity Mohan Work Phone: [facility] Internal Medicine Work Phone: Start: 08-29-2023 Telephone encounter Ashanti bella MD Work Phone: [facility] [place] Comment on above: Results Start: 08-29-2023 End: 08-29-2023 Subsequent hospital visit by physician Card Lab Stress [facility] Comment on above: Status post heart va lve replacement [Z95.4] Start: 05-26-2023 End: 05-27-2023 Emergency department patient visit JARVIS FLORES [facility] Start: 05-26-2023 End: 05-26-2023 Subsequent hospital visit by physician [facility] [employer] [facility] Radiology Comment on above: Arrived Start: 05-26-2023 End: 05-26-2023 Emergency department patient visit Jarvis Flores DO Work Phone: [facility] ED Comment on above: Chest pain, unspecif ied type (Primary Dx) Start: 06-21-2022 Telephone encounter Ashanti bella MD Work Phone: [facility] [place] Comment on above: Patient Update Start: 06-21-2022 End: 06-21-2022 Patient encounter procedure Ashanti García MD Work Phone: [facility] [place] Comment on above: Status post heart va lve replacement (Primary Dx); Obesity (BMI 30-39.9); Palpitations Start: 05-16-2022 ambulatory Rico Cole[facility] Start: 05-16-2022 End: 05-16-2022 Subsequent hospital visit by physician Rico Coley MD Work Phone: [facility] Radiology Start: 07-27-2021 End: 07-27-2021 Emergency department patient visit Rico Coley [facility] Start: 07-27-2021 End: 07-27-2021 Emergency department patient visit Ashanti Betts MD Work Phone: [facility] Comment on above: Sprain of right wris t, initial encounter (Primary Dx) Start: 10-07-2020 End: 10-07-2020 Emergency department patient visit Eleazar Carranza Work Phone: [facility] Comment on above: Throat pain (Primary Dx); Acute serous otitis media of left ear, recurrence not specified Start: 04-22-2020 End: 04-22-2020 Patient encounter procedure Diamond De Guzman ([employer]) Deanne Work Phone: [facility] Cardiology [place] Comment on above: Status post heart va lve replacement (Primary Dx) Start: 04-20-2020 End: 04-20-2020 Telephone encounter Diamond De Guzman (Accountant [employer]) Deanne Work Phone: [facility] Cardiology [place] Comment on above: Appointment Start: 06-19-2018 End: 06-20-2018 Patient encounter procedure JOSE NAM Facility:[facility] Start: 05-31-2018 Patient encounter procedure Ezronnie [place] Facility:[facility] Internal [facility] Start: 04-03-2018 End: 04-04-2018 Patient encounter ASHANTI GARCÍA Facility:[facility] Start: 02-22-2018 End: 02-22-2018 Patient encounter ASHANTI GARCÍA Facility:[facility] Start: 02-13-2018 End: 02-14-2018 Patient encounter procedure Naima Augustin Facility:[facility] Internal Medicine Start: 08-23-2017 End: 08-23-2017 Patient encounter procedure Naima Augustin Facility:[facility] Internal Medicine Procedures Date Procedure Procedure Detail Performing Clinician [...] - S tommy or Plasma Jarvis Flores DO Work Phone: Start: 07-27-2021 Radex wrist complete [...] Knee 1 or 2 View M ehrdad Tavallaee History of Mass excision [facility] rdad Tavallaee Operation on heart Chung T avallaejuana Plan of Treatment Date Care Activity Detail Author Start: 01-18-2033 Urine microalbumin profile DTaP,Tdap,Td Vaccine (2 - Td or Tdap) [facility] Start: 09-16-2026 Lipid panel [facility] Start: 05-26-2026 Diabetes Screening Diabetes Screenin g [facility] Start: 05-01-2025 LIPID SCREEN LIPID SCREEN [facility] Start: 02-24-2025 Urinalysis complete panel - Urine [facility] Start: 02-24-2025 CBC W Auto Different ial panel - Blood [facility] Start: 02-24-2025 Comprehensive metabo lic 2000 panel - Serum or Plasma [facility] Start: 02-24-2025 Prostate specific an tigen measurement [facility] Start: 02-02-2025 Injection aa&/strd o ther peripheral nerve/branch NJX AA&/STRD OTHER PN/BRANCH [facility] Start: 02-02-2025 [facility] Start: 03-24-2024 Covid-19 Vaccine ( season) Covid-19 Vaccine ( season) [facility] Start: 03-24-2024 Influenza vaccination Influenza Vacc ine (#1) [facility] Start: 10-11-2023 Patient referral [facility] Work Phone: Start: 07-24-2023 Depression Assessment Depression Ass essment [facility] Start: 05-21-2023 End: 06-21-2023 Echocardiography [facility] Cardiology Routine Status post heart valve replacement Expected: 05/21/2023 (Approximate), Expires: 06/21/2023 [facility] Work Phone: Comment on above: Expected: 05/21/2023 (Approximate), Expires: 06/21/2023 Start: 05-01-2023 DIABETES SCREEN DIABETES SCREEN [facility] Start: 03-24-2023 Influenza vaccination Influenza Vacc ine (#1) [facility] Start: 09-16-2022 Depression Screen Depression Screen [facility] Start: 03-24-2022 Influenza vaccination INFLUENZA (#1) [facility] Start: 02-21-2022 Influenza vaccination Flu vaccine (# 1) [facility] Start: 11-11-2021 Shingles vaccine (2 of 2) Bedoya gles vaccine (2 of 2) [facility] Start: 11-11-2021 Shingrix Vaccine (2 of 2) Bedoya grix Vaccine (2 of 2) [facility] Start: 11-11-2021 Zoster Vaccines (2 of 2) Zoste r Vaccines (2 of 2) [facility] Start: 08-04-2021 End: 08-04-2021 Patient encounter procedure 08/04/2021 Office Visit Family Medicine Rico Coley MD [address], [place] [address] [facility] Start: 07-24-2021 DEPRESSION ASSESSMENT DEPRESSION ASS ESSMENT [facility] Start: 03-24-2021 Influenza vaccination Flu vaccine (# 1) [facility] Start: 03-24-2020 Influenza vaccination C [facility] Start: 11-17-2019 Pneumococcal Vaccine : 50+ (1 of 1 - PCV) Pneumococcal Vaccine: 50+ (1 of 1 - PCV) [facility] Start: 11-17-2019 Screening for malign ant neoplasm of colon Colon cancer screen colonoscopy [facility] Work Phone: Start: 11-17-2019 Shingles Vaccine (1 of 2) Bedoya gles Vaccine (1 of 2) [facility] Start: 11-17-2019 SHINGRIX VACCINE (1 of 2) BEDOYA GRIX VACCINE (1 of 2) [facility] Start: 11-17-2019 Tuberculosis screening COLOREC ROSANA CANCER SCREENING,SEE MODIFIER [facility] Start: 08-01-2019 Xray Knee 1 or 2 View [facility] Internal Medicine Work Phone: Start: 01-30-2017 DIABETES SCREEN DIABETES SCREEN [facility] Start: 2014 COLOGUARD (FIT-DNA) COLOGUARD (FIT-D NA) [facility] Start: 2014 Colonoscopy COLONOSCOPY [facility] Start: 2014 COLORECTAL CANCER SCREENING COLORECTAL CANCER SCREENING [facility] Start: [address] COLONOGRAPHY [facility] Start: 2014 FECAL OCCULT BLOOD FECAL OCCULT BLOO D [facility] Start: 2014 Screening for malign ant neoplasm of colon [facility] Start: 2014 SIGMOIDOSCOPY SIGMOIDOSCOPY Clemencia moon [facility] Start: 2009 Lipid panel Lipid screen [facility] Start: 05-21-2008 LIPID SCREEN LIPID SCREEN [facility] Start: 2004 Diabetes screen Diabetes screen [facility] Start: 1988 DTaP/Tdap/Td vaccine (1 - Tdap) DTaP/Tdap/Td vaccine (1 - Tdap) [facility] Start: 1988 DTaP/Tdap/Td Vaccine s (1 - Tdap) DTaP/Tdap/Td Vaccines (1 - Tdap) [facility] Start: 1988 Hepatitis B Vaccine (1 of 3 - 19+ 3-dose series) Hepatitis B Vaccine (1 of 3 - 19+ 3-dose series) [facility] Start: 1988 Urine microalbumin profile DTAP,TDAP,TD (1 - Tdap) [facility] Start: 11-17-1987 Anxiety Screening Anxiety Screening [facility] Start: 11-17-1987 Depression Screening Depression Scre ening [facility] Start: 11-17-1987 Diabetes mellitus screening Diabetes Screening [facility] Start: 11-17-1987 Hepatitis C screening S [facility] Start: 1985 COVID-19 Vaccine (1) COVID-19 Vaccin e (1) [facility] Work Phone: Start: 1984 HIV screening HIV screen [facility] Start: 1981 Depression Screen Depression Screen [facility] Start: 1981 Depression Screening Depression Scre ening [facility] Start: 11-17-1975 Pneumococcal Vaccine : Pediatrics (0 to 5 Years) and At-Risk Patients (6 to 64 Years) (1 - PCV) Pneumococcal Vaccine: Pediatrics (0 to 5 Years) and At-Risk Patients (6 to 64 Years) (1 - PCV) [facility] Start: 1974 COVID-19 Vaccine (1) COVID-19 Vaccin e (1) [facility] Start: 1970 MMR Vaccines (1 of 1 - Standard series) MMR Vaccines (1 of 1 - Standard series) [facility] Start: 05-18-1970 COVID-19 Vaccine (#1) COVID-19 Vacci ne (#1) [facility] Start: 1969 HEPATITIS B (1 of 3 - 3-dose series) HEPATITIS B (1 of 3 - 3-dose series) [facility] Start: 1969 Hepatitis B Vaccine (1 of 3 - 3-dose series) Hepatitis B Vaccine (1 of 3 - 3-dose series) [facility] Start: 1969 Hepatitis B Vaccines (1 of 3 - 3-dose series) Hepatitis B Vaccines (1 of 3 - 3-dose series) [facility] Start: 1969 Hepatitis C screening Hepatitis C sc reen [facility] Start: 1969 HIV screening HIV Screening [facility] Start: 1969 Screening for malign ant neoplasm of colon [facility] Alanine aminotransfe rase [Enzymatic activity/volume] in Serum or Plasma [facility] Albumin [Mass/volume ] in Serum or Plasma [facility] Alkaline phosphatase [Enzymatic activity/volume] in Serum or Plasma [facility] Anion gap in Serum o r Plasma [facility] Bilirubin measuremen t, urine [facility] Bilirubin, total measurement [facility] BUN/Creatinine ratio [facility] Calcium [Mass/volume ] in Serum or Plasma [facility] Carbon dioxide, tota l [Moles/volume] in Central venous blood [facility] Creatinine [Mass/vol ume] in Serum or Plasma [facility] Erythrocyte mean corpuscular volume determination [facility] Glucose [Mass/volume ] in Serum or Plasma [facility] End: 10-07-2020 Group A Strep Screen By PCR Group A Strep Screen By PCR Microbiology STAT Once for 1 Occurrences starting 10/07/2020 until 10/07/2020 [facility] Work Phone: Comment on above: Once for 1 Occurrenc es starting 10/07/2020 until 10/07/2020 Group A Strep Screen By PCR Group A Strep Screen By PCR Microbiology STAT 10/07/2020 7:24 PM EDT [facility] Work Phone: Hematocrit [Volume Fraction] of Blood [facility] Hemoglobin [Mass/vol ume] in Blood [facility] Hemoglobin [Presence ] in Urine [facility] Leukocytes [#/volume ] in Blood [facility] Mean corpuscular hemoglobin concentration determination [facility] Mean corpuscular hemoglobin determination [facility] Measurement of keton es in urine using dipstick [facility] Measurement of renal function [facility] Microscopic urinalysis [facility] Neutrophil count [facility] Neutrophil percent differential count [facility] Organism count, microscopic method [facility] Patient Education ED Foreign Bod y, Soft Tissue (Removed) [facility] Work Phone: Patient referral [facility] Work Phone: pH of Urine [facility] Platelets [#/volume] in Blood [facility] Potassium measurement [facility] Red blood cell count [facility] Red cell distributio n width determination [facility] Serum chloride measurement [facility] Sodium measurement [facility] Specific gravity of Urine [facility] Total protein measurement [facility] Urea nitrogen [Mass/volume] in Serum or Plasma [facility] Urine dipstick for glucose [facility] Urine dipstick for leukocyte esterase [facility] Urine dipstick for nitrite [facility] Urine dipstick for protein [facility] Urine examination [facility] Urine microscopy: epithelial cells [facility] Urine microscopy: re d cells [facility] Urobilinogen [Presen ce] in Urine [facility] White blood cell count [facility] End: 05-16-2022 XR LUMBAR SPINE (MIN 4 VIEWS) [facility] Work Phone: Comment on above: Once for 1 Occurrenc es starting 05/16/2022 until 05/16/2022 [facility] Work Phone: [facility] NEGATED: Highlighted row has been ruled out! Planned Goals not documented [facility] Work Phone: Immunizations Immunization Date Immunization Notes Care Provider Jelly hugo 02-02-2025 tetanus toxoid, redu wm diphtheria toxoid, and acellular pertussis vaccine, adsorbed Dr. Pennie Fish MD Work Phone: [facility] 09-16-2021 zoster vaccine recombinant Rico Coley MD [facility] Payers Date Payer Category Payer Self-pay 2023 Unknown [id number] 2021 Private Health Insurance EB [id number] 2019 Private Health Insurance [id number] 2017 Private Health Insurance 2017 Private Health Insurance KYLELATOYA Benji JOSE [employer] PPO [id number] 2017-Present PPO [id number] 2015 Private Health Insurance [id number] 1969 Unknown [id number] 2.16.840.1.393344.3.579.2 .1969 Unknown [id number] 2.16.840.1.993794.3.579.2 .1969 Unknown [id number] 2.16.840.1.676930.3.579.2 .1969 Unknown [id number] 2.16.840.1.402499.3.579.2 .1969 Unknown [id number] 2.16.840.1.651243.3.579.2 .1969 Unknown [id number] 2.16.840.1.518992.3.579.2 .1969 Unknown [id number] 2.16.840.1.720863.3.579.2 .8 1969 Unknown [id number] 2.16.840.1.560900.3.579.2 .1969 Unknown [id number] 2.16.840.1.758654.3.579.2 .668 Private Health Insurance GULSHAN [id number] Unknown [id number] 2.16.840.1.700529.3.579.2 .462 Unknown [id number] 2.16.840.1.630465.3.579.2 .462 Unknown [id number] 2.16.840.1.091157.3.579.2 .462 Unknown [id number] 2.16.840.1.125575.3.579.2 .462 Unknown [id number] 2.16.840.1.028411.3.579.2 .462 Unknown [id number] 2.16.840.1.326179.3.579.2 .462 Unknown [id number] 2.16.840.1.003472.3.579.2 .462 Unknown [id number] 2.16.840.1.152401.3.579.2 .462 Unknown [id number] 2.16.840.1.177837.3.579.2 .462 Unknown [id number] 2.16.840.1.215041.3.579.2 .462 Worker's Compensation Social History Date Type Detail Facility Assertion Unknown if ever smoked [facility] Work Phone: Start: 04-30-2019 End: 02-02-2025 Tobacco smoking status [facility] Never smoker [facility] Start: 04-30-2019 End: 03-30-2022 Tobacco use and exposure Never used [facility] Start: 04-30-2019 End: 11-01-2024 Alcohol intake Current non-drinker of alcohol (finding) [facility] Start: 1970 Sex Assigned At Not on file [facility] Start: 04-24-2022 End: 06-21-2022 Exposure to SARS-CoV-2 (event) Not sure [facility] Start: 09-15-2021 History SDOH Financial 5 [facility] Work Phone: Start: 09-15-2021 History SDOH Food Worry 1 [facility] Work Phone: Start: 03-30-2022 History SDOH Transpo rt Med 2 [facility] Work Phone: Start: 06-01-2021 End: 11-01-2024 Tobacco use and exposure User of smokeless tobacco [facility] History of tobacco use Chews Tobacco [facility] Start: 06-29-2022 End: 08-29-2023 History of Social function [facility] Start: 06-29-2022 End: 08-29-2023 Tobacco use panel [facility] How often to you hav e a drink containing alcohol? Never [facility] How many standard drinks containing alcohol do you have on a typical day? Patient does not drink [facility] Start: 10-26-2020 Gender identity Identifies as male gender (finding) [facility] Start: 10-11-2023 [facility] if ever smoked [facility] Start: 1970 Sex Assigned At Male [facility] Start: 10-17-2024 Sex Male (finding) [facility] Goals Date Patient Goal Desired Activity /State Personal health goal Functional Status Date Assessment Result Facility NEGATED: Highlighted row Functional performance Functional status health issues are not documented Disease [facility] Work Phone: Mental Status Date Assessment Result Facility 02-02-2025 Cognitive function Level Of Cons ciousness Awake;Alert [facility] Work Phone: NEGATED: Highlighted row Cognitive function [Interpretation] Cognitive status health issues are not documented Disease [facility] Work Phone: Clinical Notes 09-08-2020 to 12-27-2024 Note Date & Type Note Facility 12-27-2024 Evaluation note Diagnosis Onset Date Resolution Obesity chronic December 27, 2024 8:24am Sleep apnea chronic December 27 8:24am Blood in semen acute February 9:42am [facility] Work Phone: 1(554) 932-211804-10-2025 NoteHNO ID: [id number] Author: ASHANTI GARCÍA MD Service: ? Author [...] enjoys fishing and plans to travel to [place] for a fishing trip. PAST MEDICAL HISTORY [...] azelastine (ASTELIN) 0.1% nasal spray Use 1 [place] in each nostril twice daily. metoprolol succinate [...] BUN (mg/dL) Date Value (more content not included)...[facility]04-10-2025 History of Present illness Narrative* Ashanti García MD - 10/31/2024 12:33 PM EDT Chief Complaint No chief complaint on file. History of Present Illness: Angel Bahena Jr. is a 53-year-old male with a history of aortic valve disease, status post Ross procedure 23 years ago, presenting for follow-up. The patient reports feeling better than ever over the past year, with no symptoms of chest pain, dyspnea, syncope, peripheral edema, claudication, hemoptysis, hematemesis, or easy bruising. He deniesany history of cerebrovascular accidents or transient ischemic attacks. He remains active and has recently lost 7 pounds, though he notes a slight weight regain after reaching 203 pounds. He adheres to SBE prophylaxis prior to dental visits. He has made significant lifestyle changes over the past year, including eliminating soda and sugar,reducing salt and red meat intake, and increasing consumption of fruits and vegetables. His most recent total cholesterol level was 120 mg/dL. He enjoys fishing and plans to travel to [place] for a fishing trip. PAST MEDICAL HISTORY [...] azelastine (ASTELIN) 0.1% nasal spray Use 1 [place] in each nostril twice daily. metoprolol succinate [...] Cuff Size: Regular Adult) Pulse 63 Ht 5'9 (1.753 m) Wt 219 lb (99.3 kg) [...] EKG shows sinus rhythm at 60 bpm, first- degree AV block, and borderline low voltage. Patient [...] 31, 2024, 12:33 PM [facility] Evaluation note* Diagnosis Onset Date Resolution Status Admit Date Anxiety with flying acute October 11, 2024 10:33am Preventative health care acute October 11, 2024 10:33am Right hip pain acute September 10:33am Obesity chronic October 11 10:33am Obesity chronic December 27, 2024 8:24am Sleep apnea chronic December 27 8:24am [facility] Work Phone: 1(225) 391-535203-05-2025 Evaluation note* Diagnosis Onset Date Resolution Status Admit Date Obesity chronic September 25 7:47am Sleep apnea chronic September 25 7:47am Anxiety with flying acute October 11, 2024 10:33am Preventative health care acute October 11, 2024 10:33am Right hip pain acute September 10:33am Obesity chronic October 11 10:33am [facility] Work Phone: 1(263) 518-3275361659-03-0925 Evaluation note* Diagnosis Onset Date Resolution Status [...] September 10:33am Obesity chronic October 11 10:33am [facility] Work Phone: 1(919) 607-178402-06-2024 Miscellaneous Notes* Telephone Encounter - Darlin Eugene RN - 08/29/2023 1:06 PM EST Spoke with patient and notified of Dr. García's message regarding Echocardiogram results. Patient voiced understanding. Darlin Eugene RN * Telephone Encounter - Elizabeth Wolfe LPN - 08/29/2023 11:52 AM EST Left message for Mr. Bahena to call [facility] for test results. [facility] phone number provided. Elizabeth Wolfe LPN [...] Follow-up as scheduled dac documented in [facility] Miscellaneous Notes* Patient Education - Meri Cartagena RN - 08/29/2023 7:30 AM EST Patient educated on IVP definity. A #22 jelco inserted into right hand without infiltrate,and 4 ml IVP definity given for echo images. No adverse reaction noted from definity. IV removed and dressingapplied without difficulty. Patient verbalizes understanding. documented in [facility]Gu[facility]11-[facility]-2023 Emergency department Note * Jarvis Flores DO [...] Hypertension. 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 PROCEDURES: Unless otherwise noted below, none Procedures FINAL IMPRESSION 1. Chest pain, unspecified type DISPOSITION Discharge 05/26/2023 06:25:29 PM PATIENT REFERRED TO: MD Lovely White [address] [facility] [address] [facility] [address] Schedule an appointment as soon as possible for a visit [facility] ED [address] [facility] [phone] YOUR CAPTION WRITER DISCHARGE MEDICATIONS: New Prescriptions No medications on [...] Medicine Provider Jarvis Flores DO 05/26/23 1839 * Tiffany Adkins RN - 05/26/2023 5:08 [...] is not taking them. Pt placed on traffic monitor specialist and EKG obtained on arrival. documented in this encounterSSelect [id number] Emergency department Triage note* Tiffany Adkins RN [...] is not taking them. Pt placed on traffic monitor specialist and EKG obtained on arrival. [id number] Physician Emergency department Note* Jarvis Flores DO [...] Hypertension. 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 PROCEDURES: Unless otherwise noted below, none Procedures FINAL IMPRESSION 1. Chest pain, unspecified type DISPOSITION Discharge 05/26/2023 06:25:29 PM PATIENT REFERRED TO: Serenity Mohan MD [address] [facility] [address] [facility] [phone] Schedule an appointment as soon as possible for a visit [facility] ED [address] [facility] [phone] YOUR CAPTION WRITER DISCHARGE MEDICATIONS: New Prescriptions No medications on [...] Medicine Provider Jarvis Flores DO 05/26/23 1839 [id number] Miscellaneous Notes* Telephone Encounter - Katerina Chandler - 06/21/2022 10:05 AM EST I called and spoke with Dr. Coley office and they are faxing those labs from August [address] García. Thanks Katerina Chandler * Telephone Encounter - Ashanti García MD - 06/21/2022 8:28 AM EST Please get labs and lipids from PCP thanks dac documented in this encounterGuern[facility]11-29-2022 Instructions* Patient Instructions* Ashanti García MD - 06/21/2022 8:29 AM EST Try to lose 30 pounds over the year: Consider weight watchers. Try to exercise 3-4 times a week for 20 to 30 minutes documented in this encounterGuernsey [facility]11-29-2022 Nurse Note* Christine Maria LPN - 06/21/2022 8:10 AM EST Patient denies any cardiac complaints or symptoms. Christine Maria LPN documented in this encounterGuernsey [facility] Hospital11-28-2022 History of Present illness Narrative* Ashanti García [...] azelastine (ASTELIN) 0.1% nasal spray Use 1 [place] in each nostril twice daily. metoprolol succinate [...] returns next year. He works as a gasoline truck crane operator and has been certainly cleared to do [...] 20, 2022, 8:38 AM documented in this encounterGuernsey [facility] Hospital02-16-2021 NoteHNO ID: [id number] Author: Portillo Castellanos Service: ? Author Type: [...] history is provided by the patient. No medical language specialist was used. 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 Reason for Visit Preventative health care S/P Ross procedure [facility] Work Phone: Evaluation note* Diagnosis Sprain of right wrist, initial encounter- Primary documented in this encounter [facility] Work Phone: Evaluation note* Diagnosis Status post heart valve replacement- Primary Heart valve replaced by other means Obesity (BMI 30-39.9) Obesity, unspecified Palpitations documented in this encounter [facility] note* Diagnosis Chest pain, unspecified type- Primary documented in this encounter [facility] note* Diagnosis Status post heart valve replacement Heart valve replaced by other means documented in this encounter [facility] note* Diagnosis Onset Date Resolution Status Preventative health care acu te S/P Ross procedure acute [facility] Work Phone: Evaluation note* Diagnosis Aortic valve disease- Primary Aortic valve disorders H/O aortic valve replacement using Ross procedure Heart valve replaced by other means Obesity (BMI 30-39.9) Obesity, unspecified documented in this encounter [facility] Discharge instructions* Attachments The following attachments cannot be sent through Care Everywhere. * Wrist Sprain (Canadian) documented in this [facility] Work Phone: Hospital Discharge instructions* Attachments The following attachments cannot be sent through Care Everywhere. * Chest Pain Discharge Instructions (Canadian) documented in this [facility] for referral (narrative)* Outpatient Procedure (Routine) - Pending Review Specialty Diagnoses / Procedures Referred By Contlissa t Ref[facility] Diagnoses Status post heart valve replacement Procedures ECHO ECHO TTC R-T 2D W/WOM-MODE COMPL SPEC&COLR D Ashanti García MD [address] [address] [facility] [address] [address] Referral ID Status Reason Start Date Expiration Date Visits Requested Visits Authorized [id number] Pending Review Auto-Generat ed Referral 3 06/21/2023 1 1 [facility] for referral (narrative)* Outpatient Procedure (Routine) - Closed Specialty Diagnoses / Procedures Referred By Bibi sanchez Referred To Contact [facility] Diagnoses Status post heart valve replacement Procedures ECHO ECHO TTHRC R-T 2D W/WOM-MODE COMPL SPEC&COLR D Ashanti aGrcía MD [address] [place] [address] [address] Referral ID Status Reason Start Date Expiration Date V isits Requested Visits Authorized [id number] Closed Auto-Generate d Referral 09/14/2023 08/13/2024 1 1 [facility] for referral (narrative)No reason for referral information availableWGood Samaritan Hospital Work Phone: Reason for visit Narrative* Outpatient Procedure (Routine) - Closed Specialty Diagnoses / Procedures Referred By Bibi sanchez Referred To Contact [facility] Diagnoses Status post heart valve replacement Procedures ECHO ECHO TTHRC R-T 2D W/WOM-MODE COMPL SPEC&COLR D Ashanti García MD [address] [place] [address] [facility] [place] [address] [place] [address] Referral ID Status Reason Start Date Expiration Date V isits Requested Visits Authorized [id number] Closed Auto-Generate d Referral 09/14/2023 08/13/2024 1 1 [facility] Summary Purpose Family History Mother Name Dates Details No pertinent family history( V49.89, Z78.9) Status:Active Father Name Dates Details No pertinent family history( V49.89, Z78.9) Status:Active Advance Directives Documents on File Type Date Recorded Patient Fuse Spooler Expl anation ACP-Advance Directive ACP-Power of Guidance Consultant Advance Directive Response Recorded Date/ Time Do you have a Healthcare Power of Guidance Consultant? No February 02, 2025 10:52am History of Present Illness * Diamond Alicea (Accountant Auditor Manager Global), AWS ARCHITECT - 04/22/2020 9:30 AM EDT PRIMARY CARE PHYSICIAN: VENU Lincoln [address] [place] [address] Chief Complaint Patient presents with: CARD Follow [...] June 03, [address] [facility]raz[facility] at [facility] for a Aortic valve stenosis but [...] he goes to his son's farm in [place] and is doing deer hunting with a [...] if any additional events arise. Diamond Alicea APRN.AWS ARCHITECT Follow up planning: Call with any questions or concerns, continue to follow with Dr. García in 1 year Electronically signed by Diamond Alicea APRN.ANY on April 21, 2020, 6:59 AM The above note was partially created using a dictation recognition software. A reasonable attempt has been made to correct any errors. Electronically signed by Diamond De Guzman (Accountant Auditor Manager Global) ANY Alicea at 04/22/2020 10:25 AM EDT documented in this encounter Assessments Diagnosis Status [...] through Care Everywhere. 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, 2024 10: 33am Preventative health care October 11 10:33am Right hip pain October 11, 2024 10: 33am Obesity October 11, 2024 10: 33am Obesity December 27, 2024 8:24a m Sleep apnea December 27, 2024 8:24a m Chief Complaint Admit Date Pap Machine December 27, 2024 8:24a m foreign February 02, 2025 10:5 1am 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 DATE CREATED AUTHOR AUTHOR'S ORGANIZ ATION 07/02/2018 [facility] DATE CREATED AUTHOR AUTHOR'S ORGANIZ ATION 08/02/2019 [employer] DATE CREATED AUTHOR AUTHOR'S ORGANIZ ATION 08/10/2021 [facility] DATE CREATED AUTHOR AUTHOR'S ORGANIZ ATION 05/20/2022 [facility] DATE CREATED AUTHOR AUTHOR'S ORGANIZ ATION 08/14/2023 [facility] DATE CREATED AUTHOR AUTHOR'S ORGANIZ ATION 11/03/2024 [facility] DATE CREATED AUTHOR AUTHOR'S ORGANIZ ATION 02/11/2025 [facility] Source Comments (unrecognize d section and content) In the event this informatio n is protected by the Federal Confidentiality of Alcohol and Drug Abuse Patient Records regulations: The Federal rules restrict any use of the information to criminally investigate or prosecute any alcohol or drug abuse patient.[facility] HospitalIn the event this information is protected by the Federal Confidentiality of Alcohol and Drug Abuse Patient Records regulations: The Federal rules restrict any use of the information to criminally investigate or prosecute any alcohol or drug abuse patient.[facility] HospitalIn the event this information is protected by the Federal Confidentiality of Alcohol and Drug Abuse Patient Records regulations: The Federal rules restrict any use of the information to criminally investigate or prosecute any alcohol or drug abuse patient.[facility] the event this information is protected by the Federal Confidentiality of Alcohol and Drug Abuse Patient Records regulations: The Federal rules restrict any use of the information to criminally investigate or prosecute any alcohol or drug abuse patient.[facility] Hospital[facility] the event this information is protected by the Federal Confidentiality of Alcohol and Drug Abuse Patient Records regulations: The Federal rules restrict any use of the information to criminally investigate or prosecute any alcohol or drug abuse patient.[facility] HospitalIn the event this information is protected by the Federal Confidentiality of Alcohol and Drug Abuse Patient Records regulations: The Federal rules restrict any use of the information to criminally investigate or prosecute any alcohol or drug abuse patient.[facility] Hospital[facility] the event this information is protected by the Federal Confidentiality of Alcohol and Drug Abuse Patient Records regulations: The Federal rules restrict any use of the information to criminally investigate or prosecute any alcohol or drug abuse patient.[facility] Hospital[facility] the event this information is protected by the Federal Confidentiality of Alcohol and Drug Abuse Patient Records regulations: The Federal rules restrict any use of the information to criminally investigate or prosecute any alcohol or drug abuse patient.[facility] Reason for Visit (unrecogniz ed section and [...] has active insurance so we can update. Loils Portillo documented in this encounter Left vm for [...] Care Teams (unrecognized sec tion and content) Sheet Metal Worker Maintenance Relationship Specialty Start Date End Date Jarvis Vera MD [address] [place] [address], [place] [address] PCP - General 02/20/15 Sheet Metal Worker Maintenance Relationship Specialty Start Date End Date Jarvis Vera MD [address] [place] [address], [place] [address] PCP - General 02/20/15 Sheet Metal Worker Maintenance Relationship Specialty Start Date End Date Rico Coley MD [address] [place] [id number] PCP - General Family Medicine 09/16/21 Sheet Metal Worker Maintenance Relationship Specialty Start Date End Date Rico Coley [address] [place] [id number] PCP - General Family Medicine 06/21/22 Sheet Metal Worker Maintenance Relationship Specialty Start Date End Date Rico Coley [address] [place] [phone] PCP - General Family Medicine 06/21/22 Sheet Metal Worker Maintenance Relationship Specialty Start Date End Date Serenity Mohan MD [address] [facility] [address] [place] [id number] PCP - General Family Medicine 05/26/23 Sheet Metal Worker Maintenance Relationship Specialty Start Date End Date Serenity Mohan MD [address] [facility] [address] [place] [phone] PCP - General Family Medicine 05/26/23 Sheet Metal Worker Maintenance Relationship Specialty Start Date End Date Rico Coley PCP - General Family Medicine 06/21/22 Sheet Metal Worker Maintenance Relationship Specialty Start Date End Date Rico [...] 2024 End: September 25, 2024 Moriah Banks ORNAMENTAL METALWORK DESIGNER, ORNAMENTAL METALWORK DESIGNER-C Attending Provider Active Start: September 25, 2024 [...] October 11, 2024 End: October 11, 2024 Sheet Metal Worker Maintenance Relationship Specialty Start Date End Date Pennie Fish MD [address] [facility] [address] PCP - General Internal Medicine 11/01/24 Team Status: Inactive Member Role Status Dates Dr. Pennie Fish MD Primary Care Provider Active Start: December 27, 2024 End: December 27, 2024 Dr. Pennie Fish MD Referring Provider Active Start: December 27, 2024 End: December 27, 2024 Moriah Banks ORNAMENTAL METALWORK DESIGNER, ORNAMENTAL METALWORK DESIGNER-C Attending Provider Active Start: December 27, 2024 End: December 27, 2024 Team Status: Active Member Role/Relationship Status Dates Dr. Pennie Fish MD Primary Care Provider Active Team Status: Inactive Member Role/Relationship Status Dates Dr. Pennie Fish MD Primary Care Provider Active Start: October 11, 2024 End: October 11, 2024 Dr. Pennie Fish MD Attending Provider Active Start: October 11, 2024 End: October 11, 2024 Dr. Pennie Fish MD Referring Provider Active Start: October 11, 2024 End: October 11, 2024 Team Status: Inactive Member Role/Relationship Status Dates Dr. Pennie Fish MD Primary Care Provider Active Start: October 11, 2024 End: October 11, 2024 Dr. Pennie Fish MD Attending Provider Active Start: October 11, 2024 End: October 11, 2024 Dr. Pennie Fish MD Referring Provider Active Start: October 11, 2024 End: October 11, 2024 Team Status: Inactive Member Role/Relationship Status Dates Dr. Pennie Fish MD Primary Care Provider Active Start: December 27, 2024 End: December 27, 2024 Dr. Pennie Fish MD Referring Provider Active Start: December 27, 2024 End: December 27, 2024 Moriah Banks ORNAMENTAL METALWORK DESIGNER, ORNAMENTAL METALWORK DESIGNER-C Attending Provider Active Start: December 27, 2024 End: December 27, 2024 Team Status: Inactive Member Role/Relationship Status Dates Dr. Pennie Fish MD Primary Care Provider Active Start: February 02, 2025 End: February 02, 2025 Dr. Mp Chau DO Emergency Provider Active Start: February 02, 2025 End: February 02, 2025 Team Status: Inactive Member Role/Relationship Status Dates Dr. Pennie Fish MD Primary Care Provider Active Start: December 27, 2024 End: December 27, 2024 Dr. Pennie Fish MD Referring Provider Active Start: December 27, 2024 End: December 27, 2024 Moriah Banks ORNAMENTAL METALWORK DESIGNER, ORNAMENTAL METALWORK DESIGNER-C Attending Provider Active Start: December 27, 2024 End: December 27, 2024 Team Status: Inactive Member Role/Relationship Status Dates Dr. Pennie Fish MD Primary Care Provider Active Start: February 02, 2025 End: February 02, 2025 Dr. Mp Chau DO Attending Provider Active Start: February 02, 2025 End: February 02, 2025 Dr. Mp Chau DO Emergency Provider Active Start: February 02, 2025 End: February 02, 2025 Team Status: Inactive Member Role/Relationship Status Dates Dr. Pennie Fish MD Primary Care Provider Active Start: February 24, 2025 End: February 24, 2025 Dr. Pennie Fish MD Attending Provider Active Start: February 24, 2025 End: February 24, 2025 Dr. Pennie Fish MD Referring Provider Active Start: February 24, 2025 End: February 24, 2025 Team Status: Active Member Role/Relationship Status Dates Dr. Pennie Fish MD Primary Care Provider Active Start: February 24, 2025 Dr. Pennie Fish MD Attending Provider Active Start: February 24, 2025 Dr. Pennie Fish MD Referring Provider Active Start: February 24, 2025 Inactive Administered Medications - up to 3 [...] BE BASED ON THE PRIMARY CLINICAL RECORDS. [facility]. provides no warranty or guarantee of the accuracy or completeness of information in this document.
== END | disposition home or self-care (01) ==
LOC: BIMLAB 10:11
PROVIDERS: PCP Internal Medicine; Referring Provider Internal Medicine; Visit Provider Internal Medicine
DX: R36.1 Hematospermia (principal)
CPT/HCPCS: 36415; 80053; 81001; 84153; 85025

== ENCOUNTER → 2025-04-16 | Outpatient (CLI) | payer OTHER, SELFPAY | END | disposition home or self-care (01) | PROVIDERS: PCP Internal Medicine; Referring Provider Nurse Practitioner Acute Care; Visit Provider Nurse Practitioner Acute Care | DX: R50.9 Fever, unspecified (principal) | CPT/HCPCS: 87631 ==

== ENCOUNTER → 2025-04-17 | Outpatient (CLI) | payer OTHER, SELFPAY | END | disposition home or self-care (01) | LOC: PSN 10:53 | PROVIDERS: PCP Internal Medicine; Referring Provider Nurse Practitioner Acute Care; Visit Provider Nurse Practitioner Acute Care | DX: R50.9 Fever, unspecified (principal) | CPT/HCPCS: 87631 ==